=== PATIENT | female | born 1985 | race Caucasian/White ===

== ENCOUNTER → 2023-10-07 | Outpatient (CLI) | payer OTHER, SELFPAY ==
[2023-10-07 11:08] LABS: EXAGEN MAILED SPECIMEN
[2023-10-07 12:26] LABS: Color, Urine Yellow (Yellow); Glucose, Dipstick Normal (Normal); Ketone-Dipstick Negative (Negative); Leukocyte Esterase-Dipstick Negative /ul (Negative); Nitrite-Dipstick Negative (Negative); Occult Blood-Urine 10 /ul (Negative); Protein-Dipstick Negative (Negative); Urine Bilirubin Dipstick Negative (Negative); Urine Clarity Sl. Cloudy (Clear); Urine Urobilinogen Normal (Normal)
[2023-10-07 12:32] LABS: Erythrocyte Sedimentation Rate 7 mm/hr (0-30)
[2023-10-07 12:33] LABS: Protein, Urine (Random) 11.5 mg/dL (<11.9); Protein:Creat Ratio 85 mg/g CRE (0-200)
[2023-10-07 12:35] LABS: Absolute Lymphocyte Count 1.87 X10^3/uL (0.83-4.51); Absolute Neutrophil Count 6.5 X10^3/uL (2.0-7.7); Basophil# 0.06 X10^3/uL; Basophil% 0.7 % (0-1); Eosinophil# 0.11 X10^3/uL; Eosinophils% 1.2 % (0-5); Hematocrit 41.3 % (37-47); Hemoglobin 13.7 g/dL (12.0-15.0); Lymphocyte # 1.87 X10^3/ul (0.83-4.51); Lymphocyte % 20.8 % (19-41); Mean Corp Hgb Conc 33.2 g/dL (32-36); Mean Corpuscular Hgb 31.6 pg (27.0-32.0); Mean Corpuscular Volume 95.4 fL (81-99); Mean Platelet Vol. 11.8 fl (6.2-12.0); Monocyte# 0.41 X10^3/uL; Monocyte% 4.6 % (0-10); NRBC Flagged by Analyzer 0 % (0-5); Neutrophil # 6.49 X10^3/uL (2.7-7.7); Neutrophil % 72.4 % (47-70); Platelet Count 243 K/mm3 (150-450); RBC Distribution Width CV 11.9 % (11.6-14.6); RBC Distribution Width SD 41.3 fl (35.1-43.9); Red Blood Count 4.33 M/mm3 (4.2-5.4)
[2023-10-07 13:01] LABS: ALB/GLOB Ratio 0.9 RATIO (0.9-2.4); AST(SGOT) 20 U/L (15-37); Alanine Aminotransfer ALT/SGPT 30 U/L (13-56); Albumin, Serum 3.6 g/dL (3.2-5.0); Alkaline Phosphatase 88 U/L (45-117); Anion Gap 8 (5-15); BUN 10 mg/dL (7-18); BUN/Creat Ratio 11.6 RATIO (10-20); Chloride 107 mmol/L (98-107); Creatinine, Serum 0.86 mg/dL (0.55-1.02); EST Glomerular Filtration Rate 79 mL/min (>60); Est Glom Filt Rate - Afr Amer 95 mL/min (>60); Globulin 3.8 g/dL (2.2-4.2); Glucose 102 mg/dL (74-106); Potassium 3.6 mmol/L (3.5-5.1); Protein, Total 7.4 g/dL (6.4-8.2); Sodium Level 140 mmol/L (136-145)
[2023-10-07 13:49] LABS: Hepatitis B Surface Antibody Non-Reactive; Hepatitis B Surface Antigen Non-Reactive (Nonreactive); Hepatitis C Antibody Non-Reactive (Nonreactive)
[2023-10-08 21:07] LABS: Dilute Prothrombin Time (dPT) 33.7 sec (0.0-47.6); Dilute Russell Viper Venom 38.2 sec (0.0-47.0); Interpretation Comment: (.); PTT-LA 36.2 sec (0.0-43.5); Thrombin Time 17.7 sec (0.0-23.0)
== END | disposition home or self-care (01) ==
LOC: MTLAB 10:06
PROVIDERS: Referring Provider Internal Medicine Rheumatology; Visit Provider Internal Medicine Rheumatology
DX: R76.8 Other specified abnormal immunological findings in serum (principal); M06.4 Inflammatory polyarthropathy
CPT/HCPCS: 36415; 80053; 81002; 82570; 84156; 85025; 85652; 86140; 86706; 86803; 87340

== ENCOUNTER → 2023-11-27 | Outpatient (CLI) | payer OTHER, SELFPAY ==
[2023-11-27 12:23] LABS: Absolute Lymphocyte Count 1.89 X10^3/uL (0.83-4.51); Absolute Neutrophil Count 7.6 X10^3/uL (2.0-7.7); Basophil# 0.09 X10^3/uL; Basophil% 0.9 % (0-1); Eosinophil# 0.09 X10^3/uL; Eosinophils% 0.9 % (0-5); Hematocrit 43.1 % (37-47); Hemoglobin 13.9 g/dL (12.0-15.0); Lymphocyte # 1.89 X10^3/ul (0.83-4.51); Lymphocyte % 18.5 % (19-41); Mean Corp Hgb Conc 32.3 g/dL (32-36); Mean Corpuscular Hgb 30.7 pg (27.0-32.0); Mean Corpuscular Volume 95.1 fL (81-99); Mean Platelet Vol. 11.4 fl (6.2-12.0); Monocyte# 0.55 X10^3/uL; Monocyte% 5.4 % (0-10); NRBC Flagged by Analyzer 0 % (0-5); Neutrophil # 7.57 X10^3/uL (2.7-7.7); Platelet Count 242 K/mm3 (150-450); RBC Distribution Width CV 12.2 % (11.6-14.6); RBC Distribution Width SD 42.5 fl (35.1-43.9); Red Blood Count 4.53 M/mm3 (4.2-5.4); White Blood Count 10.2 K/mm3 (4.4-11.0)
[2023-11-27 13:00] LABS: AST(SGOT) 17 U/L (15-37); Alanine Aminotransfer ALT/SGPT 27 U/L (13-56); Albumin, Serum 3.8 g/dL (3.2-5.0); Alkaline Phosphatase 93 U/L (45-117); Anion Gap 4 (5-15); BUN 12 mg/dL (7-18); BUN/Creat Ratio 12.9 RATIO (10-20); Calcium,Total 9.7 mg/dL (8.5-10.1); Chloride 104 mmol/L (98-107); Creatinine, Serum 0.93 mg/dL (0.55-1.02); EST Glomerular Filtration Rate 72 mL/min (>60); Est Glom Filt Rate - Afr Amer 87 mL/min (>60); Globulin 3.7 g/dL (2.2-4.2); Glucose 90 mg/dL (74-106); Protein, Total 7.5 g/dL (6.4-8.2); Sodium Level 136 mmol/L (136-145)
== END | disposition home or self-care (01) ==
LOC: MTLAB 10:38
PROVIDERS: Referring Provider Internal Medicine Rheumatology; Visit Provider Internal Medicine Rheumatology
DX: M06.4 Inflammatory polyarthropathy (principal); Z79.899 Other long term (current) drug therapy; R76.8 Other specified abnormal immunological findings in serum; G56.01 Carpal tunnel syndrome, right upper limb
CPT/HCPCS: 36415; 80053; 85025

== ENCOUNTER → 2024-01-15 | Outpatient (CLI) | payer OTHER, SELFPAY ==
[2024-01-15 17:42] LABS: Absolute Lymphocyte Count 2.07 X10^3/uL (0.83-4.51); Absolute Neutrophil Count 6.5 X10^3/uL (2.0-7.7); Basophil# 0.07 X10^3/uL; Basophil% 0.7 % (0-1); Eosinophil# 0.11 X10^3/uL; Eosinophils% 1.2 % (0-5); Hematocrit 42.2 % (37-47); Hemoglobin 13.9 g/dL (12.0-15.0); Lymphocyte # 2.07 X10^3/ul (0.83-4.51); Lymphocyte % 21.8 % (19-41); Mean Corp Hgb Conc 32.9 g/dL (32-36); Mean Corpuscular Hgb 31.4 pg (27.0-32.0); Mean Corpuscular Volume 95.3 fL (81-99); Mean Platelet Vol. 11.5 fl (6.2-12.0); Monocyte# 0.69 X10^3/uL; Monocyte% 7.3 % (0-10); NRBC Flagged by Analyzer 0 % (0-5); Neutrophil # 6.54 X10^3/uL (2.7-7.7); Neutrophil % 68.7 % (47-70); Platelet Count 244 K/mm3 (150-450); RBC Distribution Width CV 12.4 % (11.6-14.6); RBC Distribution Width SD 42.7 fl (35.1-43.9); Red Blood Count 4.43 M/mm3 (4.2-5.4); White Blood Count 9.5 K/mm3 (4.4-11.0)
[2024-01-15 18:28] LABS: ALB/GLOB Ratio 1.1 RATIO (0.9-2.4); AST(SGOT) 17 U/L (15-37); Alanine Aminotransfer ALT/SGPT 29 U/L (13-56); Albumin, Serum 3.9 g/dL (3.2-5.0); Alkaline Phosphatase 84 U/L (45-117); Anion Gap 6 (5-15); BUN 14 mg/dL (7-18); BUN/Creat Ratio 14.6 RATIO (10-20); Calcium,Total 9.3 mg/dL (8.5-10.1); Chloride 106 mmol/L (98-107); Creatinine, Serum 0.96 mg/dL (0.55-1.02); EST Glomerular Filtration Rate 70 mL/min (>60); Est Glom Filt Rate - Afr Amer 84 mL/min (>60); Globulin 3.6 g/dL (2.2-4.2); Glucose 102 mg/dL (74-106); Potassium 3.5 mmol/L (3.5-5.1); Protein, Total 7.5 g/dL (6.4-8.2); Sodium Level 139 mmol/L (136-145)
== END | disposition home or self-care (01) ==
LOC: MTLAB 15:49
PROVIDERS: Referring Provider Internal Medicine Rheumatology; Visit Provider Internal Medicine Rheumatology
DX: M06.4 Inflammatory polyarthropathy (principal); Z79.899 Other long term (current) drug therapy; R76.8 Other specified abnormal immunological findings in serum; G56.01 Carpal tunnel syndrome, right upper limb
CPT/HCPCS: 36415; 80053; 85025

== ENCOUNTER → 2024-03-14 | Outpatient (CLI) | payer OTHER, SELFPAY ==
[2024-03-14 17:28] LABS: Absolute Lymphocyte Count 2.45 X10^3/uL (0.83-4.51); Absolute Neutrophil Count 8.3 X10^3/uL (2.0-7.7); Basophil# 0.09 X10^3/uL; Basophil% 0.8 % (0-1); Eosinophil# 0.11 X10^3/uL; Eosinophils% 0.9 % (0-5); Hematocrit 40.3 % (37-47); Hemoglobin 13.5 g/dL (12.0-15.0); Lymphocyte # 2.45 X10^3/ul (0.83-4.51); Mean Corp Hgb Conc 33.5 g/dL (32-36); Mean Corpuscular Hgb 31.8 pg (27.0-32.0); Mean Platelet Vol. 10.9 fl (6.2-12.0); Monocyte# 0.73 X10^3/uL; Monocyte% 6.2 % (0-10); NRBC Flagged by Analyzer 0 % (0-5); Neutrophil # 8.26 X10^3/uL (2.7-7.7); Neutrophil % 70.7 % (47-70); Platelet Count 248 K/mm3 (150-450); RBC Distribution Width CV 12.6 % (11.6-14.6); RBC Distribution Width SD 43.2 fl (35.1-43.9); Red Blood Count 4.24 M/mm3 (4.2-5.4); White Blood Count 11.7 K/mm3 (4.4-11.0)
[2024-03-14 18:33] LABS: ALB/GLOB Ratio 1.1 RATIO (0.9-2.4); AST(SGOT) 18 U/L (15-37); Alanine Aminotransfer ALT/SGPT 58 U/L (13-56); Albumin, Serum 3.8 g/dL (3.2-5.0); Alkaline Phosphatase 80 U/L (45-117); Anion Gap 6 (5-15); BUN 11 mg/dL (7-18); BUN/Creat Ratio 13.1 RATIO (10-20); Chloride 105 mmol/L (98-107); Creatinine, Serum 0.84 mg/dL (0.55-1.02); EST Glomerular Filtration Rate 81 mL/min (>60); Est Glom Filt Rate - Afr Amer 98 mL/min (>60); Globulin 3.5 g/dL (2.2-4.2); Glucose 97 mg/dL (74-106); Potassium 3.6 mmol/L (3.5-5.1); Protein, Total 7.3 g/dL (6.4-8.2); Sodium Level 137 mmol/L (136-145)
== END | disposition home or self-care (01) ==
LOC: MTLAB 16:05
PROVIDERS: Referring Provider Internal Medicine Rheumatology; Visit Provider Internal Medicine Rheumatology
DX: M06.4 Inflammatory polyarthropathy (principal); G56.01 Carpal tunnel syndrome, right upper limb; R76.8 Other specified abnormal immunological findings in serum; Z79.899 Other long term (current) drug therapy
CPT/HCPCS: 36415; 80053; 85025

== ENCOUNTER → 2024-05-16 | Outpatient (CLI) | payer OTHER, SELFPAY ==
[2024-05-16 10:36] LABS: Absolute Lymphocyte Count 1.59 X10^3/uL (0.83-4.51); Absolute Neutrophil Count 5.7 X10^3/uL (2.0-7.7); Basophil# 0.07 X10^3/uL; Basophil% 0.9 % (0-1); Eosinophil# 0.08 X10^3/uL; Hematocrit 41.2 % (37-47); Hemoglobin 13.8 g/dL (12.0-15.0); Lymphocyte # 1.59 X10^3/ul (0.83-4.51); Lymphocyte % 19.8 % (19-41); Mean Corp Hgb Conc 33.5 g/dL (32-36); Mean Corpuscular Hgb 32.2 pg (27.0-32.0); Mean Platelet Vol. 11.2 fl (6.2-12.0); Monocyte# 0.57 X10^3/uL; Monocyte% 7.1 % (0-10); NRBC Flagged by Analyzer 0 % (0-5); Neutrophil % 70.8 % (47-70); Platelet Count 257 K/mm3 (150-450); RBC Distribution Width CV 12.8 % (11.6-14.6); RBC Distribution Width SD 45.1 fl (35.1-43.9); Red Blood Count 4.29 M/mm3 (4.2-5.4)
[2024-05-16 10:59] LABS: ALB/GLOB Ratio 1.1 RATIO (0.9-2.4); AST(SGOT) 17 U/L (15-37); Alanine Aminotransfer ALT/SGPT 30 U/L (13-56); Albumin, Serum 3.8 g/dL (3.2-5.0); Alkaline Phosphatase 83 U/L (45-117); Anion Gap 7 (5-15); BUN 14 mg/dL (7-18); BUN/Creat Ratio 13.2 RATIO (10-20); Calcium,Total 9.4 mg/dL (8.5-10.1); Chloride 105 mmol/L (98-107); Creatinine, Serum 1.06 mg/dL (0.55-1.02); EST Glomerular Filtration Rate 62 mL/min (>60); Est Glom Filt Rate - Afr Amer 75 mL/min (>60); Globulin 3.6 g/dL (2.2-4.2); Glucose 99 mg/dL (74-106); Potassium 3.8 mmol/L (3.5-5.1); Protein, Total 7.4 g/dL (6.4-8.2); Sodium Level 137 mmol/L (136-145)
== END | disposition home or self-care (01) ==
LOC: MTLAB 07:56
PROVIDERS: Referring Provider Internal Medicine Rheumatology; Visit Provider Internal Medicine Rheumatology
DX: M06.4 Inflammatory polyarthropathy (principal); R76.8 Other specified abnormal immunological findings in serum; Z79.899 Other long term (current) drug therapy
CPT/HCPCS: 36415; 80053; 85025

== ENCOUNTER → 2024-07-05 | Outpatient (CLI) | payer OTHER, SELFPAY ==
[2024-07-05 10:38] LABS: Absolute Lymphocyte Count 1.56 X10^3/uL (0.83-4.51); Absolute Neutrophil Count 5.9 X10^3/uL (2.0-7.7); Basophil# 0.07 X10^3/uL; Basophil% 0.9 % (0-1); Eosinophil# 0.08 X10^3/uL; Hematocrit 42.8 % (37-47); Hemoglobin 14.1 g/dL (12.0-15.0); Lymphocyte # 1.56 X10^3/ul (0.83-4.51); Mean Corp Hgb Conc 32.9 g/dL (32-36); Mean Corpuscular Hgb 32.2 pg (27.0-32.0); Mean Corpuscular Volume 97.7 fL (81-99); Mean Platelet Vol. 11.7 fl (6.2-12.0); Monocyte# 0.54 X10^3/uL; Monocyte% 6.6 % (0-10); NRBC Flagged by Analyzer 0 % (0-5); Neutrophil # 5.93 X10^3/uL (2.7-7.7); Neutrophil % 72.3 % (47-70); Platelet Count 216 K/mm3 (150-450); RBC Distribution Width CV 12.5 % (11.6-14.6); RBC Distribution Width SD 44.9 fl (35.1-43.9); Red Blood Count 4.38 M/mm3 (4.2-5.4); White Blood Count 8.2 K/mm3 (4.4-11.0)
[2024-07-05 10:43] LABS: ALB/GLOB Ratio 1.5 RATIO (0.9-2.4); AST(SGOT) 20 U/L (<=31); Alanine Aminotransfer ALT/SGPT 22 U/L (<=34); Albumin, Serum 4.4 g/dL (3.5-5.0); Alkaline Phosphatase 70 U/L (35-104); Anion Gap 9 (5-15); BUN 13 mg/dL (4-19); BUN/Creat Ratio 14.4 RATIO (10-20); Calcium,Total 9.8 mg/dL (7.6-11.0); Carbon Dioxide 23.7 mmol/L (21.0-32.0); Chloride 105 mmol/L (98-108); Creatinine, Serum 0.93 mg/dL (0.70-1.20); EST Glomerular Filtration Rate 82 (>60); Globulin 2.9 g/dL (2.2-4.2); Glucose 104 mg/dL (70-99); Potassium 4.1 mmol/L (3.3-5.1); Protein, Total 7.2 g/dL (5.9-8.4); Sodium Level 137 mmol/L (133-145)
== END | disposition home or self-care (01) ==
LOC: MTLAB 08:01
PROVIDERS: Referring Provider Internal Medicine Rheumatology; Visit Provider Internal Medicine Rheumatology
DX: M06.4 Inflammatory polyarthropathy (principal); Z79.899 Other long term (current) drug therapy; R76.8 Other specified abnormal immunological findings in serum
CPT/HCPCS: 36415; 80053; 85025

== ENCOUNTER → 2024-10-01 | Outpatient (CLI) | payer OTHER, SELFPAY ==
--- OUTSIDE RECORDS SUMMARY | 2024-10-01 10:44 | XMS RPT_ITS | CCD ---
Author Organization [facility] Team Providers Care Bridge Teacher Name Role Phone MARGARETTE OLIVO Unavailable Unavailable GISELA RUIZ Unavailable Unavailable BHAVYA CARMEN Unavailable Unavailable ALF KING Unavailable Unavailable BHAVYA CARMEN Unavailable Unavailable BHAVYA CARMEN Unavailable Unavailable Deejay DIRECT SUPPORT STAFF.Thom SERRANO Primary Care Provider Deejay DIRECT SUPPORT STAFF.Thom SERRANO Primary Care Provider MOHSEN ALMAZAN Attending Unavailable Jadiel DIRECT SUPPORT STAFF.Nicole SERRANO Primary Care Formerly [facility] er DAYNA DESHPANDE Attending Unavailable DAYNA DESHPANDE Attending Unavailable Jadiel DIRECT SUPPORT STAFF.Nicole SERRANO Primary Care Formerly [facility] er EMEKA RODRIGUEZ Referring Unavailable NICOLE DUVALL Primary Care Unavailable MOHSEN ALMAZAN Attending Unavailable THOM VILLALBA Primary Care Unavailable Lesterki, Nilam Attending Unavailable FARRELL, ANABELL Primary Care Unavailable Vellanki, Nilam Referring Unavailable Vellanki, Nilam Attending Unavailable FARRELL, ANABELL Primary Care Unavailable Vellanki, Nilam Referring Unavailable FARRELL, ANABELL Primary Care Unavailable Vellanki, Nilam Referring Unavailable Vellanki, Nilam Attending Unavailable FARRELL, ANABELL Primary Care Unavailable Vellanki, Nilam Referring Unavailable Vellanki, Nilam Attending Unavailable FARRELL, ANABELL Primary Care Unavailable Vellanki, Nilam Attending Unavailable Vellanki, Nilam Referring Unavailable Vellanki, Nilam Attending Unavailable FARRELL, ANABELL Primary Care Unavailable Vellanki, Nilam Referring Unavailable NICOLE DUVALL Primary Care Provider [phone] Cori URIOSTEGUI, Dr. Demarco Attending Provider Dr. Nilam Persaud MD Referring Provider DUVALL, NICOLE TREASURE Referring Unavailable DUVALL, NICOLE TREASURE Primary Care Unavailable FERNANDO ROBERT Attending UnavailALEXIS Costa Referring Unavailable DUVALL, NICOLE TREASURE Primary Care Unavailable FERNANDO ROBERT Attending UnavailALEXIS Costa Referring Unavailable DUVALL, NICOLE TREASURE Primary Care Unavailable FERNANDO ROBERT Attending UnavailALEXIS Costa Referring Unavailable DUVALL, NICOLE TREASURE Primary Care Unavailable FERNANDO ROBERT Attending UnavailALEXIS Costa Referring Unavailable DUVALL, NICOLE TREASURE Primary Care Unavailable FERNANDO ROBERT Attending UnavailALEXIS Costa Referring Unavailable DUVALL, NICOLE TREASURE Primary Care Unavailable FERNANDO ROBERT Attending UnavailALEXIS Costa Referring Unavailable DUVALL, NICOLE TREASURE Primary Care Unavailable FERNANDO ROBERT Attending UnavailALEXIS Costa Referring Unavailable DUVALL, NICOLE TREASURE Primary Care Unavailable FERNANDO ROBERT Attending UnavailALEXIS Costa Referring Unavailable DUVALL, NICOLE TREASURE Primary Care Unavailable DUVALL, NICOLE TREASURE Referring Unavailable DUVALL, NICOLE TREASURE Primary Care Unavailable DUVALL, NICOLE TREASURE Primary Care Unavailable DESTINY MANN Attending Unavailable DUVALL, NICOLE TREASURE Referring Unavailable DUVALL, NICOLE TREASURE Primary Care Unavailable Nirmal URIOSTEGUI, PhD, Riya Unavailable Swapna Butler DO Unavailable [phone] ALEXIS JONES Referring Unavailable DUVALL, NICOLE TREASURE Primary Care Unavailable CLARISSE WATT Attending Unavailable SWAPNA BUTLER Referring Unavailable DUVALL, NICOLE TREASURE Primary Care Unavailable SWAPNA BUTLER Attending Unavailable DUVALL, NICOLE TREASURE Primary Care Unavailable DUVALL, NICOLE TREASURE Referring Unavailable DUVALL, NICOLE TREASURE Primary Care Unavailable ALEXIS JONES Referring Unavailable DUVALL, NICOLE TREASURE Primary Care Unavailable ALEXIS JONES Referring Unavailable DUVALL, NICOLE TREASURE Primary Care Unavailable ALEXIS JONES Referring Unavailable DUVALL, NICOLE TREASURE Primary Care Unavailable DUVALL, NICOLE TREASURE Attending Unavailable DUVALL, NICOLE TREASURE Primary Care Unavailable DUVALL, NICOLE TREASURE Attending Unavailable DUVALL, NICOLE TREASURE Primary Care Unavailable DUVALL, NICOLE TREASURE Attending Unavailable DUVALL, NICOLE TREASURE Primary Care Unavailable SWAPNA BUTLER Attending Unavailable DUVALL, NICOLE TREASURE Referring Unavailable DUVALL, NICOLE TREASURE Primary Care Unavailable DUVALL, NICOLE TREASURE Referring Unavailable DUVALL, NICOLE TREASURE Primary Care Unavailable ALEXIS JONES Attending Unavailable DUVALL, NICOLE TREASURE Primary Care Unavailable MADHU, RAGINI Attending Unavailable ALEXIS JONES Referring Unavailable DUVALL, NICOLE TREASURE Primary Care Unavailable RIYA IKNNEY Attending Unavailable PREBISH, RAGINI Referring Unavailable DUVALL, NICOLE TREASURE Primary Care Unavailable WARD HERRERA Attending Unavailable DUVALL, NICOLE TREASURE Primary Care Unavailable Medications Current Medications Medication Drug Class(es) Dates Sig (Normalized) Sig (Original) amoxicillin 875 mg / clavulanate 125 mg oral tablet (2 sources) Penicillin-class Antibacterial Start: 03-10-2024 End: 03-17-2024 take 1 tablet by mouth twice daily amoxicillin-clavula lidya potassium (AUGMENTIN) 875-125 mg per tablet Indications: Acute otitis media, left Take 1 tablet by mouth two times a day for 7 days. 14 tablet 03/10/2024 03/17/2024 Active cholecalciferol 0.05 mg oral capsule (20 sources) Vitamin D take 1 capsule by mouth once daily Cholecalciferol, Vitamin D3, 50 mcg (2,000 unit) cap Take 2,000 Units by mouth once daily. Active Comment on above: Take 2,000 Units by mouth once daily. clobetasol propionate 0.5 mg/ml topical solution (8 sources) Corticosteroid Start: 11-23-2023 End: 08-05-2024 Clobetasol Propionate (TEMOVATE) 0.05 % external solution APPLY TO THE SCALP AT NIGHT AND MASSAGE IN, ALLOWING TO STAY IN OVERNIGHT FOR TWO WEEKS, STOPPING FOR ONE WEEK AND THEN RESUMING THE REGIMEN NEEDED FOR FLARING. 11/23/2023 08/05/2024 Discontinued folic acid 1 mg oral tablet (16 sources) Start: 02-17-2024 take 1 tablet by mouth twice daily folic acid 1 mg tablet Take 1 mg by mouth two times a day. 02/17/2024 Active iv contrast (will be provided with radiology test) (1 source) Start: 09-29-2023 End: 09-30-2023 iv contrast (will be provided with radiology test) MRI CSP Inject, intravenously, once for 1 dose. No IV access, insert saline lock prior to the beginning of sedation, infusion, injection of imaging exam. Discontinue saline lock post exam. If Pt. has a central line or IVAD, may access for administration according to line specific nursing protocol. Once exam is complete flush line and de-access according to line specific nursing protocol in the MR contrast administration guidelines link. 1 Each 0 09/29/2023 09/30/2023 Active ketoconazole 20 mg/ml medicated shampoo (8 sources) Azole Antifungal Start: 11-23-2023 End: 08-05-2024 ketoconazole (NIZORAL) 2 % shampoo USE FOR EVERY OTHER WASH ON THE SCALP LETTING IT LATHER 3 TO 5 MINUTES BEFORE RINSING DIRECTED. 11/23/2023 08/05/2024 Discontinued magnesium sulfate 0.0277 meq/ml / potassium sulfate 0.0374 meq/ml / sodium sulfate 0.257 meq/ml oral solution (1 source) Start: 08-17-2023 End: 08-19-2023 sodium sulfate-potassium sulfate-magnesium sulfate (SUPREP BOWEL PREP KIT) 17.5-3.13-1.6 gram oral liquid Indications: Family history of colon cancer in father Take 1 Bottle by mouth as directed for 2 days. Refer to instructions given by your provider. 1 Kit 0 08/17/2023 08/19/2023 Active methotrexate 2.5 mg oral tablet (16 sources) Folate Analog Metabolic Inhibitor Start: 02-17-2024 take 1 tablet by mouth every week methotrexate 2.5 mg tablet Take 2.5 mg by mouth. Take 6 tabs Q week. 02/17/2024 Active predniSONE 10 mg oral tablet (19 sources) Start: 02-22-2024 take 1 tablet by mouth once daily as needed predniSONE (DELTASONE) 10 mg tablet Take 1 tablet by mouth once daily as needed. Rx by rheumatology for days of increased activity 02/22/2024 Active Start: 11-21-2021 End: 10-13-2022 predniSONE (DELTASONE) 10 mg tablet Indications: Dermatitis Take 5 tabs every morning x 3 days, take 4 tabs every morning x 3 days, take 3 tabs every morning x 3 days, take 2 tabs every morning x 3 days, take 1 tab every morning x 3 days. 45 tablet 0 11/21/2021 10/13/2022 Discontinued (Course of therapy completed) Comment on above: Take 5 tabs every mo rning x 3 days, take 4 tabs every morning x 3 days, take 3 tabs every morning x 3 days, take 2 tabs every morning x 3 days, take 1 tab every morning x 3 days. rosuvastatin calcium 10 mg oral tablet (20 sources) HMG-CoA Reductase Inhibitor Start: End: take 1 tablet by mouth once daily at bedtime rosuvastatin (CRESTOR) 10 mg tablet Take 1 tablet by mouth daily at bedtime. 90 tablet 3 08/05/2024 07/31/2025 Active Start: 11-05-2023 End: 03-09-2024 take 1 tablet by mouth once daily at bedtime rosuvastatin (CRESTOR) 10 mg tablet Take 1 tablet by mouth daily at bedtime. 30 tablet 02/08/2024 Active SEMAGLUTIDE SUBCUTANEOUS (7 sources) Start: 07-15-2024 inject 0.2 mg by subcutaneous injection every week SEMAGLUTIDE SUBCUTANEOUS Inject 0.2 mg subcutaneously one time a week. Receives through [facility] 07/15/2024 Active terbinafine 250 mg oral tablet (4 sources) Allylamine Antifungal Start: 10-17-2021 End: 11-28-2021 take 1 tablet by mouth once daily terbinafine HCl (LAMISIL) 250 mg tablet Indications: Tinea corporis Take 1 tablet by mouth once daily. 30 tablet 1 10/17/2021 11/28/2021 Active Comment on above: Take 1 tablet by sarah th once daily. Completed/Discontinued Medications Medication Drug Class(es) Dates Sig (Normalized) Sig (Original) 0.9% NaCl 10 mL flush (2 sources) Start: 08-16-2024 End: 08-16-2024 0.9% NaCl 10 mL flush Start: 08-16-2024 End: 08-16-2024 10 mL, OTHER, ONCE, 1 dose, On Thu08/16/24 at 1030 24 hr buPROPion hydrochloride 150 mg extended release oral tablet (2 sources) Aminoketone Start: 09-07-2020 End: 10-17-2021 take 2 tablets by mouth once daily buPROPion XL (WELLBUTRIN XL) 150 mg 24 hr tablet Indications: Depression, unspecified depression type Take 2 tablets by mouth once daily. 60 tablet 2 09/07/2020 10/17/2021 Discontinued Comment on above: Take 2 tablets by [facility] once daily. 1 ml dexamethasone phosphate 10 mg/ml injection (1 source) Corticosteroid Start: 08-16-2024 End: 08-16-2024 dexAMETHasone sodium phosphate 10 mg injection (DECADRON) iohexol 300 mg injection (OMNIPAQUE 300) (2 sources) Start: 08-16-2024 End: 08-16-2024 iohexol 300 mg injection (OMNIPAQUE 300) Start: 08-16-2024 End: 08-16-2024 300 mg, OTHER, ONCE, 1 dose, On Thu08/16/24 at 1030 10 ml lidocaine hydrochloride 10 mg/ml injection (2 sources) Antiarrhythmic, Amide Local Anesthetic Start: 08-16-2024 End: 08-16-2024 lidocaine (PF) 10 mg/mL (1 %) 100 mg injection (XYLOCAINE) Start: 08-16-2024 End: 08-16-2024 100 mg, OTHER, ONCE, 1 dose, On Thu08/16/24 at 1030 1 ml methylPREDNISolone acetate 40 mg/ml injection (2 sources) Corticosteroid Start: 08-16-2024 End: 08-16-2024 methylPREDNISolone acetate 40 mg injection (DEPO-Medrol) Start: 08-16-2024 End: 08-16-2024 40 mg, OTHER, ONCE, 1 dose, On Thu08/16/24 at 1030 Progesterone (20 sources) Progesterone Start: 04-20-2022 End: 02-22-2024 Progesterone 200 mg supp 04/202202/22/2024 Discontinued Start: 04-20-2022 Progesterone 2 00 mg supp 04/20/2022 Active Start: 04-20-2022 Progesterone 2 00 mg supp 1000 ml sodium chloride 9 mg/ml injection (1 source) Start: 10-01-2023 End: 10-01-2023 NaCl 0.9% iv infusion triamcinolone acetonide 0.001 mg/mg topical ointment (20 sources) Corticosteroid Start: 06-24-2022 End: 02-22-2024 triamcinolone acetonide (KENALOG) 0.1 % ointment APPLY TWICE A DAY TO DERMATITIS- 2 WEEKS ON - 1 WEEK OFF 06/24/2022 02/22/2024 Discontinued Comment on above: APPLY TWICE A DAY TO DERMATITIS- 2 WEEKS ON - 1 WEEK OFF Problems Active Problems Problem Classification Problem Date Documented Date Episodic/Chronic Allergic reactions (1 source) Inflammatory dermatosis; Translations: [Dermatitis, unspecified] Episodic Anxiety disorders (8 sources) Generalized anxiety disorder; Translations: [Generalized anxiety disorder] Onset: 11-05-2023 07-13-2023 Chronic Disorders of lipid metabolism (12 sources) Mixed hyperlipidemia; Translations: [Mixed hyperlipidemia] Onset: 10-28-2023 07-13-2023 Chronic Diverticulosis and diverticulitis (1 source) Diverticular disease; Translations: [Diverticulosis of intestine, part unspecified, without perforation or abscess without bleeding] 10-27-2023 Chronic Mycoses (1 source) Tinea corporis; Translations: [Tinea corporis] Episodic Nutritional deficiencies (20 sources) Vitamin D deficiency; Translations: [Vitamin D deficiency, unspecified] Onset: 07-28-2018 10-17-2021 Chronic Other and unspecified benign neoplasm (1 source) Adenomatous polyp of colon ; Translations: [Benign neoplasm of sigmoid colon] 10-27-2023 Episodic Other injuries and conditions due to external causes (1 source) Allergic condition; Translations: [Allergy, unspecified, sequela] Episodic Other nervous system disorders (7 sources) Idiopathic peripheral neuropathy; Translations: [Hereditary and idiopathic neuropathy, unspecified] 07-13-2023 Chronic Other nervous system disorders (2 sources) Hereditary and idiopathic neuropathy, unspecified; Translations: [Idiopathic peripheral neuropathy] Onset: 08-20-2023 Chronic Other nervous system disorders (1 source) Carpal tunnel syndrome of right wrist; Translations: [Carpal tunnel syndrome, right upper limb] 11-05-2023 Chronic Other nervous system disorders (10 sources) Chronic low back pain; Translations: [Other chronic pain] Onset: 12-09-2023 Resolved: 03-09-2024 4 Chronic Other nervous system disorders (3 sources) Other chronic pain; Translations: [Chronic bilateral low back pain with left-sided sciatica] Onset: 11-05-2023 Chronic Other nervous system disorders (1 source) Carpal tunnel syndrome, right upper limb; Translations: [Carpal tunnel syndrome of right wrist] Onset: 11-05-2023 Chronic Other nervous system disorders (1 source) Skin sensation disturbance; Translations: [Other disturbances of skin sensation] 08-20-2023 Episodic Other nervous system disorders (1 source) Paresthesia; Translations: [Paresthesia of skin] 11-05-2023 Episodic Other nutritional; endocrine; and metabolic disorders (20 sources) Obese class I; Translations: [Obesity, unspecified] Onset: 10-13-2022 Chronic Other nutritional; endocrine; and metabolic disorders (1 source) Weight gain; Translations: [Abnormal weight gain] Episodic Other skin disorders (6 sources) Eruption; Translations: [Rash and other nonspecific skin eruption] 07-13-2023 Episodic Residual codes; unclassified (4 sources) Family history of cancer of colon; Translations: [Family history of malignant neoplasm of digestive organs] 07-30-2023 Episodic Rheumatoid arthritis and related disease (1 source) Inflammatory polyarthropathy; Translations: [Inflammatory polyarthropathy] Onset: 07-14-2024 Chronic Screening and history of mental health and substance abuse codes (2 sources) Encounter for screening examination for other mental health and behavioral disorders; Translations: [Encounter for screening for depression] Onset: 08-05-2024 Episodic Spondylosis; intervertebral disc disorders; other back problems (1 source) Degeneration of lumbar intervertebral disc; Translations: [Degeneration of intervertebral disc of lumbar region with discogenic back pain and lower extremity pain] 07-07-2024 Chronic Spondylosis; intervertebral disc disorders; other back problems (20 sources) Neck pain; Translations: [Cervicalgia] Onset: 09-25-2023 Resolved: 03-09-2024 09-25-2023 Episodic Unclassified (1 source) Unknown / UNK(Unknown) Onset: 10-22-2016 Unclassified (1 source) Established Patient Onset: 10-26-2023 Unclassified (1 source) Degeneration of intervertebral disc of lumbar region with discogenic back pain and lower extremity pain; Translations: [Degeneration of intervertebral disc of lumbar region with discogenic back pain and lower extremity pain] Onset: 07-07-2024 Past or Other Problems Problem Classification Problem Date Documented Date Episodic/Chronic Diabetes or abnormal glucose tolerance complicating ; childbirth; or the puerperium (20 sources) Gestational diabetes mellitus; Translations: [Gestational diabetes mellitus in , unspecified control] Onset: 10-17-2021 10-17-2021 Episodic Immunizations and screening for infectious disease (8 sources) Anti-nuclear factor positive; Translations: [Other specified abnormal immunological findings in serum] Onset: 10-29-2023 07-30-2023 Episodic Malaise and fatigue (8 sources) Fatigue; Translations: [Other fatigue] Onset: 11-05-2023 Episodic Other nervous system disorders (1 source) Paresthesia of skin; Translations: [Paresthesia of skin] Onset: 11-05-2023 Episodic Other screening for suspected conditions (not mental disorders or infectious disease) (20 sources) Patient encounter status; Translations: [Encounter for screening for cardiovascular disorders] Onset: 09-23-2023 Resolved: 10-01-2023 Episodic Other skin disorders (1 source) Rash and other nonspecific skin eruption; Translations: [Rash] Onset: 11-05-2023 Episodic Otitis media and related conditions (2 sources) Acute left otitis media; Translations: [Otitis media, unspecified, left ear] Onset: 03-10-2024 03-10-2024 Episodic Residual codes; unclassified (2 sources) Family history of cardiac disorder; Translations: [Family history of ischemic heart disease and other diseases of the circulatory system] 11-05-2023 Episodic Residual codes; unclassified (1 source) Family history of ischemic heart disease and other diseases of the circulatory system; Translations: [Family history of heart disease] Onset: 11-30-2023 Episodic Residual codes; unclassified (1 source) Family history of malignant neoplasm of digestive organs; Translations: [Family history of colon cancer in father] Onset: 10-01-2023 Episodic Unclassified (1 source) FOB W/ HX HEART SURGERY Onset: 10-22-2016 Unclassified (1 source) R53.83 R63.5 R53.83 R63.5 Z13.6 E55.9 Onset: 10-17-2022 Results Test Name Value Interpretation Reference Range Facility [facility] 09-28-2024 CNCO Letter Text Normal [facility] CNPNon 09-28-2024 CNPN Telephone (AGSPINE2) ---- ELMERANABELL ([id number]) 1985 F Date Time Provider Department 09/28/24 WARD HERRERA AGSPINE2 During your visit today, we recorded the following information about you: Pattie Friedman 09/28/2024 8:48 AM Signed Procedure(s) being scheduled: Bilateral S1 TESI 1.Are you diabetic No 2. Are you on any blood thinners? No If yes, does it require a hold? No If yes, was approval letter sent? No 3. Are you taking any aspirin? No 4. Are you currently taking any antibiotics? No If yes, is it prophylactic or for treatment of an infection? no 5. Do you have any allergies to latex? No 6. Do you have any allergies to seafood or shellfish? No 7. Do you have any allergies to x-ray dye? No 8. Does this procedure require a lyft driver? Yes If yes, has patient been notified that a lyft driver is needed and must be present at check in? Yes 9. Were the pre-procedure instructions explained and provided to the patient? Yes 10. Do you have a pacemaker? No 11. Do you have an internal stimulator of any kind? No If yes, please bring the remote with you to your procedure visit. Pattie Friedman Allergies As of Date: 09/28/2024 (No Known Allergies) Date Reviewed: 09/27/2024 Reviewed by: Ward Herrera APRN.HOME THEATER EXPERIENCE EXPERT - Fully Assessed Reason for Visit: Injections [199] Cmt: Questions Prescriptions as of 09/28/2024 - SEMAGLUTIDE SUBCUTANEOUS Inject 0.2 mg subcutaneously one time a week. Receives through [facility] - rosuvastatin (CRESTOR) 10 mg tablet Take 1 tablet by mouth daily at bedtime. - methotrexate 2.5 mg tablet Take 2.5 mg by mouth. Take 6 tabs Q week. - folic acid 1 mg tablet Take 1 mg by mouth two times a day. - predniSONE (DELTASONE) 10 mg tablet Take 1 tablet by mouth once daily as needed. Rx by rheumatology for days of increased activity - Cholecalciferol, Vitamin D3, 50 mcg (2,000 unit) cap Take 2,000 Units by mouth once daily. Meds Comments as of 08/09/2020: Problem List As Of Date 09/28/2024 Noted Resolved Gestational diabetes [O24.419] 10/17/2021 Vitamin D deficiency [E55.9] 07/28/2018 Obesity, Class I, BMI 30-34.9 [E66.811] 10/13/2022 Encounter for screening for malignant neoplasm *09/24/2023 10/01/2023 Chronic bilateral low back pain with left-sided*12/09/19 24 03/09/2024 Encounter Status:Closed by PATTIE FRIEDMAN on 09/28/24 [facility] Telephone (AGSPINE3) ---- ANABELL PAYNE ([id number]) 1985 F Date Time Provider Department 08/18/24 RIYA KINNEY AGSPINE3 During your visit today, we recorded the following information about you: Nandini Gonzales MA 08/18/2024 12:46 PM Signed Spoke to patient following procedure. Patient states they have no questions or concerns at this time. Nandini Gonzales MA Allergies As of Date: 08/18/2024 (No Known Allergies) Date Reviewed: 08/16/2024 Reviewed by: Nadiya Arcos LPN - Fully Assessed Reason for Visit: Procedure Follow Up [1139] Cmt: ILESI Prescriptions as of 08/18/2024 - SEMAGLUTIDE SUBCUTANEOUS Inject 0.2 mg subcutaneously one time a week. Receives through [facility] - rosuvastatin (CRESTOR) 10 mg tablet Take 1 tablet by mouth daily at bedtime. - methotrexate 2.5 mg tablet Take 2.5 mg by mouth. Take 6 tabs Q week. - folic acid 1 mg tablet Take 1 mg by mouth two times a day. - predniSONE (DELTASONE) 10 mg tablet Take 1 tablet by mouth once daily as needed. Rx by rheumatology for days of increased activity - Cholecalciferol, Vitamin D3, 50 mcg (2,000 unit) cap Take 2,000 Units by mouth once daily. Meds Comments as of 08/09/2020: Problem List As Of Date 08/18/2024 Noted Resolved Gestational diabetes [O24.419] 10/17/2021 Vitamin D deficiency [E55.9] 07/28/2018 Obesity, Class I, BMI 30-34.9 [E66.811] 10/13/2022 Encounter for screening for malignant neoplasm *09/24/2023 10/01/2023 Chronic bilateral low back pain with left-sided*12/09/19 24 03/09/2024 Encounter Status:Closed by NANDINI GONZALES on 08/18/24 [facility] CNPN Telephone (AGSPINE3) ---- ANABELL PAYNE ([id number]) 1985 F Date Time Provider Department 08/18/24 RIYA KINNEY AGSPINE3 During your visit today, we recorded the following information about you: Allergies As of Date: 08/18/2024 (No Known Allergies) Date Reviewed: 08/16/2024 Reviewed by: Nadiya Arcos LPN - Fully Assessed Prescriptions as of 09/13/2024 - SEMAGLUTIDE SUBCUTANEOUS Inject 0.2 mg subcutaneously one time a week. Receives through [facility] - rosuvastatin (CRESTOR) 10 mg tablet Take 1 tablet by mouth daily at bedtime. - methotrexate 2.5 mg tablet Take 2.5 mg by mouth. Take 6 tabs Q week. - folic acid 1 mg tablet Take 1 mg by mouth two times a day. - predniSONE (DELTASONE) 10 mg tablet Take 1 tablet by mouth once daily as needed. Rx by rheumatology for days of increased activity - Cholecalciferol, Vitamin D3, 50 mcg (2,000 unit) cap Take 2,000 Units by mouth once daily. Meds Comments as of 08/09/2020: Problem List As Of Date 08/18/2024 Noted Resolved Gestational diabetes [O24.419] 10/17/2021 Vitamin D deficiency [E55.9] 07/28/2018 Obesity, Class I, BMI 30-34.9 [E66.811] 10/13/2022 Encounter for screening for malignant neoplasm *09/24/2023 10/01/2023 Chronic bilateral low back pain with left-sided*12/09/19 24 03/09/2024 Encounter Status:Closed by NANDINI GONZALES on 09/13/24 [facility] CNOVon 08-05-2024 [facility] Office Visit (INTMUD) ---- ANABELL PAYNE ([id number]) 1985 F Date Time Provider Department 08/05/24 8:40 AM NICOLE DUVALL INTMUD During your visit today, we recorded the following information about you: Pulse Respiration Blood pressure Weight 80/minute 15/minute 115/75 89.3 kg Height 1.651 m Nicole Duvall, DIRECT SUPPORT STAFF.HOME THEATER EXPERIENCE EXPERT 08/05/2024 9:11 AM Signed VISIT TYPE: ANNUAL WELL VISIT There are no exam notes on file for this visit. CHIEF COMPLAINT: Patient presents with: Physical: PATIENT HERE FOR YEARLY PHYSICAL NO NEW ISSUES OR CONCERNS NEW TO TAKING GLP 1 THROUGH HERS Results: WOULD LIKE TO GO OVER LABS HPI: Anabell Payne is a 39 year old female here for an Annual Well Visit. Hyperlipidemia- Was started on statin. Total chol 175, Trig 149, HDL 43, LDL 102. Has been trying to watch diet. Does have significant family hx of high chol and heart disease. Fatigue- Cont to have fatigue but is felt to be r/t pos MICHELE. States she developed rashes and fatigue a couple yrs ago. Was seeing [facility] and started on progesterone which did help with the rash. Rash- Improved and only has a spot on her elbow. Has appt with derm tomorrow. Does have rashes on her arms, ankles, and along her neck. Does notice itching when it occurs. Has seen dermatology and was given steroid cream. Had MICHELE done which was pos and was referred to rheumatology. Anxiety- Following with therapist. States she had been on wellbutrin in the past but it hasn't helped. Does feel better since going to counseling. Does feel anxious normally. Prefers to not take meds. Denies any feelings of helplessness/hopele ssness, thoughts of hurting self. Vit D deficiency- Taking vit D daily. Pos MICHELE- Referred to rheumatology. Was dx with inflammatory polyarthritis and being eval for RA or psoriatic arthritis. Was started on methotrexate in Nov but hasn't noticed much improvement yet. Neuropathy- Had EMG which showed evidence of mild intracanal spinal lesion and was referred to neurosurgery. 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 Was set up for mri with contrast d/t the right hand neuropathy which was done on Thursday. Was referred to hand surgeon to eval for carpal tunnel. Chronic back pain- Following with neurosurgery and was ordered MRI. Had flareup and was referred to pain clinic and is being set up for epidural at the end of the month. Was candidate for surgery but d/t age he preferred to wait. Was set up for PT which she finished. REVIEW OF SYSTEMS: Review of Systems Constitutional: Negative for appetite change, chills and fever. HENT: Negative for congestion, ear pain and sore throat. Eyes: Negative for redness and visual disturbance. Respiratory: Negative for cough, chest tightness, shortness of breath and wheezing. Cardiovascular: Negative for chest pain, palpitations and leg swelling. Gastrointestinal: Negative for abdominal pain, constipation, diarrhea, nausea and vomiting. Genitourinary: Negative for dysuria, frequency, hematuria and menstrual problem. Musculoskeletal: Positive for back pain. Negative for arthralgias and gait problem. Skin: Negative for color change, pallor and rash. Neurological: Positive for numbness. Negative for dizziness, syncope and headaches. Psychiatric/Behavio ral: Negative for suicidal ideas. The patient is nervous/anxious. Current Outpatient Medications Medication Sig Dispense Refill rosuvastatin (CRESTOR) 10 mg tablet Take 1 tablet by mouth daily at bedtime. 30 tablet 3 methotrexate 2.5 mg tablet Take 2.5 mg by mouth. Take 6 tabs Q week. folic acid 1 mg tablet Take 1 mg by mouth two times a day. predniSONE (DELTASONE) 10 mg tablet Take 1 tablet by mouth once daily as needed. Rx by rheumatology for days of increased activity Cholecalciferol, Vitamin D3, 50 mcg (2,000 unit) cap Take 2,000 Units by mouth once daily. SEMAGLUTIDE SUBCUTANEOUS Inject 0.2 mg subcutaneously one time a week. ketoconazole (NIZORAL) 2 % shampoo USE FOR EVERY OTHER WASH ON THE SCALP LETTING IT LATHER 3 TO 5 MINUTES BEFORE RINSING DIRECTED. Clobetasol Propionate (TEMOVATE) 0.05 % external solution APPLY TO THE SCALP AT NIGHT AND MASSAGE IN, ALLOWING TO STAY IN OVERNIGHT FOR TWO WEEKS, STOPPING FOR ONE WEEK AND THEN RESUMING THE REGIMEN NEEDED FOR FLARING. No current facility-administer ed medications for this visit. ALLERGIES No Known Allergies PAST MEDICAL HISTORY Diagnosis Date Gestational diabetes (HCC) Kidney stones During Sciatica Vitamin D deficiency 07/28/2018 PAST SURGICAL HISTORY Procedure Laterality Date COLONOSCOPY SCREENING 10/01/2023 Dr. Butler PAST SURGICAL HISTORY OF [place] teeth extraction FAMILY HISTORY Problem Relation Age of Onset Diabetes Mother Hypertension Mother Hypertension Father Stroke Father Prostate Cancer Father Colon (more content not included)... Normal [facility] CBC panel Auto (Bld)on 08-02 Erythrocyte distribution width (RBC) [Ratio] 12.3 % Normal 11.5-15.0 [facility] Comment on above: Order Comment: Speci men Type: BLOOD SPECIMENOrdering Facility: [facility] Address: [address] [place] [address] Performed By: #### 5 8410-2 ####[facility]ORYCLIA [id number] [address] [place] Hematocrit (Bld) [Volume fraction] 42.3 % Normal 36.0-46.0 [facility] Comment on above: Order Comment: Speci men Type: BLOOD SPECIMENOrdering Facility: [facility] Address: [address] [place] [address] Performed By: #### 5 8410-2 ####[facility]ORYCLIA [id number] [place] [address] [place] Hemoglobin (Bld) [Mass/Vol] 14.1 g/dL Normal 11.5-15.5 [facility] Comment on above: Order Comment: Speci men Type: BLOOD SPECIMENOrdering Facility: [facility] Address: [address] [place] [address] Performed By: #### 5 8410-2 ####[facility]ORYCLIA [id number] [place] [address] [place] MCH (RBC) [Entitic mass] 31.7 pg Normal 26.0-34.0 [facility] Comment on above: Order Comment: Speci men Type: BLOOD SPECIMENOrdering Facility: [facility] Address: [address] [place] [address] Performed By: #### 5 8410-2 ####[facility]ORYCLIA [id number] [place] [address] [place] MCHC (RBC) [Mass/Vol] 33.3 g/dL Normal 30.5-36.0 [facility] Comment on above: Order Comment: Speci men Type: BLOOD SPECIMENOrdering Facility: [facility] Address: [address] [place] [address] Performed By: #### 5 8410-2 ####[facility]ORYCLIA [id number] [address] [place] MCV (RBC) [Entitic vol] 95.1 fL Normal 80.0-100.0 [facility] Comment on above: Order Comment: Speci men Type: BLOOD SPECIMENOrdering Facility: [facility] Address: [address] [place], [place] [address] Performed By: #### 5 8410-2 ####[facility]ATORYCLIA [id number] [place] [id number] [place] Nucleated RBC (Bld) [#/Vol] 10*3/uL Normal <0.01 [facility] Comment on above: Order Comment: Speci men Type: BLOOD SPECIMENOrdering Facility: [facility] Address: [address] [place] [address] Performed By: #### 5 8410-2 ####[facility]ORYCLIA [id number] [place] [address] [place] Platelet mean volume (Bld) [Entitic vol] 10.9 fL Normal 9.0-12.7 [facility] Comment on above: Order Comment: Speci men Type: BLOOD SPECIMENOrdering Facility: [facility] Address: [address] [place] [address] Performed By: #### 5 8410-2 ####[facility]ORYCLIA [id number] [place] [address] [place] Platelets (Bld) [#/Vol] 219 10*3/uL Normal 150-400 [facility] Comment on above: Order Comment: Speci men Type: BLOOD SPECIMENOrdering Facility: [facility] Address: [address] [place] [address] Performed By: #### 5 8410-2 ####[facility]ORYCLIA [id number] [place] [address] [place] RBC (Bld) [#/Vol] 4.45 10*6/uL Normal 3.90-5.20 [facility] Comment on above: Order Comment: Speci men Type: BLOOD SPECIMENOrdering Facility: [facility] Address: [address] [place] [address] Performed By: #### 5 8410-2 ####[facility]ORYCLIA [id number] [place] [id number] [place] WBC (Bld) [#/Vol] 8.36 10*3/uL Normal 3.70-11.00 [facility] Comment on above: Order Comment: Speci men Type: BLOOD SPECIMENOrdering Facility: [facility] Address: [address] [place] [address] Performed By: #### 5 8410-2 ####[facility]ORYCLIA [id number] [place] [id number] [facility] Comprehensive metabolic 2000 panelon 08-02-2024 Albumin [Mass/Vol] 4.1 g/dL Normal 3.2-5.0 [facility] Comment on above: Order Comment: Speci men Type: BLOOD SPECIMENOrdering Facility: [facility] Address: [address] [place] [address] Performed By: #### 2 4323-8, 90894-9, 6-3 ####[facility]ORYCLIA [id number] [place] [id number] [place] ALP [Catalytic activity/Vol] 76 U/L Normal 45-117 [facility] Comment on above: Order Comment: Speci men Type: BLOOD SPECIMENOrdering Facility: [facility] Address: [address] [place] [address] Performed By: #### 2 4323-8, 44109-1, 3015-3 ####[facility]ORYCLIA [id number] [place] [id number] [facility] ALT [Catalytic activity/Vol] 22 U/L Normal 13-61 [facility] Comment on above: Order Comment: Speci men Type: BLOOD SPECIMENOrdering Facility: [facility] Address: [address] [place] [address] Result Comment: Resu lts may be falsely depressed after the administration of Sulfasalazine and/or Sulfapyridine. Performed By: #### 2 4323-8, 66494-1, 6-3 ####[facility]ORYCLIA [id number] [place] [id number] [place] Anion gap [Moles/Vol] 7 mmol/L Normal 5-16 [facility] Comment on above: Order Comment: Speci men Type: BLOOD SPECIMENOrdering Facility: [facility] Address: [address] [place] [address] Performed By: #### 2 4323-8, 13099-9, 3 ####[facility]ORYCLIA [id number] [place] [id number] [place] AST [Catalytic activity/Vol] 17 U/L Normal 8-34 [facility] Comment on above: Order Comment: Speci men Type: BLOOD SPECIMENOrdering Facility: [facility] Address: [address] [place] [address] Result Comment: Resu lts may be falsely depressed after the administration of Sulfasalazine and/or Sulfapyridine. Performed By: #### 2 4323-8, 31294-6, 3015-06 ####[facility]ORYCLIA [id number] [place] [address] [place] Bilirubin [Mass/Vol] 0.6 mg/dL Normal 0.2-1.0 [facility] Comment on above: Order Comment: Speci men Type: BLOOD SPECIMENOrdering Facility: [facility] Address: [address] [place] [address] Performed By: #### 2 4323-8, 31791-4, 3015-06 ####[facility]ORYCLIA [id number] [place] [id number] [place] Calcium [Mass/Vol] 9.7 mg/dL Normal 8.5-10.5 [facility] Comment on above: Order Comment: Speci men Type: BLOOD SPECIMENOrdering Facility: [facility] Address: [address] [place], [place] [address] Performed By: #### 2 4323-8, 05058-2, 3 ####[facility]ATORYCLIA [id number] [place] [id number] [place] Chloride [Moles/Vol] 107 mmol/L Normal 98-107 [facility] Comment on above: Order Comment: Speci men Type: BLOOD SPECIMENOrdering Facility: [facility] Address: [address] [place] [id number] Performed By: #### 2 4323-8, 60226-9, 3015-3 ####[facility]ORYCLIA [id number] [place] [id number] [place] CO2 [Moles/Vol] 24 mmol/L Normal 21-32 [facility] Comment on above: Order Comment: Speci men Type: BLOOD SPECIMENOrdering Facility: [facility] Address: [address] [place] [address] Performed By: #### 2 4323-8, 61971-0, 3 ####[facility]ORYCLIA [id number] [place] [address] [place] Creatinine [Mass/Vol] 0.86 mg/dL Normal 0.51-0.95 [facility] Comment on above: Order Comment: Speci men Type: BLOOD SPECIMENOrdering Facility: [facility] Address: [address] [place] [address] Result Comment: Courtney ents receiving either N-Acetylcysteine (NAC) or Metamizole prior to venipuncture, may have falsely depressed results. Performed By: #### 2 4323-8, 55368-9, 3 ####[facility]ORYCLIA [id number] [address] Creatinine and Glomerular filtration rate.predicted panel (S/P/Bld) 89 mL/min/1.73m??? Normal >=60 [facility] Comment on above: Order Comment: Speci men Type: BLOOD SPECIMENOrdering Facility: [facility] Address: [address] [place] [address] Result Comment: Sydnie mated Glomerular Filtration Rate (eGFR) is calculated using the 2020 CKD-EPI creatinine equation. This equation utilizes serum creatinine, sex, and age as parameters. The creatinine assay has traceable calibration to isotope dilution-mass spectrometry. Refer to KDIGO guidelines for clinical interpretation. In patients with unstable renal function, e.g. those with acute kidney injury, the eGFR may not accurately reflect actual GFR. Performed By: #### 2 4323-8, 74992-6, 3 ####[facility]ORYCLIA [id number] [place] [id number] [place] Glucose [Mass/Vol] 94 mg/dL Normal 70-100 [facility] Comment on above: Order Comment: Joel douglas Type: BLOOD SPECIMENOrdering Facility: [facility] Address: [address] [place] [address] Result Comment: The [place] Diabetes Association (ADA) provides guidance for cutoff values for fasting glucose and random glucose. The ADA defines fasting as no caloric intake for at least 8 hours. Fasting plasma glucose results between 100 to 125 mg/dL indicate increased risk for diabetes (prediabetes). Fasting plasma glucose results greater than or equal to 126 mg/dL meet the criteria for diagnosis of diabetes. In the absence of unequivocal hyperglycemia, results should be confirmed by repeat testing. In a patient with classic symptoms of hyperglycemia or hyperglycemic crisis, random plasma glucose results greater than or equal to 200 mg/dL meet the criteria for diagnosis of diabetes. Reference: Standards of Medical Care in Diabetes 2016, [place] [employer]. Diabetes Care. 2016.39(Suppl 1). Results may be falsely elevated after the administration of Sulfapyridine. Results may be falsely depressed after the administration of Sulfasalazine. Performed By: #### 2 4323-8, 47378-8, 3 ####[facility]ATORYCLIA [id number] [place] [id number] [place] Potassium [Moles/Vol] 4.0 mmol/L Normal 3.5-5.1 [facility] Comment on above: Order Comment: Marcellajames douglas Type: BLOOD SPECIMENOrdering Facility: [facility] Address: [address] [place] [address] Performed By: #### 2 4323-8, 91128-9, 3 ####[facility]ORYCLIA [id number] [place] [id number] [place] Protein [Mass/Vol] 7.2 g/dL Normal 6.0-8.5 [facility] Comment on above: Order Comment: Marcellajames douglas Type: BLOOD SPECIMENOrdering Facility: [facility] Address: [address] [place] [address] Performed By: #### 2 4323-8, 89611-9, 3016-3 ####[facility]ATORYCLIA [id number] [place] [address] [place] Sodium [Moles/Vol] 138 mmol/L Normal 136-145 [facility] Comment on above: Order Comment: Speci men Type: BLOOD SPECIMENOrdering Facility: [facility] Address: [address] [place] [address] Performed By: #### 2 4323-8, 51079-5, 6-3 ####[facility]ORYCLIA [id number] [place] [id number] [place] Urea nitrogen [Mass/Vol] 13 mg/dL Normal 7-26 [facility] Comment on above: Order Comment: Speci men Type: BLOOD SPECIMENOrdering Facility: [facility] Address: [address] [place] [address] Performed By: #### 2 4323-8, 47417-2, 3015-3 ####[facility]ORYCLIA [id number] [place] [id number] [place] Lipid 1996 panelon 5 Cholesterol [Mass/Vol] 150 mg/dL Normal 0-199 [facility] Comment on above: Order Comment: Speci men Type: BLOOD SPECIMENOrdering Facility: [facility] Address: [address] [place] [address] Result Comment: <200 mg/dL, Desirable 200-239 mg/dL, Borderline high >239 mg/dL, High Performed By: #### 2 4323-8, 19093-9, 3016-3 ####[facility]ORYCLIA [id number] [place] [id number] [place] Cholesterol in HDL [Mass/Vol] 39 mg/dL Low >40 [facility] Comment on above: Order Comment: Speci men Type: BLOOD SPECIMENOrdering Facility: [facility] Address: [address] [place] [address] Result Comment: 40-5 9 mg/dL, Acceptable >59 mg/dL, High: Negative risk factor for coronary heart disease <40 mg/dL, Low: Positive risk factor for coronary heart disease Performed By: #### 2 4323-8, 76280-6, 3015-3 ####[facility]ORYCLIA [id number] [place] [id number] [place] Cholesterol in LDL [Mass/Vol] 93 mg/dL Normal 0-129 [facility] Comment on above: Order Comment: Speci men Type: BLOOD SPECIMENOrdering Facility: [facility] Address: [address] [place] [address] Result Comment: <100 mg/dL, Optimal 100-129 mg/dL, Near optimal/above optimal 130-159 mg/dL, Borderline high 160-189 mg/dL, High >189 mg/dL, Very high Secondary prevention optimal LDL Cholesterol levels are recommended to be < 70 mg/dL Performed By: #### 2 4323-8, 36397-3, 3015-06 ####[facility]ORYCLIA [id number] [place] [id number] [place] Cholesterol in LDL/Cholesterol in HDL [Mass ratio] 2.38 {ratio} Normal <2.54 [facility] Comment on above: Order Comment: Speci men Type: BLOOD SPECIMENOrdering Facility: [facility] Address: [address] [place] [address] Result Comment: Refe rence: 1. National Cholesterol Education Program ATP III Guideline At-A-Glance Quick Desk Reference: National Heart, Lung, and Blood [place]. National Institutes of Health. 2001: NIH Publication No. 01-3305. 2. An International Atherosclerosis Society position paper: global recommendations for the management of dyslipidemia: executive summary, Atherosclerosis. 2014: 232(2):410-413. Performed By: #### 2 4323-8, 76192-7, 3015-3 ####[facility]ORYCLIA [id number] [place] [id number] [place] Cholesterol in VLDL [Mass/Vol] 18 mg/dL Normal <30 [facility] Comment on above: Order Comment: Speci men Type: BLOOD SPECIMENOrdering Facility: [facility] Address: [address] [place] [address] Performed By: #### 2 4323-8, 46615-0, 3015-06 ####[facility]ATORYCLIA [id number] [place] [id number] [facility] [place] Cholesterol non HDL [Mass/Vol] 111 mg/dL Normal <130 [facility] Comment on above: Order Comment: Speci men Type: BLOOD SPECIMENOrdering Facility: [facility] Address: [address] [place] [id number] Result Comment: <130 mg/dL, Optimal 130-159 mg/dL, Near optimal/above optimal 160-189 mg/dL, Borderline high 190-219 mg/dL, High >219 mg/dL, Very high Secondary prevention optimal non HDL Cholesterol levels are recommended to be <100 mg/dL Performed By: #### 2 4323-8, 46789-8, 3015-06 ####[facility]ORYCLIA [id number] [address] [facility] Cholesterol.total/Heather sterol in HDL [Mass ratio] 3.85 {ratio} Normal <5.10 [facility] Comment on above: Order Comment: Speci men Type: BLOOD SPECIMENOrdering Facility: [facility] Address: [address] [place] [address] Performed By: #### 2 4323-8, 41415-0, 3015-06 ####[facility]ORYCLIA [id number] [place] [id number] [place] FASTING TIME 15 hrs Normal [facility] Comment on above: Order Comment: Speci men Type: BLOOD SPECIMENOrdering Facility: [facility] Address: [address] [place] [address] Performed By: #### 2 4323-8, 39565-2, 3015-06 ####[facility]ATORYCLIA [id number] [place] [id number] [place] Triglyceride [Mass/Vol] 89 mg/dL Normal 30-149 [facility] Comment on above: Order Comment: Speci men Type: BLOOD SPECIMENOrdering Facility: [facility] Address: [address] [place] [address] Result Comment: <150 mg/dL, Normal 150-199 mg/dL, Borderline high 200-499 mg/dL, High >499 mg/dL, Very high Patients receiving either N-Acetylcysteine (NAC) or Metamizole prior to venipuncture, may have falsely depressed results. Performed By: #### 2 4323-8, 19914-5, 3016-3 ####[facility]ORYCLIA [id number] [address] [place] TSH SerPl-aCncon 08-02-2024 TSH Qn 0.754 m[IU]/L Normal 0.358-3.740 [facility] Comment on above: Order Comment: Joel douglas Type: BLOOD SPECIMENOrdering Facility: [facility] Address: [address] [place] [address] Result Comment: 3rd generation ultra sensitive TSH. Performed By: #### 2 4323-8, 75923-0, 30163 ####[facility]ORYCLIA [id number] [address] [place] CNPNon 08-01-2024 CNPN Telephone (INTMUD) ---- ANABELL PAYNE ([id number]) 1985 F Date Time Provider Department 08/01/24 NICOLE UDVALL During your visit today, we recorded the following information about you: Stephanie Guevara 08/01/2024 9:56 AM Signed Pt needs lab orders. Pt will get labs @ [facility]. Pt has upcoming appt on 07/19/24 with Lea Chopra MA 08/01/2024 9:59 AM Signed ORDERS NOT SHOWING IN ACTIVE TAB FOR PATIENT, AND EXPECTED BY DATE IS AFTER APPT PLEASE SIGN? Allergies As of Date: 08/01/2024 (No Known Allergies) Date Reviewed: 07/07/2024 Reviewed by: Ragini Leung APRN.HOME THEATER EXPERIENCE EXPERT - Fully Assessed Reason for Visit: Orders [681] Cmt: Lab orders. Pt will have done at [facility]. Primary Visit Diagnosis:Mixed hyperlipidemia [E78.2] Other Visit Diagnoses:Positive MICHELE (antinuclear antibody) [R76.8] Generalized anxiety disorder [F41.1] Order(s):THYROID STIMULATING HORMONE [SQTSH] Order #: [id number] FUTURE LIPID PANEL, FASTING [SQLIPB] Order #: [id number] FUTURE COMPLETE BLOOD COUNT [SQCBC] Order #: [id number] FUTURE COMPREHENSIVE METABOLIC PANEL [SQCMP] Order #: [id number] FUTURE Prescriptions as of 08/01/2024 - rosuvastatin (CRESTOR) 10 mg tablet Take 1 tablet by mouth daily at bedtime. - ketoconazole (NIZORAL) 2 % shampoo USE FOR EVERY OTHER WASH ON THE SCALP LETTING IT LATHER 3 TO 5 MINUTES BEFORE RINSING DIRECTED. - Clobetasol Propionate (TEMOVATE) 0.05 % external solution APPLY TO THE SCALP AT NIGHT AND MASSAGE IN, ALLOWING TO STAY IN OVERNIGHT FOR TWO WEEKS, STOPPING FOR ONE WEEK AND THEN RESUMING THE REGIMEN NEEDED FOR FLARING. - methotrexate 2.5 mg tablet Take 2.5 mg by mouth. Take 6 tabs Q week. - folic acid 1 mg tablet Take 1 mg by mouth two times a day. - predniSONE (DELTASONE) 10 mg tablet Take 1 tablet by mouth once daily as needed. Rx by rheumatology for days of increased activity - Cholecalciferol, Vitamin D3, 50 mcg (2,000 unit) cap Take 2,000 Units by mouth once daily. Meds Comments as of 08/09/2020: Problem List As Of Date 08/01/2024 Noted Resolved Gestational diabetes [O24.419] 10/17/2021 Vitamin D deficiency [E55.9] 07/28/2018 Obesity, Class I, BMI 30-34.9 [E66.811] 10/13/2022 Encounter for screening for malignant neoplasm *09/24/2023 10/01/2023 Chronic bilateral low back pain with left-sided*12/09/19 24 03/09/2024 Encounter Status:Closed by NICOLE DUVALL on 08/01/24 [facility] CNCOon 07-07-2024 CNCO Letter Text Normal [facility] CNOVon 07-07-2024 CNOV Office Visit (SPAGWO) ---- ANABELL PAYNE ([id number]) 1985 F Date Time Provider Department 07/07/24 10:00 AM PRERAGINI MCWILLIAMS During your visit today, we recorded the following information about you: Pulse Respiration Normal [facility] CNPNon 07-07-2024 CNPN Telephone (SPAGWO) ---- ANABELL PAYNE ([id number]) 1985 F Date Time Provider Department 07/07/24 CARLOSRAGINI SAAVEDRA During your visit today, we recorded the following information about you: Kaushal Browne 07/07/2024 10:24 AM Signed Procedure(s) being scheduled: ILESI 1.Are you diabetic No 2. Are you on any blood thinners? No 3. Are you taking any aspirin? No 4. Are you currently taking any antibiotics? No 5. Do you have any allergies to latex? No 6. Do you have any allergies to seafood or shellfish? No 7. Do you have any allergies to x-ray dye? No 8. Does this procedure require a lyft driver? Yes If yes, has patient been notified that a lyft driver is needed and must be present at check in? yes 9. Were the pre-procedure instructions explained and provided to the patient? Yes 10. Do you have a pacemaker? No 11. Do you have an internal stimulator of any kind? No Kaushal Browne Allergies As of Date: 07/07/2024 (No Known Allergies) Date Reviewed: 07/07/2024 Reviewed by: Ragini eLung APRN.HOME THEATER EXPERIENCE EXPERT - Fully Assessed Reason for Visit: Injections [199] Prescriptions as of 07/07/2024 - rosuvastatin (CRESTOR) 10 mg tablet Take 1 tablet by mouth daily at bedtime. - ketoconazole (NIZORAL) 2 % shampoo USE FOR EVERY OTHER WASH ON THE SCALP LETTING IT LATHER 3 TO 5 MINUTES BEFORE RINSING DIRECTED. - Clobetasol Propionate (TEMOVATE) 0.05 % external solution APPLY TO THE SCALP AT NIGHT AND MASSAGE IN, ALLOWING TO STAY IN OVERNIGHT FOR TWO WEEKS, STOPPING FOR ONE WEEK AND THEN RESUMING THE REGIMEN NEEDED FOR FLARING. - methotrexate 2.5 mg tablet Take 2.5 mg by mouth. Take 6 tabs Q week. - folic acid 1 mg tablet Take 1 mg by mouth two times a day. - predniSONE (DELTASONE) 10 mg tablet Take 1 tablet by mouth once daily as needed. Rx by rheumatology for days of increased activity - Cholecalciferol, Vitamin D3, 50 mcg (2,000 unit) cap Take 2,000 Units by mouth once daily. Meds Comments as of 08/09/2020: Problem List As Of Date 07/07/2024 Noted Resolved Gestational diabetes [O24.419] 10/17/2021 Vitamin D deficiency [E55.9] 07/28/2018 Obesity, Class I, BMI 30-34.9 [E66.811] 10/13/2022 Encounter for screening for malignant neoplasm *09/24/2023 10/01/2023 Chronic bilateral low back pain with left-sided*12/09/19 24 03/09/2024 Encounter Status:Closed by KAUSHAL BROWNE on 07/07/24 [facility] Absolute neutrophil countOrd ered By: Nilam Persaud on 07-05-2024 Neutrophils (Bld) [#/Vol] 5.9 10*/uL 2.0-7.7 [facility] Anion gap in Serum or Plasma Ordered By: Nilam Persaud on 07-05-2024 Anion gap [Moles/Vol] 9 mmol/L 5-15 [facility] BUN/creatinine ratioOrdered By: Nilam Persaud on 07-05-2024 Urea nitrogen/Creatinine [Mass ratio] 14.4 mg/mg 10-20 [facility] Basophil percentageOrdered B y: Nilam Persaud on 07-05-2024 Basophils/100 WBC (Bld) 0.9 % 0-1 [facility] Bilirubin, totalOrdered By: Nilammaria fernanda Persaud on 07-05-2024 Bilirubin [Mass/Vol] 0.30 mg/dL 0.00-1.30 [facility] CBC W/Diff, Automatedon 06-18 Absolute Lymph 1.56 X10 3/uL Normal 0.83-4.51 [facility] Comment on above: Performed By: #### L 100.0100, L500.4050 #### [facility] [address] [place], [address] Absolute Neut 5.9 X10 3/uL Normal 2.0-7.7 [facility] Comment on above: Performed By: #### L 100.0100, L500.4050 #### [facility] [address] [place], [address] Basophils/100 WBC (Bld) 0.9 % Normal 0-1 [facility] Comment on above: Performed By: #### L 100.0100, L500.4050 #### [facility] [address] [place], [address] Eosinophils/100 WBC (Bld) 1.0 % Normal 0-5 [facility] Comment on above: Performed By: #### L 100.0100, L500.4050 #### [facility] [address] [place], [address] Erythrocyte distribution width (RBC) [Ratio] 12.5 % Normal 11.6-14.6 [facility] Comment on above: Performed By: #### L 100.0100, L500.4050 #### [facility] [address] [place], [address] Hematocrit (Bld) [Volume fraction] 42.8 % Normal 37-47 [facility] Comment on above: Performed By: #### L 100.0100, L500.4050 #### [facility] [address] [place], [address] Hemoglobin (Bld) [Mass/Vol] 14.1 g/dL Normal 12.0-15.0 [facility] Comment on above: Performed By: #### L 100.0100, L500.4050 #### [facility] [address] [place], [address] IG% 0.200 Normal 0.0-0.9 [facility] Comment on above: Result Comment: IG% - Immature Granulocytes (promyelocytes, myelocytes and metamyelocytes) > 1% indicates that a LEFT SHIFT is Present. Performed By: #### L 100.0100, L500.4050 #### [facility] [address] [place], [address] Lymphocytes/100 WBC (Bld) 19.0 % Normal 19-41 [facility] Comment on above: Performed By: #### L 100.0100, L500.4050 #### [facility] [address] [place], [address] MCH (RBC) [Entitic mass] 32.2 pg High 27.0-32.0 [facility] Comment on above: Performed By: #### L 100.0100, L500.4050 #### [facility] [address] [place], [address] MCHC (RBC) [Mass/Vol] 32.9 g/dL Normal 32-36 [facility] Comment on above: Performed By: #### L 100.0100, L500.4050 #### [facility] [address] [place], [address] MCV (RBC) [Entitic vol] 97.7 fL Normal 81-99 [facility] Comment on above: Performed By: #### L 100.0100, L500.4050 #### [facility] [address] [place], [address] Monocytes/100 WBC (Bld) 6.6 % Normal 0-10 [facility] Comment on above: Performed By: #### L 100.0100, L500.4050 #### [facility] [address] [place], [address] Neutrophils/100 WBC (Bld) 72.3 % High 47-70 [facility] Comment on above: Performed By: #### L 100.0100, L500.4050 #### [facility] [address] [place], [address] Nucleated RBC (Bld) [#/Vol] 0 10*3/uL Normal 0-5 [facility] Comment on above: Performed By: #### L 100.0100, L500.4050 #### [facility] [address] [place], [address] Platelet mean volume (Bld) [Entitic vol] 11.7 fL Normal 6.2-12.0 [facility] Comment on above: Performed By: #### L 100.0100, L500.4050 #### [facility] [address] [place], [address] Platelets (Bld) [#/Vol] 216 10*3/uL Normal 150-450 [facility] Comment on above: Performed By: #### L 100.0100, L500.4050 #### [facility] [address] [place], [address] RBC (Bld) [#/Vol] 4.38 10*6/uL Normal 4.2-5.[address] [facility] Comment on above: Performed By: #### L 100.0100, L500.4050 #### [facility] [address] [place], [address] RDW SD 44.9 fl High 35.1-43.9 [facility] Comment on above: Performed By: #### L 100.0100, L500.4050 #### [facility] [address] [place], [address] WBC (Bld) [#/Vol] 8.2 10*3/uL Normal 4.4-11.0 [facility] Comment on above: Performed By: #### L 100.0100, L500.4050 #### [facility] [address] [place], [address] Carbon dioxide, total [Moles /volume] in Central venous bloodOrdered By: Nilam Persaud on 07-05-2024 CO2 [Moles/Vol] 23.7 mmol/L 21.0-32.0 [facility] Chloride assayOrdered By: Juan Diego Persaud on 07-05-2024 Chloride [Moles/Vol] 105 mmol/L 98-108 [facility] Comprehensive Metabolic Prof ilon 07-05-2024 Albumin [Mass/Vol] 4.4 g/dL Normal 3.5-5.0 [facility] Comment on above: Performed By: #### L 100.0100, L500.4050 #### [facility] [address] [place], [address] Albumin/Globulin [Mass ratio] 1.5 {ratio} Normal 0.9-2.4 [facility] Comment on above: Performed By: #### L 100.0100, L500.4050 #### [facility] [address] [place], [address] ALK PHOS 70 U/L Normal 35-104 [facility] Comment on above: Performed By: #### L 100.0100, L500.4050 #### [facility] [address] [place], [address] ALT [Catalytic activity/Vol] 22 U/L Normal <=34 [facility] Comment on above: Performed By: #### L 100.0100, L500.4050 #### [facility] [address] [place], [address] AST [Catalytic activity/Vol] 20 U/L Normal <=31 [facility] Comment on above: Performed By: #### L 100.0100, L500.4050 #### [facility] [address] [place], [address] Bilirubin [Mass/Vol] 0.30 mg/dL Normal 0.00-1.30 [facility] Comment on above: Performed By: #### L 100.0100, L500.4050 #### [facility] [address] [place], [address] BUN/CRE 14.4 RATIO Normal 10-20 [facility] Comment on above: Performed By: #### L 100.0100, L500.4050 #### [facility] [address] [place], [address] Calcium [Mass/Vol] 9.8 mg/dL Normal 7.6-11.0 [facility] Comment on above: Performed By: #### L 100.0100, L500.4050 #### [facility] [address] [place], [address] Chloride [Moles/Vol] 105 mmol/L Normal 98-108 [facility] Comment on above: Performed By: #### L 100.0100, L500.4050 #### [facility] [address] [place], [address] CO2 [Moles/Vol] 23.7 mmol/L Normal 21.0-32.0 [facility] Comment on above: Performed By: #### L 100.0100, L500.4050 #### [facility] [address] [place], [address] Creatinine [Mass/Vol] 0.93 mg/dL Normal 0.70-1.20 [facility] Comment on above: Performed By: #### L 100.0100, L500.4050 #### [facility] [address] [place], [address] GAP 9 Normal 5-15 [facility] Comment on above: Performed By: #### L 100.0100, L500.4050 #### [facility] [address] [place], [address] GFR/1.73 sq M.predicted among non-blacks MDRD (S/P/Bld) [Vol rate/Area] 82 mL/min/{1.73_m2} Normal >60 [facility] Comment on above: Result Comment: mL/m in/1.73m2 CKD-EPI Creatinine Equation (2020) Performed By: #### L 100.0100, L500.4050 #### [facility] [address] [place], [address] Globulin (S) [Mass/Vol] 2.9 g/dL Normal 2.2-4.2 [facility] Comment on above: Performed By: #### L 100.0100, L500.4050 #### [facility] [address] [place], [address] Glucose [Mass/Vol] 104 mg/dL High 70-99 [facility] Comment on above: Performed By: #### L 100.0100, L500.4050 #### [facility] [address] [place], [address] Potassium [Moles/Vol] 4.1 mmol/L Normal 3.3-5.1 [facility] Comment on above: Performed By: #### L 100.0100, L500.4050 #### [facility] [address] [place], [address] Sodium [Moles/Vol] 137 mmol/L Normal 133-145 [facility] Comment on above: Performed By: #### L 100.0100, L500.4050 #### [facility] [address] [place], [address] T PROT 7.2 g/dL Normal 5.9-8.4 [facility] Comment on above: Performed By: #### L 100.0100, L500.4050 #### [facility] [address] [place], [address] Urea nitrogen [Mass/Vol] 13 mg/dL Normal 4-19 [facility] Comment on above: Performed By: #### L 100.0100, L500.4050 #### [facility] [address] [place], [address] Eosinophil percentageOrdered By: Nilam Persaud on 07-05-2024 Eosinophils/100 WBC (Bld) 1.0 % 0-5 [facility] Erythrocyte distribution wid th ratioOrdered By: Nilam Persaud on 07-05-2024 Erythrocyte distribution width (RBC) [Ratio] 12.5 % 11.6-14.6 [facility] Erythrocyte distribution wid th standard deviationOrdered By: Nilam Persaud on 07-05-2024 Erythrocyte distribution width (RBC) [Entitic vol] 44.9 fL High 35.1-43.9 [facility] GFR/1.73 sq M.predicted jany g non-blacks MDRD (S/P/Bld) [Vol rate/Area]Ordered By: Nilam Persaud on 07-05-2024 Estimated GFR (MDRD) Non-Af Amer 82 >60 [facility] Comment on above: mL/min/1.73m2 CKD-EP I Creatinine Equation (2020) Hematocrit Auto (Bld) [Volum e fraction]Ordered By: Nilam Persaud on 07-05-2024 Hematocrit (Bld) [Volume fraction] 42.8 % 37-47 [facility] Hemoglobin measurementOrdere d By: Nilam Persaud on 07-05-2024 Hemoglobin (Bld) [Mass/Vol] 14.1 g/dL 12.0-15.0 [facility] Immature granulocytes/100 WB C Auto (Bld)Ordered By: Nilam Persaud on 07-05-2024 Immature granulocytes/100 WBC (Bld) 0.200 % 0.0-0.9 [facility] Comment on above: IG% - Immature Granu locytes (promyelocytes, myelocytes and metamyelocytes) > 1% indicates that a LEFT SHIFT is Present. Laboratory - Chemistry and C hemistry - challengeOrdered By: Nilam Persaud on 07-05-2024 AST [Catalytic activity/Vol] 20 U/L <32 [facility] Lymphocytes Auto (Unsp spec) [#/Vol]Ordered By: Nilam Persaud on 07-05-2024 Lymphocytes (Bld) [#/Vol] 1.56 10*3/uL 0.83-4.51 [facility] Lymphocytes/100 WBC Auto (Un sp spec)Ordered By: Nilam Persaud on 07-05-2024 Lymphocytes/100 WBC (Bld) 19.0 % 19-41 [facility] MCV (mean corpuscular volume ) determinationOrdered By: Nilam Persaud on 07-05-2024 MCV (RBC) [Entitic vol] 97.7 fL 81-99 [facility] Mean corpuscular hemoglobin (MCH) determinationOrdered By: Nilam Persaud on 07-05-2024 MCH (RBC) [Entitic mass] 32.2 pg High 27.0-32.0 [facility] Mean corpuscular hemoglobin concentration (MCHC) determinationOrdered By: Nilam Persaud on 07-05-2024 MCHC (RBC) [Mass/Vol] 32.9 g/dL 32-36 [facility] Mean platelet volume determi nationOrdered By: Nilam Persaud on 07-05-2024 Platelet mean volume (Bld) [Entitic vol] 11.7 fL 6.2-12.0 [facility] Monocyte percentageOrdered B y: Nilam Persaud on 07-05-2024 Monocytes/100 WBC (Bld) 6.6 % 0-10 [facility] Neutrophil percentageOrdered By: Nilam Persaud on 07-05-2024 Neutrophils/100 WBC (Bld) 72.3 % High 47-70 [facility] Nucleated red blood cell per centageOrdered By: Nilam Persaud on 07-05-2024 Nucleated RBC/100 WBC (Bld) [Ratio] 0 % 0-5 [facility] Platelet countOrdered By: Juan Diego Persaud on 07-05-2024 Platelets (Bld) [#/Vol] 216 10*3/uL 150-450 [facility] Potassium (Unsp spec) [Mass/ Vol]Ordered By: Nilam Persaud on 07-05-2024 Potassium [Moles/Vol] 4.1 mmol/L 3.3-5.1 [facility] RBC Auto (Bld) [#/Vol]Ordere d By: Nilam Persaud on 07-05-2024 RBC (Bld) [#/Vol] 4.38 10*6/uL 4.2-5.[address] [facility] Serum creatinine measurement (mass/volume)Ordered By: Nilam Persaud on 07-05-2024 Creatinine [Mass/Vol] 0.93 mg/dL 0.70-1.20 [facility] Serum globulin measurementOr dered By: Nilam Persaud on 07-05-2024 Globulin (S) [Mass/Vol] 2.9 g/dL 2.2-4.2 [facility] Serum glucose measurement (m ass/volume)Ordered By: Nilam Persaud on 07-05-2024 Glucose [Mass/Vol] 104 mg/dL High 70-99 [facility] Serum or plasma alanine spicer otransferase (ALT) measurementOrdered By: Nilam Persaud on 07-05-2024 ALT [Catalytic activity/Vol] 22 U/L <35 [facility] Serum or plasma albumin breezy urement (mass/volume)Ordered By: Nilam Persaud on 07-05-2024 Albumin [Mass/Vol] 4.4 g/dL 3.5-5.0 [facility] Serum or plasma albumin/glob ulin mass ratioOrdered By: Nilam Persaud on 07-05-2024 Albumin/Globulin [Mass ratio] 1.5 {ratio} 0.9-2.4 [facility] Serum or plasma alkaline catrachita sphatase measurementOrdered By: Nilam Persaud on 07-05-2024 ALP [Catalytic activity/Vol] 70 U/L 35-104 [facility] Serum or plasma calcium breezy urement (mass/volume)Ordered By: Nilam Persaud on 07-05-2024 Calcium [Mass/Vol] 9.8 mg/dL 7.6-11.0 [facility] Serum or plasma urea nitroge n measurement (mass/volume)Ordered By: Nilam Persaud on 07-05-2024 Urea nitrogen [Mass/Vol] 13 mg/dL 4-19 [facility] Sodium levelOrdered By: Brandan Persaud on 07-05-2024 Sodium [Moles/Vol] 137 mmol/L 133-145 [facility] Total proteinOrdered By: Ralf Persaud on 07-05-2024 Protein [Mass/Vol] 7.2 g/dL 5.9-8.4 [facility] White blood cell (WBC) count Ordered By: Nilam Persaud on 07-05-2024 WBC (Bld) [#/Vol] 8.2 10*3/uL 4.4-11.0 [facility] CNPNon 06-16-2024 CNPN Telephone ([id number]) ---- ANABELL PAYNE ([id number]) 1985 F Date Time Provider Department 06/16/24 [facility] During your visit today, we recorded the following information about you: Eulalia Calvert 06/16/2024 11:12 AM Signed Called and LVM to schedule new patient appointment. Eulalia Calvert Allergies As of Date: 06/16/2024 (No Known Allergies) Date Reviewed: 03/10/2024 Reviewed by: Charlette Ortega MA - Fully Assessed Reason for Visit: New Patient Evaluation [154] Prescriptions as of 06/16/2024 - rosuvastatin (CRESTOR) 10 mg tablet Take 1 tablet by mouth daily at bedtime. - ketoconazole (NIZORAL) 2 % shampoo USE FOR EVERY OTHER WASH ON THE SCALP LETTING IT LATHER 3 TO 5 MINUTES BEFORE RINSING DIRECTED. - Clobetasol Propionate (TEMOVATE) 0.05 % external solution APPLY TO THE SCALP AT NIGHT AND MASSAGE IN, ALLOWING TO STAY IN OVERNIGHT FOR TWO WEEKS, STOPPING FOR ONE WEEK AND THEN RESUMING THE REGIMEN NEEDED FOR FLARING. - methotrexate 2.5 mg tablet Take 2.5 mg by mouth. Take 6 tabs Q week. - folic acid 1 mg tablet Take 1 mg by mouth two times a day. - predniSONE (DELTASONE) 10 mg tablet Take 1 tablet by mouth once daily as needed. Rx by rheumatology for days of increased activity - Cholecalciferol, Vitamin D3, 50 mcg (2,000 unit) cap Take 2,000 Units by mouth once daily. Meds Comments as of 08/09/2020: Problem List As Of Date 06/16/2024 Noted Resolved Gestational diabetes [O24.419] 10/17/2021 Vitamin D deficiency [E55.9] 07/28/2018 Obesity, Class I, BMI 30-34.9 [E66.811] 10/13/2022 Encounter for screening for malignant neoplasm *09/24/2023 10/01/2023 Chronic bilateral low back pain with left-sided*12/09/19 24 03/09/2024 Encounter Status:Closed by EULALIA CALVERT on 06/16/24 [facility] Absolute neutrophil countOrd ered By: Nilam Persaud on 05-16-2024 Neutrophils (Bld) [#/Vol] 5.7 10*3/uL 2.0-7.7 [facility] Albumin to globulin ratioOrd ered By: Nilammaria fernanda Persaud on 05-16-2024 Albumin/Globulin [Mass ratio] 1.1 {ratio} 0.9-2.4 [facility] Basophil percentageOrdered B y: Nilam Persaud on 05-16-2024 Basophils/100 WBC (Bld) 0.9 % 0-1 [facility] Bilirubin, totalOrdered By: Nilam Persaud on 05-16-2024 Bilirubin [Mass/Vol] 0.50 mg/dL 0.20-1.00 [facility] Comment on above: For patients on eltr ombopag therapy, use of Dimension Delta TBIL is not recommended. Blood urea nitrogen (BUN)/cr eatinine ratioOrdered By: Nilam Persaud on 05-16-2024 Urea nitrogen/Creatinine [Mass ratio] 13.2 mg/mg 10-20 [facility] CBC W/Diff, Automatedon 04-21 Absolute Lymph 1.59 X10 3/uL Normal 0.83-4.51 [facility] Comment on above: Performed By: #### L 100.0100, L500.4050 #### [facility] [address] [place], [address] Absolute Neut 5.7 X10 3/uL Normal 2.0-7.7 [facility] Comment on above: Performed By: #### L 100.0100, L500.4050 #### [facility] [address] [place], [address] Basophils/100 WBC (Bld) 0.9 % Normal 0-1 [facility] Comment on above: Performed By: #### L 100.0100, L500.4050 #### [facility] [address], [address] Eosinophils/100 WBC (Bld) 1.0 % Normal 0-5 [facility] Comment on above: Performed By: #### L 100.0100, L500.4050 #### [facility] [address] [place], [address] Erythrocyte distribution width (RBC) [Ratio] 12.8 % Normal 11.6-14.6 [facility] Comment on above: Performed By: #### L 100.0100, L500.4050 #### [facility] [address] [place], [address] Hematocrit (Bld) [Volume fraction] 41.2 % Normal 37-47 [facility] Comment on above: Performed By: #### L 100.0100, L500.4050 #### [facility] [address] [place], [address] Hemoglobin (Bld) [Mass/Vol] 13.8 g/dL Normal 12.0-15.0 [facility] Comment on above: Performed By: #### L 100.0100, L500.4050 #### [facility] [address] [place], [address] IG% 0.400 Normal 0.0-0.9 [facility] Comment on above: Result Comment: IG% - Immature Granulocytes (promyelocytes, myelocytes and metamyelocytes) > 1% indicates that a LEFT SHIFT is Present. Performed By: #### L 100.0100, L500.4050 #### [facility] [address] [place], [address] Lymphocytes/100 WBC (Bld) 19.8 % Normal 19-41 [facility] Comment on above: Performed By: #### L 100.0100, L500.4050 #### [facility] [address] [place], [address] MCH (RBC) [Entitic mass] 32.2 pg High 27.0-32.0 [facility] Comment on above: Performed By: #### L 100.0100, L500.4050 #### [facility] [address] [place], [address] MCHC (RBC) [Mass/Vol] 33.5 g/dL Normal 32-36 [facility] Comment on above: Performed By: #### L 100.0100, L500.4050 #### [facility] [address] [place], [address] MCV (RBC) [Entitic vol] 96.0 fL Normal 81-99 [facility] Comment on above: Performed By: #### L 100.0100, L500.4050 #### [facility] [address] [place], [address] Monocytes/100 WBC (Bld) 7.1 % Normal 0-10 [facility] Comment on above: Performed By: #### L 100.0100, L500.4050 #### [facility] [address] [place], [address] Neutrophils/100 WBC (Bld) 70.8 % High 47-70 [facility] Comment on above: Performed By: #### L 100.0100, L500.4050 #### [facility] [address] [place], [address] Nucleated RBC (Bld) [#/Vol] 0 10*3/uL Normal 0-5 [facility] Comment on above: Performed By: #### L 100.0100, L500.4050 #### [facility] [address] [place], [address] Platelet mean volume (Bld) [Entitic vol] 11.2 fL Normal 6.2-12.0 [facility] Comment on above: Performed By: #### L 100.0100, L500.4050 #### [facility] [address] [place], [address] Platelets (Bld) [#/Vol] 257 10*3/uL Normal 150-450 [facility] Comment on above: Performed By: #### L 100.0100, L500.4050 #### [facility] [address] [place], [address] RBC (Bld) [#/Vol] 4.29 10*6/uL Normal 4.2-5.[address] [facility] Comment on above: Performed By: #### L 100.0100, L500.4050 #### [facility] [address] [place], [address] RDW SD 45.1 fl High 35.1-43.9 [facility] Comment on above: Performed By: #### L 100.0100, L500.4050 #### [facility] [address] [place], [address] WBC (Bld) [#/Vol] 8.0 10*3/uL Normal 4.4-11.0 [facility] Comment on above: Performed By: #### L 100.0100, L500.4050 #### [facility] [address] [place], [address] Carbon dioxide measurementOr dered By: Nilam Persaud on 05-16-2024 CO2 [Moles/Vol] 25.0 mmol/L 21.0-32.0 [facility] Chloride measurementOrdered By: Nilam Persaud on 05-16-2024 Chloride [Moles/Vol] 105 mmol/L 98-107 [facility] Comprehensive Metabolic Prof ilon 05-16-2024 Albumin [Mass/Vol] 3.8 g/dL Normal 3.2-5.0 [facility] Comment on above: Performed By: #### L 100.0100, L500.4050 #### [facility] [address] [place], [address] Albumin/Globulin [Mass ratio] 1.1 {ratio} Normal 0.9-2.4 [facility] Comment on above: Performed By: #### L 100.0100, L500.4050 #### [facility] [address] [place], [address] ALK P 83 U/L Normal 45-117 [facility] Comment on above: Performed By: #### L 100.0100, L500.4050 #### [facility] [address] [place], [address] ALT [Catalytic activity/Vol] 30 U/L Normal 13-56 [facility] Comment on above: Performed By: #### L 100.0100, L500.4050 #### [facility] [address] [place], [address] AST [Catalytic activity/Vol] 17 U/L Normal 15-37 [facility] Comment on above: Performed By: #### L 100.0100, L500.4050 #### [facility] [address] [place], [address] Bilirubin [Mass/Vol] 0.50 mg/dL Normal 0.20-1.00 [facility] Comment on above: Result Comment: For patients on eltrombopag therapy, use of Dimension Delta TBIL is not recommended. Performed By: #### L 100.0100, L500.4050 #### [facility] [address] [place], [address] BUN/CRE 13.2 RATIO Normal 10-20 [facility] Comment on above: Performed By: #### L 100.0100, L500.4050 #### [facility] [address] [place], [address] CA,Total 9.4 mg/dL Normal 8.5-10.1 [facility] Comment on above: Performed By: #### L 100.0100, L500.4050 #### [facility] [address] [place], [address] Chloride [Moles/Vol] 105 mmol/L Normal 98-107 [facility] Comment on above: Performed By: #### L 100.0100, L500.4050 #### [facility] [address] [place], [address] CO2 [Moles/Vol] 25.0 mmol/L Normal 21.0-32.0 [facility] Comment on above: Performed By: #### L 100.0100, L500.4050 #### [facility] [address] [place], [address] Creatinine [Mass/Vol] 1.06 mg/dL High 0.55-1.02 [facility] Comment on above: Result Comment: The validity of the calculated GFR GFRAA in patients over 70 years has not been determined. Clinical correlation is essential. Performed By: #### L 100.0100, L500.4050 #### [facility] [address] [place], [address] EST GFR - AA 75 mL/min Normal >60 [facility] Comment on above: Result Comment: Afri can Moldovan GFR Calc Performed By: #### L 100.0100, L500.4050 #### [facility] [address] [place], [address] GAP 7 Normal 5-15 [facility] Comment on above: Performed By: #### L 100.0100, L500.4050 #### [facility] [address] [place], [address] GFR/1.73 sq M.predicted among non-blacks MDRD (S/P/Bld) [Vol rate/Area] 62 mL/min/{1.73_m2} Normal >60 [facility] Comment on above: Result Comment: Non- GFR Calc Performed By: #### L 100.0100, L500.4050 #### [facility] [address] [place], [address] Globulin (S) [Mass/Vol] 3.6 g/dL Normal 2.2-4.2 [facility] Comment on above: Performed By: #### L 100.0100, L500.4050 #### [facility] [address] [place], [address] Glucose [Mass/Vol] 99 mg/dL Normal 74-106 [facility] Comment on above: Performed By: #### L 100.0100, L500.4050 #### [facility] [address] [place], [address] Potassium [Moles/Vol] 3.8 mmol/L Normal 3.5-5.1 [facility] Comment on above: Performed By: #### L 100.0100, L500.4050 #### [facility] [address] [place], [address] Sodium [Moles/Vol] 137 mmol/L Normal 136-145 [facility] Comment on above: Performed By: #### L 100.0100, L500.4050 #### [facility] [address] [place], [address] T PROT 7.4 g/dL Normal 6.4-8.2 [facility] Comment on above: Performed By: #### L 100.0100, L500.4050 #### [facility] [address] [place], [address] Urea nitrogen [Mass/Vol] 14 mg/dL Normal 7-18 [facility] Comment on above: Performed By: #### L 100.0100, L500.4050 #### [facility] [address] [place], [address] Eosinophil percentageOrdered By: Nilam Persaud on 05-16-2024 Eosinophils/100 WBC (Bld) 1.0 % 0-5 [facility] Erythrocyte distribution wid th ratioOrdered By: Nilam Persaud on 05-16-2024 Erythrocyte distribution width (RBC) [Ratio] 12.8 % 11.6-14.6 [facility] Erythrocyte distribution wid th standard deviationOrdered By: Nilam Persaud on 05-16-2024 Erythrocyte distribution width (RBC) [Entitic vol] 45.1 fL High 35.1-43.9 [facility] Estimated glomerular filtrat ion rate (GFR) AmericanOrdered By: Nilam Persaud on 05-16-2024 Estimated GFR (MDRD) Amer 75 mL/min >60 [facility] Comment on above: GFR Calc Glomerular filtration rate ( GFR) estimationOrdered By: Nilam Persaud on 05-16-2024 Estimated GFR (MDRD) Non-Af Amer 62 mL/min >60 [facility] Comment on above: Non- GFR Calc Glucose measurementOrdered B y: Nilam Persaud on 05-16-2024 Glucose [Mass/Vol] 99 mg/dL 74-106 [facility] Hematocrit Auto (Bld) [Volum e fraction]Ordered By: Nilam Persaud on 05-16-2024 Hematocrit (Bld) [Volume fraction] 41.2 % 37-47 [facility] Hemoglobin measurementOrdere d By: Nilam Persaud on 05-16-2024 Hemoglobin (Bld) [Mass/Vol] 13.8 g/dL 12.0-15.0 [facility] Immature granulocytes/100 WB C Auto (Bld)Ordered By: Nilam Persaud on 05-16-2024 Immature granulocytes/100 WBC (Bld) 0.400 % 0.0-0.9 [facility] Comment on above: IG% - Immature Granu locytes (promyelocytes, myelocytes and metamyelocytes) > 1% indicates that a LEFT SHIFT is Present. Laboratory - Chemistry and C hemistry - challengeOrdered By: Nilam Persaud on 05-16-2024 AST [Catalytic activity/Vol] 17 U/L 15-37 [facility] Lymphocytes Auto (Unsp spec) [#/Vol]Ordered By: Nilam Persaud on 05-16-2024 Lymphocytes (Bld) [#/Vol] 1.59 10*3/uL 0.83-4.51 [facility] Lymphocytes/100 WBC Auto (Un sp spec)Ordered By: Nilam Persaud on 05-16-2024 Lymphocytes/100 WBC (Bld) 19.8 % 19-41 [facility] MCV (mean corpuscular volume ) determinationOrdered By: Nilam Persaud on 05-16-2024 MCV (RBC) [Entitic vol] 96.0 fL 81-99 [facility] Mean corpuscular hemoglobin (MCH) determinationOrdered By: Nilam Persaud on 05-16-2024 MCH (RBC) [Entitic mass] 32.2 pg High 27.0-32.0 [facility] Mean corpuscular hemoglobin concentration (MCHC) determinationOrdered By: Nilam Persaud on 05-16-2024 MCHC (RBC) [Mass/Vol] 33.5 g/dL 32-36 [facility] Mean platelet volume determi nationOrdered By: Nilam Persaud on 05-16-2024 Platelet mean volume (Bld) [Entitic vol] 11.2 fL 6.2-12.0 [facility] Monocyte percentageOrdered B y: Nilam Persaud on 05-16-2024 Monocytes/100 WBC (Bld) 7.1 % 0-10 [facility] Neutrophil percentageOrdered By: Nilam Persaud on 05-16-2024 Neutrophils/100 WBC (Bld) 70.8 % High 47-70 [facility] Nucleated red blood cell per centageOrdered By: Nilam Persaud on 05-16-2024 Nucleated RBC/100 WBC (Bld) [Ratio] 0 % 0-5 [facility] Platelet countOrdered By: Juan Diego Persaud on 05-16-2024 Platelets (Bld) [#/Vol] 257 10*3/uL 150-450 [facility] Potassium measurementOrdered By: Nilam Persaud on 05-16-2024 Potassium [Moles/Vol] 3.8 mmol/L 3.5-5.1 [facility] RBC Auto (Bld) [#/Vol]Ordere d By: Nilam Persaud on 05-16-2024 RBC (Bld) [#/Vol] 4.29 10*6/uL 4.2-5.[address] [facility] Serum anion gap measurementO rdered By: Nilam Persaud on 05-16-2024 Anion gap [Moles/Vol] 7 mmol/L 5-15 [facility] Serum globulin measurementOr dered By: Nilam Persaud on 05-16-2024 Globulin (S) [Mass/Vol] 3.6 g/dL 2.2-4.2 [facility] Serum or plasma alanine spicer otransferase (ALT) measurementOrdered By: Nilam Persaud on 05-16-2024 ALT [Catalytic activity/Vol] 30 U/L 13-56 [facility] Serum or plasma albumin breezy urement (mass/volume)Ordered By: Nilam Persaud on 05-16-2024 Albumin [Mass/Vol] 3.8 g/dL 3.2-5.0 [facility] Serum or plasma alkaline catrachita sphatase measurementOrdered By: Nilam Persaud on 05-16-2024 ALP [Catalytic activity/Vol] 83 U/L 45-117 [facility] Serum or plasma calcium breezy urement (mass/volume)Ordered By: Nilam Persaud on 05-16-2024 Calcium [Mass/Vol] 9.4 mg/dL 8.5-10.1 [facility] Serum or plasma creatinine m easurement (mass/volume)Ordered By: Nilam Persaud on 05-16-2024 Creatinine [Mass/Vol] 1.06 mg/dL High 0.55-1.02 [facility] Comment on above: The validity of the calculated GFR & GFRAA in patients over 70 years has not been determined. Clinical correlation is essential. Serum or plasma urea nitroge n measurement (mass/volume)Ordered By: Nilam Persaud on 05-16-2024 Urea nitrogen [Mass/Vol] 14 mg/dL 7-18 [facility] Sodium levelOrdered By: Brandan Persaud on 05-16-2024 Sodium [Moles/Vol] 137 mmol/L 136-145 [facility] Total proteinOrdered By: Ralf Persaud on 05-16-2024 Protein [Mass/Vol] 7.4 g/dL 6.4-8.2 [facility] White blood cell (WBC) count Ordered By: Nilam Persaud on 05-16-2024 WBC (Bld) [#/Vol] 8.0 10*3/uL 4.4-11.0 [facility] CBC W/Diff, Automatedon 02-19 Absolute Lymph 2.45 X10 3/uL Normal 0.83-4.51 [facility] Comment on above: Performed By: #### L 100.0100, L500.4050 #### [facility] [address] [place], [address] Absolute Neut 8.3 X10 3/uL High 2.0-7.7 [facility] Comment on above: Performed By: #### L 100.0100, L500.4050 #### [facility] [address] [place], [address] Basophils/100 WBC (Bld) 0.8 % Normal 0-1 [facility] Comment on above: Performed By: #### L 100.0100, L500.4050 #### [facility] [address] [place], [address] Eosinophils/100 WBC (Bld) 0.9 % Normal 0-5 [facility] Comment on above: Performed By: #### L 100.0100, L500.4050 #### [facility] [address] [place], [address] Erythrocyte distribution width (RBC) [Ratio] 12.6 % Normal 11.6-14.6 [facility] Comment on above: Performed By: #### L 100.0100, L500.4050 #### [facility] [address] [place], [address] Hematocrit (Bld) [Volume fraction] 40.3 % Normal 37-47 [facility] Comment on above: Performed By: #### L 100.0100, L500.4050 #### [facility] [address] [place], [address] Hemoglobin (Bld) [Mass/Vol] 13.5 g/dL Normal 12.0-15.0 [facility] Comment on above: Performed By: #### L 100.0100, L500.4050 #### [facility] [address] [place], [address] IG% 0.400 Normal 0.0-0.9 [facility] Comment on above: Result Comment: IG% - Immature Granulocytes (promyelocytes, myelocytes and metamyelocytes) > 1% indicates that a LEFT SHIFT is Present. Performed By: #### L 100.0100, L500.4050 #### [facility] [address] [place], [address] Lymphocytes/100 WBC (Bld) 21.0 % Normal 19-41 [facility] Comment on above: Performed By: #### L 100.0100, L500.4050 #### [facility] [address] [place], [address] MCH (RBC) [Entitic mass] 31.8 pg Normal 27.0-32.0 [facility] Comment on above: Performed By: #### L 100.0100, L500.4050 #### [facility] [address] [place], [address] MCHC (RBC) [Mass/Vol] 33.5 g/dL Normal 32-36 [facility] Comment on above: Performed By: #### L 100.0100, L500.4050 #### [facility] [address] [place], [address] MCV (RBC) [Entitic vol] 95.0 fL Normal 81-99 [facility] Comment on above: Performed By: #### L 100.0100, L500.4050 #### [facility] [address] [place], [address] Monocytes/100 WBC (Bld) 6.2 % Normal 0-10 [facility] Comment on above: Performed By: #### L 100.0100, L500.4050 #### [facility] [address] [place], [address] Neutrophils/100 WBC (Bld) 70.7 % High 47-70 [facility] Comment on above: Performed By: #### L 100.0100, L500.4050 #### [facility] [address] [place], [address] Nucleated RBC (Bld) [#/Vol] 0 10*3/uL Normal 0-5 [facility] Comment on above: Performed By: #### L 100.0100, L500.4050 #### [facility] [address] [place], [address] Platelet mean volume (Bld) [Entitic vol] 10.9 fL Normal 6.2-12.0 [facility] Comment on above: Performed By: #### L 100.0100, L500.4050 #### [facility] [address] [place], [address] Platelets (Bld) [#/Vol] 248 10*3/uL Normal 150-450 [facility] Comment on above: Performed By: #### L 100.0100, L500.4050 #### [facility] [address] [place], [address] RBC (Bld) [#/Vol] 4.24 10*6/uL Normal 4.2-5.[address] [facility] Comment on above: Performed By: #### L 100.0100, L500.4050 #### [facility] [address] [place], [address] RDW SD 43.2 fl Normal 35.1-43.9 [facility] Comment on above: Performed By: #### L 100.0100, L500.4050 #### [facility] [address] [place], [address] WBC (Bld) [#/Vol] 11.7 10*3/uL High 4.4-11.[address] [facility] Comment on above: Performed By: #### L 100.0100, L500.4050 #### [facility] [address] [place], [address] Comprehensive Metabolic Prof ilon 03-14-2024 Albumin [Mass/Vol] 3.8 g/dL Normal 3.2-5.0 [facility] Comment on above: Performed By: #### L 100.0100, L500.4050 #### [facility] [address] [place], [address] Albumin/Globulin [Mass ratio] 1.1 {ratio} Normal 0.9-2.4 [facility] Comment on above: Performed By: #### L 100.0100, L500.4050 #### [facility] [address] [place], [address] ALK P 80 U/L Normal 45-117 [facility] Comment on above: Performed By: #### L 100.0100, L500.4050 #### [facility] [address] [place], [address] ALT [Catalytic activity/Vol] 58 U/L High 13-56 [facility] Comment on above: Performed By: #### L 100.0100, L500.4050 #### [facility] [address] [place], [address] AST [Catalytic activity/Vol] 18 U/L Normal 15-37 [facility] Comment on above: Performed By: #### L 100.0100, L500.4050 #### [facility] [address] [place], [address] Bilirubin [Mass/Vol] 0.40 mg/dL Normal 0.20-1.00 [facility] Comment on above: Result Comment: For patients on eltrombopag therapy, use of Dimension Delta TBIL is not recommended. Performed By: #### L 100.0100, L500.4050 #### [facility] [address] [place], [address] BUN/CRE 13.1 RATIO Normal 10-20 [facility] Comment on above: Performed By: #### L 100.0100, L500.4050 #### [facility] [address] [place], [address] CA,Total 9.0 mg/dL Normal 8.5-10.1 [facility] Comment on above: Performed By: #### L 100.0100, L500.4050 #### [facility] [address] [place], [address] Chloride [Moles/Vol] 105 mmol/L Normal 98-107 [facility] Comment on above: Performed By: #### L 100.0100, L500.4050 #### [facility] [address] [place], [address] CO2 [Moles/Vol] 27.0 mmol/L Normal 21.0-32.0 [facility] Comment on above: Performed By: #### L 100.0100, L500.4050 #### [facility] [address] [place], [address] Creatinine [Mass/Vol] 0.84 mg/dL Normal 0.55-1.02 [facility] Comment on above: Result Comment: The validity of the calculated GFR GFRAA in patients over 70 years has not been determined. Clinical correlation is essential. Performed By: #### L 100.0100, L500.4050 #### [facility] [address] [place], [address] EST GFR - AA 98 mL/min Normal >60 [facility] Comment on above: Result Comment: Afri can Moldovan GFR Calc Performed By: #### L 100.0100, L500.4050 #### [facility] [address] [place], [address] GAP 6 Normal 5-15 [facility] Comment on above: Performed By: #### L 100.0100, L500.4050 #### [facility] [address] [place], [address] GFR/1.73 sq M.predicted among non-blacks MDRD (S/P/Bld) [Vol rate/Area] 81 mL/min/{1.73_m2} Normal >60 [facility] Comment on above: Result Comment: Non- GFR Calc Performed By: #### L 100.0100, L500.4050 #### [facility] [address] [place], [address] Globulin (S) [Mass/Vol] 3.5 g/dL Normal 2.2-4.2 [facility] Comment on above: Performed By: #### L 100.0100, L500.4050 #### [facility] [address] [place], [address] Glucose [Mass/Vol] 97 mg/dL Normal 74-106 [facility] Comment on above: Performed By: #### L 100.0100, L500.4050 #### [facility] [address] [place], [address] Potassium [Moles/Vol] 3.6 mmol/L Normal 3.5-5.1 [facility] Comment on above: Performed By: #### L 100.0100, L500.4050 #### [facility] [address] [place], [address] Sodium [Moles/Vol] 137 mmol/L Normal 136-145 [facility] Comment on above: Performed By: #### L 100.0100, L500.4050 #### [facility] [address] [place], [address] T PROT 7.3 g/dL Normal 6.4-8.2 [facility] Comment on above: Performed By: #### L 100.0100, L500.4050 #### [facility] [address] [place], [address] Urea nitrogen [Mass/Vol] 11 mg/dL Normal 7-18 [facility] Comment on above: Performed By: #### L 100.0100, L500.4050 #### [facility] [address] [place], [address] CNOVon 03-10-2024 CNOV Office Visit ([place]) ---- GISELLEANABELL NAVARRETE ([id number]) 1985 F Date Time Provider Department 03/10/24 12:00 PM DESTINY MANN [facility] During your visit today, we recorded the following information about you: Temperature Pulse Respiration Blood pressure 98.3 degrees 71/minute 20/minute 94/60 Weight Last Period 93.4 kg 02/29/24 Destiny Mann MD 03/10/2024 12:18 PM Signed Anabell Elmer is a 38 year old female who presents with Cough, congestion (X4days all/ symptoms.Patient states her daughter has strep/), and Sore Throat Patient presents for cough congestion and a sore throat. This has been going on for 4 days. States daughter is sick and has strep throat. Has a cough that is productive of sputum. Also states bilateral ear pain. No fevers or chills no nausea vomiting no diarrhea no shortness of breath or chest pain. PAST MEDICAL HISTORY Diagnosis Date Gestational diabetes Kidney stones During Sciatica Vitamin D deficiency 07/28/2018 ACTIVE PROBLEM LIST Gestational Diabetes Vitamin D Deficiency Obesity, Class I, Bmi 30-34.9 Current Outpatient Medications Medication Sig Dispense Refill ketoconazole (NIZORAL) 2 % shampoo USE FOR EVERY OTHER WASH ON THE SCALP LETTING IT LATHER 3 TO 5 MINUTES BEFORE RINSING DIRECTED. Clobetasol Propionate (TEMOVATE) 0.05 % external solution APPLY TO THE SCALP AT NIGHT AND MASSAGE IN, ALLOWING TO STAY IN OVERNIGHT FOR TWO WEEKS, STOPPING FOR ONE WEEK AND THEN RESUMING THE REGIMEN NEEDED FOR FLARING. methotrexate 2.5 mg tablet Take 2.5 mg by mouth. Take 6 tabs Q week. folic acid 1 mg tablet Take 1 mg by mouth two times a day. predniSONE (DELTASONE) 10 mg tablet Take 1 tablet by mouth once daily as needed. Rx by rheumatology for days of increased activity Cholecalciferol, Vitamin D3, 50 mcg (2,000 unit) cap Take 2,000 Units by mouth once daily. rosuvastatin (CRESTOR) 10 mg tablet Take 1 tablet by mouth daily at bedtime. 30 tablet 0 No current facility-administer ed medications for this visit. Social History Tobacco Use Smoking status: Never Smokeless tobacco: Never Vaping Use Vaping status: Never Used Substance Use Topics Alcohol use: Not Currently Comment: Couple times monthly beer/wine Drug use: Not Currently Alcohol Use: Not Currently (Couple times monthly beer/wine) Tobacco Use: Never FAMILY HISTORY Problem Relation Age of Onset Diabetes Mother Hypertension Mother Hypertension Father Stroke Father Prostate Cancer Father Colon Cancer Father Hypertension Sister Hypertension Brother Review of Systems Constitutional: Negative for chills and fever. HENT: Positive for congestion, ear pain and sore throat. Negative for ear discharge, hearing loss and tinnitus. Respiratory: Positive for cough and shortness of breath. Neurological: Negative for dizziness. BP 94/60 Pulse 71 Temp 98.3 Resp 20 Wt 205 lb 12.8 oz (93.4kg) SpO2 97% LMP 02/29/2024 Physical Exam Vitals and nursing note reviewed. Constitutional: Appearance: Normal appearance. HENT: Right Ear: Tympanic membrane normal. Left Ear: Tympanic membrane is erythematous. Nose: Congestion present. Mouth/Throat: Mouth: Mucous membranes are moist. Pharynx: Oropharynx is clear. No oropharyngeal exudate or posterior oropharyngeal erythema. Cardiovascular: Rate and Rhythm: Normal rate and regular rhythm. Pulmonary: Effort: Pulmonary effort is normal. Breath sounds: Normal breath sounds. Lymphadenopathy: Cervical: No cervical adenopathy. Skin: General: Skin is warm and dry. Neurological: Mental Status: She is alert. ASSESSMENT/PLAN: 1. Acute otitis media, left - ICD9: 382.9, ICD10: H66.92 - Will begin treatment with as per antibiotic as written, see orders - The patient should also be given OTC decongestants prn for the first 5-7 days of treatment. - Supportive care with plenty of fluids, rest, and analgesia prn. - Follow up in one week w/PCP if symptoms persist or worsen. - AMOXICILLIN 875 MG-POTASSIUM CLAVULANATE 125 MG TABLET Destiny Mann MD Allergies As of Date: 03/10/2024 (No Known Allergies) Date Reviewed: 03/10/2024 Reviewed by: Charlette Ortega MA - Fully Assessed Reason for Visit: Cough [28] congestion [Other] Cmt: X4days all symptoms.Patient states her daughter has strep Sore Throat [200] Primary Visit Diagnosis:Acute otitis media, left [H66.92] Order(s):amoxicilli n-clavulanate potassium (AUGMENTIN) 875-125 mg per tabletTake 1 tablet by mouth two times a day for 7 days.Disp: 14 tabletRfl: 0 Prescriptions as of 03/10/2024 - ketoconazole (NIZORAL) 2 % shampoo USE FOR EVERY OTHER WASH ON THE SCALP LETTING IT LATHER 3 TO 5 MINUTES BEFORE RINSING DIRECTED. - Clobetasol Propionate (TEMOVATE) 0.05 % external solution APPLY TO THE SCALP AT NIGHT AND MASSAGE IN, ALLOWING TO STAY (more content not included)... Normal [facility] CNOVon 02-22-2024 CNOV Office Visit ([place]) ---- ANABELL [id number]) 1985 F Date Time Provider Department 02/22/24 3:00 PM NICOLE DUVALL [facility] During your visit today, we recorded the following information about you: Pulse Respiration Blood pressure Weight 64/minute 14/minute 111/74 91.6 kg Height 1.651 m Nicole Duvall, ESTEF[employer] 02/22/2024 3:35 PM Signed VISIT TYPE: ROUTINE FOLLOW UP There are no exam notes on file for this visit. CHIEF COMPLAINT: Patient presents with: Hyperlipidemia: 3 month follow up. Wants to discuss recent appts with Rheumatology. HPI: Anabell Payne is a 38 year old female here for ROUTINE FOLLOW UP Hyperlipidemia- Was started on statin. Total chol 175, Trig 149, HDL 43, LDL 102. Has been trying to watch diet. Does have significant family hx of high chol and heart disease. Fatigue- Cont to have fatigue but is felt to be r/t pos MICHELE. States she developed rashes and fatigue a couple yrs ago. Was seeing [facility] and started on progesterone which did help with the rash. Rash- Has appt with derm tomorrow. Does have rashes on her arms, ankles, and along her neck. Does notice itching when it occurs. Has seen dermatology and was given steroid cream. Had MICHELE done which was pos and was referred to rheumatology. Anxiety- Following with therapist. States she had been on wellbutrin in the past but it hasn't helped. Does feel better since going to counseling. Does feel anxious normally. Prefers to not take meds. Denies any feelings of helplessness/hopele ssness, thoughts of hurting self. Vit D deficiency- Taking vit D daily. Pos MICHELE- Referred to rheumatology. Was dx with inflammatory polyarthritis and being eval for RA or psoriatic arthritis. Was started on methotrexate in Nov but hasn't noticed much improvement yet. Neuropathy- Had EMG which showed evidence of mild intracanal spinal lesion and was referred to neurosurgery. 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 Was set up for mri with contrast d/t the right hand neuropathy which was done on Thursday. Was referred to hand surgeon to eval for carpal tunnel. Chronic back pain- Following with neurosurgery and was ordered MRI. Was candidate for surgery but d/t age he preferred to wait. Was set up for PT which she finished. If that doesn't help she would be referred to pain clinic. REVIEW OF SYSTEMS: Review of Systems Constitutional: Positive for fatigue. Negative for appetite change, chills and fever. HENT: Negative for congestion, ear pain and sore throat. Eyes: Negative for redness and visual disturbance. Respiratory: Negative for cough, chest tightness, shortness of breath and wheezing. Cardiovascular: Negative for chest pain, palpitations and leg swelling. Gastrointestinal: Negative for abdominal pain, constipation, diarrhea, nausea and vomiting. Genitourinary: Negative for dysuria, frequency and hematuria. Musculoskeletal: Positive for arthralgias and back pain. Negative for gait problem. Skin: Negative for color change, pallor and rash. Neurological: Positive for numbness. Negative for dizziness, syncope and headaches. Psychiatric/Behavio ral: The patient is nervous/anxious. Current Outpatient Medications Medication Sig Dispense Refill methotrexate 2.5 mg tablet Take 2.5 mg by mouth. Take 6 tabs Q week. folic acid 1 mg tablet Take 1 mg by mouth two times a day. rosuvastatin (CRESTOR) 10 mg tablet Take 1 tablet by mouth daily at bedtime. 30 tablet 0 Cholecalciferol, Vitamin D3, 50 mcg (2,000 unit) cap Take 2,000 Units by mouth once daily. Progesterone 200 mg supp triamcinolone acetonide (KENALOG) 0.1 % ointment APPLY TWICE A DAY TO DERMATITIS- 2 WEEKS ON - 1 WEEK OFF No current facility-administer ed medications for this visit. ALLERGIES No Known Allergies PAST MEDICAL HISTORY Diagnosis Date Gestational diabetes Kidney stones During Sciatica Vitamin D deficiency 07/28/2018 PAST SURGICAL HISTORY Procedure Laterality Date COLONOSCOPY SCREENING 10/01/2023 Dr. Butler PAST SURGICAL HISTORY OF [place] teeth extraction FAMILY HISTORY Problem Relation Age of Onset Diabetes Mother Hypertension Mother Hypertension Father Stroke Father Prostate Cancer Father Colon Cancer Father Hypertension Sister Hypertension Brother Social History Tobacco Use Smoking status: Never Smokeless tobacco: Never Vaping Use Vaping status: Never Used Substance Use Topics Alcohol use: Yes Comment: Couple times monthly beer/wine Drug use: Not Currently Employer And Job Title: None on file Years Of Education Completed: Not specified Marital Status: Social History Social History Narrative Not on file PHYSICAL EXAM BP 111/74 (BP Site: Left Arm, BP Position: Sitting, BP Cuff Size: Large Adult) Pulse 64 Resp 14 Ht 165.1 cm (5' 5) Wt 91.6 kg ( (more content not included)... Normal [facility] Bilirubin.conjugated [Mass/Vol] 0.2 mg/dL Normal 0.0-0.4 [facility] Comment on above: Order Comment: Speci men Type: BLOOD SPECIMENOrdering Facility: [facility] Address: [address] [place] [address] Performed By: #### 1 5152-2, 88888-2, 63558-0, 3016-3 ####[facility]ORYCLIA [id number] [place] [address] [place] CBC panel Auto (Bld)on 02-18 Erythrocyte distribution width (RBC) [Ratio] 12.9 % Normal 11.5-15.0 [facility] Comment on above: Order Comment: Speci men Type: BLOOD SPECIMENOrdering Facility: [facility] Address: [address] [place] [address] Performed By: #### 5 8410-2 ####[facility]ATORYCLIA [id number] [place] [address] [place] Hematocrit (Bld) [Volume fraction] 42.2 % Normal 36.0-46.0 [facility] Comment on above: Order Comment: Speci men Type: BLOOD SPECIMENOrdering Facility: [facility] Address: [address] [place] [address] Performed By: #### 5 8410-2 ####[facility]ORYCLIA [id number] [place] [address] [place] Hemoglobin (Bld) [Mass/Vol] 14.3 g/dL Normal 11.5-15.5 [facility] Comment on above: Order Comment: Speci men Type: BLOOD SPECIMENOrdering Facility: [facility] Address: [address] [place] [address] Performed By: #### 5 8410-2 ####[facility]ORYCLIA [id number] [address] [place] MCH (RBC) [Entitic mass] 31.8 pg Normal 26.0-34.0 [facility] Comment on above: Order Comment: Speci men Type: BLOOD SPECIMENOrdering Facility: [facility] Address: [address] [place] [address] Performed By: #### 5 8410-2 ####[facility]ATORYCLIA [id number] [place] [address] [place] MCHC (RBC) [Mass/Vol] 33.9 g/dL Normal 30.5-36.0 [facility] Comment on above: Order Comment: Speci men Type: BLOOD SPECIMENOrdering Facility: [facility] Address: [address] [place] [address] Performed By: #### 5 8410-2 ####[facility]ORYCLIA [id number] [address] [place] MCV (RBC) [Entitic vol] 94.0 fL Normal 80.0-100.0 [facility] Comment on above: Order Comment: Speci men Type: BLOOD SPECIMENOrdering Facility: [facility] Address: [address] [place] [address] Performed By: #### 5 8410-2 ####[facility]ORYCLIA [id number] [address] [place] Nucleated RBC (Bld) [#/Vol] 10*3/uL Normal <0.01 [facility] Comment on above: Order Comment: Speci men Type: BLOOD SPECIMENOrdering Facility: [facility] Address: [address] [place], [place] [address] Performed By: #### 5 8410-2 ####[facility]ORYCLIA [id number] [address] [place] Platelet mean volume (Bld) [Entitic vol] 10.7 fL Normal 9.0-12.7 [facility] Comment on above: Order Comment: Speci men Type: BLOOD SPECIMENOrdering Facility: [facility] Address: [address] [place] [address] Performed By: #### 5 8410-2 ####[facility]ATORYCLIA [id number] [place] [address] [facility] Platelets (Bld) [#/Vol] 245 10*3/uL Normal 150-400 [facility] Comment on above: Order Comment: Speci men Type: BLOOD SPECIMENOrdering Facility: [facility] Address: [address] [place], [place] [address] Performed By: #### 5 8410-2 ####[facility]ATORYCLIA [id number] [place] [address] [facility] OF [place] RBC (Bld) [#/Vol] 4.49 10*6/uL Normal 3.90-5.20 [facility] Comment on above: Order Comment: Speci men Type: BLOOD SPECIMENOrdering Facility: [facility] Address: [address] [place], [place] [address] Performed By: #### 5 8410-2 ####[facility]ORYCLIA [id number] [place] [address] [place] WBC (Bld) [#/Vol] 8.17 10*3/uL Normal 3.70-11.00 [facility] Comment on above: Order Comment: Speci men Type: BLOOD SPECIMENOrdering Facility: [facility] Address: [address] [place] [address] Performed By: #### 5 8410-2 ####[facility]ATORYCLIA [id number] [place] [address] [facility] Comprehensive metabolic 2000 panelon 02-19-2024 Albumin [Mass/Vol] 3.9 g/dL Normal 3.2-5.0 [facility] Comment on above: Order Comment: Speci men Type: BLOOD SPECIMENOrdering Facility: [facility] Address: [address] [place] [address] Performed By: #### 1 5152-2, 66950-9, 30165-9, 3016-3 ####[facility]ORYCLIA [id number] [place] [address] [place] ALP [Catalytic activity/Vol] 83 U/L Normal 45-117 [facility] Comment on above: Order Comment: Speci stella Type: BLOOD SPECIMENOrdering Facility: [facility] Address: [address] [place] [address] Performed By: #### 1 5152-2, 19026-0, 10597-1, 3016-3 ####[facility]ORYCLIA [id number] [address] OF [facility] ALT [Catalytic activity/Vol] 24 U/L Normal 13-61 [facility] Comment on above: Order Comment: Speci setlla Type: BLOOD SPECIMENOrdering Facility: [facility] Address: [address] [place] [address] Result Comment: Resu lts may be falsely depressed after the administration of Sulfasalazine and/or Sulfapyridine. Performed By: #### 1 5152-2, 24671-1, 50825-0, 6-3 ####[facility]ORYCLIA [id number] [address] STATES OF [facility] Anion gap [Moles/Vol] 8 mmol/L Normal 5-16 [facility] Comment on above: Order Comment: Joel douglas Type: BLOOD SPECIMENOrdering Facility: [facility] Address: [address] [place] [address] Performed By: #### 1 5152-2, 74669-6, 65890-4, 6-3 ####[facility]ORYCLIA [id number] [place] [address] [place] AST [Catalytic activity/Vol] 18 U/L Normal 8-34 [facility] Comment on above: Order Comment: Marcellai stella Type: BLOOD SPECIMENOrdering Facility: [facility] Address: [address] [place] [address] Result Comment: Resu lts may be falsely depressed after the administration of Sulfasalazine and/or Sulfapyridine. Performed By: #### 1 5152-2, 10202-6, 16562-3, 6-3 ####[facility]ATORYCLIA [id number] [place] [address] [place] Bilirubin [Mass/Vol] 0.6 mg/dL Normal 0.2-1.0 [facility] Comment on above: Order Comment: Speci men Type: BLOOD SPECIMENOrdering Facility: [facility] Address: [address] [place] [address] Performed By: #### 1 5152-2, 40286-2, 73860-7, 3015-3 ####[facility]ORYCLIA [id number] [place] [address] [place] Calcium [Mass/Vol] 9.9 mg/dL Normal 8.5-10.5 [facility] Comment on above: Order Comment: Speci men Type: BLOOD SPECIMENOrdering Facility: [facility] Address: [address] [place] [address] Performed By: #### 1 5152-2, 55715-9, 23750-1, 3015-3 ####[facility]ATORYCLIA [id number] [place] [address] [place] Chloride [Moles/Vol] 106 mmol/L Normal 98-107 [facility] Comment on above: Order Comment: Speci men Type: BLOOD SPECIMENOrdering Facility: [facility] Address: [address] [place] [address] Performed By: #### 1 5152-2, 77919-0, 81342-1, 3015-3 ####[facility]ATORYCLIA [id number] [place] [address] [place] CO2 [Moles/Vol] 26 mmol/L Normal 21-32 [facility] Comment on above: Order Comment: Speci men Type: BLOOD SPECIMENOrdering Facility: [facility] Address: [address] [place] [address] Performed By: #### 1 5152-2, 48200-0, 87016-7, 6-3 ####[facility]ATORYCLIA [id number] [place] [address] [place] Creatinine [Mass/Vol] 0.84 mg/dL Normal 0.51-0.95 [facility] Comment on above: Order Comment: Joel douglas Type: BLOOD SPECIMENOrdering Facility: [facility] Address: [address] [place] [address] Result Comment: Courtney ents receiving either N-Acetylcysteine (NAC) or Metamizole prior to venipuncture, may have falsely depressed results. Performed By: #### 1 5152-2, 77757-9, 44027-9, 3016-3 ####[facility]ATORYCLIA [id number] [address] Creatinine and Glomerular filtration rate.predicted panel (S/P/Bld) 92 mL/min/1.73m??? Normal >=60 [facility] Comment on above: Order Comment: Joel douglas Type: BLOOD SPECIMENOrdering Facility: [facility] Address: [address] [place] [address] Result Comment: Sydnie mated Glomerular Filtration Rate (eGFR) is calculated using the 2020 CKD-EPI creatinine equation. This equation utilizes serum creatinine, sex, and age as parameters. The creatinine assay has traceable calibration to isotope dilution-mass spectrometry. Refer to KDIGO guidelines for clinical interpretation. In patients with unstable renal function, e.g. those with acute kidney injury, the eGFR may not accurately reflect actual GFR. Performed By: #### 1 5152-2, 56271-9, 36342-1, 3016-3 ####[facility]ATORYCLIA [id number] [place] [id number] [place] Glucose [Mass/Vol] 106 mg/dL High 70-100 [facility] Comment on above: Order Comment: Joel douglas Type: BLOOD SPECIMENOrdering Facility: [facility] Address: [address] [place] [address] Result Comment: The [place] Diabetes Association (ADA) provides guidance for cutoff values for fasting glucose and random glucose. The ADA defines fasting as no caloric intake for at least 8 hours. Fasting plasma glucose results between 100 to 125 mg/dL indicate increased risk for diabetes (prediabetes). Fasting plasma glucose results greater than or equal to 126 mg/dL meet the criteria for diagnosis of diabetes. In the absence of unequivocal hyperglycemia, results should be confirmed by repeat testing. In a patient with classic symptoms of hyperglycemia or hyperglycemic crisis, random plasma glucose results greater than or equal to 200 mg/dL meet the criteria for diagnosis of diabetes. Reference: Standards of Medical Care in Diabetes 2016, [place] [employer]. Diabetes Care. 2016.39(Suppl 1). Results may be falsely elevated after the administration of Sulfapyridine. Results may be falsely depressed after the administration of Sulfasalazine. Performed By: #### 1 5152-2, 05567-8, 54635-6, 3016-3 ####[facility]ATORYCLIA [id number] [place] [address] [place] Potassium [Moles/Vol] 3.9 mmol/L Normal 3.5-5.1 [facility] Comment on above: Order Comment: Joel men Type: BLOOD SPECIMENOrdering Facility: [facility] Address: [address] [place] [address] Performed By: #### 1 5152-2, 08740-8, 81484-2, 3016-3 ####[facility]ATORYCLIA [id number] [place] [address] [place] Protein [Mass/Vol] 7.2 g/dL Normal 6.0-8.5 [facility] Comment on above: Order Comment: Joel douglas Type: BLOOD SPECIMENOrdering Facility: [facility] Address: [address] [place] [address] Performed By: #### 1 5152-2, 09749-3, 60639-4, 3016-3 ####[facility]ORYCLIA [id number] [place] [address] [place] Sodium [Moles/Vol] 140 mmol/L Normal 136-145 [facility] Comment on above: Order Comment: Marcellai men Type: BLOOD SPECIMENOrdering Facility: [facility] Address: [address] [place] [address] Performed By: #### 1 5152-2, 84975-8, 46678-2, 6-3 ####[facility]ORYCLIA [id number] [place] [address] [place] Urea nitrogen [Mass/Vol] 12 mg/dL Normal 7-26 [facility] Comment on above: Order Comment: Speci men Type: BLOOD SPECIMENOrdering Facility: [facility] Address: [address] [place] [address] Performed By: #### 1 5152-2, 08044-3, 57135-5, 6-3 ####[facility]ATORYCLIA [id number] [place] [address] [facility] OF [place] Lipid 1996 panelon 4 Cholesterol [Mass/Vol] 175 mg/dL Normal 0-199 [facility] Comment on above: Order Comment: Speci men Type: BLOOD SPECIMENOrdering Facility: [facility] Address: [address] [place] [address] Result Comment: <200 mg/dL, Desirable 200-239 mg/dL, Borderline high >239 mg/dL, High Performed By: #### 1 5152-2, 49250-7, 93824-0, 6-3 ####[facility]ORYCLIA [id number] [address] STATES OF [facility] Cholesterol in HDL [Mass/Vol] 43 mg/dL Normal >40 [facility] Comment on above: Order Comment: Speci men Type: BLOOD SPECIMENOrdering Facility: [facility] Address: [address] [place] [address] Result Comment: 40-5 9 mg/dL, Acceptable >59 mg/dL, High: Negative risk factor for coronary heart disease <40 mg/dL, Low: Positive risk factor for coronary heart disease Performed By: #### 1 5152-2, 90176-7, 03079-0, 6-3 ####[facility]ORYCLIA [id number] [place] [address] [facility] Cholesterol in LDL [Mass/Vol] 102 mg/dL Normal 0-129 [facility] Comment on above: Order Comment: Speci men Type: BLOOD SPECIMENOrdering Facility: [facility] Address: [address] [place] [address] Result Comment: <100 mg/dL, Optimal 100-129 mg/dL, Near optimal/above optimal 130-159 mg/dL, Borderline high 160-189 mg/dL, High >189 mg/dL, Very high Secondary prevention optimal LDL Cholesterol levels are recommended to be < 70 mg/dL Performed By: #### 1 5152-2, 35321-9, 13871-5, 3016-3 ####[facility]ORYCLIA [id number] [place] [id number] [place] Cholesterol in LDL/Cholesterol in HDL [Mass ratio] 2.37 {ratio} Normal <2.54 [facility] Comment on above: Order Comment: Joel douglas Type: BLOOD SPECIMENOrdering Facility: [facility] Address: [address] [place] [address] Result Comment: Refe rence: 1. National Cholesterol Education Program ATP III Guideline At-A-Glance Quick Desk Reference: National Heart, Lung, and Blood [place]. National Institutes of Health. 2001: NIH Publication No. 01-3305. 2. An International Atherosclerosis Society position paper: global recommendations for the management of dyslipidemia: executive summary, Atherosclerosis. 2014: 232(2):410-413. Performed By: #### 1 5152-2, 59849-1, 65828-5, 3016-3 ####[facility]ATORYCLIA [id number] [place] [address] [place] Cholesterol in VLDL [Mass/Vol] 30 mg/dL High <30 [facility] Comment on above: Order Comment: Joel douglas Type: BLOOD SPECIMENOrdering Facility: [facility] Address: [address] [place] [id number] Performed By: #### 1 5152-2, 44258-1, 71643-2, 3016-3 ####[facility]ATORYCLIA [id number] [place] [address] [place] Cholesterol non HDL [Mass/Vol] 132 mg/dL High <130 [facility] Comment on above: Order Comment: Marcellai men Type: BLOOD SPECIMENOrdering Facility: [facility] Address: [address] [place] [address] Result Comment: <130 mg/dL, Optimal 130-159 mg/dL, Near optimal/above optimal 160-189 mg/dL, Borderline high 190-219 mg/dL, High >219 mg/dL, Very high Secondary prevention optimal non HDL Cholesterol levels are recommended to be <100 mg/dL Performed By: #### 1 5152-2, 21673-4, 92608-2, 3016-3 ####[facility]ATORYCLIA [id number] [address] [place] Cholesterol.total/Heather sterol in HDL [Mass ratio] 4.07 {ratio} Normal <5.10 [facility] Comment on above: Order Comment: Joel douglas Type: BLOOD SPECIMENOrdering Facility: [facility] Address: [address] [place] [address] Performed By: #### 1 5152-2, 29747-3, 96512-1, 3016-3 ####[facility]ATORYCLIA [id number] [place] [address] [place] FASTING TIME 9 hrs Normal [facility] Comment on above: Order Comment: Joel douglas Type: BLOOD SPECIMENOrdering Facility: [facility] Address: [address] [place] [address] Performed By: #### 1 5152-2, 36847-9, 40488-8, 3016-3 ####[facility]ORYCLIA [id number] [place] [id number] [place] Triglyceride [Mass/Vol] 149 mg/dL Normal 30-149 [facility] Comment on above: Order Comment: Marcellai men Type: BLOOD SPECIMENOrdering Facility: [facility] Address: [address] [place] [address] Result Comment: <150 mg/dL, Normal 150-199 mg/dL, Borderline high 200-499 mg/dL, High >499 mg/dL, Very high Patients receiving either N-Acetylcysteine (NAC) or Metamizole prior to venipuncture, may have falsely depressed results. Performed By: #### 1 5152-2, 57172-6, 51549-3, 3016-3 ####[facility]ORYCLIA [id number] [address] STATES OF [facility] TSH SerPl-aCncon 02-19-2024 TSH Qn 1.302 m[IU]/L Normal 0.358-3.740 [facility] Comment on above: Order Comment: Speci men Type: BLOOD SPECIMENOrdering Facility: [facility] Address: [address] [place] [address] Result Comment: 3rd generation ultra sensitive TSH. Performed By: #### 1 5152-2, 17520-2, 39740-8, 3016-3 ####[facility]ATORYCLIA [id number] [address] [place] 02-18-2024 CNPN Telephone (INTMUD) ---- ANABELL PAYNE ([id number]) 1985 F Date Time Provider Department 02/18/24 NICOLE DUVALL INTMUD During your visit today, we recorded the following information about you: Allergies As of Date: 02/18/2024 (No Known Allergies) Date Reviewed: 11/05/2023 Reviewed by: Nicol Mccormick MA - Fully Assessed Prescriptions as of 02/18/2024 - rosuvastatin (CRESTOR) 10 mg tablet Take 1 tablet by mouth daily at bedtime. - Cholecalciferol, Vitamin D3, 50 mcg (2,000 unit) cap Take 2,000 Units by mouth once daily. - Progesterone 200 mg supp - triamcinolone acetonide (KENALOG) 0.1 % ointment APPLY TWICE A DAY TO DERMATITIS- 2 WEEKS ON - 1 WEEK OFF Meds Comments as of 08/09/2020: Problem List As Of Date 02/18/2024 Noted Resolved Gestational diabetes [O24.419] 10/17/2021 Vitamin D deficiency [E55.9] 07/28/2018 Obesity, Class I, BMI 30-34.9 [E66.811] 10/13/2022 Encounter for screening for malignant neoplasm *09/24/2023 10/01/2023 Chronic bilateral low back pain with left-sided*12/09/19 Encounter Status:Closed by ANABELL FRANKS on 02/18/24 [facility] 02-08-2024 CNPN Telephone (INTMUD) ---- ANABELL PAYNE ([id number]) 1985 F Date Time Provider Department 02/08/24 NICOLE DUVALL INTMUD During your visit today, we recorded the following information about you: Anthony Pagan 02/08/2024 1:44 PM Signed Patient calls today. Reason for Call: Patient wanted to reschedule her 3 month FU appointment from 02/01 and wanted to do blood work prior. She said she ran out of her cholesterol medication last Friday 02/02 so she wasn't sure if she did blood work this week it would reflect her true numbers. She wanted to know if another script should be sent in and she schedule out or does she need to go ahead and schedule this week. Please advise. Thanks! [phone] (home) [phone] (cell) Patient last appointment: 02/01/2024 Nicole Soto, DIRECT SUPPORT STAFF.HOME THEATER EXPERIENCE EXPERT 02/08/2024 3:56 PM Signed Will refill meds for a month. Yi Hill OCCA 02/08/2024 4:14 PM Signed Called patient and informed of message, patient voiced understanding and is agreeable. YiOSITO Valerio Josie L, MA 02/08/2024 4:16 PM Signed PATIENT SCHEDULED FOR 02/22/2024 WITH NICOLE DUVALL NP Allergies As of Date: 02/08/2024 (No Known Allergies) Date Reviewed: 11/05/2023 Reviewed by: Nicol Mccormick MA - Fully Assessed Reason for Visit: Patient Question [1477] Primary Visit Diagnosis:Mixed hyperlipidemia [E78.2] Other Visit Diagnosis:Encounter for annual general medical examination with abnormal findings in adult [Z00.01] Order(s):COMPREHENS ELVA METABOLIC PANEL [SQCMP] Order #: [id number] FUTURE COMPLETE BLOOD COUNT [SQCBC] Order #: [id number] FUTURE LIPID PANEL BASIC [SQLIPB] Order #: [id number] FUTURE THYROID STIMULATING HORMONE [SQTSH] Order #: [id number] FUTURE rosuvastatin (CRESTOR) 10 mg tabletTake 1 tablet by mouth daily at bedtime.Disp: 30 tabletRfl: 0 Prescriptions as of 02/08/2024 - rosuvastatin (CRESTOR) 10 mg tablet Take 1 tablet by mouth daily at bedtime. - Cholecalciferol, Vitamin D3, 50 mcg (2,000 unit) cap Take 2,000 Units by mouth once daily. - Progesterone 200 mg supp - triamcinolone acetonide (KENALOG) 0.1 % ointment APPLY TWICE A DAY TO DERMATITIS- 2 WEEKS ON - 1 WEEK OFF Meds Comments as of 08/09/2020: Problem List As Of Date 02/08/2024 Noted Resolved Gestational diabetes [O24.419] 10/17/2021 Vitamin D deficiency [E55.9] 07/28/2018 Obesity, Class I, BMI 30-34.9 [E66.811] 10/13/2022 Encounter for screening for malignant neoplasm *09/24/2023 10/01/2023 Chronic bilateral low back pain with left-sided*12/09/19 24 Prescriptions ordered this encounter Disp Refills Start End ROSUVASTATIN 10 MG TABLET 30 t* 0 02/08/2024 03/09/2024 Route: ORAL Sig: Take 1 tablet by mouth daily at bedtime. Medications Discontinued During This Encounter Prescriptions - rosuvastatin (CRESTOR) 10 mg tablet (Discontinued) Take 1 tablet by mouth daily at bedtime. Encounter Status:Closed by YI HILL on 02/08/24 [facility] CBC W/Diff, Automatedon 09-2 Absolute Lymph 2.07 X10 3/uL Normal 0.83-4.51 [facility] Comment on above: Performed By: #### L 100.0100, L500.4050 #### [facility] [address] [place], [address] Absolute Neut 6.5 X10 3/uL Normal 2.0-7.7 [facility] Comment on above: Performed By: #### L 100.0100, L500.4050 #### [facility] [address] [place], [address] Basophils/100 WBC (Bld) 0.7 % Normal 0-1 [facility] Comment on above: Performed By: #### L 100.0100, L500.4050 #### [facility] [address] [place], [address] Eosinophils/100 WBC (Bld) 1.2 % Normal 0-5 [facility] Comment on above: Performed By: #### L 100.0100, L500.4050 #### [facility] [address] [place], [address] Erythrocyte distribution width (RBC) [Ratio] 12.4 % Normal 11.6-14.6 [facility] Comment on above: Performed By: #### L 100.0100, L500.4050 #### [facility] [address] [place], [address] Hematocrit (Bld) [Volume fraction] 42.2 % Normal 37-47 [facility] Comment on above: Performed By: #### L 100.0100, L500.4050 #### [facility] [address] [place], [address] Hemoglobin (Bld) [Mass/Vol] 13.9 g/dL Normal 12.0-15.0 [facility] Comment on above: Performed By: #### L 100.0100, L500.4050 #### [facility] [address] [place], [address] IG% 0.300 Normal 0.0-0.9 [facility] Comment on above: Result Comment: IG% - Immature Granulocytes (promyelocytes, myelocytes and metamyelocytes) > 1% indicates that a LEFT SHIFT is Present. Performed By: #### L 100.0100, L500.4050 #### [facility] [address] [place], [address] Lymphocytes/100 WBC (Bld) 21.8 % Normal 19-41 [facility] Comment on above: Performed By: #### L 100.0100, L500.4050 #### [facility] [address] [place], [address] MCH (RBC) [Entitic mass] 31.4 pg Normal 27.0-32.0 [facility] Comment on above: Performed By: #### L 100.0100, L500.4050 #### [facility] [address] [place], [address] MCHC (RBC) [Mass/Vol] 32.9 g/dL Normal 32-36 [facility] Comment on above: Performed By: #### L 100.0100, L500.4050 #### [facility] [address] [place], [address] MCV (RBC) [Entitic vol] 95.3 fL Normal 81-99 [facility] Comment on above: Performed By: #### L 100.0100, L500.4050 #### [facility] [address] [place], [address] Monocytes/100 WBC (Bld) 7.3 % Normal 0-10 [facility] Comment on above: Performed By: #### L 100.0100, L500.4050 #### [facility] [address] [place], [address] Neutrophils/100 WBC (Bld) 68.7 % Normal 47-70 [facility] Comment on above: Performed By: #### L 100.0100, L500.4050 #### [facility] [address] [place], [address] Nucleated RBC (Bld) [#/Vol] 0 10*3/uL Normal 0-5 [facility] Comment on above: Performed By: #### L 100.0100, L500.4050 #### [facility] [address] [place], [address] Platelet mean volume (Bld) [Entitic vol] 11.5 fL Normal 6.2-12.0 [facility] Comment on above: Performed By: #### L 100.0100, L500.4050 #### [facility] [address] [place], [address] Platelets (Bld) [#/Vol] 244 10*3/uL Normal 150-450 [facility] Comment on above: Performed By: #### L 100.0100, L500.4050 #### [facility] [address] [place], [address] RBC (Bld) [#/Vol] 4.43 10*6/uL Normal 4.2-5.[address] [facility] Comment on above: Performed By: #### L 100.0100, L500.4050 #### [facility] [address] [place], [address] RDW SD 42.7 fl Normal 35.1-43.9 [facility] Comment on above: Performed By: #### L 100.0100, L500.4050 #### [facility] [address] [place], [address] WBC (Bld) [#/Vol] 9.5 10*3/uL Normal 4.4-11.0 [facility] Comment on above: Performed By: #### L 100.0100, L500.4050 #### [facility] [address] [place], [address] Comprehensive Metabolic Prof ilon 01-15-2024 Albumin [Mass/Vol] 3.9 g/dL Normal 3.2-5.0 [facility] Comment on above: Performed By: #### L 3890.6100, L4500.0100, L3890.6300, L500.4050, L3890.6200, L100.0100, L501.6710, L101.9900, L501.0900, L400.2010 #### [facility] [address] [place], [address] Albumin/Globulin [Mass ratio] 1.1 {ratio} Normal 0.9-2.4 [facility] Comment on above: Performed By: #### L 3890.6100, L4500.0100, L3890.6300, L500.4050, L3890.6200, L100.0100, L501.6710, L101.9900, L501.0900, L400.2010 #### [facility] [address] [place], [address] ALK P 84 U/L Normal 45-117 [facility] Comment on above: Performed By: #### L 3890.6100, L4500.0100, L3890.6300, L500.4050, L3890.6200, L100.0100, L501.6710, L101.9900, L501.0900, L400.2010 #### [facility] [address] [place], [address] ALT [Catalytic activity/Vol] 29 U/L Normal 13-56 [facility] Comment on above: Performed By: #### L 3890.6100, L4500.0100, L3890.6300, L500.4050, L3890.6200, L100.0100, L501.6710, L101.9900, L501.0900, L400.2010 #### [facility] [address] [place], [address] AST [Catalytic activity/Vol] 17 U/L Normal 15-37 [facility] Comment on above: Performed By: #### L 3890.6100, L4500.0100, L3890.6300, L500.4050, L3890.6200, L100.0100, L501.6710, L101.9900, L501.0900, L400.2010 #### [facility] [address] [place], [address] Bilirubin [Mass/Vol] 0.70 mg/dL Normal 0.20-1.00 [facility] Comment on above: Result Comment: For patients on eltrombopag therapy, use of Dimension Delta TBIL is not recommended. Performed By: #### L 3890.6100, L4500.0100, L3890.6300, L500.4050, L3890.6200, L100.0100, L501.6710, L101.9900, L501.0900, L400.2010 #### [facility] [address] [place], [place], [id number] BUN/CRE 14.6 RATIO Normal 10-20 [facility] Comment on above: Performed By: #### L 3890.6100, L4500.0100, L3890.6300, L500.4050, L3890.6200, L100.0100, L501.6710, L101.9900, L501.0900, L400.2010 #### [facility] [address] [place], [address] CA,Total 9.3 mg/dL Normal 8.5-10.1 [facility] Comment on above: Performed By: #### L 3890.6100, L4500.0100, L3890.6300, L500.4050, L3890.6200, L100.0100, L501.6710, L101.9900, L501.0900, L400.2010 #### [facility] [address] [place], [address] Chloride [Moles/Vol] 106 mmol/L Normal 98-107 [facility] Comment on above: Performed By: #### L 3890.6100, L4500.0100, L3890.6300, L500.4050, L3890.6200, L100.0100, L501.6710, L101.9900, L501.0900, L400.2010 #### [facility] [address] [place], [address] CO2 [Moles/Vol] 27.0 mmol/L Normal 21.0-32.0 [facility] Comment on above: Performed By: #### L 3890.6100, L4500.0100, L3890.6300, L500.4050, L3890.6200, L100.0100, L501.6710, L101.9900, L501.0900, L400.2010 #### [facility] [address] [place], [address] Creatinine [Mass/Vol] 0.96 mg/dL Normal 0.55-1.02 [facility] Comment on above: Result Comment: The validity of the calculated GFR GFRAA in patients over 70 years has not been determined. Clinical correlation is essential. Performed By: #### L 3890.6100, L4500.0100, L3890.6300, L500.4050, L3890.6200, L100.0100, L501.6710, L101.9900, L501.0900, L400.2010 #### [facility] [address] [place], [address] EST GFR - AA 84 mL/min Normal >60 [facility] Comment on above: Result Comment: Afri can Moldovan GFR Calc Performed By: #### L 3890.6100, L4500.0100, L3890.6300, L500.4050, L3890.6200, L100.0100, L501.6710, L101.9900, L501.0900, L400.2010 #### [facility] [address] [place], [address] GAP 6 Normal 5-15 [facility] Comment on above: Performed By: #### L 3890.6100, L4500.0100, L3890.6300, L500.4050, L3890.6200, L100.0100, L501.6710, L101.9900, L501.0900, L400.2010 #### [facility] [address] [place], [place], [address] GFR/1.73 sq M.predicted among non-blacks MDRD (S/P/Bld) [Vol rate/Area] 70 mL/min/{1.73_m2} Normal >60 [facility] Comment on above: Result Comment: Non- GFR Calc Performed By: #### L 3890.6100, L4500.0100, L3890.6300, L500.4050, L3890.6200, L100.0100, L501.6710, L101.9900, L501.0900, L400.2010 #### [facility] [address] [place], [address] Globulin (S) [Mass/Vol] 3.6 g/dL Normal 2.2-4.2 [facility] Comment on above: Performed By: #### L 3890.6100, L4500.0100, L3890.6300, L500.4050, L3890.6200, L100.0100, L501.6710, L101.9900, L501.0900, L400.2010 #### [facility] [address] [place], [address] Glucose [Mass/Vol] 102 mg/dL Normal 74-106 [facility] Comment on above: Result Comment: Fast ing Glucose result from 100 to 125 mg/dL suggests IMPAIRED HOMEOSTASIS per A.D.A. criteria. Performed By: #### L 3890.6100, L4500.0100, L3890.6300, L500.4050, L3890.6200, L100.0100, L501.6710, L101.9900, L501.0900, L400.2010 #### [facility] [address] [place], [address] Potassium [Moles/Vol] 3.5 mmol/L Normal 3.5-5.1 [facility] Comment on above: Performed By: #### L 3890.6100, L4500.0100, L3890.6300, L500.4050, L3890.6200, L100.0100, L501.6710, L101.9900, L501.0900, L400.2010 #### [facility] [address] [place], [address] Sodium [Moles/Vol] 139 mmol/L Normal 136-145 [facility] Comment on above: Performed By: #### L 3890.6100, L4500.0100, L3890.6300, L500.4050, L3890.6200, L100.0100, L501.6710, L101.9900, L501.0900, L400.2010 #### [facility] [address] [place], [address] T PROT 7.5 g/dL Normal 6.4-8.2 [facility] Comment on above: Performed By: #### L 3890.6100, L4500.0100, L3890.6300, L500.4050, L3890.6200, L100.0100, L501.6710, L101.9900, L501.0900, L400.2010 #### [facility] [address] [place], [address] Urea nitrogen [Mass/Vol] 14 mg/dL Normal 7-18 [facility] Comment on above: Performed By: #### L 3890.6100, L4500.0100, L3890.6300, L500.4050, L3890.6200, L100.0100, L501.6710, L101.9900, L501.0900, L400.2010 #### [facility] [address] [place], [place], [address] CNTHERAPYon 01-07-2024 CNTHERAPY OT/PT/Speech Visit (PTMERC) ---- ANABELL PAYNE ([id number]) 1985 F Date Time Provider Department 01/07/24 3:15 PM FERNANDO ROBERT PTMERC Date Time Provider Department Center 01/07/2024 3:15 PM [id number], BRITTA*PTMERC [facility] Reason for Visit: Physical Therapy [503] PT Discharge [752] Primary Visit Diagnosis:Chronic bilateral low back pain with left-sided sciatica [M54.42, G89.29] Allergies As of Date: 01/07/2024 (No Known Allergies) Date Reviewed: 11/05/2023 Reviewed by: Nicol Mccormick MA - Fully Assessed Prescriptions as of 03/09/2024 - methotrexate 2.5 mg tablet Take 2.5 mg by mouth. Take 6 tabs Q week. - folic acid 1 mg tablet Take 1 mg by mouth two times a day. - predniSONE (DELTASONE) 10 mg tablet Take 1 tablet by mouth once daily as needed. Rx by rheumatology for days of increased activity - rosuvastatin (CRESTOR) 10 mg tablet Take 1 tablet by mouth daily at bedtime. - Cholecalciferol, Vitamin D3, 50 mcg (2,000 unit) cap Take 2,000 Units by mouth once daily. Meds Comments as of 08/09/2020: Core Carrier: Addendum Therapy (PT/OT/Speech/Resp) ID: [id number] 01/07/2024 4:18 PM Author: FERNANDO ROBERT Signed by FERNANDO ROBERT PT, DPT on 01/07/2024 at 4:18 PM * * * This document replaces document [id number] * * * Document text: Program_ID:[id number] Access Code: [email or web address] URL: [email or web address] Date: 01-07-2024 Prepared By: FERNANDO ROBERT Program Notes Precaution: No hip extension in combination with external rotation of the surgical leg. You do not have other precautions. Traditional total hip precautions do not apply to you. While in bed, please make sure you flatten the bed to stretch your hip out. Please do this 2x/day for about 30-40 minutes for each session. Exercises - Supine Posterior Pelvic Tilt - 2 x daily - 7 x weekly - 3 sets - 10 reps - Supine March with Posterior Pelvic Tilt - 2 x daily - 7 x weekly - 3 sets - 10 reps - Bug - 2 x daily - 7 x weekly - 3 sets - 10 reps - Seated Flexion Stretch with [place] Ball - 2 x daily - 7 x weekly - 5 sets - reps - Seated Thoracic Flexion and Rotation with [place] Ball - 2 x daily - 7 x weekly - 5 sets - reps - Prone Press Up - 2 x daily - 7 x weekly - 1 sets - 10 reps - Sit Up with Arm Reach - 1 x daily - 7 x weekly - 3 sets - 10 reps - Supine Bridge - 1 x daily - 7 x weekly - 3 sets - 10 reps - Sidelying Hip Abduction - 1 x daily - 7 x weekly - 3 sets - 10 reps - Bridge with Heels on [place] Ball - 1 x daily - 7 x weekly - 3 sets - 10 reps - Plank on Knees - 1 x daily - 7 x weekly - 3 sets - reps - Side Plank on Knees - 1 x daily - 7 x weekly - 3 sets - reps - Side Stepping with Resistance at Ankles - 1 x daily - 7 x weekly - 3 sets - 10 reps - Standing Anti-Rotation Press with Anchored Resistance - 1 x daily - 7 x weekly - 3 sets - 10 reps - Bridge with Hip Abduction and Resistance - 1 x daily - 7 x weekly - 3 sets - 10 reps - Bird Dog - 1 x daily - 7 x weekly - 3 sets - 10 reps - Beginner Front Arm Support - 1 x daily - 7 x weekly - 3 sets - 10 reps - Supine Bug with Leg Extension - 1 x daily - 7 x weekly - 3 sets - 10 reps - Wall Squat with [place] Ball - 1 x daily - 7 x weekly - 3 sets - 10 reps - Forward Monster Walks - 1 x daily - 7 x weekly - 3 sets - 10 reps - Backward Monster Walks - 1 x daily - 7 x weekly - 3 sets - 10 reps - [place] Twists Feet off Ground Fast Tempo - 1 x daily - 7 x weekly - 3 sets - 10 reps - Reverse Crunch - 1 x daily - 7 x weekly - 3 sets - 10 reps - Full Superman on Table - 1 x daily - 7 x weekly - 3 sets - 10 reps - Single Leg Bridge - 1 x daily - 7 x weekly - 3 sets - 10 reps - Mini [place] on [place] Ball - 1 x daily - 7 x weekly - 3 sets - 10 reps - Supine Hamstring Curl on [place] Ball - 1 x daily - 7 x weekly - 3 sets - 10 reps - Standing Repeated Hip Abduction with Resistance - 1 x daily - 7 x weekly - 3 sets - 10 reps - Standing Repeated Hip Extension with Resistance - 1 x daily - 7 x weekly - 3 sets - 10 reps - Standing Repeated Hip Extension with Resistance - 1 x daily - 7 x weekly - 3 sets - 10 reps - Single Leg Bridge - 1 x daily - 7 x weekly - 3 sets - 10 reps - Wall Squat with [place] Ball - 1 x daily - 7 x weekly - 3 sets - [address] [facility] THERAPY NTon 01-07-2024 THERAPY NT HNO ID: [id number] Author: FERNANDO ROBERT, PT, DPT Service: ? Author Type: Physical Therapist Type: Therapy (PT/OT/Speech/Resp) Filed: 01/07/2024 16:18 Note Text: Program_ID:[id number] Access Code: [email or web address] URL: [email or web address] Date: 01-07-2024 Prepared By: FERNANDO ROBERT Program Notes Precaution: No hip extension in combination with external rotation of the surgical leg. You do not have other precautions. Traditional total hip precautions do not apply to you. While in bed, please make sure you flatten the bed to stretch your hip out. Please do this 2x/day for about 30-40 minutes for each session. Exercises - Supine Posterior Pelvic Tilt - 2 x daily - 7 x weekly - 3 sets - 10 reps - Supine March with Posterior Pelvic Tilt - 2 x daily - 7 x weekly - 3 sets - 10 reps - Bug - 2 x daily - 7 x weekly - 3 sets - 10 reps - Seated Flexion Stretch with [place] Ball - 2 x daily - 7 x weekly - 5 sets - reps - Seated Thoracic Flexion and Rotation with [place] Ball - 2 x daily - 7 x weekly - 5 sets - reps - Prone Press Up - 2 x daily - 7 x weekly - 1 sets - 10 reps - Sit Up with Arm Reach - 1 x daily - 7 x weekly - 3 sets - 10 reps - Supine Bridge - 1 x daily - 7 x weekly - 3 sets - 10 reps - Sidelying Hip Abduction - 1 x daily - 7 x weekly - 3 sets - 10 reps - Bridge with Heels on [place] Ball - 1 x daily - 7 x weekly - 3 sets - 10 reps - Plank on Knees - 1 x daily - 7 x weekly - 3 sets - reps - Side Plank on Knees - 1 x daily - 7 x weekly - 3 sets - reps - Side Stepping with Resistance at Ankles - 1 x daily - 7 x weekly - 3 sets - 10 reps - Standing Anti-Rotation Press with Anchored Resistance - 1 x daily - 7 x weekly - 3 sets - 10 reps - Bridge with Hip Abduction and Resistance - 1 x daily - 7 x weekly - 3 sets - 10 reps - Bird Dog - 1 x daily - 7 x weekly - 3 sets - 10 reps - Beginner Front Arm Support - 1 x daily - 7 x weekly - 3 sets - 10 reps - Supine Bug with Leg Extension - 1 x daily - 7 x weekly - 3 sets - 10 reps - Wall Squat with [place] Ball - 1 x daily - 7 x weekly - 3 sets - 10 reps - Forward Monster Walks - 1 x daily - 7 x weekly - 3 sets - 10 reps - Backward Monster Walks - 1 x daily - 7 x weekly - 3 sets - 10 reps - [place] Twists Feet off Ground Fast Tempo - 1 x daily - 7 x weekly - 3 sets - 10 reps - Reverse Crunch - 1 x daily - 7 x weekly - 3 sets - 10 reps - Full Superman on Table - 1 x daily - 7 x weekly - 3 sets - 10 reps - Single Leg Bridge - 1 x daily - 7 x weekly - 3 sets - 10 reps - Mini [place] on [place] Ball - 1 x daily - 7 x weekly - 3 sets - 10 reps - Supine Hamstring Curl on [place] Ball - 1 x daily - 7 x weekly - 3 sets - 10 reps - Standing Repeated Hip Abduction with Resistance - 1 x daily - 7 x weekly - 3 sets - 10 reps - Standing Repeated Hip Extension with Resistance - 1 x daily - 7 x weekly - 3 sets - 10 reps - Standing Repeated Hip Extension with Resistance - 1 x daily - 7 x weekly - 3 sets - 10 reps - Single Leg Bridge - 1 x daily - 7 x weekly - 3 sets - 10 reps - Wall Squat with [place] Ball - 1 x daily - 7 x weekly - 3 sets - 10 reps Normal [facility] CNTHERAPYon 01-05-2024 CNTHERAPY OT/PT/Speech Visit (PTMERC) ---- GISELLEANABELL NAVARRETE ([id number]) 1985 F Date Time Provider Department 01/05/24 8:15 AM FERNANDO ROBERT PTMERC Date Time Provider Department Center 01/05/2024 8:15 AM [id number], BRITTA*PTMERC [facility] Reason for Visit: Physical Therapy [503] Primary Visit Diagnosis:Chronic bilateral low back pain with left-sided sciatica [M54.42, G89.29] Allergies As of Date: 01/05/2024 (No Known Allergies) Date Reviewed: 11/05/2023 Reviewed by: Nicol Mccormick MA - Fully Assessed Prescriptions as of 01/05/2024 - rosuvastatin (CRESTOR) 10 mg tablet Take 1 tablet by mouth daily at bedtime. - Cholecalciferol, Vitamin D3, 50 mcg (2,000 unit) cap Take 2,000 Units by mouth once daily. - Progesterone 200 mg supp - triamcinolone acetonide (KENALOG) 0.1 % ointment APPLY TWICE A DAY TO DERMATITIS- 2 WEEKS ON - 1 WEEK OFF Meds Comments as of 08/09/2020: Core Carrier: Addendum Therapy (PT/OT/Speech/Resp) ID: [id number] 01/05/2024 9:06 AM Author: FERNANDO ROBERT Signed by FERNANDO ROBERT PT, DPT on 01/05/2024 at 9:07 AM * * * This document replaces document [id number] * * * Document text: Program_ID:[id number] Access Code: [email or web address] URL: [email or web address] Date: 01-05-2024 Prepared By: FERNANDO REBELLINO Program Notes Precaution: No hip extension in combination with external rotation of the surgical leg. You do not have other precautions. Traditional total hip precautions do not apply to you. While in bed, please make sure you flatten the bed to stretch your hip out. Please do this 2x/day for about 30-40 minutes for each session. Exercises - Supine Posterior Pelvic Tilt - 2 x daily - 7 x weekly - 3 sets - 10 reps - Supine March with Posterior Pelvic Tilt - 2 x daily - 7 x weekly - 3 sets - 10 reps - Bug - 2 x daily - 7 x weekly - 3 sets - 10 reps - Seated Flexion Stretch with [place] Ball - 2 x daily - 7 x weekly - 5 sets - reps - Seated Thoracic Flexion and Rotation with [place] Ball - 2 x daily - 7 x weekly - 5 sets - reps - Prone Press Up - 2 x daily - 7 x weekly - 1 sets - 10 reps - Sit Up with Arm Reach - 1 x daily - 7 x weekly - 3 sets - 10 reps - Supine Bridge - 1 x daily - 7 x weekly - 3 sets - 10 reps - Sidelying Hip Abduction - 1 x daily - 7 x weekly - 3 sets - 10 reps - Bridge with Heels on [place] Ball - 1 x daily - 7 x weekly - 3 sets - 10 reps - Plank on Knees - 1 x daily - 7 x weekly - 3 sets - reps - Side Plank on Knees - 1 x daily - 7 x weekly - 3 sets - reps - Side Stepping with Resistance at Ankles - 1 x daily - 7 x weekly - 3 sets - 10 reps - Standing Anti-Rotation Press with Anchored Resistance - 1 x daily - 7 x weekly - 3 sets - 10 reps - Bridge with Hip Abduction and Resistance - 1 x daily - 7 x weekly - 3 sets - 10 reps - Bird Dog - 1 x daily - 7 x weekly - 3 sets - 10 reps - Beginner Front Arm Support - 1 x daily - 7 x weekly - 3 sets - 10 reps - Supine Bug with Leg Extension - 1 x daily - 7 x weekly - 3 sets - 10 reps - Wall Squat with [place] Ball - 1 x daily - 7 x weekly - 3 sets - 10 reps - Forward Monster Walks - 1 x daily - 7 x weekly - 3 sets - 10 reps - Backward Monster Walks - 1 x daily - 7 x weekly - 3 sets - 10 reps - [place] Twists Feet off Ground Fast Tempo - 1 x daily - 7 x weekly - 3 sets - 10 reps - Reverse Crunch - 1 x daily - 7 x weekly - 3 sets - 10 reps - Full Superman on Table - 1 x daily - 7 x weekly - 3 sets - 10 reps - Single Leg Bridge - 1 x daily - 7 x weekly - 3 sets - 10 reps - Mini [place] on [place] Ball - 1 x daily - 7 x weekly - 3 sets - 10 reps - Supine Hamstring Curl on [place] Ball - 1 x daily - 7 x weekly - 3 sets - 10 reps Normal [facility] THERAPY NTon 01-05-2024 THERAPY NT HNO ID: [id number] Author: FERNANDO ROBERT, PT, DPT Service: ? Author Type: Physical Therapist Type: Therapy (PT/OT/Speech/Resp) Filed: 01/05/2024 09:07 Note Text: Program_ID:[id number] Access Code: [email or web address] URL: [email or web address] Date: 01-05-2024 Prepared By: FERNANDO ROBERT Program Notes Precaution: No hip extension in combination with external rotation of the surgical leg. You do not have other precautions. Traditional total hip precautions do not apply to you. While in bed, please make sure you flatten the bed to stretch your hip out. Please do this 2x/day for about 30-40 minutes for each session. Exercises - Supine Posterior Pelvic Tilt - 2 x daily - 7 x weekly - 3 sets - 10 reps - Supine March with Posterior Pelvic Tilt - 2 x daily - 7 x weekly - 3 sets - 10 reps - Bug - 2 x daily - 7 x weekly - 3 sets - 10 reps - Seated Flexion Stretch with [place] Ball - 2 x daily - 7 x weekly - 5 sets - reps - Seated Thoracic Flexion and Rotation with [place] Ball - 2 x daily - 7 x weekly - 5 sets - reps - Prone Press Up - 2 x daily - 7 x weekly - 1 sets - 10 reps - Sit Up with Arm Reach - 1 x daily - 7 x weekly - 3 sets - 10 reps - Supine Bridge - 1 x daily - 7 x weekly - 3 sets - 10 reps - Sidelying Hip Abduction - 1 x daily - 7 x weekly - 3 sets - 10 reps - Bridge with Heels on [place] Ball - 1 x daily - 7 x weekly - 3 sets - 10 reps - Plank on Knees - 1 x daily - 7 x weekly - 3 sets - reps - Side Plank on Knees - 1 x daily - 7 x weekly - 3 sets - reps - Side Stepping with Resistance at Ankles - 1 x daily - 7 x weekly - 3 sets - 10 reps - Standing Anti-Rotation Press with Anchored Resistance - 1 x daily - 7 x weekly - 3 sets - 10 reps - Bridge with Hip Abduction and Resistance - 1 x daily - 7 x weekly - 3 sets - 10 reps - Bird Dog - 1 x daily - 7 x weekly - 3 sets - 10 reps - Beginner Front Arm Support - 1 x daily - 7 x weekly - 3 sets - 10 reps - Supine Bug with Leg Extension - 1 x daily - 7 x weekly - 3 sets - 10 reps - Wall Squat with [place] Ball - 1 x daily - 7 x weekly - 3 sets - 10 reps - Forward Monster Walks - 1 x daily - 7 x weekly - 3 sets - 10 reps - Backward Monster Walks - 1 x daily - 7 x weekly - 3 sets - 10 reps - [place] Twists Feet off Ground Fast Tempo - 1 x daily - 7 x weekly - 3 sets - 10 reps - Reverse Crunch - 1 x daily - 7 x weekly - 3 sets - 10 reps - Full Superman on Table - 1 x daily - 7 x weekly - 3 sets - 10 reps - Single Leg Bridge - 1 x daily - 7 x weekly - 3 sets - 10 reps - Mini [place] on [place] Ball - 1 x daily - 7 x weekly - 3 sets - 10 reps - Supine Hamstring Curl on [place] Ball - 1 x daily - 7 x weekly - 3 sets - 10 reps Normal [facility] CNTHERAPYon 12-31-2023 CNTHERAPY OT/PT/Speech Visit (PTMERC) ---- ANABELL PAYNE ([id number]) 1985 F Date Time Provider Department 12/31/23 3:15 PM FERNANDO ROBERT PTMERC Date Time Provider Department Center 12/31/2023 3:15 PM [id number], BRITTA*PTMERC [facility] Reason for Visit: Physical Therapy [503] Primary Visit Diagnosis:Chronic bilateral low back pain with left-sided sciatica [M54.42, G89.29] Allergies As of Date: 12/31/2023 (No Known Allergies) Date Reviewed: 11/05/2023 Reviewed by: Nicol Mccormick MA - Fully Assessed Prescriptions as of 12/31/2023 - rosuvastatin (CRESTOR) 10 mg tablet Take 1 tablet by mouth daily at bedtime. - Cholecalciferol, Vitamin D3, 50 mcg (2,000 unit) cap Take 2,000 Units by mouth once daily. - Progesterone 200 mg supp - triamcinolone acetonide (KENALOG) 0.1 % ointment APPLY TWICE A DAY TO DERMATITIS- 2 WEEKS ON - 1 WEEK OFF Meds Comments as of 08/09/2020: Core Carrier: Therapy (PT/OT/Speech/Resp) ID: [id number] 12/31/2023 3:35 PM Author: FERNANDO ROBERT Signed by FERNANDO ROBERT PT, DPT on 12/31/2023 at 3:36 PM Document text: Program_ID:[id number] Access Code: [email or web address] URL: [email or web address] Date: 12-31-2023 Prepared By: FERNANDO ROBERT Program Notes Precaution: No hip extension in combination with external rotation of the surgical leg. You do not have other precautions. Traditional total hip precautions do not apply to you. While in bed, please make sure you flatten the bed to stretch your hip out. Please do this 2x/day for about 30-40 minutes for each session. Exercises - Supine Posterior Pelvic Tilt - 2 x daily - 7 x weekly - 3 sets - 10 reps - Supine March with Posterior Pelvic Tilt - 2 x daily - 7 x weekly - 3 sets - 10 reps - Bug - 2 x daily - 7 x weekly - 3 sets - 10 reps - Seated Flexion Stretch with [place] Ball - 2 x daily - 7 x weekly - 5 sets - reps - Seated Thoracic Flexion and Rotation with [place] Ball - 2 x daily - 7 x weekly - 5 sets - reps - Prone Press Up - 2 x daily - 7 x weekly - 1 sets - 10 reps - Sit Up with Arm Reach - 1 x daily - 7 x weekly - 3 sets - 10 reps - Supine Bridge - 1 x daily - 7 x weekly - 3 sets - 10 reps - Sidelying Hip Abduction - 1 x daily - 7 x weekly - 3 sets - 10 reps - Bridge with Heels on [place] Ball - 1 x daily - 7 x weekly - 3 sets - 10 reps - Plank on Knees - 1 x daily - 7 x weekly - 3 sets - reps - Side Plank on Knees - 1 x daily - 7 x weekly - 3 sets - reps - Side Stepping with Resistance at Ankles - 1 x daily - 7 x weekly - 3 sets - 10 reps - Standing Anti-Rotation Press with Anchored Resistance - 1 x daily - 7 x weekly - 3 sets - 10 reps - Bridge with Hip Abduction and Resistance - 1 x daily - 7 x weekly - 3 sets - 10 reps - Bird Dog - 1 x daily - 7 x weekly - 3 sets - 10 reps - Beginner Front Arm Support - 1 x daily - 7 x weekly - 3 sets - 10 reps - Supine Bug with Leg Extension - 1 x daily - 7 x weekly - 3 sets - 10 reps - Wall Squat with [place] Ball - 1 x daily - 7 x weekly - 3 sets - 10 reps - Forward Monster Walks - 1 x daily - 7 x weekly - 3 sets - 10 reps - Backward Monster Walks - 1 x daily - 7 x weekly - 3 sets - 10 reps - [place] Twists Feet off Ground Fast Tempo - 1 x daily - 7 x weekly - 3 sets - 10 reps - Reverse Crunch - 1 x daily - 7 x weekly - 3 sets - 10 reps - Full Superman on Table - 1 x daily - 7 x weekly - 3 sets - 10 reps - Single Leg Bridge - 1 x daily - 7 x weekly - 3 sets - 10 reps - Mini [place] on [place] Ball - 1 x daily - 7 x weekly - 3 sets - 10 reps [facility] THERAPY NTon 12-31-2023 THERAPY NT HNO ID: [id number] Author: FERNANDO ROBERT, PT, DPT Service: ? Author Type: Physical Therapist Type: Therapy (PT/OT/Speech/Resp) Filed: 12/31/2023 15:36 Note Text: Program_ID:[id number] Access Code: [email or web address] URL: [email or web address] Date: 12-31-2023 Prepared By: FERNANDO ROBERT Program Notes Precaution: No hip extension in combination with external rotation of the surgical leg. You do not have other precautions. Traditional total hip precautions do not apply to you. While in bed, please make sure you flatten the bed to stretch your hip out. Please do this 2x/day for about 30-40 minutes for each session. Exercises - Supine Posterior Pelvic Tilt - 2 x daily - 7 x weekly - 3 sets - 10 reps - Supine March with Posterior Pelvic Tilt - 2 x daily - 7 x weekly - 3 sets - 10 reps - Bug - 2 x daily - 7 x weekly - 3 sets - 10 reps - Seated Flexion Stretch with [place] Ball - 2 x daily - 7 x weekly - 5 sets - reps - Seated Thoracic Flexion and Rotation with [place] Ball - 2 x daily - 7 x weekly - 5 sets - reps - Prone Press Up - 2 x daily - 7 x weekly - 1 sets - 10 reps - Sit Up with Arm Reach - 1 x daily - 7 x weekly - 3 sets - 10 reps - Supine Bridge - 1 x daily - 7 x weekly - 3 sets - 10 reps - Sidelying Hip Abduction - 1 x daily - 7 x weekly - 3 sets - 10 reps - Bridge with Heels on [place] Ball - 1 x daily - 7 x weekly - 3 sets - 10 reps - Plank on Knees - 1 x daily - 7 x weekly - 3 sets - reps - Side Plank on Knees - 1 x daily - 7 x weekly - 3 sets - reps - Side Stepping with Resistance at Ankles - 1 x daily - 7 x weekly - 3 sets - 10 reps - Standing Anti-Rotation Press with Anchored Resistance - 1 x daily - 7 x weekly - 3 sets - 10 reps - Bridge with Hip Abduction and Resistance - 1 x daily - 7 x weekly - 3 sets - 10 reps - Bird Dog - 1 x daily - 7 x weekly - 3 sets - 10 reps - Beginner Front Arm Support - 1 x daily - 7 x weekly - 3 sets - 10 reps - Supine Bug with Leg Extension - 1 x daily - 7 x weekly - 3 sets - 10 reps - Wall Squat with [place] Ball - 1 x daily - 7 x weekly - 3 sets - 10 reps - Forward Monster Walks - 1 x daily - 7 x weekly - 3 sets - 10 reps - Backward Monster Walks - 1 x daily - 7 x weekly - 3 sets - 10 reps - [place]amb[place] Twists Feet off Ground Fast Tempo - 1 x daily - 7 x weekly - 3 sets - 10 reps - Reverse Crunch - 1 x daily - 7 x weekly - 3 sets - 10 reps - Full Superman on Table - 1 x daily - 7 x weekly - 3 sets - 10 reps - Single Leg Bridge - 1 x daily - 7 x weekly - 3 sets - 10 reps - Mini [place] on [place] Ball - 1 x daily - 7 x weekly - 3 sets - 10 reps [facility] CNTHERAPYon 12-25-2023 CNTHERAPY OT/PT/Speech Visit (PTMERC) ---- ANABELL PAYNE ([id number]) 1985 F Date Time Provider Department 12/25/23 10:15 AM FERNANDO ROBERT PTMERC Date Time Provider Department [place] 12/25/2023 10:15 AM [id number], BRITTA*PTMERC [facility] Reason for Visit: Physical Therapy [503] Primary Visit Diagnosis:Chronic bilateral low back pain with left-sided sciatica [M54.42, G89.29] Allergies As of Date: 12/25/2023 (No Known Allergies) Date Reviewed: 11/05/2023 Reviewed by: Nicol Mccormick MA - Fully Assessed Prescriptions as of 12/25/2023 - rosuvastatin (CRESTOR) 10 mg tablet Take 1 tablet by mouth daily at bedtime. - Cholecalciferol, Vitamin D3, 50 mcg (2,000 unit) cap Take 2,000 Units by mouth once daily. - Progesterone 200 mg supp - triamcinolone acetonide (KENALOG) 0.1 % ointment APPLY TWICE A DAY TO DERMATITIS- 2 WEEKS ON - 1 WEEK OFF Meds Comments as of 08/09/2020: Core Carrier: Addendum Therapy (PT/OT/Speech/Resp) ID: [id number] 12/25/2023 11:00 AM Author: FERNANDO ROBERT Signed by FERNANDO ROBERT PT, DPT on 12/25/2023 at 11:00 AM * * * This document replaces document [id number] * * * Document text: Program_ID:[id number] Access Code: [email or web address] URL: [email or web address] [email or web address] Date: 12-25-2023 Prepared By: FERNANDO ROBERT Program Notes Precaution: No hip extension in combination with external rotation of the surgical leg. You do not have other precautions. Traditional total hip precautions do not apply to you. While in bed, please make sure you flatten the bed to stretch your hip out. Please do this 2x/day for about 30-40 minutes for each session. Exercises - Supine Posterior Pelvic Tilt - 2 x daily - 7 x weekly - 3 sets - 10 reps - Supine March with Posterior Pelvic Tilt - 2 x daily - 7 x weekly - 3 sets - 10 reps - Bug - 2 x daily - 7 x weekly - 3 sets - 10 reps - Seated Flexion Stretch with [place] Ball - 2 x daily - 7 x weekly - 5 sets - reps - Seated Thoracic Flexion and Rotation with [place] Ball - 2 x daily - 7 x weekly - 5 sets - reps - Prone Press Up - 2 x daily - 7 x weekly - 1 sets - 10 reps - Sit Up with Arm Reach - 1 x daily - 7 x weekly - 3 sets - 10 reps - Supine Bridge - 1 x daily - 7 x weekly - 3 sets - 10 reps - Sidelying Hip Abduction - 1 x daily - 7 x weekly - 3 sets - 10 reps - Bridge with Heels on [place] Ball - 1 x daily - 7 x weekly - 3 sets - 10 reps - Plank on Knees - 1 x daily - 7 x weekly - 3 sets - reps - Side Plank on Knees - 1 x daily - 7 x weekly - 3 sets - reps - Side Stepping with Resistance at Ankles - 1 x daily - 7 x weekly - 3 sets - 10 reps - Standing Anti-Rotation Press with Anchored Resistance - 1 x daily - 7 x weekly - 3 sets - 10 reps - Bridge with Hip Abduction and Resistance - 1 x daily - 7 x weekly - 3 sets - 10 reps - Bird Dog - 1 x daily - 7 x weekly - 3 sets - 10 reps - Beginner Front Arm Support - 1 x daily - 7 x weekly - 3 sets - 10 reps - Supine Bug with Leg Extension - 1 x daily - 7 x weekly - 3 sets - 10 reps - Wall Squat with [place] Ball - 1 x daily - 7 x weekly - 3 sets - 10 reps - Forward Monster Walks - 1 x daily - 7 x weekly - 3 sets - 10 reps - Backward Monster Walks - 1 x daily - 7 x weekly - 3 sets - 10 reps - [place]amb[place] Twists Feet off Ground Fast Tempo - 1 x daily - 7 x weekly - 3 sets - 10 reps - Reverse Crunch - 1 x daily - 7 x weekly - 3 sets - 10 reps - Full Superman on Table - 1 x daily - 7 x weekly - 3 sets - 10 reps - Single Leg Bridge - 1 x daily - 7 x weekly - 3 sets - [address] [facility] THERAPY NTon 12-25-2023 THERAPY NT HNO ID: [id number] Author: FERNANDO ROBERT, PT, DPT Service: ? Author Type: Physical Therapist Type: Therapy (PT/OT/Speech/Resp) Filed: 12/25/2023 11:00 Note Text: Program_ID:[id number] Access Code: [email or web address] URL: [email or web address] Date: 12-25-2023 Prepared By: FERNANDO ROBERT Program Notes Precaution: No hip extension in combination with external rotation of the surgical leg. You do not have other precautions. Traditional total hip precautions do not apply to you. While in bed, please make sure you flatten the bed to stretch your hip out. Please do this 2x/day for about 30-40 minutes for each session. Exercises - Supine Posterior Pelvic Tilt - 2 x daily - 7 x weekly - 3 sets - 10 reps - Supine March with Posterior Pelvic Tilt - 2 x daily - 7 x weekly - 3 sets - 10 reps - Bug - 2 x daily - 7 x weekly - 3 sets - 10 reps - Seated Flexion Stretch with [place] Ball - 2 x daily - 7 x weekly - 5 sets - reps - Seated Thoracic Flexion and Rotation with [place] Ball - 2 x daily - 7 x weekly - 5 sets - reps - Prone Press Up - 2 x daily - 7 x weekly - 1 sets - 10 reps - Sit Up with Arm Reach - 1 x daily - 7 x weekly - 3 sets - 10 reps - Supine Bridge - 1 x daily - 7 x weekly - 3 sets - 10 reps - Sidelying Hip Abduction - 1 x daily - 7 x weekly - 3 sets - 10 reps - Bridge with Heels on [place] Ball - 1 x daily - 7 x weekly - 3 sets - 10 reps - Plank on Knees - 1 x daily - 7 x weekly - 3 sets - reps - Side Plank on Knees - 1 x daily - 7 x weekly - 3 sets - reps - Side Stepping with Resistance at Ankles - 1 x daily - 7 x weekly - 3 sets - 10 reps - Standing Anti-Rotation Press with Anchored Resistance - 1 x daily - 7 x weekly - 3 sets - 10 reps - Bridge with Hip Abduction and Resistance - 1 x daily - 7 x weekly - 3 sets - 10 reps - Bird Dog - 1 x daily - 7 x weekly - 3 sets - 10 reps - Beginner Front Arm Support - 1 x daily - 7 x weekly - 3 sets - 10 reps - Supine Bug with Leg Extension - 1 x daily - 7 x weekly - 3 sets - 10 reps - Wall Squat with [place] Ball - 1 x daily - 7 x weekly - 3 sets - 10 reps - Forward Monster Walks - 1 x daily - 7 x weekly - 3 sets - 10 reps - Backward Monster Walks - 1 x daily - 7 x weekly - 3 sets - 10 reps - [place] Twists Feet off Ground Fast Tempo - 1 x daily - 7 x weekly - 3 sets - 10 reps - Reverse Crunch - 1 x daily - 7 x weekly - 3 sets - 10 reps - Full Superman on Table - 1 x daily - 7 x weekly - 3 sets - 10 reps - Single Leg Bridge - 1 x daily - 7 x weekly - 3 sets - [address] [facility] CNTHERAPYon 12-23-2023 CNTHERAPY OT/PT/Speech Visit (PTMERC) ---- ANABELL PAYNE ([id number]) 1985 F Date Time Provider Department 12/23/23 8:15 AM FERNANDO ROBERT PTMERC Date Time Provider Department Center 12/23/2023 8:15 AM [id number], BRITTA*[facility] Reason for Visit: Physical Therapy [503] Primary Visit Diagnosis:Chronic bilateral low back pain with left-sided sciatica [M54.42, G89.29] Allergies As of Date: 12/23/2023 (No Known Allergies) Date Reviewed: 11/05/2023 Reviewed by: Nicol Mccormick MA - Fully Assessed Prescriptions as of 12/23/2023 - rosuvastatin (CRESTOR) 10 mg tablet Take 1 tablet by mouth daily at bedtime. - Cholecalciferol, Vitamin D3, 50 mcg (2,000 unit) cap Take 2,000 Units by mouth once daily. - Progesterone 200 mg supp - triamcinolone acetonide (KENALOG) 0.1 % ointment APPLY TWICE A DAY TO DERMATITIS- 2 WEEKS ON - 1 WEEK OFF Meds Comments as of 08/09/2020: Core Carrier: Addendum Therapy (PT/OT/Speech/Resp) ID: [id number] 12/23/2023 9:07 AM Author: FERNANDO ROBERT Signed by FERNANDO ROBERT PT, DPT on 12/23/2023 at 9:08 AM * * * This document replaces document [id number] * * * Document text: Program_ID:[id number] Access Code: [email or web address] URL: [email or web address] [email or web address] Date: 12-23-2023 Prepared By: FERNANDO ROBERT Program Notes Precaution: No hip extension in combination with external rotation of the surgical leg. You do not have other precautions. Traditional total hip precautions do not apply to you. While in bed, please make sure you flatten the bed to stretch your hip out. Please do this 2x/day for about 30-40 minutes for each session. Exercises - Supine Posterior Pelvic Tilt - 2 x daily - 7 x weekly - 3 sets - 10 reps - Supine March with Posterior Pelvic Tilt - 2 x daily - 7 x weekly - 3 sets - 10 reps - Bug - 2 x daily - 7 x weekly - 3 sets - 10 reps - Seated Flexion Stretch with [place] Ball - 2 x daily - 7 x weekly - 5 sets - reps - Seated Thoracic Flexion and Rotation with [place] Ball - 2 x daily - 7 x weekly - 5 sets - reps - Prone Press Up - 2 x daily - 7 x weekly - 1 sets - 10 reps - Sit Up with Arm Reach - 1 x daily - 7 x weekly - 3 sets - 10 reps - Supine Bridge - 1 x daily - 7 x weekly - 3 sets - 10 reps - Sidelying Hip Abduction - 1 x daily - 7 x weekly - 3 sets - 10 reps - Bridge with Heels on [place] Ball - 1 x daily - 7 x weekly - 3 sets - 10 reps - Plank on Knees - 1 x daily - 7 x weekly - 3 sets - reps - Side Plank on Knees - 1 x daily - 7 x weekly - 3 sets - reps - Side Stepping with Resistance at Ankles - 1 x daily - 7 x weekly - 3 sets - 10 reps - Standing Anti-Rotation Press with Anchored Resistance - 1 x daily - 7 x weekly - 3 sets - 10 reps - Bridge with Hip Abduction and Resistance - 1 x daily - 7 x weekly - 3 sets - 10 reps - Bird Dog - 1 x daily - 7 x weekly - 3 sets - 10 reps - Beginner Front Arm Support - 1 x daily - 7 x weekly - 3 sets - 10 reps - Supine Bug with Leg Extension - 1 x daily - 7 x weekly - 3 sets - 10 reps - Wall Squat with [place] Ball - 1 x daily - 7 x weekly - 3 sets - 10 reps - Forward Monster Walks - 1 x daily - 7 x weekly - 3 sets - 10 reps - Backward Monster Walks - 1 x daily - 7 x weekly - 3 sets - [address] [facility] THERAPY NTon 12-23-2023 THERAPY NT HNO ID: [id number] Author: FERNANDO ROBERT, PT, DPT Service: ? Author Type: Physical Therapist Type: Therapy (PT/OT/Speech/Resp) Filed: 12/23/2023 09:08 Note Text: Program_ID:[id number] Access Code: [email or web address] URL: [email or web address] [email or web address] Date: 12-23-2023 Prepared By: FERNANDO ROBERT Program Notes Precaution: No hip extension in combination with external rotation of the surgical leg. You do not have other precautions. Traditional total hip precautions do not apply to you. While in bed, please make sure you flatten the bed to stretch your hip out. Please do this 2x/day for about 30-40 minutes for each session. Exercises - Supine Posterior Pelvic Tilt - 2 x daily - 7 x weekly - 3 sets - 10 reps - Supine March with Posterior Pelvic Tilt - 2 x daily - 7 x weekly - 3 sets - 10 reps - Bug - 2 x daily - 7 x weekly - 3 sets - 10 reps - Seated Flexion Stretch with [place] Ball - 2 x daily - 7 x weekly - 5 sets - reps - Seated Thoracic Flexion and Rotation with [place] Ball - 2 x daily - 7 x weekly - 5 sets - reps - Prone Press Up - 2 x daily - 7 x weekly - 1 sets - 10 reps - Sit Up with Arm Reach - 1 x daily - 7 x weekly - 3 sets - 10 reps - Supine Bridge - 1 x daily - 7 x weekly - 3 sets - 10 reps - Sidelying Hip Abduction - 1 x daily - 7 x weekly - 3 sets - 10 reps - Bridge with Heels on [place] Ball - 1 x daily - 7 x weekly - 3 sets - 10 reps - Plank on Knees - 1 x daily - 7 x weekly - 3 sets - reps - Side Plank on Knees - 1 x daily - 7 x weekly - 3 sets - reps - Side Stepping with Resistance at Ankles - 1 x daily - 7 x weekly - 3 sets - 10 reps - Standing Anti-Rotation Press with Anchored Resistance - 1 x daily - 7 x weekly - 3 sets - 10 reps - Bridge with Hip Abduction and Resistance - 1 x daily - 7 x weekly - 3 sets - 10 reps - Bird Dog - 1 x daily - 7 x weekly - 3 sets - 10 reps - Beginner Front Arm Support - 1 x daily - 7 x weekly - 3 sets - 10 reps - Supine Bug with Leg Extension - 1 x daily - 7 x weekly - 3 sets - 10 reps - Wall Squat with [place] Ball - 1 x daily - 7 x weekly - 3 sets - 10 reps - Forward Monster Walks - 1 x daily - 7 x weekly - 3 sets - 10 reps - Backward Monster Walks - 1 x daily - 7 x weekly - 3 sets - 10 reps [facility] CNTHERAPYon 12-16-2023 CNTHERAPY OT/PT/Speech Visit (PTMERC) ---- ANABELL PAYNE ([id number]) 1985 F Date Time Provider Department 12/16/23 2:30 PM FERNANDO ROBERT PTMERC Date Time Provider Department Center 12/16/2023 2:30 PM [id number], BRITTA*PTMERC [facility] Reason for Visit: Physical Therapy [503] Primary Visit Diagnosis:Chronic bilateral low back pain with left-sided sciatica [M54.42, G89.29] Allergies As of Date: 12/16/2023 (No Known Allergies) Date Reviewed: 11/05/2023 Reviewed by: Nicol Mccormick MA - Fully Assessed Prescriptions as of 12/16/2023 - rosuvastatin (CRESTOR) 10 mg tablet Take 1 tablet by mouth daily at bedtime. - Cholecalciferol, Vitamin D3, 50 mcg (2,000 unit) cap Take 2,000 Units by mouth once daily. - Progesterone 200 mg supp - triamcinolone acetonide (KENALOG) 0.1 % ointment APPLY TWICE A DAY TO DERMATITIS- 2 WEEKS ON - 1 WEEK OFF Meds Comments as of 08/09/2020: Core Carrier: Addendum Therapy (PT/OT/Speech/Resp) ID: [id number] 12/16/2023 3:14 PM Author: FERNANDO ROBERT Signed by FERNANDO ROBERT PT, DPT on 12/16/2023 at 3:14 PM * * * This document replaces document [id number] * * * Document text: Program_ID:[id number] Access Code: [email or web address] URL: [email or web address] Date: 12-16-2023 Prepared By: FERNANDO ROBERT Program Notes Precaution: No hip extension in combination with external rotation of the surgical leg. You do not have other precautions. Traditional total hip precautions do not apply to you. While in bed, please make sure you flatten the bed to stretch your hip out. Please do this 2x/day for about 30-40 minutes for each session. Exercises - Supine Posterior Pelvic Tilt - 2 x daily - 7 x weekly - 3 sets - 10 reps - Supine March with Posterior Pelvic Tilt - 2 x daily - 7 x weekly - 3 sets - 10 reps - Bug - 2 x daily - 7 x weekly - 3 sets - 10 reps - Seated Flexion Stretch with [place] Ball - 2 x daily - 7 x weekly - 5 sets - reps - Seated Thoracic Flexion and Rotation with [place] Ball - 2 x daily - 7 x weekly - 5 sets - reps - Prone Press Up - 2 x daily - 7 x weekly - 1 sets - 10 reps - Sit Up with Arm Reach - 1 x daily - 7 x weekly - 3 sets - 10 reps - Supine Bridge - 1 x daily - 7 x weekly - 3 sets - 10 reps - Sidelying Hip Abduction - 1 x daily - 7 x weekly - 3 sets - 10 reps - Bridge with Heels on [place] Ball - 1 x daily - 7 x weekly - 3 sets - 10 reps - Plank on Knees - 1 x daily - 7 x weekly - 3 sets - reps - Side Plank on Knees - 1 x daily - 7 x weekly - 3 sets - reps - Side Stepping with Resistance at Ankles - 1 x daily - 7 x weekly - 3 sets - 10 reps - Standing Anti-Rotation Press with Anchored Resistance - 1 x daily - 7 x weekly - 3 sets - [address] [facility] THERAPY NTon 12-16-2023 THERAPY NT HNO ID: [id number] Author: FERNANDO ROBERT, PT, DPT Service: ? Author Type: Physical Therapist Type: Therapy (PT/OT/Speech/Resp) Filed: 12/16/2023 15:14 Note Text: Program_ID:[id number] Access Code: [email or web address] URL: [email or web address] m/ Date: 12-16-2023 Prepared By: FERNANDO ROBERT Program Notes Precaution: No hip extension in combination with external rotation of the surgical leg. You do not have other precautions. Traditional total hip precautions do not apply to you. While in bed, please make sure you flatten the bed to stretch your hip out. Please do this 2x/day for about 30-40 minutes for each session. Exercises - Supine Posterior Pelvic Tilt - 2 x daily - 7 x weekly - 3 sets - 10 reps - Supine March with Posterior Pelvic Tilt - 2 x daily - 7 x weekly - 3 sets - 10 reps - Bug - 2 x daily - 7 x weekly - 3 sets - 10 reps - Seated Flexion Stretch with [place] Ball - 2 x daily - 7 x weekly - 5 sets - reps - Seated Thoracic Flexion and Rotation with [place] Ball - 2 x daily - 7 x weekly - 5 sets - reps - Prone Press Up - 2 x daily - 7 x weekly - 1 sets - 10 reps - Sit Up with Arm Reach - 1 x daily - 7 x weekly - 3 sets - 10 reps - Supine Bridge - 1 x daily - 7 x weekly - 3 sets - 10 reps - Sidelying Hip Abduction - 1 x daily - 7 x weekly - 3 sets - 10 reps - Bridge with Heels on [place] Ball - 1 x daily - 7 x weekly - 3 sets - 10 reps - Plank on Knees - 1 x daily - 7 x weekly - 3 sets - reps - Side Plank on Knees - 1 x daily - 7 x weekly - 3 sets - reps - Side Stepping with Resistance at Ankles - 1 x daily - 7 x weekly - 3 sets - 10 reps - Standing Anti-Rotation Press with Anchored Resistance - 1 x daily - 7 x weekly - 3 sets - [address] [facility] CNTHERAPYon 12-14-2023 CNTHERAPY OT/PT/Speech Visit (PTMERC) ---- ANABELL PAYNE ([id number]) 1985 F Date Time Provider Department 12/14/23 9:30 AM FERNANDO ROBERT PTMERC Date Time Provider Department Center 12/14/2023 9:30 AM [id number], BRITTA*PTMERC [facility] Reason for Visit: Physical Therapy [503] Primary Visit Diagnosis:Chronic bilateral low back pain with left-sided sciatica [M54.42, G89.29] Allergies As of Date: 12/14/2023 (No Known Allergies) Date Reviewed: 11/05/2023 Reviewed by: Nicol Mccormick MA - Fully Assessed Prescriptions as of 12/14/2023 - rosuvastatin (CRESTOR) 10 mg tablet Take 1 tablet by mouth daily at bedtime. - Cholecalciferol, Vitamin D3, 50 mcg (2,000 unit) cap Take 2,000 Units by mouth once daily. - Progesterone 200 mg supp - triamcinolone acetonide (KENALOG) 0.1 % ointment APPLY TWICE A DAY TO DERMATITIS- 2 WEEKS ON - 1 WEEK OFF Meds Comments as of 08/09/2020: Core Carrier: Addendum Therapy (PT/OT/Speech/Resp) ID: [id number] 12/14/2023 10:16 AM Author: FERNANDO ROBERT Signed by FERNANDO ROBERT PT, DPT on 12/14/2023 at 10:16 AM * * * This document replaces document [id number] * * * Document text: Program_ID:[id number] Access Code: [email or web address] URL: [email or web address] m/ Date: 12-14-2023 Prepared By: FERNANDO ROBERT Program Notes Precaution: No hip extension in combination with external rotation of the surgical leg. You do not have other precautions. Traditional total hip precautions do not apply to you. While in bed, please make sure you flatten the bed to stretch your hip out. Please do this 2x/day for about 30-40 minutes for each session. Exercises - Supine Posterior Pelvic Tilt - 2 x daily - 7 x weekly - 3 sets - 10 reps - Supine March with Posterior Pelvic Tilt - 2 x daily - 7 x weekly - 3 sets - 10 reps - Bug - 2 x daily - 7 x weekly - 3 sets - 10 reps - Seated Flexion Stretch with [place] Ball - 2 x daily - 7 x weekly - 5 sets - reps - Seated Thoracic Flexion and Rotation with [place] Ball - 2 x daily - 7 x weekly - 5 sets - reps - Prone Press Up - 2 x daily - 7 x weekly - 1 sets - 10 reps - Sit Up with Arm Reach - 1 x daily - 7 x weekly - 3 sets - 10 reps - Supine Bridge - 1 x daily - 7 x weekly - 3 sets - 10 reps - Sidelying Hip Abduction - 1 x daily - 7 x weekly - 3 sets - [address] [facility] THERAPY NTon 12-14-2023 THERAPY NT HNO ID: [id number] Author: FERNANDO ROBERT, PT, DPT Service: ? Author Type: Physical Therapist Type: Therapy (PT/OT/Speech/Resp) Filed: 12/14/2023 10:16 Note Text: Program_ID:[id number] Access Code: [email or web address] URL: [email or web address] Date: 12-14-2023 Prepared By: FERNANDO ROBERT Program Notes Precaution: No hip extension in combination with external rotation of the surgical leg. You do not have other precautions. Traditional total hip precautions do not apply to you. While in bed, please make sure you flatten the bed to stretch your hip out. Please do this 2x/day for about 30-40 minutes for each session. Exercises - Supine Posterior Pelvic Tilt - 2 x daily - 7 x weekly - 3 sets - 10 reps - Supine March with Posterior Pelvic Tilt - 2 x daily - 7 x weekly - 3 sets - 10 reps - Bug - 2 x daily - 7 x weekly - 3 sets - 10 reps - Seated Flexion Stretch with [place] Ball - 2 x daily - 7 x weekly - 5 sets - reps - Seated Thoracic Flexion and Rotation with [place] Ball - 2 x daily - 7 x weekly - 5 sets - reps - Prone Press Up - 2 x daily - 7 x weekly - 1 sets - 10 reps - Sit Up with Arm Reach - 1 x daily - 7 x weekly - 3 sets - 10 reps - Supine Bridge - 1 x daily - 7 x weekly - 3 sets - 10 reps - Sidelying Hip Abduction - 1 x daily - 7 x weekly - 3 sets - 10 reps Normal [facility] CNTHERAPYon 12-09-2023 CNTHERAPY OT/PT/Speech Visit (PTMERC) ---- ANABELL PAYNE ([id number]) 1985 F Date Time Provider Department 12/09/23 7:30 AM FERNANDO ROBERT PTMERC Date Time Provider Department Center 12/09/2023 7:30 AM [id number]-WJERFXOIE, BRITTA*PTMERC [facility] Reason for Visit: PT Eval [747] Primary Visit Diagnosis:Chronic bilateral low back pain with left-sided sciatica [M54.42, G89.29] Allergies As of Date: 12/09/2023 (No Known Allergies) Date Reviewed: 11/05/2023 Reviewed by: Nicol Mccormick MA - Fully Assessed Prescriptions as of 12/09/2023 - rosuvastatin (CRESTOR) 10 mg tablet Take 1 tablet by mouth daily at bedtime. - Cholecalciferol, Vitamin D3, 50 mcg (2,000 unit) cap Take 2,000 Units by mouth once daily. - Progesterone 200 mg supp - triamcinolone acetonide (KENALOG) 0.1 % ointment APPLY TWICE A DAY TO DERMATITIS- 2 WEEKS ON - 1 WEEK OFF Meds Comments as of 08/09/2020: Core Carrier: Therapy (PT/OT/Speech/Resp) ID: [id number] 12/09/2023 8:10 AM Author: FERNANDO ROBERT Signed by FERNANDO ROBERT PT, DPT on 12/09/2023 at 8:10 AM Document text: Program_ID:[id number] Access Code: [email or web address] URL: [email or web address] Date: 12-09-2023 Prepared By: FERNANDO ROBERT Program Notes Exercises - Supine Posterior Pelvic Tilt - 2 x daily - 7 x weekly - 3 sets - 10 reps - Supine March with Posterior Pelvic Tilt - 2 x daily - 7 x weekly - 3 sets - 10 reps - Bug - 2 x daily - 7 x weekly - 3 sets - 10 reps - Seated Flexion Stretch with [place] Ball - 2 x daily - 7 x weekly - 5 sets - reps - Seated Thoracic Flexion and Rotation with [place] Ball - 2 x daily - 7 x weekly - 5 sets - reps - Prone Press Up - 2 x daily - 7 x weekly - 1 sets - 10 reps Letter Text Normal [facility] THERAPY NTon 12-09-2023 THERAPY NT HNO ID: [id number] Author: FERNANDO ROBERT PT, DPT Service: ? Author Type: Physical Therapist Type: Therapy (PT/OT/Speech/Resp) Filed: 12/09/2023 08:10 Note Text: Program_ID:[id number] Access Code: [email or web address] URL: [email or web address] Date: 12-09-2023 Prepared By: FERNADNO ROBERT Program Notes Exercises - Supine Posterior Pelvic Tilt - 2 x daily - 7 x weekly - 3 sets - 10 reps - Supine March with Posterior Pelvic Tilt - 2 x daily - 7 x weekly - 3 sets - 10 reps - Bug - 2 x daily - 7 x weekly - 3 sets - 10 reps - Seated Flexion Stretch with [place] Ball - 2 x daily - 7 x weekly - 5 sets - reps - Seated Thoracic Flexion and Rotation with [place] Ball - 2 x daily - 7 x weekly - 5 sets - reps - Prone Press Up - 2 x daily - 7 x weekly - 1 sets - 10 reps Normal [facility] CT CA SCORE (CARDIAC) WO IVC ONon 11-30-2023 CT CA SCORE (CARDIAC) WO IVCON * * *Final Report* * * DATE OF EXAM: Nov 30 2023 12:22PM [facility] 2050 - CT CA SCORE (CARDIAC) WO IVCON / PROCEDURE REASON: multiple diagnoses * * * * Physician Interpretation * * * * Examination: CT Coronary Calcium Score Direct Image Comparison: None HISTORY: 38 years old Female with concern for coronary artery disease. There is request to assess and quantify coronary calcification TECHNIQUE: SCANNER: Multi-detector scanner PROTOCOL: Sequential imaging with prospective triggering and 3-mm slice reconstruction was performed without contrast administration. Scan Range: karyn to the base of the heart Tube Voltage: [address] Dose-Length Product (DLP): 53.[address] Dose Reduction Employed: Automated exposure control(AEC) and iterative recon CONTRAST: None Scan acquisition was uncomplicated Macro Version: [id number] For optimization of anatomic evaluation, off-line postprocessing was performed on a dedicated workstation by the interpreting physician. STUDY LIMITATIONS: None. RESULT: LINES, TUBES and DEVICES: None visualized CHEST: Chest wall anatomy: unremarkable. visualized LUNGS: unremarkable. visualized MEDIASTINUM: unremarkable. PERICARDIUM: unremarkable CENTRAL PULMONARY ARTERY: normal dimensions. Assessment is limited due to lack of contrast enhancement. CARDIAC CHAMBERS: assessment is limited in the non-contrast study. -overall normal dimensions AORTIC VALVE: assessment is limited in the current study. No leaflet calcification. visualized AORTA: Aortic Size: Normal size visualized thoracic aorta. Wall Changes: no wall calcification. AORTIC DIMENSIONS: Normal CORONARY ANATOMY: likely normal origin of the coronary arteries. However assessment is limited by motion artifact. Calcium Score (Agatston Units): LM: 0 AU LAD: 0 AU LCx: 0 AU RCA: 0 AU Other: 0 AU --- Total: 0 AU Percentile Rank (age and gender matched relative to reference population): percentile* [* https://www.garcia-nh lbi.org/calcium/inp ut.aspx] limited upper ABDOMEN: unremarkable BONES and SOFT TISSUES: unremarkable, within limitations of the current study Aluminum Shingle Roofer (topogram) images: No additional findings. IMPRESSION: NO CORONARY CALCIFICATION - Total Coronary Calcium Score (CAC) = 0 AU Business Technology Architect: LOUANN Transcribe Date/Time: Nov 30 2023 12:26P Dictated by : GÓMEZ BLOUNT MD This examination was interpreted and the report reviewed and electronically signed by: GÓMEZ BLOUNT MD on Nov 30 2023 12:29PM [facility] [id number] Normal [facility] CT Heart and Coronary arteri es for calcium scoring WO contraston 11-30-2023 IMPRESSION: NO CORONARY CALCIFICATION - Total Coronary Calcium Score (CAC) = 0 AU Business Technology Architect: LOUANN Transcribe Date/Time: Nov 30 2023 12:26P Dictated by : GÓMEZ BLOUNT MD This examination was interpreted and the report reviewed and electronically signed by: GÓMEZ BLOUNT MD on Nov 30 2023 12:29PM [facility] * * *Final Report* * * DATE OF EXAM: Nov 30 2023 12:22PM [facility] 2050 - CT CA SCORE (CARDIAC) WO IVCON / PROCEDURE REASON: multiple diagnoses * * * * Physician Interpretation * * * * Examination: CT Coronary Calcium Score Direct Image Comparison: None HISTORY: 38 years old Female with concern for coronary artery disease. There is request to assess and quantify coronary calcification TECHNIQUE: SCANNER: Multi-detector scanner PROTOCOL: Sequential imaging with prospective triggering and 3-mm slice reconstruction was performed without contrast administration. Scan Range: karyn to the base of the heart Tube Voltage: [address] Dose-Length Product (DLP): 53.[address] Dose Reduction Employed: Automated exposure control(AEC) and iterative recon CONTRAST: None Scan acquisition was uncomplicated Macro Version: [id number] For optimization of anatomic evaluation, off-line postprocessing was performed on a dedicated workstation by the interpreting physician. STUDY LIMITATIONS: None. RESULT: LINES, TUBES and DEVICES: None visualized CHEST: Chest wall anatomy: unremarkable. visualized LUNGS: unremarkable. visualized MEDIASTINUM: unremarkable. PERICARDIUM: unremarkable CENTRAL PULMONARY ARTERY: normal dimensions. Assessment is limited due to lack of contrast enhancement. CARDIAC CHAMBERS: assessment is limited in the non-contrast study. -overall normal dimensions AORTIC VALVE: assessment is limited in the current study. No leaflet calcification. visualized AORTA: Aortic Size: Normal size visualized thoracic aorta. Wall Changes: no wall calcification. AORTIC DIMENSIONS: Normal CORONARY ANATOMY: likely normal origin of the coronary arteries. However assessment is limited by motion artifact. Calcium Score (Agatston Units): LM: 0 AU LAD: 0 AU LCx: 0 AU RCA: 0 AU Other: 0 AU --- Total: 0 AU Percentile Rank (age and gender matched relative to reference population): percentile* [* https://www.garcia-nh lbi.org/calcium/inp ut.aspx] limited upper ABDOMEN: unremarkable BONES and SOFT TISSUES: unremarkable, within limitations of the current study Aluminum Shingle Roofer (topogram) images: No additional findings. [facility] Provider, [facility] [place] - 11/30/2023 * * *Final Report* * * DATE OF EXAM: Nov 30 2023 12:22PM [facility] 2050 - CT CA SCORE (CARDIAC) WO IVCON / PROCEDURE REASON: multiple diagnoses * * * * Physician Interpretation * * * * Examination: CT Coronary Calcium Score Direct Image Comparison: None HISTORY: 38 years old Female with concern for coronary artery disease. There is request to assess and quantify coronary calcification TECHNIQUE: SCANNER: Multi-detector scanner PROTOCOL: Sequential imaging with prospective triggering and 3-mm slice reconstruction was performed without contrast administration. Scan Range: karyn to the base of the heart Tube Voltage: [address] Dose-Length Product (DLP): 53.[address] Dose Reduction Employed: Automated exposure control(AEC) and iterative recon CONTRAST: None Scan acquisition was uncomplicated Macro Version: [id number] For optimization of anatomic evaluation, off-line postprocessing was performed on a dedicated workstation by the interpreting physician. STUDY LIMITATIONS: None. RESULT: LINES, TUBES and DEVICES: None visualized CHEST: Chest wall anatomy: unremarkable. visualized LUNGS: unremarkable. visualized MEDIASTINUM: unremarkable. PERICARDIUM: unremarkable CENTRAL PULMONARY ARTERY: normal dimensions. Assessment is limited due to lack of contrast enhancement. CARDIAC CHAMBERS: assessment is limited in the non-contrast study. -overall normal dimensions AORTIC VALVE: assessment is limited in the current study. No leaflet calcification. visualized AORTA: Aortic Size: Normal size visualized thoracic aorta. Wall Changes: no wall calcification. AORTIC DIMENSIONS: Normal CORONARY ANATOMY: likely normal origin of the coronary arteries. However assessment is limited by motion artifact. Calcium Score (Agatston Units): LM: 0 AU LAD: 0 AU LCx: 0 AU RCA: 0 AU Other: 0 AU --- Total: 0 AU Percentile Rank (age and gender matched relative to reference population): percentile* [* https://www.garcia-me lbi.org/calcium/inp ut.aspx] limited upper ABDOMEN: unremarkable BONES and SOFT TISSUES: unremarkable, within limitations of the current study Aluminum Shingle Roofer (topogram) images: No additional findings. IMPRESSION IMPRESSION: NO CORONARY CALCIFICATION - Total Coronary Calcium Score (CAC) = 0 AU Business Technology Architect: LOUANN Transcribe Date/Time: Nov 30 2023 12:26P Dictated by : GÓMEZ BLOUNT MD This examination was interpreted and the report reviewed and electronically signed by: GÓMEZ BLOUNT MD on Nov 30 2023 12:29PM EST [facility] Rad[facility]narrative[facility] Heart and Coronary arteri es for calcium scoring WO contrastOrdered By: Ccf Provider on 11-30-2023 [facility] CBC W/Diff, Automatedon Absolute Lymph 1.89 X10 3/uL Normal 0.83-4.51 [facility] Comment on above: Performed By: #### L 100.0100, L500.4050 #### [facility] [address] [place], [address] Absolute Neut 7.6 X10 3/uL Normal 2.0-7.7 [facility] Comment on above: Performed By: #### L 100.0100, L500.4050 #### [facility] [address] [place], [address] Basophils/100 WBC (Bld) 0.9 % Normal 0-1 [facility] Comment on above: Performed By: #### L 100.0100, L500.4050 #### [facility] [address] [place], [address] Eosinophils/100 WBC (Bld) 0.9 % Normal 0-5 [facility] Comment on above: Performed By: #### L 100.0100, L500.4050 #### [facility] [address] [place], [address] Erythrocyte distribution width (RBC) [Ratio] 12.2 % Normal 11.6-14.6 [facility] Comment on above: Performed By: #### L 100.0100, L500.4050 #### [facility] [address] [place], [address] Hematocrit (Bld) [Volume fraction] 43.1 % Normal 37-47 [facility] Comment on above: Performed By: #### L 100.0100, L500.4050 #### [facility] [address] [place], [address] Hemoglobin (Bld) [Mass/Vol] 13.9 g/dL Normal 12.0-15.0 [facility] Comment on above: Performed By: #### L 100.0100, L500.4050 #### [facility] [address] [place], [address] IG% 0.300 Normal 0.0-0.9 [facility] Comment on above: Result Comment: IG% - Immature Granulocytes (promyelocytes, myelocytes and metamyelocytes) > 1% indicates that a LEFT SHIFT is Present. Performed By: #### L 100.0100, L500.4050 #### [facility] [address] [place], [address] Lymphocytes/100 WBC (Bld) 18.5 % Low 19-41 [facility] Comment on above: Performed By: #### L 100.0100, L500.4050 #### [facility] [address] [place], [address] MCH (RBC) [Entitic mass] 30.7 pg Normal 27.0-32.0 [facility] Comment on above: Performed By: #### L 100.0100, L500.4050 #### [facility] [address] [place], [address] MCHC (RBC) [Mass/Vol] 32.3 g/dL Normal 32-36 [facility] Comment on above: Performed By: #### L 100.0100, L500.4050 #### [facility] [address] [place], [address] MCV (RBC) [Entitic vol] 95.1 fL Normal 81-99 [facility] Comment on above: Performed By: #### L 100.0100, L500.4050 #### [facility] [address] [place], [address] Monocytes/100 WBC (Bld) 5.4 % Normal 0-10 [facility] Comment on above: Performed By: #### L 100.0100, L500.4050 #### [facility] [address] [place], [address] Neutrophils/100 WBC (Bld) 74.0 % High 47-70 [facility] Comment on above: Performed By: #### L 100.0100, L500.4050 #### [facility] [address] [place], [address] Nucleated RBC (Bld) [#/Vol] 0 10*3/uL Normal 0-5 [facility] Comment on above: Performed By: #### L 100.0100, L500.4050 #### [facility] [address] [place], [address] Platelet mean volume (Bld) [Entitic vol] 11.4 fL Normal 6.2-12.0 [facility] Comment on above: Performed By: #### L 100.0100, L500.4050 #### [facility] [address] [place], [address] Platelets (Bld) [#/Vol] 242 10*3/uL Normal 150-450 [facility] Comment on above: Performed By: #### L 100.0100, L500.4050 #### [facility] [address] [place], [address] RBC (Bld) [#/Vol] 4.53 10*6/uL Normal 4.2-5.[address] [facility] Comment on above: Performed By: #### L 100.0100, L500.4050 #### [facility] [address] [place], [address] RDW SD 42.5 fl Normal 35.1-43.9 [facility] Comment on above: Performed By: #### L 100.0100, L500.4050 #### [facility] [address] [place], [address] WBC (Bld) [#/Vol] 10.2 10*3/uL Normal 4.4-11.[address] [facility] Comment on above: Performed By: #### L 100.0100, L500.4050 #### [facility] [address] [place], [address] Comprehensive Metabolic Prof ilon 11-27-2023 Albumin [Mass/Vol] 3.8 g/dL Normal 3.2-5.0 [facility] Comment on above: Performed By: #### L 100.0100, L500.4050 #### [facility] [address] [place], [address] Albumin/Globulin [Mass ratio] 1.0 {ratio} Normal 0.9-2.4 [facility] Comment on above: Performed By: #### L 100.0100, L500.4050 #### [facility] [address] [place], [address] ALK P 93 U/L Normal 45-117 [facility] Comment on above: Performed By: #### L 100.0100, L500.4050 #### [facility] [address] [place], [address] ALT [Catalytic activity/Vol] 27 U/L Normal 13-56 [facility] Comment on above: Performed By: #### L 100.0100, L500.4050 #### [facility] [address] [place], [address] AST [Catalytic activity/Vol] 17 U/L Normal 15-37 [facility] Comment on above: Performed By: #### L 100.0100, L500.4050 #### [facility] [address] [place], [address] Bilirubin [Mass/Vol] 0.50 mg/dL Normal 0.20-1.00 [facility] Comment on above: Result Comment: For patients on eltrombopag therapy, use of Dimension Delta TBIL is not recommended. Performed By: #### L 100.0100, L500.4050 #### [facility] [address] [place], [address] BUN/CRE 12.9 RATIO Normal 10-20 [facility] Comment on above: Performed By: #### L 100.0100, L500.4050 #### [facility] [address] [place], [address] CA,Total 9.7 mg/dL Normal 8.5-10.1 [facility] Comment on above: Performed By: #### L 100.0100, L500.4050 #### [facility] [address] [place], [address] Chloride [Moles/Vol] 104 mmol/L Normal 98-107 [facility] Comment on above: Performed By: #### L 100.0100, L500.4050 #### [facility] [address] [place], [address] CO2 [Moles/Vol] 28.0 mmol/L Normal 21.0-32.0 [facility] Comment on above: Performed By: #### L 100.0100, L500.4050 #### [facility] [address] [place], [address] Creatinine [Mass/Vol] 0.93 mg/dL Normal 0.55-1.02 [facility] Comment on above: Result Comment: The validity of the calculated GFR GFRAA in patients over 70 years has not been determined. Clinical correlation is essential. Performed By: #### L 100.0100, L500.4050 #### [facility] [address] [place], [address] EST GFR - AA 87 mL/min Normal >60 [facility] Comment on above: Result Comment: Afri can Moldovan GFR Calc Performed By: #### L 100.0100, L500.4050 #### [facility] [address] [place], [address] GAP 4 Low 5-15 [facility] Comment on above: Performed By: #### L 100.0100, L500.4050 #### [facility] [address] [place], [address] GFR/1.73 sq M.predicted among non-blacks MDRD (S/P/Bld) [Vol rate/Area] 72 mL/min/{1.73_m2} Normal >60 [facility] Comment on above: Result Comment: Non- GFR Calc Performed By: #### L 100.0100, L500.4050 #### [facility] [address] [place], [address] Globulin (S) [Mass/Vol] 3.7 g/dL Normal 2.2-4.2 [facility] Comment on above: Performed By: #### L 100.0100, L500.4050 #### [facility] [address] [place], [address] Glucose [Mass/Vol] 90 mg/dL Normal 74-106 [facility] Comment on above: Performed By: #### L 100.0100, L500.4050 #### [facility] [address] [place], [address] Potassium [Moles/Vol] 4.0 mmol/L Normal 3.5-5.1 [facility] Comment on above: Performed By: #### L 100.0100, L500.4050 #### [facility] [address] [place], [address] Sodium [Moles/Vol] 136 mmol/L Normal 136-145 [facility] Comment on above: Performed By: #### L 100.0100, L500.4050 #### [facility] [address] [place], [address] T PROT 7.5 g/dL Normal 6.4-8.2 [facility] Comment on above: Performed By: #### L 100.0100, L500.4050 #### [facility] [address] [place], [place], [address] Urea nitrogen [Mass/Vol] 12 mg/dL Normal - [facility] Comment on above: Performed By: #### L 100.0100, L500.4050 #### [facility] [address] [place], [address] CNPNon 11-06-2023 CNPN Telephone (NEAGCLM) ---- ANABELL PAYNE ([id number]) 1985 F Date Time Provider Department 11/06/23 ALEXIS JONES NEAGCLM During your visit today, we recorded the following information about you: Sofi Medley MA 11/06/2023 3:10 PM Signed Referral placed for Orthopaedics ( Dr. David Perales) in the [facility] Internal Referral Portal. Confirmation # [id number] Sofi Medley Ma Allergies As of Date: 11/06/2023 (No Known Allergies) Date Reviewed: 11/05/2023 Reviewed by: Nicol Mccormick MA - Fully Assessed Reason for Visit: Internal Referrals/resources [908] Prescriptions as of 11/06/2023 - rosuvastatin (CRESTOR) 10 mg tablet Take 1 tablet by mouth daily at bedtime. - Cholecalciferol, Vitamin D3, 50 mcg (2,000 unit) cap Take 2,000 Units by mouth once daily. - Progesterone 200 mg supp - triamcinolone acetonide (KENALOG) 0.1 % ointment APPLY TWICE A DAY TO DERMATITIS- 2 WEEKS ON - 1 WEEK OFF Meds Comments as of 08/09/2020: Problem List As Of Date 11/06/2023 Noted Resolved Gestational diabetes [O24.419] 10/17/2021 Vitamin D deficiency [E55.9] 07/28/2018 Obesity, Class I, BMI 30-34.9 [E66.9] 10/13/2022 Encounter for screening for malignant neoplasm *09/24/2023 10/01/2023 Encounter Status:Closed by SOFI MEDLEY MA on 11/06/23 [facility] CNOVon 11-05-2023 CNOV Office Visit (INTMUD) ---- ANABELL PAYNE ([id number]) 1985 F Date Time Provider Department 11/05/23 3:15 PM NICOLE DUVALL INTMUD During your visit today, we recorded the following information about you: Pulse Blood pressure Weight Height 77/minute 108/69 89.4 kg 1.651 m Nicole Duvall, ESTEFANY.HOME THEATER EXPERIENCE EXPERT 11/05/2023 9:05 PM Signed VISIT TYPE: ROUTINE FOLLOW UP There are no exam notes on file for this visit. CHIEF COMPLAINT: Patient presents with: F/U 3 Month HPI: Anabell Payne is a 38 year old female here for ROUTINE FOLLOW UP Hyperlipidemia- Total chol 242, Trig 99, HDL 45, LDL 177. Has been trying to watch diet. Does have significant family hx of high chol and heart disease. Fatigue- States she developed rashes and fatigue a couple yrs ago. Was seeing [facility] and started on progesterone which did help with the rash. Rash- Has appt with derm tomorrow. Does have rashes on her arms, ankles, and along her neck. Does notice itching when it occurs. Has seen dermatology and was given steroid cream. Had MICHELE done which was pos and was referred to rheumatology. Anxiety- Following with therapist. States she had been on wellbutrin in the past but it hasn't helped. Does feel better since going to counseling. Does feel anxious normally. Prefers to not take meds. Denies any feelings of helplessness/hopele ssness, thoughts of hurting self. Vit D deficiency- Taking vit D daily. Pos MICHELE- Referred to rheumatology. Was dx with inflammatory polyarthritis and being eval for RA or psoriatic arthritis. Neuropathy- Had EMG which showed evidence of mild intracanal spinal lesion and was referred to neurosurgery. 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 Was set up for mri with contrast d/t the right hand neuropathy which was done on Thursday. Was referred to hand surgeon to eval for carpal tunnel. Chronic back pain- Following with neurosurgery and was ordered MRI. REVIEW OF SYSTEMS: Review of Systems Constitutional: Positive for fatigue. Negative for appetite change, chills and fever. Respiratory: Negative for cough, chest tightness, shortness of breath and wheezing. Cardiovascular: Negative for chest pain, palpitations and leg swelling. Gastrointestinal: Negative for abdominal pain, constipation, diarrhea, nausea and vomiting. Musculoskeletal: Positive for arthralgias and back pain. Negative for gait problem. Skin: Negative for color change and pallor. Neurological: Negative for dizziness, syncope, numbness and headaches. Psychiatric/Behavio ral: Negative for suicidal ideas. The patient is nervous/anxious. Current Outpatient Medications Medication Sig Dispense Refill Cholecalciferol, Vitamin D3, 50 mcg (2,000 unit) cap Take 2,000 Units by mouth once daily. Progesterone 200 mg supp triamcinolone acetonide (KENALOG) 0.1 % ointment APPLY TWICE A DAY TO DERMATITIS- 2 WEEKS ON - 1 WEEK OFF No current facility-administer ed medications for this visit. ALLERGIES No Known Allergies PAST MEDICAL HISTORY Diagnosis Date Gestational diabetes Kidney stones During Sciatica Vitamin D deficiency 07/28/2018 PAST SURGICAL HISTORY Procedure Laterality Date COLONOSCOPY SCREENING 10/01/2023 Dr. Butler PAST SURGICAL HISTORY OF [place] teeth extraction FAMILY HISTORY Problem Relation Age of Onset Diabetes Mother Hypertension Mother Hypertension Father Stroke Father Prostate Cancer Father Colon Cancer Father Hypertension Sister Hypertension Brother Social History Tobacco Use Smoking status: Never Smokeless tobacco: Never Vaping Use Vaping Use: Never used Substance Use Topics Alcohol use: Yes Comment: Couple times monthly beer/wine Drug use: Not Currently Employer And Job Title: None on file Years Of Education Completed: Not specified Marital Status: Social History Social History Narrative Not on file PHYSICAL EXAM BP 108/69 (BP Site: Right Arm, BP Position: Sitting, BP Cuff Size: Regular Adult) Pulse 77 Ht 165.1 cm (5' 5) Wt 89.4 kg (197 lb) LMP 09/30/2023 (Exact Date) SpO2 95% BMI 32.78 kg/m? Physical Exam Vitals reviewed. Constitutional: General: She is not in acute distress. Appearance: Normal appearance. She is normal weight. HENT: Head: Normocephalic and atraumatic. Mouth/Throat: Mouth: Mucous membranes are moist. Pharynx: Oropharynx is clear. No oropharyngeal exudate or posterior oropharyngeal erythema. Neck: Vascular: No carotid bruit. Cardiovascular: Rate and Rhythm: Normal rate and regular rhythm. Pulses: Normal pulses. Heart sounds: Normal heart sounds. No murmur heard. Pulmonary: Effort: Pulmonary effort is normal. Breath sounds: Normal breath sounds. No rhonchi or rales. Abdominal: General: Bowel sounds are normal. There is no distension. Palpations: Abdomen is soft. Tend (more content not included)... Normal [facility] Office Visit (NEAGCLM) ---- ANABELL PAYNE ([id number]) 1985 F Date Time Provider Department 11/05/23 8:15 AM ALEXIS JONES NEAGCLM During your visit today, we recorded the following information about you: Pulse Respiration Blood pressure Weight 62/minute 16/minute 116/77 89.9 kg Alexis Jones MD 11/05/2023 8:39 AM Signed NEUROSURGERY FOLLOW UP OFFICE NOTE Alexis Jones MD [facility] Date of visit: November 05, 2023 Patient Name: Ms.Jennifer Payne Date of : 1985 Current Age: [age] year old Sex: female MRN/E# [id number] Last Office Visit: 09/29/2023 Chief Complaint: Patient presents with: Established Patient Past Medical/Surgical History: Anabell Payne is a 38 year old female who is referred by Nicole Duvall APRN, CNP for neurosurgical evaluation. The patient has a history of gestational diabetes, kidney stones and sciatica. She has no significant surgical history. HPI: Ms. Payne was seen in the officed on 09/29/2023 with reports of 4-6 months right wrist and hand weakness, pain, and paresthesia. 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 Her MRI of her cervical spine showed left paracentral disc herniation at C5-C6. It was believed that it could have been carpel tunnel, but a new MRI of her cervical spine with contrast to better evaluate the hypointensity within C8-T1 neural foramen. She was to follow up once completed for review, prompting her visit today. The patient presents to the office today with continued symptoms in the right arm, as well as bilateral sciatica. She denies any new weakness, paresthesia, bowel/bladder dysfunction this visit. She is here for evaluation and plan of care. Symptoms: right hand and wrist weakness, numbness/tingling, dexterity issue. PREVIOUS CONSERVATIVE TREATMENTS: none PREVIOUS SURGERY: None Surgical Risk Factors: Smoking status: denies Anticoagulants/anti platelets: denies Diabetic: denies BMI: 31.95 PAIN EVALUATION 11/04/2023 1223 Pain Level: 4 Pain Location: Back-Lower PAST MEDICAL HISTORY Diagnosis Date Gestational diabetes Kidney stones During Sciatica Vitamin D deficiency 07/28/2018 PAST SURGICAL HISTORY Procedure Laterality Date COLONOSCOPY SCREENING 10/01/2023 Dr. Butler PAST SURGICAL HISTORY OF [place] teeth extraction FAMILY HISTORY Problem Relation Age of Onset Diabetes Mother Hypertension Mother Hypertension Father Stroke Father Prostate Cancer Father Colon Cancer Father Hypertension Sister Hypertension Brother ALLERGIES No Known Allergies Current Outpatient Medications Medication Sig Dispense Refill Cholecalciferol, Vitamin D3, 50 mcg (2,000 unit) cap Take 2,000 Units by mouth once daily. Progesterone 200 mg supp triamcinolone acetonide (KENALOG) 0.1 % ointment APPLY TWICE A DAY TO DERMATITIS- 2 WEEKS ON - 1 WEEK OFF No current facility-administer ed medications for this visit. REVIEW OF SYSTEMS Review of Systems Constitutional: Negative for diaphoresis, fatigue and fever. HENT: Negative for ear pain, hearing loss and tinnitus. Eyes: Negative for photophobia, pain and visual disturbance. Respiratory: Negative for cough, chest tightness and shortness of breath. Cardiovascular: Negative for chest pain. Gastrointestinal: Negative for constipation, diarrhea, nausea and vomiting. Endocrine: Negative for polydipsia, polyphagia and polyuria. Genitourinary: Negative for difficulty urinating, frequency and urgency. Musculoskeletal: Positive for back pain. Negative for gait problem, neck pain and neck stiffness. Skin: Negative for color change and rash. Neurological: Positive for numbness. Negative for dizziness and weakness. Psychiatric/Behavio ral: Negative for agitation and confusion. The patient is not nervous/anxious. OBJECTIVE: BP 116/77 Pulse 62 Resp 16 Wt 198 lb 3.1 oz (89.9kg) SpO2 98% LMP 09/30/2023 PHYSICAL EXAM: Mental State : Alert, memory function unremarkable. Attention span and concentration normal for patient's age. Speech normal, no receptive or expressive speech deficit. Recent and remote memory normal. Orientation : Oriented to person, place and time. Cranial Nerves : Grossly intact. Sensory: Normal Sensation in upper and lower extremities and trunk to touch and noxious stimuli. Motor: Normal muscle tone and bulk. No tremor or uncontrollable movements. No spasticity or tremor. Gait and Station: Casual gait is normal including stance, stride, and arm swing. STRENGTH: Upper Extremity Strength Exam Right Left Elbow Flexion 5/5 5/5 Elbow Extension 5/5 5/5 Finger Fl (more content not included)... Normal [facility] MR Cervical spine WO and W c wallace Roselyn 11-03-2023 * * *Final Report* * * DATE OF EXAM: Nov 03 2023 10:19AM [facility] 0298 - MRI CERVICAL SPINE WO/W IVCON / PROCEDURE REASON: Cervical disc disorder with radiculopathy of mid-cervical region * * * * Physician Interpretation * * * * EXAMINATION: MRI CERVICAL SPINE WO/W IVCON, MRI LUMBAR SPINE WO IVCON CLINICAL HISTORY: Cervical disc disorder with radiculopathy of mid-cervical region TECHNIQUE: Routine cervical spine MR protocol without and with intravenous gadolinium. Routine lumbar spine MR protocol without IV gadolinium. MQ: [id number] Contrast: IV administration of 18 ml of Dotarem COMPARISON: MRI cervical spine 09/23/2023 RESULT: CERVICAL: Counting reference: Craniocervical junction. Anatomic Variants: None. Localizer images: No additional findings. Alignment: Alignment is anatomic. Craniocervical junction: Craniocervical junction is normal. Cord: The cervical spinal cord is within normal limits of signal intensity and morphology. Bone marrow signal/fracture: No evidence of pathologic marrow infiltration. No evidence of prior fracture. Degenerative disc disease with disc desiccation and mild height loss most prominently on C5-C6 with minimal endplate remodeling. Cervical soft tissues: The paraspinal soft tissues are within normal limits. C2-C3: Canal and foramina are patent. C3-C4: Canal and foramina are patent. C4-C5: Canal and foramina are patent. C5-C6: LEFT subarticular posterior disc osteophyte complex with LEFT greater than RIGHT uncovertebral hypertrophy contributing to mild spinal canal narrowing and moderate LEFT neural foraminal narrowing. RIGHT neural foramen remains patent. Findings appear unchanged C6-C7: Canal and foramina are patent. Mild bilateral uncovertebral hypertrophy and shallow annular disc bulge. Unchanged. C7-T1: Canal and foramina are patent. LUMBAR: Counting reference: Craniocervical and lumbosacral junctions For the purposes of this report, L4-5 is considered the level of the iliac crest and there are 5 lumbar-type vertebrae. Anatomic variant: Transitional L5 vertebral body. Localizer images: No additional findings. Alignment: Mild straightening of the normal lumbar lordosis. Minimal retrolisthesis of L2 on L3 and L3 on L4. Low-grade retrolisthesis of L4 on L5 and L5 on S1. Developmental spinal canal narrowing secondary to congenitally short pedicles. Bone marrow signal/fracture: Diffuse T1 hypointense marrow signal throughout the lumbosacral spine likely within normal limits and secondary to age-appropriate prominent red marrow. No evidence of pathologic marrow infiltration. No evidence of prior fracture. Conus: The conus terminates at L1 and is within normal limits of morphology and signal. Normal course and caliber of the descending cauda equina nerve roots. Paraspinal soft tissues: Paraspinal soft tissues are within normal limits. Lower thoracic spine: Visualized lower thoracic canal and foramina are patent. L1-L2: Canal and foramina are patent. L2-L3: Canal and foramina are patent. Shallow annular bulge. L3-L4: Canal and foramina are patent. Shallow disc bulge minimally flattens the ventral thecal sac without significant spinal canal compromise. L4-L5: Mild spinal canal and mild RIGHT neural foraminal narrowing secondary to retrolisthesis, diffuse disc bulge, bilateral ligamentum flavum infolding, and bilateral facet arthropathy. Effacement of the RIGHT worse than LEFT subarticular zones with broad abutment and minimal displacement of the RIGHT worse than LEFT traversing L5 nerve roots. L5-S1: Mild spinal canal, moderate LEFT and mild RIGHT neural foraminal narrowing secondary to retrolisthesis, diffuse disc bulge with annular fissure, and bilateral facet arthropathy. Disc bulge broadly contacts and at least partially impinges the bilateral traversing S1 nerve roots in the subarticular zones. Sacrum and iliac wings: The visualized sacrum and iliac wings are within normal limits. The presacral soft tissues are normal in appearance. [facility] [place] - 11/03/2023 * * *Final Report* * * DATE OF EXAM: Nov 03 2023 10:19AM [facility] 0298 - MRI CERVICAL SPINE WO/W IVCON / PROCEDURE REASON: Cervical disc disorder with radiculopathy of mid-cervical region * * * * Physician Interpretation * * * * EXAMINATION: MRI CERVICAL SPINE WO/W IVCON, MRI LUMBAR SPINE WO IVCON CLINICAL HISTORY: Cervical disc disorder with radiculopathy of mid-cervical region TECHNIQUE: Routine cervical spine MR protocol without and with intravenous gadolinium. Routine lumbar spine MR protocol without IV gadolinium. MQ: [id number]_[id number] Contrast: IV administration of 18 ml of Dotarem COMPARISON: MRI cervical spine 09/23/2023 RESULT: CERVICAL: Counting reference: Craniocervical junction. Anatomic Variants: None. Localizer images: No additional findings. Alignment: Alignment is anatomic. Craniocervical junction: Craniocervical junction is normal. Cord: The cervical spinal cord is within normal limits of signal intensity and morphology. Bone marrow signal/fracture: No evidence of pathologic marrow infiltration. No evidence of prior fracture. Degenerative disc disease with disc desiccation and mild height loss most prominently on C5-C6 with minimal endplate remodeling. Cervical soft tissues: The paraspinal soft tissues are within normal limits. C2-C3: Canal and foramina are patent. C3-C4: Canal and foramina are patent. C4-C5: Canal and foramina are patent. C5-C6: LEFT subarticular posterior disc osteophyte complex with LEFT greater than RIGHT uncovertebral hypertrophy contributing to mild spinal canal narrowing and moderate LEFT neural foraminal narrowing. RIGHT neural foramen remains patent. Findings appear unchanged C6-C7: Canal and foramina are patent. Mild bilateral uncovertebral hypertrophy and shallow annular disc bulge. Unchanged. C7-T1: Canal and foramina are patent. LUMBAR: Counting reference: Craniocervical and lumbosacral junctions For the purposes of this report, L4-5 is considered the level of the iliac crest and there are 5 lumbar-type vertebrae. Anatomic variant: Transitional L5 vertebral body. Localizer images: No additional findings. Alignment: Mild straightening of the normal lumbar lordosis. Minimal retrolisthesis of L2 on L3 and L3 on L4. Low-grade retrolisthesis of L4 on L5 and L5 on S1. Developmental spinal canal narrowing secondary to congenitally short pedicles. Bone marrow signal/fracture: Diffuse T1 hypointense marrow signal throughout the lumbosacral spine likely within normal limits and secondary to age-appropriate prominent red marrow. No evidence of pathologic marrow infiltration. No evidence of prior fracture. Conus: The conus terminates at L1 and is within normal limits of morphology and signal. Normal course and caliber of the descending cauda equina nerve roots. Paraspinal soft tissues: Paraspinal soft tissues are within normal limits. Lower thoracic spine: Visualized lower thoracic canal and foramina are patent. L1-L2: Canal and foramina are patent. L2-L3: Canal and foramina are patent. Shallow annular bulge. L3-L4: Canal and foramina are patent. Shallow disc bulge minimally flattens the ventral thecal sac without significant spinal canal compromise. L4-L5: Mild spinal canal and mild RIGHT neural foraminal narrowing secondary to retrolisthesis, diffuse disc bulge, bilateral ligamentum flavum infolding, and bilateral facet arthropathy. Effacement of the RIGHT worse than LEFT subarticular zones with broad abutment and minimal displacement of the RIGHT worse than LEFT traversing L5 nerve roots. L5-S1: Mild spinal canal, moderate LEFT and mild RIGHT neural foraminal narrowing secondary to retrolisthesis, diffuse disc bulge with annular fissure, and bilateral facet arthropathy. Disc bulge broadly contacts and at least partially impinges the bilateral traversing S1 nerve roots in the subarticular zones. Sacrum and iliac wings: The visualized sacrum and iliac wings are within normal limits. The presacral soft tissues are normal in appearance. IMPRESSION IMPRESSION: Cervical spine: Multilevel degenerative spondylosis most pronounced at C5-C6 on the LEFT. No high-grade spinal canal or neuroforaminal stenosis. No abnormal cord signal abnormality or enhancement. Lumbar spine: Multilevel degenerative spondylosis superimposed on developmental canal narrowing most prominent at L4-S1. No high-grade spinal canal or neuroforaminal stenosis. Multilevel at least partial nerve root impingement, as detailed. Cervical Anatomic Variant: None. Assume 7 cervical vertebrae with counting from the craniocervical junction. Anatomic Thoracic/Lumbar Variant: None. L4-5 is considered the level of the iliac crest and assume there are 5 lumbar-type vertebrae. T (more content not included)... [facility] MR Lumbar spine WO contrasto n 11-03-2023 * * *Final Report* * * DATE OF EXAM: Nov 03 2023 10:19AM [facility] 0303 - MRI LUMBAR SPINE WO IVCON / PROCEDURE REASON: Spinal stenosis of lumbar region, unspecified whether neurogenic claudication pr * * * * Physician Interpretation * * * * EXAMINATION: MRI CERVICAL SPINE WO/W IVCON, MRI LUMBAR SPINE WO IVCON CLINICAL HISTORY: Cervical disc disorder with radiculopathy of mid-cervical region TECHNIQUE: Routine cervical spine MR protocol without and with intravenous gadolinium. Routine lumbar spine MR protocol without IV gadolinium. MQ: [id number]_[id number] Contrast: IV administration of 18 ml of Dotarem COMPARISON: MRI cervical spine 09/23/2023 RESULT: CERVICAL: Counting reference: Craniocervical junction. Anatomic Variants: None. Localizer images: No additional findings. Alignment: Alignment is anatomic. Craniocervical junction: Craniocervical junction is normal. Cord: The cervical spinal cord is within normal limits of signal intensity and morphology. Bone marrow signal/fracture: No evidence of pathologic marrow infiltration. No evidence of prior fracture. Degenerative disc disease with disc desiccation and mild height loss most prominently on C5-C6 with minimal endplate remodeling. Cervical soft tissues: The paraspinal soft tissues are within normal limits. C2-C3: Canal and foramina are patent. C3-C4: Canal and foramina are patent. C4-C5: Canal and foramina are patent. C5-C6: LEFT subarticular posterior disc osteophyte complex with LEFT greater than RIGHT uncovertebral hypertrophy contributing to mild spinal canal narrowing and moderate LEFT neural foraminal narrowing. RIGHT neural foramen remains patent. Findings appear unchanged C6-C7: Canal and foramina are patent. Mild bilateral uncovertebral hypertrophy and shallow annular disc bulge. Unchanged. C7-T1: Canal and foramina are patent. LUMBAR: Counting reference: Craniocervical and lumbosacral junctions For the purposes of this report, L4-5 is considered the level of the iliac crest and there are 5 lumbar-type vertebrae. Anatomic variant: Transitional L5 vertebral body. Localizer images: No additional findings. Alignment: Mild straightening of the normal lumbar lordosis. Minimal retrolisthesis of L2 on L3 and L3 on L4. Low-grade retrolisthesis of L4 on L5 and L5 on S1. Developmental spinal canal narrowing secondary to congenitally short pedicles. Bone marrow signal/fracture: Diffuse T1 hypointense marrow signal throughout the lumbosacral spine likely within normal limits and secondary to age-appropriate prominent red marrow. No evidence of pathologic marrow infiltration. No evidence of prior fracture. Conus: The conus terminates at L1 and is within normal limits of morphology and signal. Normal course and caliber of the descending cauda equina nerve roots. Paraspinal soft tissues: Paraspinal soft tissues are within normal limits. Lower thoracic spine: Visualized lower thoracic canal and foramina are patent. L1-L2: Canal and foramina are patent. L2-L3: Canal and foramina are patent. Shallow annular bulge. L3-L4: Canal and foramina are patent. Shallow disc bulge minimally flattens the ventral thecal sac without significant spinal canal compromise. L4-L5: Mild spinal canal and mild RIGHT neural foraminal narrowing secondary to retrolisthesis, diffuse disc bulge, bilateral ligamentum flavum infolding, and bilateral facet arthropathy. Effacement of the RIGHT worse than LEFT subarticular zones with broad abutment and minimal displacement of the RIGHT worse than LEFT traversing L5 nerve roots. L5-S1: Mild spinal canal, moderate LEFT and mild RIGHT neural foraminal narrowing secondary to retrolisthesis, diffuse disc bulge with annular fissure, and bilateral facet arthropathy. Disc bulge broadly contacts and at least partially impinges the bilateral traversing S1 nerve roots in the subarticular zones. Sacrum and iliac wings: The visualized sacrum and iliac wings are within normal limits. The presacral soft tissues are normal in appearance. [facility], [facility] [place] - 11/03/2023 * * *Final Report* * * DATE OF EXAM: Nov 03 2023 10:19AM [facility] 0303 - MRI LUMBAR SPINE WO IVCON / PROCEDURE REASON: Spinal stenosis of lumbar region, unspecified whether neurogenic claudication pr * * * * Physician Interpretation * * * * EXAMINATION: MRI CERVICAL SPINE WO/W IVCON, MRI LUMBAR SPINE WO IVCON CLINICAL HISTORY: Cervical disc disorder with radiculopathy of mid-cervical region TECHNIQUE: Routine cervical spine MR protocol without and with intravenous gadolinium. Routine lumbar spine MR protocol without IV gadolinium. MQ: [id number]_[id number] Contrast: IV administration of 18 ml of Dotarem COMPARISON: MRI cervical spine 09/23/2023 RESULT: CERVICAL: Counting reference: Craniocervical junction. Anatomic Variants: None. Localizer images: No additional findings. Alignment: Alignment is anatomic. Craniocervical junction: Craniocervical junction is normal. Cord: The cervical spinal cord is within normal limits of signal intensity and morphology. Bone marrow signal/fracture: No evidence of pathologic marrow infiltration. No evidence of prior fracture. Degenerative disc disease with disc desiccation and mild height loss most prominently on C5-C6 with minimal endplate remodeling. Cervical soft tissues: The paraspinal soft tissues are within normal limits. C2-C3: Canal and foramina are patent. C3-C4: Canal and foramina are patent. C4-C5: Canal and foramina are patent. C5-C6: LEFT subarticular posterior disc osteophyte complex with LEFT greater than RIGHT uncovertebral hypertrophy contributing to mild spinal canal narrowing and moderate LEFT neural foraminal narrowing. RIGHT neural foramen remains patent. Findings appear unchanged C6-C7: Canal and foramina are patent. Mild bilateral uncovertebral hypertrophy and shallow annular disc bulge. Unchanged. C7-T1: Canal and foramina are patent. LUMBAR: Counting reference: Craniocervical and lumbosacral junctions For the purposes of this report, L4-5 is considered the level of the iliac crest and there are 5 lumbar-type vertebrae. Anatomic variant: Transitional L5 vertebral body. Localizer images: No additional findings. Alignment: Mild straightening of the normal lumbar lordosis. Minimal retrolisthesis of L2 on L3 and L3 on L4. Low-grade retrolisthesis of L4 on L5 and L5 on S1. Developmental spinal canal narrowing secondary to congenitally short pedicles. Bone marrow signal/fracture: Diffuse T1 hypointense marrow signal throughout the lumbosacral spine likely within normal limits and secondary to age-appropriate prominent red marrow. No evidence of pathologic marrow infiltration. No evidence of prior fracture. Conus: The conus terminates at L1 and is within normal limits of morphology and signal. Normal course and caliber of the descending cauda equina nerve roots. Paraspinal soft tissues: Paraspinal soft tissues are within normal limits. Lower thoracic spine: Visualized lower thoracic canal and foramina are patent. L1-L2: Canal and foramina are patent. L2-L3: Canal and foramina are patent. Shallow annular bulge. L3-L4: Canal and foramina are patent. Shallow disc bulge minimally flattens the ventral thecal sac without significant spinal canal compromise. L4-L5: Mild spinal canal and mild RIGHT neural foraminal narrowing secondary to retrolisthesis, diffuse disc bulge, bilateral ligamentum flavum infolding, and bilateral facet arthropathy. Effacement of the RIGHT worse than LEFT subarticular zones with broad abutment and minimal displacement of the RIGHT worse than LEFT traversing L5 nerve roots. L5-S1: Mild spinal canal, moderate LEFT and mild RIGHT neural foraminal narrowing secondary to retrolisthesis, diffuse disc bulge with annular fissure, and bilateral facet arthropathy. Disc bulge broadly contacts and at least partially impinges the bilateral traversing S1 nerve roots in the subarticular zones. Sacrum and iliac wings: The visualized sacrum and iliac wings are within normal limits. The presacral soft tissues are normal in appearance. IMPRESSION IMPRESSION: Cervical spine: Multilevel degenerative spondylosis most pronounced at C5-C6 on the LEFT. No high-grade spinal canal or neuroforaminal stenosis. No abnormal cord signal abnormality or enhancement. Lumbar spine: Multilevel degenerative spondylosis superimposed on developmental canal narrowing most prominent at L4-S1. No high-grade spinal canal or neuroforaminal stenosis. Multilevel at least partial nerve root impingement, as detailed. Cervical Anatomic Variant: None. Assume 7 cervical vertebrae with counting from the craniocervical junction. Anatomic Thoracic/Lumbar Variant: None. L4-5 is considered the level of the iliac crest and assume there are 5 lumbar-type vertebrae. (more content not included)... [facility] MRI CERVICAL SPINE WO/W IVCO Non 11-03-2023 MRI CERVICAL SPINE WO/W IVCON * * *Final Report* * * DATE OF EXAM: Nov 03 2023 10:19AM [facility] 0298 - MRI CERVICAL SPINE WO/W IVCON / PROCEDURE REASON: Cervical disc disorder with radiculopathy of mid-cervical region * * * * Physician Interpretation * * * * EXAMINATION: MRI CERVICAL SPINE WO/W IVCON, MRI LUMBAR SPINE WO IVCON CLINICAL HISTORY: Cervical disc disorder with radiculopathy of mid-cervical region TECHNIQUE: Routine cervical spine MR protocol without and with intravenous gadolinium. Routine lumbar spine MR protocol without IV gadolinium. MQ: [id number]_[id number] Contrast: IV administration of 18 ml of Dotarem COMPARISON: MRI cervical spine 09/23/2023 RESULT: CERVICAL: Counting reference: Craniocervical junction. Anatomic Variants: None. Localizer images: No additional findings. Alignment: Alignment is anatomic. Craniocervical junction: Craniocervical junction is normal. Cord: The cervical spinal cord is within normal limits of signal intensity and morphology. Bone marrow signal/fracture: No evidence of pathologic marrow infiltration. No evidence of prior fracture. Degenerative disc disease with disc desiccation and mild height loss most prominently on C5-C6 with minimal endplate remodeling. Cervical soft tissues: The paraspinal soft tissues are within normal limits. C2-C3: Canal and foramina are patent. C3-C4: Canal and foramina are patent. C4-C5: Canal and foramina are patent. C5-C6: LEFT subarticular posterior disc osteophyte complex with LEFT greater than RIGHT uncovertebral hypertrophy contributing to mild spinal canal narrowing and moderate LEFT neural foraminal narrowing. RIGHT neural foramen remains patent. Findings appear unchanged C6-C7: Canal and foramina are patent. Mild bilateral uncovertebral hypertrophy and shallow annular disc bulge. Unchanged. C7-T1: Canal and foramina are patent. LUMBAR: Counting reference: Craniocervical and lumbosacral junctions For the purposes of this report, L4-5 is considered the level of the iliac crest and there are 5 lumbar-type vertebrae. Anatomic variant: Transitional L5 vertebral body. Localizer images: No additional findings. Alignment: Mild straightening of the normal lumbar lordosis. Minimal retrolisthesis of L2 on L3 and L3 on L4. Low-grade retrolisthesis of L4 on L5 and L5 on S1. Developmental spinal canal narrowing secondary to congenitally short pedicles. Bone marrow signal/fracture: Diffuse T1 hypointense marrow signal throughout the lumbosacral spine likely within normal limits and secondary to age-appropriate prominent red marrow. No evidence of pathologic marrow infiltration. No evidence of prior fracture. Conus: The conus terminates at L1 and is within normal limits of morphology and signal. Normal course and caliber of the descending cauda equina nerve roots. Paraspinal soft tissues: Paraspinal soft tissues are within normal limits. Lower thoracic spine: Visualized lower thoracic canal and foramina are patent. L1-L2: Canal and foramina are patent. L2-L3: Canal and foramina are patent. Shallow annular bulge. L3-L4: Canal and foramina are patent. Shallow disc bulge minimally flattens the ventral thecal sac without significant spinal canal compromise. L4-L5: Mild spinal canal and mild RIGHT neural foraminal narrowing secondary to retrolisthesis, diffuse disc bulge, bilateral ligamentum flavum infolding, and bilateral facet arthropathy. Effacement of the RIGHT worse than LEFT subarticular zones with broad abutment and minimal displacement of the RIGHT worse than LEFT traversing L5 nerve roots. L5-S1: Mild spinal canal, moderate LEFT and mild RIGHT neural foraminal narrowing secondary to retrolisthesis, diffuse disc bulge with annular fissure, and bilateral facet arthropathy. Disc bulge broadly contacts and at least partially impinges the bilateral traversing S1 nerve roots in the subarticular zones. Sacrum and iliac wings: The visualized sacrum and iliac wings are within normal limits. The presacral soft tissues are normal in appearance. IMPRESSION: Cervical spine: Multilevel degenerative spondylosis most pronounced at C5-C6 on the LEFT. No high-grade spinal canal or neuroforaminal stenosis. No abnormal cord signal abnormality or enhancement. Lumbar spine: Multilevel degenerative spondylosis superimposed on developmental canal narrowing most prominent at L4-S1. No high-grade spinal canal or neuroforaminal stenosis. Multilevel at least partial nerve root impingement, as detailed. Cervical Anatomic Variant: None. Assume 7 cervical vertebrae with counting from the craniocervical junction. Anatomic Thoracic/Lumbar Variant: None. L4-5 is considered the level of the iliac crest and assume there are 5 lumbar-type vertebrae. Business Technology Architect: [employer] Transcribe Date/Time: Nov 03 2023 11:21A Dictated by : EARL JONES MD This examination was interpreted and the report reviewed and electronicall (more content not included)... Normal [facility] MRI LUMBAR SPINE WO IVCONon 11-03-2023 MRI LUMBAR SPINE WO IVCON * * *Final Report* * * DATE OF EXAM: Nov 03 2023 10:19AM M 0303 - MRI LUMBAR SPINE WO IVCON / PROCEDURE REASON: Spinal stenosis of lumbar region, unspecified whether neurogenic claudication pr * * * * Physician Interpretation * * * * EXAMINATION: MRI CERVICAL SPINE WO/W IVCON, MRI LUMBAR SPINE WO IVCON CLINICAL HISTORY: Cervical disc disorder with radiculopathy of mid-cervical region TECHNIQUE: Routine cervical spine MR protocol without and with intravenous gadolinium. Routine lumbar spine MR protocol without IV gadolinium. MQ: [id number] Contrast: IV administration of 18 ml of Dotarem COMPARISON: MRI cervical spine 09/23/2023 RESULT: CERVICAL: Counting reference: Craniocervical junction. Anatomic Variants: None. Localizer images: No additional findings. Alignment: Alignment is anatomic. Craniocervical junction: Craniocervical junction is normal. Cord: The cervical spinal cord is within normal limits of signal intensity and morphology. Bone marrow signal/fracture: No evidence of pathologic marrow infiltration. No evidence of prior fracture. Degenerative disc disease with disc desiccation and mild height loss most prominently on C5-C6 with minimal endplate remodeling. Cervical soft tissues: The paraspinal soft tissues are within normal limits. C2-C3: Canal and foramina are patent. C3-C4: Canal and foramina are patent. C4-C5: Canal and foramina are patent. C5-C6: LEFT subarticular posterior disc osteophyte complex with LEFT greater than RIGHT uncovertebral hypertrophy contributing to mild spinal canal narrowing and moderate LEFT neural foraminal narrowing. RIGHT neural foramen remains patent. Findings appear unchanged C6-C7: Canal and foramina are patent. Mild bilateral uncovertebral hypertrophy and shallow annular disc bulge. Unchanged. C7-T1: Canal and foramina are patent. LUMBAR: Counting reference: Craniocervical and lumbosacral junctions For the purposes of this report, L4-5 is considered the level of the iliac crest and there are 5 lumbar-type vertebrae. Anatomic variant: Transitional L5 vertebral body. Localizer images: No additional findings. Alignment: Mild straightening of the normal lumbar lordosis. Minimal retrolisthesis of L2 on L3 and L3 on L4. Low-grade retrolisthesis of L4 on L5 and L5 on S1. Developmental spinal canal narrowing secondary to congenitally short pedicles. Bone marrow signal/fracture: Diffuse T1 hypointense marrow signal throughout the lumbosacral spine likely within normal limits and secondary to age-appropriate prominent red marrow. No evidence of pathologic marrow infiltration. No evidence of prior fracture. Conus: The conus terminates at L1 and is within normal limits of morphology and signal. Normal course and caliber of the descending cauda equina nerve roots. Paraspinal soft tissues: Paraspinal soft tissues are within normal limits. Lower thoracic spine: Visualized lower thoracic canal and foramina are patent. L1-L2: Canal and foramina are patent. L2-L3: Canal and foramina are patent. Shallow annular bulge. L3-L4: Canal and foramina are patent. Shallow disc bulge minimally flattens the ventral thecal sac without significant spinal canal compromise. L4-L5: Mild spinal canal and mild RIGHT neural foraminal narrowing secondary to retrolisthesis, diffuse disc bulge, bilateral ligamentum flavum infolding, and bilateral facet arthropathy. Effacement of the RIGHT worse than LEFT subarticular zones with broad abutment and minimal displacement of the RIGHT worse than LEFT traversing L5 nerve roots. L5-S1: Mild spinal canal, moderate LEFT and mild RIGHT neural foraminal narrowing secondary to retrolisthesis, diffuse disc bulge with annular fissure, and bilateral facet arthropathy. Disc bulge broadly contacts and at least partially impinges the bilateral traversing S1 nerve roots in the subarticular zones. Sacrum and iliac wings: The visualized sacrum and iliac wings are within normal limits. The presacral soft tissues are normal in appearance. IMPRESSION: Cervical spine: Multilevel degenerative spondylosis most pronounced at C5-C6 on the LEFT. No high-grade spinal canal or neuroforaminal stenosis. No abnormal cord signal abnormality or enhancement. Lumbar spine: Multilevel degenerative spondylosis superimposed on developmental canal narrowing most prominent at L4-S1. No high-grade spinal canal or neuroforaminal stenosis. Multilevel at least partial nerve root impingement, as detailed. Cervical Anatomic Variant: None. Assume 7 cervical vertebrae with counting from the craniocervical junction. Anatomic Thoracic/Lumbar Variant: None. L4-5 is considered the level of the iliac crest and assume there are 5 lumbar-type vertebrae. Business Technology Architect: [facility] Transcribe Date/Time: Nov 03 2023 11:21A Dictated by : EARL JONES MD This examination was interpreted and the report reviewed and e (more content not included)... [facility] No Panel Informationon 11-02 IMPRESSION: Cervical spine: Multilevel degenerative spondylosis most pronounced at C5-C6 on the LEFT. No high-grade spinal canal or neuroforaminal stenosis. No abnormal cord signal abnormality or enhancement. Lumbar spine: Multilevel degenerative spondylosis superimposed on developmental canal narrowing most prominent at L4-S1. No high-grade spinal canal or neuroforaminal stenosis. Multilevel at least partial nerve root impingement, as detailed. Cervical Anatomic Variant: None. Assume 7 cervical vertebrae with counting from the craniocervical junction. Anatomic Thoracic/Lumbar Variant: None. L4-5 is considered the level of the iliac crest and assume there are 5 lumbar-type vertebrae. Business Technology Architect: [facility] Transcribe Date/Time: Nov 03 2023 11:21A Dictated by : EARL JONES MD This examination was interpreted and the report reviewed and electronically signed by: EARL JONES MD on Nov 03 2023 11:31AM [facility] RAD Radiology Study observation (narrative) [facility] No Panel InformationOrdered By: Ccf Provider on 11-03-2023 [facility] XR LUMBAR 4V AP/LAT/ FLEX/EX Ton 11-03-2023 XR LUMBAR 4V AP/LAT/ FLEX/EXT * * *Final Report* * * DATE OF EXAM: Nov 03 2023 10:35AM UDX [id number] - XR LUMBAR 4V AP/LAT/ FLEX/EXT / PROCEDURE REASON: Spinal stenosis of lumbar region, unspecified whether neurogenic claudication pr * * * * Physician Interpretation * * * * XR LUMBAR 4V AP/LAT/ FLEX/EXT Ordering Physician: ALEXIS JONES Clinical Statement: Spinal stenosis lumbar region. FINDINGS: Counting reference: Lumbosacral junction. For the purposes of this report, L4-5 is considered the level of the iliac crest and assumed there are 5 lumbar-type vertebra. Anatomic variant: None. No acute fractures. Limbus vertebra at L5. Degenerative disc disease with disc space narrowing at the L4-5 and L5-S1 levels. No spondylolisthesis. Flexion and extension views show no instability. The sacroiliac joints are normal in appearance. 4 mm opacity overlying the left kidney, probable renal calculus. IMPRESSION: No acute osseous abnormality. Otxc-yd-ceyohivu degenerative disc disease in the lower lumbar spine. Probable left nephrolithiasis Business Technology Architect: [employer] Transcribe Date/Time: Nov 05 2023 4:19A Dictated by : ALKA SLOAN MD This examination was interpreted and the report reviewed and electronically signed by: ALKA SLOAN MD on Nov 05 2023 4:22AM EST [id number] Normal [facility] 25(OH)D3 SerPl-mCncon 2023 25-hydroxyvitamin D3 [Mass/Vol] 60.3 ng/mL Normal 31.0-80.0 [facility] Comment on above: Order Comment: Speci men Type: BLOOD SPECIMENOrdering Facility: [facility] Address: [address] [place] [address] Performed By: #### 2 4331-1, 1988-06 ####[facility] LABCLIA [id number] [place] [id number] [place] 25-hydroxyvitamin D3 [Mass/V ol]on 10-28-2023 Interpretation and review of laboratory results Normal [facility] CNOVon 10-28-2023 CNOV Office Visit (INTMUD) ---- ANABELL PAYNE ([id number]) 1985 F Date Time Provider Department 10/28/23 8:15 AM NURSE DEYSI UDNBAR INTMUD During your visit today, we recorded the following information about you: Cher Augsute LPN 10/28/2023 8:15 AM Signed PATIENT HERE FOR LAB DRAW. LEFT AC PATIENT TOLERATED WELL. Cher Auguste LPN Referring Provider: NICOLE DUVALL [[id number]] Allergies As of Date: 10/28/2023 (No Known Allergies) Date Reviewed: 10/26/2023 Reviewed by: Juju Dorsey MA - Fully Assessed Reason for Visit: Nurse Visit-Blood Draw/Flush Mediport [845] Visit Diagnoses:Vitamin D deficiency [E55.9] Mixed hyperlipidemia [E78.2] Order(s):VITAMIN D 25 HYDROXY [SQVITD] Order #: [id number]. #:[id number] LIPID PANEL BASIC [SQLIPB] Order #: [id number]. #:[id number] Prescriptions as of 10/28/2023 - Cholecalciferol, Vitamin D3, 50 mcg (2,000 unit) cap Take 2,000 Units by mouth once daily. - Progesterone 200 mg supp - triamcinolone acetonide (KENALOG) 0.1 % ointment APPLY TWICE A DAY TO DERMATITIS- 2 WEEKS ON - 1 WEEK OFF Meds Comments as of 08/09/2020: Problem List As Of Date 10/28/2023 Noted Resolved Gestational diabetes [O24.419] 10/17/2021 Vitamin D deficiency [E55.9] 07/28/2018 Obesity, Class I, BMI 30-34.9 [E66.9] 10/13/2022 Encounter for screening for malignant neoplasm *09/24/2023 10/01/2023 Encounter Status:Closed by CHER AUGUSTE on 10/28/23 [facility] Lipid 1996 panelon 4 Cholesterol [Mass/Vol] 290 mg/dL High NINF - 200 mg/dL [facility] Comment on above: <200 mg/dL, Desirabl e 200-239 mg/dL, Borderline high >239 mg/dL, High Cholesterol in HDL [Mass/Vol] 51 mg/dL 39 - PINF mg/dL [facility] Comment on above: 40-59 mg/dL, Accepta ble >59 mg/dL, High: Negative risk factor for coronary heart disease <40 mg/dL, Low: Positive risk factor for coronary heart disease Cholesterol in LDL [Mass/Vol] 213 mg/dL High NINF - 100 mg/dL [facility] Comment on above: <100 mg/dL, Optimal 100-129 mg/dL, Near optimal/above optimal 130-159 mg/dL, Borderline high 160-189 mg/dL, High >189 mg/dL, Very high Secondary prevention optimal LDL Cholesterol levels are recommended to be < 70 mg/dL Cholesterol in LDL/Cholesterol in HDL [Mass ratio] 4.18 {ratio} High NINF - 2.54 [facility] Comment on above: Reference: 1. National Cholesterol Education Program ATP III Guideline At-A-Glance Quick Desk Reference: National Heart, Lung, and Blood Box [place]. National Institutes of Health. 2001: NIH Publication No. 01-3305. 2. An International Atherosclerosis Society position paper: global recommendations for the management of dyslipidemia: executive summary, Atherosclerosis. 2014: 232(2):410-413. Cholesterol in VLDL [Mass/Vol] 26 mg/dL NINF - 30 mg/dL [facility] Cholesterol non HDL [Mass/Vol] 239 mg/dL High NINF - 130 mg/dL [facility] Comment on above: <130 mg/dL, Optimal 130-159 mg/dL, Near optimal/above optimal 160-189 mg/dL, Borderline high 190-219 mg/dL, High >219 mg/dL, Very high Secondary prevention optimal non HDL Cholesterol levels are recommended to be <100 mg/dL Cholesterol.total/Heather sterol in HDL [Mass ratio] 5.69 {ratio} High NINF - 5.10 [facility] Fasting Time [address] [facility] Interpretation and review of laboratory results Abnormal [facility] Triglyceride [Mass/Vol] 131 mg/dL NINF - 150 mg/dL [facility] Comment on above: <150 mg/dL, Normal 150-199 mg/dL, Borderline high 200-499 mg/dL, High >499 mg/dL, Very high [facility] Cholesterol [Mass/Vol] 290 mg/dL High <200 [facility] Comment on above: Order Comment: Speci men Type: BLOOD SPECIMENOrdering Facility: [facility] Address: [address] [place] [address] Result Comment: <200 mg/dL, Desirable 200-239 mg/dL, Borderline high >239 mg/dL, High Performed By: #### 2 4331-1, 1988-06 ####[facility] LABCLIA [id number] [place] [address] [facility] Cholesterol in HDL [Mass/Vol] 51 mg/dL Normal >39 [facility] Comment on above: Order Comment: Joel douglas Type: BLOOD SPECIMENOrdering Facility: [facility] Address: [address] [place] [address] Result Comment: 40-5 9 mg/dL, Acceptable >59 mg/dL, High: Negative risk factor for coronary heart disease <40 mg/dL, Low: Positive risk factor for coronary heart disease Performed By: #### 2 433-, 1988-06 ####[facility] LABIA [id number] [place] [address] [place] [facility] Cholesterol in LDL [Mass/Vol] 213 mg/dL High <100 [facility] Comment on above: Order Comment: Marcellai [facility] Type: BLOOD SPECIMENOrdering Facility: [facility] Address: [address] [place] [address] Result Comment: <100 mg/dL, Optimal 100-129 mg/dL, Near optimal/above optimal 130-159 mg/dL, Borderline high 160-189 mg/dL, High >189 mg/dL, Very high Secondary prevention optimal LDL Cholesterol levels are recommended to be < 70 mg/dL Performed By: #### 2 43304-20, 1988-06 ####[facility] LABCLIA [id number] [place] [address] [facility] Cholesterol in LDL/Cholesterol in HDL [Mass ratio] 4.18 {ratio} High <2.54 [facility] Comment on above: Order Comment: Marcellajames douglas Type: BLOOD SPECIMENOrdering Facility: [facility] Address: [address] [place] [address] Result Comment: Refe rence: 1. National Cholesterol Education Program ATP III Guideline At-A-Glance Quick Desk Reference: National Heart, Lung, and Blood Box Elder. National Institutes of Health. 2001: NIH Publication No. 01-3305. 2. An International Atherosclerosis Society position paper: global recommendations for the management of dyslipidemia: executive summary, Atherosclerosis. 2014: 232(2):410-413. Performed By: #### 2 4330-, 1988-06 ####[facility] LABCLIA [id number] [address] [place] [facility] Cholesterol in VLDL [Mass/Vol] 26 mg/dL Normal <30 [facility] Comment on above: Order Comment: Speci men Type: BLOOD SPECIMENOrdering Facility: [facility] Address: [address] [place], [place] [id number] Performed By: #### 2 4330-, 1988-06 ####[facility] LABIA [id number] [place] [address] [place] Cholesterol non HDL [Mass/Vol] 239 mg/dL High <130 [facility] Comment on above: Order Comment: Speci men Type: BLOOD SPECIMENOrdering Facility: [facility] Address: [address] [place], [place] [id number] Result Comment: <130 mg/dL, Optimal 130-159 mg/dL, Near optimal/above optimal 160-189 mg/dL, Borderline high 190-219 mg/dL, High >219 mg/dL, Very high Secondary prevention optimal non HDL Cholesterol levels are recommended to be <100 mg/dL Performed By: #### 2 4330-04, 1988-06 ####[facility] LABIA [id number] [address] Cholesterol.total/Heather sterol in HDL [Mass ratio] 5.69 {ratio} High <5.10 [facility] Comment on above: Order Comment: Speci men Type: BLOOD SPECIMENOrdering Facility: [facility] Address: [address] [place] [address] Performed By: #### 2 4330-04, 1988-06 ####[facility] LABCLIA [id number] [address] FASTING TIME 12 hrs Normal [facility] Comment on above: Order Comment: Speci men Type: BLOOD SPECIMENOrdering Facility: [facility] Address: [address] [place], [place] [address] Performed By: #### 2 4330-04, 1988-06 ####[facility] LABCLIA [id number] [place] [address] [place] Triglyceride [Mass/Vol] 131 mg/dL Normal <150 [facility] Comment on above: Order Comment: Speci men Type: BLOOD SPECIMENOrdering Facility: [facility] Address: [address] [place] [address] Result Comment: <150 mg/dL, Normal 150-199 mg/dL, Borderline high 200-499 mg/dL, High >499 mg/dL, Very high Performed By: #### 2 433-1, 1988-06 ####[facility] LABCLIA [id number] [place] [address] [place] VITAMIN D 25 HYDROXYon 10-27 25-hydroxyvitamin D3 [Mass/Vol] 60.3 ng/mL 31.0 - 80.0 ng/mL [facility] CNOVon 10-26-2023 CNOV Office Visit (GENUPD) ---- KALANIHUSSEINANABELL NAVARRETE ([id number]) 1985 F Date Time Provider Department 10/26/23 3:15 PM SWAPNA BUTLER During your visit today, we recorded the following information about you: Weight Height 87.1 kg 1.651 m Swapna Butler DO 10/27/2023 6:43 PM Signed HPI Anabell Payne is a 38 year old female here today for colonoscopy f/u. She had diverticulosis, 2 colon polyps which were tubular adenomas. . Current Outpatient Medications Medication Sig Cholecalciferol, Vitamin D3, 50 mcg (2,000 unit) cap Take 2,000 Units by mouth once daily. Progesterone 200 mg supp triamcinolone acetonide (KENALOG) 0.1 % ointment APPLY TWICE A DAY TO DERMATITIS- 2 WEEKS ON - 1 WEEK OFF No current facility-administer ed medications for this visit. ALLERGIES No Known Allergies Social History Tobacco Use Smoking status: Never Smokeless tobacco: Never Vaping Use Vaping Use: Never used Substance Use Topics Alcohol use: Yes Comment: Couple times monthly beer/wine Drug use: Not Currently PAST MEDICAL HISTORY Diagnosis Date Gestational diabetes Kidney stones During Sciatica Vitamin D deficiency 07/28/2018 PAST SURGICAL HISTORY Procedure Laterality Date COLONOSCOPY SCREENING 10/01/2023 Dr. Butler PAST SURGICAL HISTORY OF [place] teeth extraction FAMILY HISTORY Problem Relation Age of Onset Diabetes Mother Hypertension Mother Hypertension Father Stroke Father Prostate Cancer Father Colon Cancer Father Hypertension Sister Hypertension Brother REVIEW OF SYSTEMS General: No weight loss, malaise or fevers HEENT: Negative for frequent or significant headaches Neck: Negative for lumps, goiter, pain and significant neck swelling Respiratory: Negative for cough, hemoptysis, wheezing, COPD, dyspnea or shortness of breath Cardiovascular: Negative for chest pain, leg swelling, hypertension, CHF or palpitations GI: No nausea, vomiting, or diarrhea : No history of dysuria, frequency or incontinence Musculoskeletal: Negative for joint pain or swelling, back pain or muscle pain Skin: Negative for lesions, rash, and itching Psych: Negative for sleep disturbance, mood disorder and recent psychosocial stressors Hematology/Lympholo gy: Negative for prolonged bleeding, bruising easily or swollen nodes Endocrine: Negative for cold or heat intolerance, polyuria, polydipsia and goiter Neuro: No history of headaches, syncope, paralysis, seizures or tremors PHYSICAL EXAM Ht 5' 5 (1.65m) Wt 192 lb (87.1kg) LMP 09/30/2023 BMI 31.95 kg/(m2). General Appearance: Well appearing, alert, in no acute distress, well-hydrated, well nourished. Skin: Skin color, texture, turgor normal, Head: Normocephalic, Neck: Supple, Lungs: Unlabored on room air Heart: RR Extremities: No deformities, edema, Neuro: Gait normal. Abdomen: Abdomen soft, non-tender. No masses, organomegaly Assessment ASSESSMENT/PLAN: 1. Adenomatous polyp of sigmoid colon - ICD9: 211.3, ICD10: D12.5 (primary diagnosis) - pathology was reviewed. Plan on recall in 3 years with her fmaily history of colon cancer 2. Diverticulosis - ICD9: 562.10, ICD10: K57.90 Swapna Butler, DO DATE: 10/26/23 TIME: 3:44 PM Referring Provider: SELF [200] Allergies As of Date: 10/26/2023 (No Known Allergies) Date Reviewed: 10/26/2023 Reviewed by: Juju Dorsey MA - Fully Assessed Reason for Visit: Established Patient [175] Cmt: Colonoscopy done 09/30 Primary Visit Diagnosis:Adenomato us polyp of sigmoid colon [D12.5] Other Visit Diagnosis:Diverticu losis [K57.90] Prescriptions as of 10/27/2023 - Cholecalciferol, Vitamin D3, 50 mcg (2,000 unit) cap Take 2,000 Units by mouth once daily. - Progesterone 200 mg supp - triamcinolone acetonide (KENALOG) 0.1 % ointment APPLY TWICE A DAY TO DERMATITIS- 2 WEEKS ON - 1 WEEK OFF Meds Comments as of 08/09/2020: Problem List As Of Date 10/26/2023 Noted Resolved Gestational diabetes [O24.419] 10/17/2021 Vitamin D deficiency [E55.9] 07/28/2018 Obesity, Class I, BMI 30-34.9 [E66.9] 10/13/2022 Encounter for screening for malignant neoplasm *09/24/2023 10/01/2023 Encounter Status:Closed by SWAPNA BUTLER on 10/27/23 [facility] Lupus Anticoagulant Compon 0 - aPTT Coag (Bld) [Time] 36.2 s Normal 0.0-43.5 [facility] Comment on above: Performed By: #### L 100.0100, L500.4050 #### [facility] [address] [place], [address] DILUTE PT (dPT) 33.7 sec Normal 0.0-47.6 [facility] Comment on above: Performed By: #### L 100.0100, L500.4050 #### [facility] [address] [place], [address] dPT Conf. Ratio 1.10 Ratio Normal 0.00-1.34 [facility] Comment on above: Performed By: #### L 100.0100, L500.4050 #### [facility] [address] [place], [address] DRVVT 38.2 sec Normal 0.0-47.0 [facility] Comment on above: Performed By: #### L 100.0100, L500.4050 #### [facility] [address] [place], [address] Interpretation Comment: Normal . [facility] Comment on above: Result Comment: No l upus anticoagulant was detected. Performed at: - [address] [id number] Marketing Sales Supervisor: Cathy Jennings MD, Phone: [phone] Performed By: #### L 100.0100, L500.4050 #### [facility] [address] [place], [address] THROMBIN TIME 17.7 sec Normal 0.0-23.0 [facility] Comment on above: Performed By: #### L 100.0100, L500.4050 #### [facility] [address] [place], [place], [address] CBC W/Diff, Automatedon 09-18 Absolute Lymph 1.87 X10 3/uL Normal 0.83-4.51 [facility] Comment on above: Performed By: #### L 3890.6100, L4500.0100, L3890.6300, L500.4050, L3890.6200, L100.0100, L501.6710, L101.9900, L501.0900, L400.2010 #### [facility] [address] [place], [address] Absolute Neut 6.5 X10 3/uL Normal 2.0-7.7 [facility] Comment on above: Performed By: #### L 3890.6100, L4500.0100, L3890.6300, L500.4050, L3890.6200, L100.0100, L501.6710, L101.9900, L501.0900, L400.2010 #### [facility] [address] [place], [place], [phone] (533) Basophils/100 WBC (Bld) 0.7 % Normal 0-1 [facility] Comment on above: Performed By: #### L 3890.6100, L4500.0100, L3890.6300, L500.4050, L3890.6200, L100.0100, L501.6710, L101.9900, L501.0900, L400.2010 #### [facility] [address] [place], [place], [phone] (177) Eosinophils/100 WBC (Bld) 1.2 % Normal 0-5 [facility] Comment on above: Performed By: #### L 3890.6100, L4500.0100, L3890.6300, L500.4050, L3890.6200, L100.0100, L501.6710, L101.9900, L501.0900, L400.2010 #### [facility] [address] [facility] [place], [place], [id number] Erythrocyte distribution width (RBC) [Ratio] 11.9 % Normal 11.6-14.6 [facility] Comment on above: Performed By: #### L 3890.6100, L4500.0100, L3890.6300, L500.4050, L3890.6200, L100.0100, L501.6710, L101.9900, L501.0900, L400.2010 #### [facility] [address] [facility] [place], [place], [phone] (102) Hematocrit (Bld) [Volume fraction] 41.3 % Normal 37-47 [facility] Comment on above: Performed By: #### L 3890.6100, L4500.0100, L3890.6300, L500.4050, L3890.6200, L100.0100, L501.6710, L101.9900, L501.0900, L400.2010 #### [facility] [address] [place], [address] Hemoglobin (Bld) [Mass/Vol] 13.7 g/dL Normal 12.0-15.0 [facility] Comment on above: Performed By: #### L 3890.6100, L4500.0100, L3890.6300, L500.4050, L3890.6200, L100.0100, L501.6710, L101.9900, L501.0900, L400.2010 #### [facility] [address] [place], [address] IG% 0.300 Normal 0.0-0.9 [facility] Comment on above: Result Comment: IG% - Immature Granulocytes (promyelocytes, myelocytes and metamyelocytes) > 1% indicates that a LEFT SHIFT is Present. Performed By: #### L 3890.6100, L4500.0100, L3890.6300, L500.4050, L3890.6200, L100.0100, L501.6710, L101.9900, L501.0900, L400.2010 #### [facility] [address] [place], [address] Lymphocytes/100 WBC (Bld) 20.8 % Normal 19-41 [facility] Comment on above: Performed By: #### L 3890.6100, L4500.0100, L3890.6300, L500.4050, L3890.6200, L100.0100, L501.6710, L101.9900, L501.0900, L400.2010 #### [facility] [address] [place], [address] MCH (RBC) [Entitic mass] 31.6 pg Normal 27.0-32.0 [facility] Comment on above: Performed By: #### L 3890.6100, L4500.0100, L3890.6300, L500.4050, L3890.6200, L100.0100, L501.6710, L101.9900, L501.0900, L400.2010 #### [facility] [address] [place], [address] MCHC (RBC) [Mass/Vol] 33.2 g/dL Normal 32-36 [facility] Comment on above: Performed By: #### L 3890.6100, L4500.0100, L3890.6300, L500.4050, L3890.6200, L100.0100, L501.6710, L101.9900, L501.0900, L400.2010 #### [facility] [address] [place], [address] MCV (RBC) [Entitic vol] 95.4 fL Normal 81-99 [facility] Comment on above: Performed By: #### L 3890.6100, L4500.0100, L3890.6300, L500.4050, L3890.6200, L100.0100, L501.6710, L101.9900, L501.0900, L400.2010 #### [facility] [address] [place], [address] Monocytes/100 WBC (Bld) 4.6 % Normal 0-10 [facility] Comment on above: Performed By: #### L 3890.6100, L4500.0100, L3890.6300, L500.4050, L3890.6200, L100.0100, L501.6710, L101.9900, L501.0900, L400.2010 #### [facility] [address] [place], [address] Neutrophils/100 WBC (Bld) 72.4 % High 47-70 [facility] Comment on above: Performed By: #### L 3890.6100, L4500.0100, L3890.6300, L500.4050, L3890.6200, L100.0100, L501.6710, L101.9900, L501.0900, L400.2010 #### [facility] [address] [place], [address] Nucleated RBC (Bld) [#/Vol] 0 10*3/uL Normal 0-5 [facility] Comment on above: Performed By: #### L 3890.6100, L4500.0100, L3890.6300, L500.4050, L3890.6200, L100.0100, L501.6710, L101.9900, L501.0900, L400.2010 #### [facility] [address] [place], [address] (070) Platelet mean volume (Bld) [Entitic vol] 11.8 fL Normal 6.2-12.0 [facility] Comment on above: Performed By: #### L 3890.6100, L4500.0100, L3890.6300, L500.4050, L3890.6200, L100.0100, L501.6710, L101.9900, L501.0900, L400.2010 #### [facility] [address] [place], [address] (108) Platelets (Bld) [#/Vol] 243 10*3/uL Normal 150-450 [facility] Comment on above: Performed By: #### L 3890.6100, L4500.0100, L3890.6300, L500.4050, L3890.6200, L100.0100, L501.6710, L101.9900, L501.0900, L400.2010 #### [facility] [address] [place], [address] RBC (Bld) [#/Vol] 4.33 10*6/uL Normal 4.2-5.[address] [facility] Comment on above: Performed By: #### L 3890.6100, L4500.0100, L3890.6300, L500.4050, L3890.6200, L100.0100, L501.6710, L101.9900, L501.0900, L400.2010 #### [facility] [address] [place], [place], [id number] RDW SD 41.3 fl Normal 35.1-43.9 [facility] Comment on above: Performed By: #### L 3890.6100, L4500.0100, L3890.6300, L500.4050, L3890.6200, L100.0100, L501.6710, L101.9900, L501.0900, L400.2010 #### [facility] [address] [place], [address] WBC (Bld) [#/Vol] 9.0 10*3/uL Normal 4.4-11.0 [facility] Comment on above: Performed By: #### L 3890.6100, L4500.0100, L3890.6300, L500.4050, L3890.6200, L100.0100, L501.6710, L101.9900, L501.0900, L400.2010 #### [facility] [address] [place], [address] CRPon 10-07-2023 C-REACTIVE PROT 5.40 mg/L High 0.0-3.0 [facility] Comment on above: Result Comment: C-Re active Protein (CRP) provides useful information for the diagnosis, therapy and monitoring of inflammatory processes and associated diseases. For the evaluation of Relative Risk for Cardiovascular Disease, a High Sensitivity CRP (HSCRP) should be ordered. Performed By: #### L 3890.6100, L4500.0100, L3890.6300, L500.4050, L3890.6200, L100.0100, L501.6710, L101.9900, L501.0900, L400.2010 #### [facility] [address] [place], [address] Comprehensive Metabolic Prof dcon 10-07-2023 Albumin [Mass/Vol] 3.6 g/dL Normal 3.2-5.0 [facility] Comment on above: Performed By: #### L 3890.6100, L4500.0100, L3890.6300, L500.4050, L3890.6200, L100.0100, L501.6710, L101.9900, L501.0900, L400.2010 #### [facility] [address] [place], [place], [id number] Albumin/Globulin [Mass ratio] 0.9 {ratio} Normal 0.9-2.4 [facility] Comment on above: Performed By: #### L 3890.6100, L4500.0100, L3890.6300, L500.4050, L3890.6200, L100.0100, L501.6710, L101.9900, L501.0900, L400.2010 #### [facility] [address] [place], [place], [id number] ALK P 88 U/L Normal 45-117 [facility] Comment on above: Performed By: #### L 3890.6100, L4500.0100, L3890.6300, L500.4050, L3890.6200, L100.0100, L501.6710, L101.9900, L501.0900, L400.2010 #### [facility] [address] [place], [address] ALT [Catalytic activity/Vol] 30 U/L Normal 13-56 [facility] Comment on above: Performed By: #### L 3890.6100, L4500.0100, L3890.6300, L500.4050, L3890.6200, L100.0100, L501.6710, L101.9900, L501.0900, L400.2010 #### [facility] [address] [place], [address] AST [Catalytic activity/Vol] 20 U/L Normal 15-37 [facility] Comment on above: Performed By: #### L 3890.6100, L4500.0100, L3890.6300, L500.4050, L3890.6200, L100.0100, L501.6710, L101.9900, L501.0900, L400.2010 #### [facility] [address] [place], [address] Bilirubin [Mass/Vol] 0.40 mg/dL Normal 0.20-1.00 [facility] Comment on above: Result Comment: For patients on eltrombopag therapy, use of Dimension Delta TBIL is not recommended. Performed By: #### L 3890.6100, L4500.0100, L3890.6300, L500.4050, L3890.6200, L100.0100, L501.6710, L101.9900, L501.0900, L400.2010 #### [facility] [address] [place], [address] BUN/CRE 11.6 RATIO Normal 10-20 [facility] Comment on above: Performed By: #### L 3890.6100, L4500.0100, L3890.6300, L500.4050, L3890.6200, L100.0100, L501.6710, L101.9900, L501.0900, L400.2010 #### [facility] [address] [place], [address] CA,Total 9.0 mg/dL Normal 8.5-10.1 [facility] Comment on above: Performed By: #### L 3890.6100, L4500.0100, L3890.6300, L500.4050, L3890.6200, L100.0100, L501.6710, L101.9900, L501.0900, L400.2010 #### [facility] [address] [place], [address] Chloride [Moles/Vol] 107 mmol/L Normal 98-107 [facility] Comment on above: Performed By: #### L 3890.6100, L4500.0100, L3890.6300, L500.4050, L3890.6200, L100.0100, L501.6710, L101.9900, L501.0900, L400.2010 #### [facility] [address] [place], [address] CO2 [Moles/Vol] 25.0 mmol/L Normal 21.0-32.0 [facility] Comment on above: Performed By: #### L 3890.6100, L4500.0100, L3890.6300, L500.4050, L3890.6200, L100.0100, L501.6710, L101.9900, L501.0900, L400.2010 #### [facility] [address] [place], [address] (994) Creatinine [Mass/Vol] 0.86 mg/dL Normal 0.55-1.02 [facility] Comment on above: Result Comment: The validity of the calculated GFR GFRAA in patients over 70 years has not been determined. Clinical correlation is essential. Performed By: #### L 3890.6100, L4500.0100, L3890.6300, L500.4050, L3890.6200, L100.0100, L501.6710, L101.9900, L501.0900, L400.2010 #### [facility] [address] [place], [address] EST GFR - AA 95 mL/min Normal >60 [facility] Comment on above: Result Comment: Afri can Moldovan GFR Calc Performed By: #### L 3890.6100, L4500.0100, L3890.6300, L500.4050, L3890.6200, L100.0100, L501.6710, L101.9900, L501.0900, L400.2010 #### [facility] [address] [place], [place], [phone] (124) GAP 8 Normal 5-15 [facility] Comment on above: Performed By: #### L 3890.6100, L4500.0100, L3890.6300, L500.4050, L3890.6200, L100.0100, L501.6710, L101.9900, L501.0900, L400.2010 #### [facility] [address] [place], [place], [phone] (342) GFR/1.73 sq M.predicted among non-blacks MDRD (S/P/Bld) [Vol rate/Area] 79 mL/min/{1.73_m2} Normal >60 [facility] Comment on above: Result Comment: Non- GFR Calc Performed By: #### L 3890.6100, L4500.0100, L3890.6300, L500.4050, L3890.6200, L100.0100, L501.6710, L101.9900, L501.0900, L400.2010 #### [facility] [address] [place], [place], [phone] (368) Globulin (S) [Mass/Vol] 3.8 g/dL Normal 2.2-4.2 [facility] Comment on above: Performed By: #### L 3890.6100, L4500.0100, L3890.6300, L500.4050, L3890.6200, L100.0100, L501.6710, L101.9900, L501.0900, L400.2010 #### [facility] [address] [place], [address] Glucose [Mass/Vol] 102 mg/dL Normal 74-106 [facility] Comment on above: Result Comment: Fast ing Glucose result from 100 to 125 mg/dL suggests IMPAIRED HOMEOSTASIS per A.D.A. criteria. Performed By: #### L 3890.6100, L4500.0100, L3890.6300, L500.4050, L3890.6200, L100.0100, L501.6710, L101.9900, L501.0900, L400.2010 #### [facility] [address] [place], [address] Potassium [Moles/Vol] 3.6 mmol/L Normal 3.5-5.1 [facility] Comment on above: Performed By: #### L 3890.6100, L4500.0100, L3890.6300, L500.4050, L3890.6200, L100.0100, L501.6710, L101.9900, L501.0900, L400.2010 #### [facility] [address] [place], [address] Sodium [Moles/Vol] 140 mmol/L Normal 136-145 [facility] Comment on above: Performed By: #### L 3890.6100, L4500.0100, L3890.6300, L500.4050, L3890.6200, L100.0100, L501.6710, L101.9900, L501.0900, L400.2010 #### [facility] [address] [place], [address] T PROT 7.4 g/dL Normal 6.4-8.2 [facility] Comment on above: Performed By: #### L 3890.6100, L4500.0100, L3890.6300, L500.4050, L3890.6200, L100.0100, L501.6710, L101.9900, L501.0900, L400.2010 #### [facility] [address] [place], [place], [address] Urea nitrogen [Mass/Vol] 10 mg/dL Normal 7-18 [facility] Comment on above: Performed By: #### L 3890.6100, L4500.0100, L3890.6300, L500.4050, L3890.6200, L100.0100, L501.6710, L101.9900, L501.0900, L400.2010 #### [facility] [address] [place], [address] EXAGENon 10-07-2023 EXAGEN MAILED SPECIMEN Normal [facility] Comment on above: Performed By: #### L 100.0100, L500.4050 #### [facility] [address] [place], [place], [id number] Erythrocyte Sed Rateon 10-06 SED RATE 7 mm/hr Normal 0-30 [facility] Comment on above: Performed By: #### L 3890.6100, L4500.0100, L3890.6300, L500.4050, L3890.6200, L100.0100, L501.6710, L101.9900, L501.0900, L400.2010 #### [facility] [address] [place], [place], [address] Hepatitis B Surface Antibody on 10-07-2023 HEP B Surf Ab Non-Reactive Normal [facility] Comment on above: Result Comment: Non Reactive: Inconsistent with immunity less than <10 mIU/mL Reactive: Consistent with immunity greater than or equal to 10 mIU/mL Performed By: #### L 3890.6100, L4500.0100, L3890.6300, L500.4050, L3890.6200, L100.0100, L501.6710, L101.9900, L501.0900, L400.2010 #### [facility] [address] [place], [place], [address] Hepatitis B Surface Antigeno n 10-07-2023 HEP B Surf Ag Non-Reactive Normal Nonreactive [facility] Comment on above: Performed By: #### L 3890.6100, L4500.0100, L3890.6300, L500.4050, L3890.6200, L100.0100, L501.6710, L101.9900, L501.0900, L400.2010 #### [facility] [address] [facility] [place], [address] Hepatitis C Antibodyon 10-06 Hepatitis C AB Non-Reactive Normal Nonreactive [facility] Comment on above: Result Comment: Non Reactive: < 0.8 Equivocal: >/= 0.8 to < 1.0 Reactive: >/= 1.0 The [facility] requires that a reactive/equivocal HCV antibody result be sent out for confirmation. HCV Quant by PCR testing. Performed By: #### L 100.0100, L500.4050 #### [facility] [address] [facility], [address] Protein+Creatinine Ratio,Uri neon 10-07-2023 PROT:CRE RATIO 85 mg/g CRE Normal 0-200 [facility] Comment on above: Performed By: #### L 3890.6100, L4500.0100, L3890.6300, L500.4050, L3890.6200, L100.0100, L501.6710, L101.9900, L501.0900, L400.2010 #### [facility] [address] [facility], [address] Protein (U) [Mass/Vol] 11.5 mg/dL Normal <11.9 [facility] Comment on above: Performed By: #### L 3890.6100, L4500.0100, L3890.6300, L500.4050, L3890.6200, L100.0100, L501.6710, L101.9900, L501.0900, L400.2010 #### [facility] [address] [place], [place], [id number] UR CREAT 135.00 mg/dL Normal NO RANGE EST. [facility] Comment on above: Performed By: #### L 3890.6100, L4500.0100, L3890.6300, L500.4050, L3890.6200, L100.0100, L501.6710, L101.9900, L501.0900, L400.2010 #### [facility] [address] [place], [address] Urinalysis, Routine (Dipstic k)on 10-07-2023 BILIRUBIN URINE Negative Normal Negative [facility] Comment on above: Order Comment: CLEAN CATCH Performed By: #### L 3890.6100, L4500.0100, L3890.6300, L500.4050, L3890.6200, L100.0100, L501.6710, L101.9900, L501.0900, L400.2010 #### [facility] [address] [place], [place], [phone] Clarity (U) Sl. Cloudy Normal Clear [facility] Comment on above: Order Comment: CLEAN CATCH Performed By: #### L 3890.6100, L4500.0100, L3890.6300, L500.4050, L3890.6200, L100.0100, L501.6710, L101.9900, L501.0900, L400.2010 #### [facility] [address] [place], [place], [id number] Color (U) Yellow Normal Yellow [facility] Comment on above: Order Comment: CLEAN CATCH Performed By: #### L 3890.6100, L4500.0100, L3890.6300, L500.4050, L3890.6200, L100.0100, L501.6710, L101.9900, L501.0900, L400.2010 #### [facility] [address] [place], [address] GLUCOSE, UR Normal Normal Normal [facility] Comment on above: Order Comment: CLEAN CATCH Performed By: #### L 3890.6100, L4500.0100, L3890.6300, L500.4050, L3890.6200, L100.0100, L501.6710, L101.9900, L501.0900, L400.2010 #### [facility] [address] [place], [address] KETONE UR Negative Normal Negative [facility] Comment on above: Order Comment: CLEAN CATCH Performed By: #### L 3890.6100, L4500.0100, L3890.6300, L500.4050, L3890.6200, L100.0100, L501.6710, L101.9900, L501.0900, L400.2010 #### [facility] [address] [place], [place], [id number] LEUK ESTERASE Negative Normal Negative [facility] Comment on above: Order Comment: CLEAN CATCH Performed By: #### L 3890.6100, L4500.0100, L3890.6300, L500.4050, L3890.6200, L100.0100, L501.6710, L101.9900, L501.0900, L400.2010 #### [facility] [address] [place], [place], [id number] Nitrite Ql (U) Negative Normal Negative [facility] Comment on above: Order Comment: CLEAN CATCH Performed By: #### L 3890.6100, L4500.0100, L3890.6300, L500.4050, L3890.6200, L100.0100, L501.6710, L101.9900, L501.0900, L400.2010 #### [facility] [address] [place], [place], [id number] OCCULT BLOOD-UR 10 /ul Abnormal Negative [facility] Comment on above: Order Comment: CLEAN CATCH Performed By: #### L 3890.6100, L4500.0100, L3890.6300, L500.4050, L3890.6200, L100.0100, L501.6710, L101.9900, L501.0900, L400.2010 #### [facility] [address] [place], [address] pH UR 6.0 Normal 5.0 - 8.0 [facility] Comment on above: Order Comment: CLEAN CATCH Performed By: #### L 3890.6100, L4500.0100, L3890.6300, L500.4050, L3890.6200, L100.0100, L501.6710, L101.9900, L501.0900, L400.2010 #### [facility] [address] [place], [address] PROT DIPSTX Negative Normal Negative [facility] Comment on above: Order Comment: CLEAN CATCH Performed By: #### L 3890.6100, L4500.0100, L3890.6300, L500.4050, L3890.6200, L100.0100, L501.6710, L101.9900, L501.0900, L400.2010 #### [facility] [address] [place], [address] SP.GR. DIPSTX 1.020 Normal 1.002-1.030 [facility] Comment on above: Order Comment: CLEAN CATCH Performed By: #### L 3890.6100, L4500.0100, L3890.6300, L500.4050, L3890.6200, L100.0100, L501.6710, L101.9900, L501.0900, L400.2010 #### [facility] [address] [place], [address] UROBILI Normal Normal Normal [facility] Comment on above: Order Comment: CLEAN CATCH Performed By: #### L 3890.6100, L4500.0100, L3890.6300, L500.4050, L3890.6200, L100.0100, L501.6710, L101.9900, L501.0900, L400.2010 #### [facility] [address] [place], [address] ANES POSTPROC EVALon 024 ANES POSTPROC EVAL HNO ID: [id number] Author: EARL GREENWOOD DO Service: ? Author Type: Anesthesiologist Type: Anesthesia Postprocedure Evaluation Filed: 10/01/2023 13:16 Note Text: POST ANESTHESIA EVALUATION NOTE : 1985 Procedure Summary Date: 10/01/23 Room / Location: [facility] Anesthesia Start: 1201 Anesthesia Stop: 1228 Procedure: COLONOSCOPY SCREENING Diagnosis: Family history of colon cancer in father (Screening in patient at increased risk/FH 1st-deg rel with colon cancer < 60 yo) Scheduled Providers: Swapna Butler DO; Earl Greenwood DO; Clarisse Watt CRNA Responsible Provider: Earl Greenwood DO Anesthesia Type: MAC ASA Status: 2 Anesthesia Type: MAC Last Vitals Vitals Value Taken Time BP 109/75 10/01/23 1300 Temp 36.9 ?C (98.4 ?F) 10/01/23 1231 HR SpO2 58 10/01/23 1300 Resp 20 10/01/23 1315 SpO2 98 % 10/01/23 1300 Post Anesthesia Patient Status Patient Evaluation: PACU. PACU/ICU Patient Condition: stable. Anticipated Disposition: phase 2 then home. Neurological Status: aware and responsive. Pulmonary Status: breathing comfortably on room air Airway Control: returned to baseline unsupported. Cardiovascular Status: stable. Pain Management: clinically adequate Postoperative Hydration: acceptable. Intraoperative Events: no significant anesthesia events Post Operative Nausea/Vomiting Status: no significant post operative nausea or vomiting Recommendation: continue current plan of care. Anesthesia Observations No notable events were associated with this procedure. Documented by Clarisse Watt CRNA 10/01/2023 12:28 PM EDT SIGNATURE: Earl Greenwood DO PATIENT NAME: Anabell Payne DATE: October 01, 2023 TIME: 1:15 PM CSN: [id number] [facility] ANES PRE-OPon 10-01-2023 ANES PRE-OP HNO ID: [id number] Author: EARL GREENWOOD DO Service: ? Author Type: Anesthesiologist Type: Anesthesia Preprocedure Evaluation Filed: 10/01/2023 10:41 Note Text: ANESTHESIOLOGY DAY OF SURGERY NOTE : 1985 Procedure Information Date/Time: 10/01/23 1130 Scheduled providers: Swapna Butler DO; Earl Greenwood DO; Clarisse Watt CRNA Procedure: COLONOSCOPY SCREENING Location: [facility] Estimated body mass index is 32.61 kg/m? as calculated from the following: Height as of 09/29/23: 165.1 cm (5' 5). Weight as of 09/29/23: 88.9 kg (195 lb 15.8 oz). Most recent hematocrit and potassium results: Hematocrit 42.1 07/15/2023 Potassium 4.4 07/15/2023 Relevant Problems No relevant active problems I - PHYSICAL EVALUATION AIRWAY Patient intubated: No. Tracheostomy tube not present Mallampati: III. TM distance: >3 FB. Neck ROM: full ROM without neurological symptoms. Mouth opening: adequate. Short neck: no. Thick neck: no Paredes present: no II - ANESTHESIA PLAN ASA Score: 2 Anesthetic Plan: MAC The patient is not a current smoker. NPO Status: adequate Beta Tyesha Monitoring Plan Monitoring plan: standard ASA. Post Procedure Analgesic Plan Informed Consent Anesthetic risks, benefits, alternatives, personnel and consent discussed: yes. Patient / Responsible [employer] Party agrees to proceed: yes Patient / Surrogate agrees to blood products: blood products not planned Significant changes in the patient condition since the History and Physical, not otherwise documented in primary service progress note: no. Potential Anesthesia issues that may suggest increased risk of complications or contraindication to planned procedure: none. No vitals data found for the desired time range. Outpatient Medications as of 10/01/2023 Medication Sig Cholecalciferol, Vitamin D3, 50 mcg (2,000 unit) cap Take 2,000 Units by mouth once daily. Progesterone 200 mg supp triamcinolone acetonide (KENALOG) 0.1 % ointment APPLY TWICE A DAY TO DERMATITIS- 2 WEEKS ON - 1 WEEK OFF No current facility-administer ed medications on file as of 10/01/2023. I have interviewed and examined the patient. I have reviewed the medical record and/or the pre-anesthesia evaluation, pertinent labs, and test results. This contains updated information obtained within 48 hours of Surgery/Procedure. SIGNATURE: Earl Greenwood DO PATIENT NAME: Anabell Payne DATE: October 01, 2023 TIME: 10:41 AM CSN: [id number] Normal [facility] Colonoscopyon 10-01-2023 Colonoscopy [facility] Gastrointestinal Endoscopy Patient Name: Anabell Payne Procedure Date: 10/01/2023 11:58 AM Date of : 1985 Admit Type: Outpatient Age: 38 Room: [place] [address] Gender: Female Note Status: Finalized Attending MD: Swapna Butler MD, [id number] Procedure: Colonoscopy Indications: Screening in patient at increased risk: Family history of 1st-degree relative with colorectal cancer before age 60 years Providers: Swapna Butler MD Patient Profile: This is a 38 year old female. Refer to note in patient chart for documentation of history and physical. Last Colonoscopy: none. The patient's first colonoscopy is today. Referring Physician: Swapna Butler MD (Referring MD) Medicines: See the Anesthesia note for documentation of the administered medications Complications: No immediate complications. Requesting Provider: Procedure: Pre-Anesthesia Assessment: - Prior to the procedure, a History and Physical was performed, and patient medications and allergies were reviewed. The patient's tolerance of previous anesthesia was also reviewed. The risks and benefits of the procedure and the sedation options and risks were discussed with the patient. All questions were answered, and informed consent was obtained. Prior Anticoagulants: The patient has taken no anticoagulant or antiplatelet agents. ASA Grade Assessment: I - A normal, healthy patient. After reviewing the risks and benefits, the patient was deemed in satisfactory condition to undergo the procedure. After I obtained informed consent, the scope was passed under direct vision. Throughout the procedure, the patient's blood pressure, pulse, and oxygen saturations were monitored continuously. The Colonoscope was introduced through the anus and advanced to the cecum, identified by appendiceal orifice and ileocecal valve. I was present and participated during the entire procedure, including non-beaver portions, and during the administration and monitoring of Moderate Sedation. The colonoscopy was performed without difficulty. The patient tolerated the procedure well. The quality of the bowel preparation was good. The ileocecal valve, appendiceal orifice, and rectum were photographed. Scope Withdrawal Time: 0 hours 16 minutes 30 seconds Moderate Sedation: Exam was performed under monitored anesthesia care (MAC) Total Procedure Duration: 0 hours 19 minutes 59 seconds Findings: An 8 mm polyp was found in the sigmoid colon. The polyp was pedunculated. The polyp was removed with a hot snare. Resection and retrieval were complete. A 6 mm polyp was found in the sigmoid colon. The polyp was pedunculated. The polyp was removed with a hot snare. Resection and retrieval were complete. A few small-mouthed diverticula were found in the sigmoid colon. Impression: - One 8 mm polyp in the sigmoid colon, removed with a hot snare. Resected and retrieved. - One 6 mm polyp in the sigmoid colon, removed with a hot snare. Resected and retrieved. - Diverticulosis in the sigmoid colon. Recommendation: - Patient has a contact number available for emergencies. The signs and symptoms of potential delayed complications were discussed with the patient. Return to normal activities tomorrow. Written discharge instructions were provided to the patient. - Resume previous diet. - Continue present medications. - Await pathology results. - Repeat colonoscopy is recommended. The colonoscopy date will be determined after pathology results from today's exam become available for review. - Return to my office in 1 week. Procedure Code(s): --- Professional --- 81040, Colonoscopy, flexible; with removal of tumor(s), polyp(s), or other lesion(s) by snare technique --- Technical --- 06179, Colonoscopy, flexible; with removal of tumor(s), polyp(s), or other lesion(s) by snare technique Diagnosis Code(s): --- Professional --- Z12.11, Encounter for screening for malignant neoplasm of colon Z80.0, Family history of malignant neoplasm of digestive organs D12.5, Benign neoplasm of sigmoid colon K57.30, Diverticulosis of large intestine without perforation or abscess without bleeding --- Technical --- Z12.11, Encounter for screening for malignant neoplasm of colon Z80.0, Family history of malignant neoplasm of digestive organs D12.5, Benign neoplasm of sigmoid colon K57.30, Diverticulosis of large intestine without perforation or abscess without bleeding CPT copyright 2020 [employer]. All rights reserved. The codes documented in this report are preliminary and upon mowing machine operator review may be revised to meet current compliance requirements. Attending Participation: I personally performed the entire procedure. Scope In: 12:06:54 PM Scope Out: 12:26:53 PM MD Swapna Dowling MD 10/01/2023 12:30:41 PM Thi (more content not included)... Normal [facility] Colonoscopy Study observatio non 10-01-2023 [facility] Gastrointestinal Endoscopy Patient Name: Anabell Payne Procedure Date: 10/01/2023 11:58 AM Date of : 1985 Admit Type: Outpatient Age: 38 Room: [place] [address] Gender: Female Note Status: Finalized Attending MD: Swapna Butler MD, [id number] Procedure: Colonoscopy Indications: Screening in patient at increased risk: Family history of 1st-degree relative with colorectal cancer before age 60 years Providers: Swapna Butler MD Patient Profile: This is a 38 year old female. Refer to note in patient chart for documentation of history and physical. Last Colonoscopy: none. The patient's first colonoscopy is today. Referring Physician: Swapna Butler MD (Referring MD) Medicines: See the Anesthesia note for documentation of the administered medications Complications: No immediate complications. Requesting Provider: Procedure: Pre-Anesthesia Assessment: - Prior to the procedure, a History and Physical was performed, and patient medications and allergies were reviewed. The patient's tolerance of previous anesthesia was also reviewed. The risks and benefits of the procedure and the sedation options and risks were discussed with the patient. All questions were answered, and informed consent was obtained. Prior Anticoagulants: The patient has taken no anticoagulant or antiplatelet agents. ASA Grade Assessment: I - A normal, healthy patient. After reviewing the risks and benefits, the patient was deemed in satisfactory condition to undergo the procedure. After I obtained informed consent, the scope was passed under direct vision. Throughout the procedure, the patient's blood pressure, pulse, and oxygen saturations were monitored continuously. The Colonoscope was introduced through the anus and advanced to the cecum, identified by appendiceal orifice and ileocecal valve. I was present and participated during the entire procedure, including non-beaver portions, and during the administration and monitoring of Moderate Sedation. The colonoscopy was performed without difficulty. The patient tolerated the procedure well. The quality of the bowel preparation was good. The ileocecal valve, appendiceal orifice, and rectum were photographed. Scope Withdrawal Time: 0 hours 16 minutes 30 seconds Moderate Sedation: Exam was performed under monitored anesthesia care (MAC) Total Procedure Duration: 0 hours 19 minutes 59 seconds Findings: An 8 mm polyp was found in the sigmoid colon. The polyp was pedunculated. The polyp was removed with a hot snare. Resection and retrieval were complete. A 6 mm polyp was found in the sigmoid colon. The polyp was pedunculated. The polyp was removed with a hot snare. Resection and retrieval were complete. A few small-mouthed diverticula were found in the sigmoid colon. Impression: - One 8 mm polyp in the sigmoid colon, removed with a hot snare. Resected and retrieved. - One 6 mm polyp in the sigmoid colon, removed with a hot snare. Resected and retrieved. - Diverticulosis in the sigmoid colon. Recommendation: - Patient has a contact number available for emergencies. The signs and symptoms of potential delayed complications were discussed with the patient. Return to normal activities tomorrow. Written discharge instructions were provided to the patient. - Resume previous diet. - Continue present medications. - Await pathology results. - Repeat colonoscopy is recommended. The colonoscopy date will be determined after pathology results from today's exam (more content not included)... [facility] Radiology Study observation (narrative) [facility] HCG ( test) Ql (U)O rdered By: Marli Barrera on 10-01-2023 Interpretation and review of laboratory results Normal [facility] HCG Preg Ur Qlon 10-01-2023 HCG ( test) Ql (U) Negative Normal Negative [facility] Comment on above: Order Comment: Speci men Type: URINE SPECIMEN [facility] Address: [address] [place] [address] Result Comment: This test is intended to aid in the early detection of . Very dilute urine samples, as indicated by a low specific gravity, may not contain footwear sales representative levels of hCG. This test detects intact hCG only. This test does not reliably detect hCG degradation products, including free-beta subunit and beta-core fragment. Therefore, this test may show reduced reactivity in urine after 8 weeks gestation. A number of conditions other than , including trophoblastic disease and certain non-trophoblastic neoplasms cause elevated levels of hCG. As with any assay employing mouse antibodies, the possibility exists for interference by human anti-mouse antibodies (HAMA) in the specimen. The test provides a presumptive diagnosis for . Performed By: #### 2 106-3 #### [facility] CLIA [id number] [address] [place] [address] [place] HCG, QUALITATIVE, URINE PREG NANCYOrdered By: Marli Barrera on 10-01-2023 HCG ( test) Ql (U) Negative Negative [facility] Comment on above: This test is intende d to aid in the early detection of . Very dilute urine samples, as indicated by a low specific gravity, may not contain footwear sales representative levels of hCG. This test detects intact hCG only. This test does not reliably detect hCG degradation products, including free-beta subunit and beta-core fragment. Therefore, this test may show reduced reactivity in urine after 8 weeks gestation. A number of conditions other than , including trophoblastic disease and certain non-trophoblastic neoplasms cause elevated levels of hCG. As with any assay employing mouse antibodies, the possibility exists for interference by human anti-mouse antibodies (HAMA) in the specimen. The test provides a presumptive diagnosis for . HISTORY PHYSICALon HISTORY PHYSICAL HNO ID: [id number] Author: SWAPNA BUTLER DO Service: General Surgery Author Type: Physician Type: H&P Filed: 10/01/2023 11:54 Note Text: GENERAL SURGERY HISTORY AND PHYSICAL Subjective HPI: This is a 38-year-old female that presents for screening colonoscopy. Father with colon cancer in 50's Intermittently has issues with urgency for her bowel movements. She has no issues with constipation or diarrhea. REVIEW OF SYSTEMS: GENERAL: No weight loss, malaise or fevers. RESPIRATORY: Negative for cough, wheezing or shortness of breath. CARDIOVASCULAR: Negative for chest pain, leg swelling. GI: Negative for abdominal discomfort, change in bowel habits, bloody bowel movements, nausea, vomiting. MUSCULOSKELETAL: Negative for new joint pain. SKIN: Negative for new lesions. HEMATOLOGY/LYMPHOLO GY: Negative for prolonged bleeding. NEURO: No new headaches. PAST MEDICAL HISTORY Diagnosis Date Gestational diabetes Kidney stones During Sciatica Vitamin D deficiency 07/28/2018 PAST SURGICAL HISTORY Procedure Laterality Date PAST SURGICAL HISTORY OF [place] teeth extraction FAMILY HISTORY Problem Relation Age of Onset Diabetes Mother Hypertension Mother Hypertension Father Stroke Father Prostate Cancer Father Colon Cancer Father Hypertension Sister Hypertension Brother Social History Tobacco Use Smoking status: Never Smokeless tobacco: Never Vaping Use Vaping Use: Never used Substance Use Topics Alcohol use: Yes Comment: Couple times monthly beer/wine Drug use: Not Currently MEDICATIONS: (Not in a hospital admission) ALLERGIES No Known Allergies Objective PHYSICAL EXAM: BP 117/63 Pulse 80 Temp 97.2 Resp 12 Ht 5' 5 (1.65m) Wt 192 lb 0.3 oz (87.1kg) SpO2 98% LMP 09/30/2023 BMI 31.95 kg/(m2). O2 Therapy: Room Air GENERAL: Alert and oriented times to person, place and time, in no acute distress. LUNGS: Non- Labored breathing on room air. CARDIAC: Regular rate. ABDOMEN: Abdomen soft, non-tender non-distended. EXTREMITIES: Warm, no lower extremity edema Lines, Drains, and Airways Line Duration Peripheral 10/01/23 1111 Right Antecubital 22 Gauge <1 day DATA: Diagnostic tests reviewed for today's visit: Most recent labs and imaging results. ASSESSMENT/PLAN: 1. Encounter for screening for malignant neoplasm of colon - ICD9: V76.51, ICD10: Z12.11 (primary diagnosis) - INSERT IV (VT,ND) - BLOOD GLUCOSE MONITOR (SPECIFY) (VT,[place]) - HCG, QUALITATIVE, URINE - HCG QUANTITATIVE - SODIUM CHLORIDE 0.9 % INTRAVENOUS SOLUTION 2. Family history of colon cancer in father - ICD9: V16.0, ICD10: Z80.0 - COLONOSCOPY SCREENING Swapna Butler DO [facility] SURGICAL PATHOLOGYon 024 CASE REPORT [facility] Comment on above: Order Comment: Speci men Type: TISSUE SPECIMENOrdering Facility: [facility] Address: [address] [place] [address] Result Comment: Surg ical Pathology Report Case: [id number] Authorizing Provider: Swapna Butler DO Collected: 10/01/2023 12:15 PM Ordering Location: [facility] Received: 10/02/2023 07:38 [facility] Pathologist: Laura Solis MD Specimen: Colon, Sigmoid, Polyp, x2 Performed By: #### S ####[facility] [id number] [address] [place] CLINICAL HISTORY Normal [facility] Comment on above: Order Comment: Speci men Type: TISSUE SPECIMENOrdering Facility: [facility] Address: [address] [place] [address] Result Comment: PROC EDURE: Sigmoid colon polyp PRE-OP: Encounter for screening for malignant neoplasm of colon [Z12.11], family history of colon cancer in father [Z80.0] POST-OP: Not given HISTORY: N/A Performed By: #### S ####[facility] [id number] [address] [place] FINAL DIAGNOSIS Normal [facility] Comment on above: Order Comment: Speci men Type: TISSUE SPECIMENOrdering Facility: [facility] Address: [address] [place] [address] Result Comment: Hamlet n, sigmoid polyp x 2, biopsy: -Two tubular adenomas Performed By: #### S ####[facility] [id number] [address] [place] FINAL PERFORMING LAB Normal [facility] Comment on above: Order Comment: Speci men Type: TISSUE SPECIMENOrdering Facility: [facility] Address: [address] [place] [address] Result Comment: Diag nostic interpretation performed at [facility], [address] [place] [address] CLIA #[id number] Middleware Systems Architect: Kurtis Grissom D.O. Performed By: #### S ####[facility] [id number] [address] [place] GROSS DESCRIPTION Normal [facility] Comment on above: Order Comment: Speci men Type: TISSUE SPECIMENOrdering Facility: [facility] Address: [address] [place] [address] Result Comment: Srikanth wang, Sigmoid, Polyp Labeled colon sigmoid polyp x2. Received in formalin are two fragments of white to pink-dang soft tissue measuring 0.6 x 0.4 x 0.3 cm in aggregate. Specimen is submitted in toto in one cassette. [facility]/mm/10/02/2023 Gross examination performed at [facility], [address] [place] [address] CLIA #[id number] Performed By: #### S ####[facility] [id number] [address] MICROSCOPIC DESCRIPTION Normal [facility] Comment on above: Order Comment: Speci men Type: TISSUE SPECIMENOrdering Facility: [facility] Address: [address] [place] [address] Result Comment: Slid e(s) reviewed. Performed By: #### S ####[facility] [id number] [address] [place] XR CERVICAL 4V AP/LAT/FLX/EX Ton 09-25-2023 XR CERVICAL 4V AP/LAT/FLX/EXT * * *Final Report* * * DATE OF EXAM: Sep 25 2023 4:58PM UDX [id number] - XR CERVICAL 4V AP/LAT/FLX/EXT / PROCEDURE REASON: Neck pain * * * * Physician Interpretation * * * * XR CERVICAL 4V AP/LAT/FLX/EXT Ordering Physician: ALEXIS JONES Clinical Statement: Neck pain FINDINGS: The sagittal alignment is within normal limits. Mild disc space narrowing and early osteophyte formation at C5-6. Flexion and extension views show no instability. The atlantoaxial relationship is normal. IMPRESSION: Mild degenerative disc disease C5-6. 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 Please check to see where she would like to be referred to. May need to check with her insurance to see who is covered. Anabell Franks LPN 09/23/2023 10:16 AM Signed Pt advised. She will check around and call us back when she decides who she wants to see. Anabell Franks LPN Allergies As of Date: 09/23/2023 (No Known Allergies) Date Reviewed: 08/17/2023 Reviewed by: Cherry Granda MA - Fully Assessed Reason for Visit: Results [95] Prescriptions as of 09/23/2023 - Cholecalciferol, Vitamin D3, 50 mcg (2,000 unit) cap Take 2,000 Units by mouth once daily. - Progesterone 200 mg supp - triamcinolone acetonide (KENALOG) 0.1 % ointment APPLY TWICE A DAY TO DERMATITIS- 2 WEEKS ON - 1 WEEK OFF Meds Comments as of 08/09/2020: Problem List As Of Date 09/23/2023 Noted Resolved Gestational diabetes [O24.419] 10/17/2021 Vitamin D deficiency [E55.9] 07/28/2018 Obesity, Class I, BMI 30-34.9 [E66.9] 10/13/2022 Encounter Status:Closed by ANABELL FRANKS on 09/23/23 Normal [facility] MR Cervical spine WO contras ton 09-23-2023 IMPRESSION: Degenerative foraminal stenosis is most pronounced and moderate on the left at C5-C6. No substantial canal stenosis or cord signal abnormality. Anatomic Variant: None. Assume 7 cervical vertebrae with counting from the craniocervical junction. Business Technology Architect: LOUANN Transcribe Date/Time: Sep 23 2023 8:06A Dictated by : RODNEY DÍAZ MD This examination was interpreted and the report reviewed and electronically signed by: RODNEY DÍAZ MD on Sep 23 2023 8:11AM EST [facility] * * *Final Report* * * DATE OF EXAM: Sep 23 2023 8:03AM [facility] 0297 - MRI CERVICAL SPINE WO IVCON / PROCEDURE REASON: multiple diagnoses * * * * Physician Interpretation * * * * EXAMINATION: MRI CERVICAL SPINE WO IVCON CLINICAL HISTORY: Idiopathic peripheral neuropathy Abnormal EMG TECHNIQUE: Routine cervical spine MR protocol without gadolinium. MQ: [id number] COMPARISON: None. RESULT: Counting reference: Craniocervical junction. Anatomic Variants: None. Localizer images: No additional findings. Alignment: Alignment is anatomic. Craniocervical junction: Craniocervical junction is normal. Cord: The visualized cord is within normal limits of signal intensity and morphology. Bone marrow signal/fracture: No aggressive marrow replacing lesion. No evidence of prior fracture. Cervical soft tissues: The paraspinal soft tissues are within normal limits. C2-C3: No canal or foraminal stenosis. C3-C4: No canal or foraminal stenosis. C4-C5: Minimal degenerative disc disease with disc desiccation. No canal or foraminal stenosis. C5-C6: Mild degenerative disc disease with small posterior disc osteophyte complex eccentric to the left combined with left greater than right uncovertebral spurring resulting in mild canal stenosis as well as moderate left foraminal narrowing. C6-C7: Mild degenerative disc disease with trace posterior disc bulge and minimal uncovertebral spurring. No substantial canal or foraminal stenosis. C7-T1: No substantial canal or foraminal stenosis. [facility] Provider, [facility] [place] - 09/23/2023 * * *Final Report* * * DATE OF EXAM: Sep 23 2023 8:03AM [facility] 0297 - MRI CERVICAL SPINE WO IVCON / PROCEDURE REASON: multiple diagnoses * * * * Physician Interpretation * * * * EXAMINATION: MRI CERVICAL SPINE WO IVCON CLINICAL HISTORY: Idiopathic peripheral neuropathy Abnormal EMG TECHNIQUE: Routine cervical spine MR protocol without gadolinium. MQ: [id number] COMPARISON: None. RESULT: Counting reference: Craniocervical junction. Anatomic Variants: None. Localizer images: No additional findings. Alignment: Alignment is anatomic. Craniocervical junction: Craniocervical junction is normal. Cord: The visualized cord is within normal limits of signal intensity and morphology. Bone marrow signal/fracture: No aggressive marrow replacing lesion. No evidence of prior fracture. Cervical soft tissues: The paraspinal soft tissues are within normal limits. C2-C3: No canal or foraminal stenosis. C3-C4: No canal or foraminal stenosis. C4-C5: Minimal degenerative disc disease with disc desiccation. No canal or foraminal stenosis. C5-C6: Mild degenerative disc disease with small posterior disc osteophyte complex eccentric to the left combined with left greater than right uncovertebral spurring resulting in mild canal stenosis as well as moderate left foraminal narrowing. C6-C7: Mild degenerative disc disease with trace posterior disc bulge and minimal uncovertebral spurring. No substantial canal or foraminal stenosis. C7-T1: No substantial canal or foraminal stenosis. IMPRESSION IMPRESSION: Degenerative foraminal stenosis is most pronounced and moderate on the left at C5-C6. No substantial canal stenosis or cord signal abnormality. Anatomic Variant: None. Assume 7 cervical vertebrae with counting from the craniocervical junction. Business Technology Architect: LOUANN Transcribe Date/Time: Sep 23 2023 8:06A Dictated by : RODNEY DÍAZ MD This examination was interpreted and the report reviewed and electronically signed by: RODNEY DÍAZ MD on Sep 23 2023 8:11AM EST [facility] Radiology Study observation (narrative) Erica kilgore [facility] MR Cervical spine WO contras tOrdered By: [facility] Provider on 09-23-2023 [facility] MRI CERVICAL SPINE WO IVCONo n 09-23-2023 MRI CERVICAL SPINE WO IVCON * * *Final Report* * * DATE OF EXAM: Sep 23 2023 8:03AM [facility] 0297 - MRI CERVICAL SPINE WO IVCON / PROCEDURE REASON: multiple diagnoses * * * * Physician Interpretation * * * * EXAMINATION: MRI CERVICAL SPINE WO IVCON CLINICAL HISTORY: Idiopathic peripheral neuropathy Abnormal EMG TECHNIQUE: Routine cervical spine MR protocol without gadolinium. MQ: [id number] COMPARISON: None. RESULT: Counting reference: Craniocervical junction. Anatomic Variants: None. Localizer images: No additional findings. Alignment: Alignment is anatomic. Craniocervical junction: Craniocervical junction is normal. Cord: The visualized cord is within normal limits of signal intensity and morphology. Bone marrow signal/fracture: No aggressive marrow replacing lesion. No evidence of prior fracture. Cervical soft tissues: The paraspinal soft tissues are within normal limits. C2-C3: No canal or foraminal stenosis. C3-C4: No canal or foraminal stenosis. C4-C5: Minimal degenerative disc disease with disc desiccation. No canal or foraminal stenosis. C5-C6: Mild degenerative disc disease with small posterior disc osteophyte complex eccentric to the left combined with left greater than right uncovertebral spurring resulting in mild canal stenosis as well as moderate left foraminal narrowing. C6-C7: Mild degenerative disc disease with trace posterior disc bulge and minimal uncovertebral spurring. No substantial canal or foraminal stenosis. C7-T1: No substantial canal or foraminal stenosis. IMPRESSION: Degenerative foraminal stenosis is most pronounced and moderate on the left at C5-C6. No substantial canal stenosis or cord signal abnormality. Anatomic Variant: None. Assume 7 cervical vertebrae with counting from the craniocervical junction. Business Technology Architect: [facility] Transcribe Date/Time: Sep 23 2023 8:06A Dictated by : RODNEY DÍAZ MD This examination was interpreted and the report reviewed and electronically signed by: RODNEY DÍAZ MD on Sep 23 2023 8:11AM EST [id number] [facility] 08-21-2023 CNPN Telephone (INTMUD) ---- ANABELL PAYNE ([id number]) 1985 F Date Time Provider Department 08/21/23 NICOLE DUVALL INTMUD During your visit today, we recorded the following information about you: Nicole Duvall APRN.HOME THEATER EXPERIENCE EXPERT 08/21/2023 1:39 PM Signed Let pt know EMG is showing her neuropathy is coming from her spine. May need MRI if the insurance will approve. Anabell Franks LPN 08/21/2023 1:46 PM Signed Left message to call office. OTONIEL [place] Jennifer L, LPN 08/24/2023 8:41 AM Signed Left second message advising patient to call office. Also sent Visiogenhart message. OTONIEL [place] Jennifer L, LPN 08/24/2023 8:46 AM Signed Pt advised. Would like to pursue MRI OTONIEL [place] Stacee Faye, APRN.[facility] 08/24/2023 10:09 AM Signed Order in chart- if insurance doesn't approve will need referred to business taxes specialist Nicole Duvall APRN.HOME THEATER EXPERIENCE EXPERT 08/24/2023 10:09 AM Signed Addended by: NICOLE DUVALL on: 08/24/2023 10:09 AM Modules accepted: Orders Kamari Escoto 08/24/2023 11:01 AM Signed SCHEDULED 09-23-23 Allergies As of Date: 08/21/2023 (No Known Allergies) Date Reviewed: 08/17/2023 Reviewed by: Cherry Granda MA - Fully Assessed Reason for Visit: Results [95] Primary Visit Diagnosis:Idiopathi c peripheral neuropathy [G60.9] Other Visit Diagnosis:Abnormal EMG [R94.131] Order(s):MRI CERVICAL SPINE WO IVCON [[id number]] Order #: [id number] FUTURE Prescriptions as of 08/24/2023 - Cholecalciferol, Vitamin D3, 50 mcg (2,000 unit) cap Take 2,000 Units by mouth once daily. - Progesterone 200 mg supp - triamcinolone acetonide (KENALOG) 0.1 % ointment APPLY TWICE A DAY TO DERMATITIS- 2 WEEKS ON - 1 WEEK OFF Meds Comments as of 08/09/2020: Problem List As Of Date 08/21/2023 Noted Resolved Gestational diabetes [O24.419] 10/17/2021 Vitamin D deficiency [E55.9] 07/28/2018 Obesity, Class I, BMI 30-34.9 [E66.9] 10/13/2022 Encounter Status:Closed by ANABELL FRANKS on 08/24/23 [facility] EMG(NEURO/NI)on 08-20-2023 Results can be seen in attached scanned documents. If you are a patient reviewing this test result, call the doctor who ordered the test with any questions. [facility] CNOVon 08-17-2023 CNOV Office Visit (GENUPD) ---- ANABELL PAYNE ([id number]) 1985 F Date Time Provider Department 08/17/23 9:00 AM SWAPNA BUTLER During your visit today, we recorded the following information about you: Weight Height 87.1 kg 1.651 m Swapna Butler DO 08/18/2023 12:51 PM Signed New Patient Consult REASON FOR VISIT Anabell Elmer is a 38 year old female who is scheduled for a consult at the request of Nicole Duvall for Consult (Discuss colon, never had one). My final recommendations will be communicated back to the requesting physician by the way of the shared medical record, fax, or via US Mail History of Present Illness: This is a 38-year-old female that presents for screening colonoscopy. Father with colon cancer in 50's Intermittently has issues with urgency for her bowel movements. She has no issues with constipation or diarrhea. PAST MEDICAL HISTORY Diagnosis Date Gestational diabetes Kidney stones During Sciatica Vitamin D deficiency 07/28/2018 PAST SURGICAL HISTORY Procedure Laterality Date PAST SURGICAL HISTORY OF [place] teeth extraction FAMILY HISTORY Problem Relation Age of Onset Diabetes Mother Hypertension Mother Hypertension Father Stroke Father Prostate Cancer Father Colon Cancer Father Hypertension Sister Hypertension Brother Social History Tobacco Use Smoking status: Never Smokeless tobacco: Never Vaping Use Vaping Use: Never used Substance Use Topics Alcohol use: Yes Comment: Couple times monthly beer/wine Drug use: Not Currently MEDICATIONS Current Outpatient Medications Medication Sig Dispense Refill Cholecalciferol, Vitamin D3, 50 mcg (2,000 unit) cap Take 2,000 Units by mouth once daily. Progesterone 200 mg supp triamcinolone acetonide (KENALOG) 0.1 % ointment APPLY TWICE A DAY TO DERMATITIS- 2 WEEKS ON - 1 WEEK OFF No current facility-administer ed medications for this visit. CURRENT ALLERGIES ALLERGIES No Known Allergies REVIEW OF SYSTEMS General: No weight loss, malaise or fevers. Neuro: No Hx of stroke or seizures Respiratory: No history of current cough or dyspnea, or pneumonia in the past 6 weeks. No history of respiratory/pulmona ry symptoms or problems Cardiovascular: No history of HTN requiring medication, no history of angina, CHF, LA, cardiac surgery or stents. Denies rest pain, gangrene or revascularization/a mputation for PVD. No history of cardiovascular symptoms or problems. GI: See HPI : No history of UTI in past 6 weeks. No history of renal failure. Not currently on or requiring dialysis. No history of symptoms or problems. Endocrine: No history of diabetes. Has not taken steroids within the past 30 days. No history of endocrinological symptoms or problems. Hematology: No history of bleeding or clotting disorder. Pt is not taking anti-coagulation or platelet medications. No history of hematological symptoms or problems. Oncology: No history of CA metastasis, chemo within 30 days, or radiotherapy within 90 days. Has not lost 10% of body wt in 6 months. No history of oncological symptoms or problems. Psych: No history of psychiatric symptoms or problems. Musculoskeletal: Negative for joint pain or swelling, back pain or muscle pain. Skin: Negative for lesions, rash and itching. PHYSICAL EXAMINATION Ht 5' 5 (1.65m) Wt 192 lb (87.1kg) LMP 08/23/2020 BMI 31.95 kg/(m2). General Appearance: Well appearing, alert, in no acute distress, well-hydrated, well nourished. Skin: Skin color, texture, turgor normal, Head: Normocephalic, Oropharynx: Lips, mucosa, and tongue normal, Neck: Supple, Lungs: Unlabored on room air Heart: RR Extremities: No deformities, edema, Neuro: Gait normal. Abdomen: Abdomen soft, non-tender. Bowel sounds normal. No masses, organomegaly Diagnostic tests reviewed for today's visit: Not applicable Assessment ASSESSMENT/PLAN: 1. Family history of colon cancer in father - ICD9: V16.0, ICD10: Z80.0 -Risk benefits and alternatives were discussed included bleeding and perforation. She should have her screening colonoscopy now with her father's young age of colon cancer - SODIUM,POTASSIUM,MA G SULFATES 17.5 GRAM-3.13 GRAM-1.6 GRAM ORAL SOLN - COLONOSCOPY SCREENING Swapna Butler DO DATE: 08/17/23 TIME: 9:15 AM Swapna Butler DO 08/17/2023 9:17 AM Signed Bowel Preparation Instructions for: Suprep IF YOU DO NOT FOLLOW THESE DIRECTIONS, YOUR COLONOSCOPY WILL BE CANCELLED. [place] Instructions: Your bowel must be empty so that your doctor can clearly view your colon. Follow all of the instructions in this handout EXACTLY as they are written. Do NOT eat any solid food the ENTIRE day before your colonoscopy. DRINK ONLY CLEAR LIQUIDS Buy your bowel preparation at least 5 days before your colonoscopy. TRANSPORTATION on the Day of Yo (more content not included)... Normal [facility] HISTORY PHYSICALon 4 HISTORY PHYSICAL HNO ID: [id number] Author: SWAPNA BUTLER DO Service: ? Author Type: Physician Type: H&P Filed: 08/18/2023 12:51 Note Text: New Patient Consult REASON FOR VISIT Aanbell Payne is a 38 year old female who is scheduled for a consult at the request of Nicole Duvall for Consult (Discuss colon, never had one). My final recommendations will be communicated back to the requesting physician by the way of the shared medical record, fax, or via US Mail History of Present Illness: This is a 38-year-old female that presents for screening colonoscopy. Father with colon cancer in 50's Intermittently has issues with urgency for her bowel movements. She has no issues with constipation or diarrhea. PAST MEDICAL HISTORY Diagnosis Date Gestational diabetes Kidney stones During Sciatica Vitamin D deficiency 07/28/2018 PAST SURGICAL HISTORY Procedure Laterality Date PAST SURGICAL HISTORY OF [place] teeth extraction FAMILY HISTORY Problem Relation Age of Onset Diabetes Mother Hypertension Mother Hypertension Father Stroke Father Prostate Cancer Father Colon Cancer Father Hypertension Sister Hypertension Brother Social History Tobacco Use Smoking status: Never Smokeless tobacco: Never Vaping Use Vaping Use: Never used Substance Use Topics Alcohol use: Yes Comment: Couple times monthly beer/wine Drug use: Not Currently MEDICATIONS Current Outpatient Medications Medication Sig Dispense Refill Cholecalciferol, Vitamin D3, 50 mcg (2,000 unit) cap Take 2,000 Units by mouth once daily. Progesterone 200 mg supp triamcinolone acetonide (KENALOG) 0.1 % ointment APPLY TWICE A DAY TO DERMATITIS- 2 WEEKS ON - 1 WEEK OFF No current facility-administer ed medications for this visit. CURRENT ALLERGIES ALLERGIES No Known Allergies REVIEW OF SYSTEMS General: No weight loss, malaise or fevers. Neuro: No Hx of stroke or seizures Respiratory: No history of current cough or dyspnea, or pneumonia in the past 6 weeks. No history of respiratory/pulmona ry symptoms or problems Cardiovascular: No history of HTN requiring medication, no history of angina, CHF, LA, cardiac surgery or stents. Denies rest pain, gangrene or revascularization/a mputation for PVD. No history of cardiovascular symptoms or problems. GI: See HPI : No history of UTI in past 6 weeks. No history of renal failure. Not currently on or requiring dialysis. No history of symptoms or problems. Endocrine: No history of diabetes. Has not taken steroids within the past 30 days. No history of endocrinological symptoms or problems. Hematology: No history of bleeding or clotting disorder. Pt is not taking anti-coagulation or platelet medications. No history of hematological symptoms or problems. Oncology: No history of CA metastasis, chemo within 30 days, or radiotherapy within 90 days. Has not lost 10% of body wt in 6 months. No history of oncological symptoms or problems. Psych: No history of psychiatric symptoms or problems. Musculoskeletal: Negative for joint pain or swelling, back pain or muscle pain. Skin: Negative for lesions, rash and itching. PHYSICAL EXAMINATION Ht 5' 5 (1.65m) Wt 192 lb (87.1kg) LMP 08/23/2020 BMI 31.95 kg/(m2). General Appearance: Well appearing, alert, in no acute distress, well-hydrated, well nourished. Skin: Skin color, texture, turgor normal, Head: Normocephalic, Oropharynx: Lips, mucosa, and tongue normal, Neck: Supple, Lungs: Unlabored on room air Heart: RR Extremities: No deformities, edema, Neuro: Gait normal. Abdomen: Abdomen soft, non-tender. Bowel sounds normal. No masses, organomegaly Diagnostic tests reviewed for today's visit: Not applicable Assessment ASSESSMENT/PLAN: 1. Family history of colon cancer in father - ICD9: V16.0, ICD10: Z80.0 -Risk benefits and alternatives were discussed included bleeding and perforation. She should have her screening colonoscopy now with her father's young age of colon cancer - SODIUM,POTASSIUM,MA G SULFATES 17.5 GRAM-3.13 GRAM-1.6 GRAM ORAL SOLN - COLONOSCOPY SCREENING Swapna Butler, DO DATE: 08/17/23 TIME: 9:15 AM [facility] 36on 07-31-2023 36 Addressed in another TE. [facility] 36 Called/ spoke w/ pt; explained [place] office currently has no further openings in 2023, however we can place pt on 2024 wait list and call once that sk opens or sk in [place]. Pt politely declined, will have referral sent to another practice. Referral closed. [facility] 36 Name spelled incorrectly, corrected, marked for merge. [facility] 36on 07-29-2023 36 Name of caller: Anabell Contact phone number: [phone] Relationship to Patient: patient Provider: - Practice: Rheumatology Chief Complaint/Reason for Call: Patient called to schedule new patient appointment. Informed patient office requires records and referral. Patient pcp office is going to fax over. Patient would like call back once received to schedule. Patient is also looking to schedule at [facility]. Please contact Anabell and advise. Best time of day caller can be reached: any Patient advised that office/PCP has 24-48 business hours to return their call: Yes [facility] CNPNon 10-20-2022 [facility] Telephone (FMUPNE) ---- ELMERANABELL ([id number]) 1985 F [place] Date Time Provider Department 10/20/22 MOHSEN ALMAZAN During your visit today, we recorded the following information about you: Mohsen Almazan APRN.CNP 10/20/2022 12:42 AM Signed Update pt that recent labs were OK except cholesterol was elevated, please recommend low fat, low cholesterol diet. Mohsen Almazan APRN.ZACH Nolen MA 10/20/2022 3:27 PM Signed Patient was called and a message was left to return the call to be advised. Phone number provided. DELROY Perez 10/22/2022 9:19 AM Signed Patient informed. Allergies As of Date: 10/20/2022 (No Known Allergies) Date Reviewed: 10/13/2022 Reviewed by: Mohsen Almazan APRN.CNP - Fully Assessed Reason for Visit: Results [95] Cmt: Labs Prescriptions as of 10/22/2022 - Progesterone 200 mg supp - triamcinolone acetonide (KENALOG) 0.1 % ointment APPLY TWICE A DAY TO DERMATITIS- 2 WEEKS ON - 1 WEEK OFF Meds Comments as of 08/09/2020: Problem List As Of Date 10/20/2022 Noted Resolved Gestational diabetes [O24.419] 10/17/2021 Vitamin D deficiency [E55.9] 07/28/2018 Obesity, Class I, BMI 30-34.9 [E66.9] 10/13/2022 Encounter Status:Closed by BRENDA ARMENTA on 10/22/22 Normal [facility] 25-hydroxyvitamin D3 [Mass/V ol]on 10-17-2022 VITAMIN D 42.5 ng/mL 30 - 100 ng/mL [facility] CBCon 10-17-2022 BASO# 0.06 x10(3) Normal 0.00-0.10 [facility] Comment on above: Performed By: #### L 200.0010 #### ML - LABORATORY [address] [place] [address] 72064 Basophils/100 WBC (Bld) 0.8 % Normal 0.0-1.0 [facility] Comment on above: Performed By: #### L 200.0010 #### [facility] - LABORATORY [address] [place] [address] 79137 EOS# 0.15 x10(3) Normal 0.00-0.54 [facility] Comment on above: Performed By: #### L 200.0010 #### ML - LABORATORY [address] [place] [address] 83227 Eosinophils/100 WBC (Bld) 2.1 % Normal 0.5-4.9 [facility] Comment on above: Performed By: #### L 200.0010 #### [facility] - LABORATORY [address] [place] [address] 07754 Erythrocyte distribution width (RBC) [Ratio] 12.2 % Low 12.5-15.7 [facility] Comment on above: Performed By: #### L 200.0010 #### ML [facility] [address] [place] [address] 40889 Hematocrit (Bld) [Volume fraction] 42.8 % Normal 36.0-48.0 [facility] Comment on above: Performed By: #### L 200.0010 #### ML [facility] [address] [place] [address] 93267 Hemoglobin (Bld) [Mass/Vol] 14.2 g/dL Normal 12.0-16.0 [facility] Comment on above: Performed By: #### L 200.0010 #### ML - LABORATORY [address] [place] [address] 73833 IMM GRAN# 0.03 x10(3) High 0-0 [facility] Comment on above: Performed By: #### L 200.0010 #### ML - LABORATORY [address] [place] [address] 11911 IMM GRAN% 0.4 % Normal [facility] Comment on above: Performed By: #### L 200.0010 #### ML - LABORATORY [address] [place] [address] 29327 LYMPH# 1.44 x10(3) Normal 1.00-3.50 [facility] Comment on above: Performed By: #### L 200.0010 #### [facility] [address] [place] [address] 38463 Lymphocytes/100 WBC (Bld) 20.3 % Normal 16.0-48.0 [facility] Comment on above: Performed By: #### L 200.0010 #### ML [facility] [address] [place] [address] 12766 MCH (RBC) [Entitic mass] 31.5 pg Normal 28.5-32.9 [facility] Comment on above: Performed By: #### L 200.0010 #### ML [facility] [address] [place] [address] 94496 MCHC (RBC) [Mass/Vol] 33.2 g/dL Normal 33.0-36.0 [facility] Comment on above: Performed By: #### L 200.0010 #### ML [facility] [address] [place] [address] 70229 MCV (RBC) [Entitic vol] 94.9 fL Normal 80.0-99.0 [facility] Comment on above: Performed By: #### L 200.0010 #### [facility] [address] [place] [address] 83708 MONO# 0.44 x10(3) Normal 0.30-0.80 [facility] Comment on above: Performed By: #### L 200.0010 #### ML [facility] [address] [place] [address] 96730 Monocytes/100 WBC (Bld) 6.2 % Normal 4.3-11.2 [facility] Comment on above: Performed By: #### L 200.0010 #### ML [facility] [address] [place] [address] 85640 NEUT# 4.98 x10(3) Normal 1.40-6.50 [facility] Comment on above: Performed By: #### L 200.0010 #### [facility] [address] [place] [address] 58660 Neutrophils/100 WBC (Bld) 70.2 % Normal 45.0-73.0 [facility] Comment on above: Performed By: #### L 200.0010 #### ML - LABORATORY [address] [place] [address] 89438 Platelet mean volume (Bld) [Entitic vol] 11.3 fL High 7.5-9.5 [facility] Comment on above: Performed By: #### L 200.0010 #### ML - LABORATORY [address] [place] [address] 58395 PLT 197 X10(3) Normal 150-450 [facility] Comment on above: Performed By: #### L 200.0010 #### ML - LABORATORY [address] [place] [address] 87393 RBC 4.51 x10(6) Normal 3.30-5.00 [facility] Comment on above: Performed By: #### L 200.0010 #### ML - LABORATORY [address] [place] [address] 47262 WBC 7.1 x10(3) Normal 4.5-10.0 [facility] Comment on above: Performed By: #### L 200.0010 #### [facility] - LABORATORY [address] [place] [address] 74604 CBC W Auto Differential pane l (Bld)on 10-17-2022 BASO ABS 0.06 x10(3) 0.00 - 0.10 x10(3) [facility] Basophils/100 WBC (Bld) 0.8 % 0.0 - 1.0 % [facility] EOS ABS 0.15 x10(3) 0.00 - 0.54 x10(3) [facility] Eosinophils/100 WBC (Bld) 2.1 % 0.5 - 4.9 % [facility] Erythrocyte distribution width (RBC) [Ratio] 12.2 % Low 12.5 - 15.7 % [facility] Hematocrit (Bld) [Volume fraction] 42.8 % 36.0 - 48.0 % [facility] Hemoglobin (Bld) [Mass/Vol] 14.2 g/dL 12.0 - 16.0 g/dL [facility] Immature Gran % 0.4 % [facility] Immature Gran Abs 0.03 x10(3) High 0 - 0 x10(3) [facility] LYMPH ABS 1.44 x10(3) 1.00 - 3.50 x10(3) [facility] Lymphocytes/100 WBC (Bld) 20.3 % 16.0 - 48.0 % [facility] MCH (RBC) [Entitic mass] 31.5 pg 28.5 - 32.[address] [facility] MCHC (RBC) [Mass/Vol] 33.2 g/dL 33.0 - 36.0 g/dL [facility] MCV (RBC) [Entitic vol] 94.9 fL 80.0 - 99.[address] [facility] MONO ABS 0.44 x10(3) 0.30 - 0.80 x10(3) [facility] Monocytes/100 WBC (Bld) 6.2 % 4.3 - 11.2 % [facility] Neutrophil Ab 4.98 x10(3) 1.40 - 6.50 x10(3) [facility] Neutrophils/100 WBC (Bld) 70.2 % 45.0 - 73.0 % [facility] Platelet mean volume (Bld) [Entitic vol] 11.3 fL High 7.5 - 9.[address] [facility] Platelets (Bld) [#/Vol] 197 X10(3) 150 - 450 X10(3) [facility] RBC (Bld) [#/Vol] 4.51 x10(6) 3.30 - 5.0 0 x10(6) [facility] WBC (Bld) [#/Vol] 7.1 x10(3) 4.5 - 10.0 x10(3) [facility] CMPon 10-17-2022 A:G RATIO 1.60 Normal 1.1-2.5 [facility] Comment on above: Performed By: #### L 100.0040, L304.0162, L304.0140, L100.0005 #### [facility] - LABORATORY [address] [place] [address] Albumin [Mass/Vol] 4.5 g/dL Normal 3.5-5.2 [facility] Comment on above: Performed By: #### L 100.0040, L304.0162, L304.0140, L100.0005 #### ML [facility] [address] [place] [address] 72781 ALK. PHOS 88 U/L Normal 35-105 [facility] Comment on above: Performed By: #### L 100.0040, L304.0162, L304.0140, L100.0005 #### - LABORATORY [address] [place] [address] 37713 ALT [Catalytic activity/Vol] 30 U/L Normal 5-33 [facility] Comment on above: Performed By: #### L 100.0040, L304.0162, L304.0140, L100.0005 #### - LABORATORY [address] [place] [address] 09484 Anion gap [Moles/Vol] 13.4 mmol/L Low 15-22 [facility] Comment on above: Performed By: #### L 100.0040, L304.0162, L304.0140, L100.0005 #### - LABORATORY [address] [place] [address] 22084 AST [Catalytic activity/Vol] 20 U/L Normal 5-32 [facility] Comment on above: Performed By: #### L 100.0040, L304.0162, L304.0140, L100.0005 #### [facility] [address] [place] [address] 62299 Bilirubin [Mass/Vol] mg/dL Normal 0.2-1.2 [facility] Comment on above: Performed By: #### L 100.0040, L304.0162, L304.0140, L100.0005 #### - LABORATORY [address] [place] [address] 57027 Calcium [Mass/Vol] 9.6 mg/dL Normal 8.6-10.0 [facility] Comment on above: Performed By: #### L 100.0040, L304.0162, L304.0140, L100.0005 #### [facility] [address] [place] [address] 94217 Chloride [Moles/Vol] 105 mmol/L Normal 98-107 [facility] Comment on above: Performed By: #### L 100.0040, L304.0162, L304.0140, L100.0005 #### - LABORATORY [address] [place] [address] CO2 [Moles/Vol] 26 mmol/L Normal 22-29 [facility] Comment on above: Performed By: #### L 100.0040, L304.0162, L304.0140, L100.0005 #### [facility] [address] [place] [address] 05555 Creatinine [Mass/Vol] 0.90 mg/dL Normal 0.50-0.90 [facility] Comment on above: Performed By: #### L 100.0040, L304.0162, L304.0140, L100.0005 #### [facility] [address] [place] [address] 37622 eGFR if AFR ADELAIDA > 60 ml/min/1.73m2 Normal [facility] Comment on above: Result Comment: eGFR >= 60 Indicates normal kidney function. * eGFR IS AN ESTIMATE * (AFR ADELAIDA = ) (non-AFR AM = NON-) MDRD calculation used in the eGFR should not be used to dose medications. For further limitations of the eGFR please refer to the Physician Website or the National Kidney Disease Education Program website (www.nkdep.nih.gov). Performed By: #### L 100.0040, L304.0162, L304.0140, L100.0005 #### - LABORATORY [address] [place] [address] eGFR nonAFR Adelaida > 60 ml/Min/1.73m2 Normal [facility] Comment on above: Performed By: #### L 100.0040, L304.0162, L304.0140, L100.0005 #### [facility] [address] [place] [address] Globulin (S) [Mass/Vol] 2.8 g/dL Normal 1.5-4.5 [facility] Comment on above: Performed By: #### L 100.0040, L304.0162, L304.0140, L100.0005 #### [facility] - [facility] [address] [place] [address] 01736 Glucose [Mass/Vol] 96 mg/dL Normal 74-106 [facility] Comment on above: Performed By: #### L 100.0040, L304.0162, L304.0140, L100.0005 #### [facility] [address] [place] [address] 19995 Potassium [Moles/Vol] 4.4 mmol/L Normal 3.5-5.0 [facility] Comment on above: Performed By: #### L 100.0040, L304.0162, L304.0140, L100.0005 #### [facility] [address] [place] [address] 18802 Protein [Mass/Vol] 7.3 g/dL Normal 6.4-8.3 [facility] Comment on above: Performed By: #### L 100.0040, L304.0162, L304.0140, L100.0005 #### [facility] [address] [place] [address] 75755 Sodium [Moles/Vol] 140 mmol/L Normal 135-145 [facility] Comment on above: Performed By: #### L 100.0040, L304.0162, L304.0140, L100.0005 #### [facility] [address] [place] [address] 00686 Urea nitrogen [Mass/Vol] 13 mg/dL Normal 6-20 [facility] Comment on above: Performed By: #### L 100.0040, L304.0162, L304.0140, L100.0005 #### [facility] [address] [place] [address] 06174 Comprehensive metabolic 2000 panelon 10-17-2022 Albumin [Mass/Vol] 4.5 g/dL 3.5 - 5.2 g/dL [facility] Albumin/Globulin [Mass ratio] 1.60 {ratio} 1.1 - 2.5 [facility] ALP [Catalytic activity/Vol] 88 U/L 35 - 105 U/L [facility] ALT [Catalytic activity/Vol] 30 U/L 5 - 33 U/L [facility] Anion gap [Moles/Vol] 13.4 mmol/L Low 15 - 22 mmol/ L [facility] AST [Catalytic activity/Vol] 20 U/L 5 - 32 U/L [facility] Bilirubin [Mass/Vol] mg/dL 0.2 - 1 .2 mg/dL [facility] Calcium [Mass/Vol] 9.6 mg/dL 8.6 - 10. 0 mg/dL [facility] Chloride [Moles/Vol] 105 mmol/L 98 - 10 7 mmol/L [facility] CO2 [Moles/Vol] 26 mmol/L 22 - 29 mmol/L [facility] Creatinine [Mass/Vol] 0.90 mg/dL 0.50 - 0.90 mg/dL [facility] eGFR-All Other Races > 60 ml/Min/1.73m2 [facility] GFR/1.73 sq M.predicted among blacks MDRD (S/P/Bld) [Vol rate/Area] mL/min/{1.73_m2} [facility] Globulin (S) [Mass/Vol] 2.8 g/dL 1.5 - 4.5 g/ dL [facility] Glucose [Mass/Vol] 96 mg/dL 74 - 106 mg/dL [facility] Potassium [Moles/Vol] 4.4 mmol/L 3.5 - 5.0 mmol/L [facility] Protein [Mass/Vol] 7.3 g/dL 6.4 - 8.3 g/dL [facility] Sodium [Moles/Vol] 140 mmol/L 135 - 145 mmol/L [facility] Urea nitrogen [Mass/Vol] 13 mg/dL 6 - 20 mg/dL [facility] Free T4on 10-17-2022 Free T4 [Mass/Vol] 1.14 ng/dL Normal 0.93-1.7 [facility] Comment on above: Performed By: #### L 100.0040, L304.0162, L304.0140, L100.0005 #### [facility] [address] [place] [address] 73640 LIPID PANELon 10-17-2022 Cholesterol [Mass/Vol] 224 mg/dL High 130-200 [facility] Comment on above: Performed By: #### L 100.0040, L304.0162, L304.0140, L100.0005 #### [facility] [address] [place] [address] 77766 Cholesterol in HDL [Mass/Vol] 47 mg/dL [facility] Comment on above: Result Comment: Basliia onal Cholesterol Education Program (NCEP) guidelines: <40 mg/dL: Low HDL-Cholesterol(major risk factor for CHD) > or = 60 mg/dL: High HDL-Cholesterol(negative risk factor for CHD) HDL-cholesterol is affected by a number of factors, e.g., smoking, exercise, hormones, sex, and age. 4th Generation Test; Results may be approximately 7% lower than previous values. Performed By: #### L 100.0040, L304.0162, L304.0140, L100.0005 #### [facility] [address] [place] [address] 41016 Cholesterol in LDL [Mass/Vol] 155 mg/dL [facility] Comment on above: Result Comment: LDL: OPTIMAL FOR PEOPLE AT VERY HIGH RISK <70 OPTIMAL <100 NEAR OPTIMAL 100-129 BORDERLINE HIGH 130-159 HIGH 160-189 VERY HIGH >=190 Source: 2009 NCEP ATP III, ADA Guidelines Reviewed: July, Performed By: #### L 100.0040, L304.0162, L304.0140, L100.0005 #### [facility] [address] [place] [address] 59222 Cholesterol in VLDL [Mass/Vol] 22 mg/dL Normal 6-40 [facility] Comment on above: Performed By: #### L 100.0040, L304.0162, L304.0140, L100.0005 #### [facility] [address] [place] [address] 24986 LDL/HDL RATIO 3.3 [facility] Comment on above: Performed By: #### L 100.0040, L304.0162, L304.0140, L100.0005 #### [facility] [address] [place] [address] 05236 Triglyceride [Mass/Vol] 112 mg/dL Normal [facility] Comment on above: Result Comment: TRIG : DESIRABLE: <150 mg/dL Performed By: #### L 100.0040, L304.0162, L304.0140, L100.0005 #### [facility] [address] [place] [address] 33052 Lipid 1996 panelon 3 Cholesterol [Mass/Vol] 224 mg/dL High 130 - 200 mg/dL [facility] Cholesterol in HDL [Mass/Vol] 47 mg/dL [facility] Cholesterol in LDL [Mass/Vol] 155 mg/dL [facility] LDL:HDL Ratio 3.3 [facility] Triglyceride [Mass/Vol] 112 mg/dL [facility] VLDL Cholesterol 22 mg/dL 6 - 40 mg/dL [facility] T4 FREE/FREE THYROXon 2022 Free T4 [Mass/Vol] 1.14 ng/dL 0.93 - 1. 7 ng/dL [facility] TSHon 10-17-2022 TSH 1.40 uIU/mL Normal 0.270-4.200 [facility] Comment on above: Performed By: #### L 100.0040, L304.0162, L304.0140, L100.0005 #### [facility] [address] [place] [address] 01965 TSH BLDon 10-17-2022 TSH Qn 1.40 uIU/mL 0.270 - 4.200 uIU/mL [facility] VITAMIN Don 10-17-2022 VITAMIN D 42.5 ng/mL Normal 30-100 [facility] Comment on above: Performed By: #### L 304.0470 #### [facility] [address] [place] [address] 83427 CNOVon 10-13-2022 CNOV Office Visit (FMUPNE) ---- ANABELL PAYNE ([id number]) 1985 F [facility] Date Time Provider Department 10/13/22 10:40 AM MOHSEN ALMAZAN During your visit today, we recorded the following information about you: Temperature Pulse Blood pressure Weight 98.9 degrees 71/minute 112/72 84.8 kg Height 1.651 m Mohsen Almazan APRN.CNP 10/13/2022 12:49 PM Signed Epic was down at time of visit and visit information was entered later in the day SUBJECTIVE: Anabell Payne is a 37 year old female here today acutely because of fatigue and inability to reduce her weight. She is also reporting past issue with random rashes for which she was followed by Dermatology. She also reports hot flashes and [employer] has placed her on progesterone. She is also establishing at our office as she is a previous pt of Jose D Villalba NP PAST SURGICAL HISTORY Procedure Laterality Date PAST SURGICAL HISTORY OF [place] teeth extraction ACTIVE PROBLEM LIST Gestational Diabetes Vitamin D Deficiency Social History Tobacco Use Smoking status: Never Smokeless tobacco: Never Substance Use Topics Alcohol use: Yes Comment: Couple times monthly beer/wine Drug use: Not Currently No current outpatient medications on file. No current facility-administer ed medications for this visit. REVIEW OF SYSTEMS: Review of Systems Constitutional: Positive for fatigue and unexpected weight change (increase). Negative for activity change, chills, diaphoresis and fever. HENT: Negative for ear pain, postnasal drip, rhinorrhea, sore throat and trouble swallowing. Eyes: Negative for visual disturbance. Respiratory: Negative for cough, choking, shortness of breath, wheezing and stridor. Cardiovascular: Negative for chest pain, palpitations and leg swelling. Gastrointestinal: Negative for abdominal pain, nausea and vomiting. Endocrine: Negative for cold intolerance, polydipsia and polyuria. Musculoskeletal: Negative for arthralgias, back pain, joint swelling and myalgias. Skin: Negative for color change and rash. Neurological: Negative for dizziness, weakness, numbness and headaches. Psychiatric/Behavio ral: The patient is not nervous/anxious. PHYSICAL EXAMINATION: BP 112/72 Pulse 71 Temp 37.2 ?C (98.9 ?F) Ht 165.1 cm (5' 5) Wt 84.8 kg (187 lb) LMP 08/23/2020 (Exact Date) SpO2 95% BMI 31.12 kg/m? BMI 31.12 kg/(m2) Physical Exam Constitutional: General: She is not in acute distress. Appearance: Normal appearance. She is well-developed. She is not ill-appearing. HENT: Head: Normocephalic and atraumatic. Nose: Nose normal. Eyes: Conjunctiva/sclera: Conjunctivae normal. Cardiovascular: Rate and Rhythm: Normal rate and regular rhythm. Heart sounds: Normal heart sounds. Pulmonary: Effort: Pulmonary effort is normal. Breath sounds: Normal breath sounds. Abdominal: Palpations: Abdomen is soft. Tenderness: There is no abdominal tenderness. Skin: General: Skin is warm and dry. Findings: Rash (mild dry patch to lateral left lower leg) present. Neurological: Mental Status: She is alert and oriented to person, place, and time. Psychiatric: Mood and Affect: Mood normal. Behavior: Behavior normal. ASSESSMENT/PLAN: 1. Fatigue, unspecified type - ICD9: 780.79, ICD10: R53.83 (primary diagnosis) - will obtain baseline labs, labs have been sent via [email or web address] to [facility] - CBC - COMP METABOLIC PANEL - TSH BLD - T4 FREE/FREE THYROX - follow up in one year 2. Weight increase - ICD9: 783.1, ICD10: R63.5 - CBC - COMP METABOLIC PANEL - TSH BLD - T4 FREE/FREE THYROX 3. Vitamin D deficiency - ICD9: 268.9, ICD10: E55.9 - VITAMIN D 25 HYDROXY 4. Screening for cardiovascular condition - ICD9: V81.2, ICD10: Z13.6 - LIPID PANEL BASIC 5. Obesity, Class I, BMI 30-34.9 - ICD9: 278.00, ICD10: E66.9 - Weight loss and increased activity recommended Mohsen Almazan APRN.CNP A portion of this note was entered by ancillary personnel. The information has been reviewed and is an accurate reflection of the decisions I have made during the course of my encounter with this patient. Allergies As of Date: 10/13/2022 (No Known Allergies) Date Reviewed: 10/13/2022 Reviewed by: Mohsen Almazan APRN.CNP - Fully Assessed Reason for Visit: Fatigue [46] Weight Problem [121] Primary Visit Diagnosis:Fatigue, unspecified type [R53.83] Other Visit Diagnoses:Weight increase [R63.5] Vitamin D deficiency [E55.9] Screening for cardiovascular condition [Z13.6] Obesity, Class I, BMI 30-34.9 [E66.9] Order(s):CBC [SQCBC] Order #: [id number] FUTURE COMP METABOLIC PANEL [SQCMP] Order #: [id number] FUTURE TSH BLD [SQTSH] Order #: [id number] FUTURE LIPID PANEL BASIC [SQLIPB] Order #: [id number] FUTURE VITAMIN D 25 HYDROXY [SQVITD] Order #: [id number] FUTURE T4 FREE/FREE THYROX [SQFT4] Order #: [id number] FUTURE Pre (more content not included)... Normal [facility] CBCon 10-18-2021 BASO# 0.10 x10(3) Normal 0.00-0.10 [facility] Comment on above: Performed By: #### L 200.0010 #### [facility] [address] [place] [address] 53508 Basophils/100 WBC (Bld) 0.8 % Normal 0.0-1.0 [facility] Comment on above: Performed By: #### L 200.0010 #### ML [facility] [address] [place] [address] 35853 EOS# 0.10 x10(3) Normal 0.00-0.54 [facility] Comment on above: Performed By: #### L 200.0010 #### [facility] [address] [place] [address] 33042 Eosinophils/100 WBC (Bld) 2.3 % Normal 0.5-4.9 [facility] Comment on above: Performed By: #### L 200.0010 #### ML [facility] [address] [place] [address] 31716 Erythrocyte distribution width (RBC) [Ratio] 12.8 % Normal 12.5-15.7 [facility] Comment on above: Performed By: #### L 200.0010 #### [facility] [address] [place] [address] 37477 Hematocrit (Bld) [Volume fraction] 41.0 % Normal 36.0-48.0 [facility] Comment on above: Performed By: #### L 200.0010 #### [facility] [address] [place] [address] 67908 Hemoglobin (Bld) [Mass/Vol] 13.8 g/dL Normal 12.0-16.0 [facility] Comment on above: Performed By: #### L 200.0010 #### [facility] [address] [place] [address] 63071 LYMPH# 1.40 x10(3) Normal 1.00-3.50 [facility] Comment on above: Performed By: #### L 200.0010 #### [facility] [address] [place] [address] 67183 Lymphocytes/100 WBC (Bld) 21.9 % Normal 16.0-48.0 [facility] Comment on above: Performed By: #### L 200.0010 #### [facility] [address] [place] [address] 48361 MCH (RBC) [Entitic mass] 31.8 pg Normal 28.5-32.9 [facility] Comment on above: Performed By: #### L 200.0010 #### [facility] [address] [place] [address] 79276 MCHC (RBC) [Mass/Vol] 33.7 g/dL Normal 33.0-36.0 [facility] Comment on above: Performed By: #### L 200.0010 #### [facility] [address] [place] [address] 38998 MCV (RBC) [Entitic vol] 94.4 fL Normal 80.0-99.0 [facility] Comment on above: Performed By: #### L 200.0010 #### [facility] [address] [place] [address] 53439 MONO# 0.50 x10(3) Normal 0.30-0.80 [facility] Comment on above: Performed By: #### L 200.0010 #### [facility] [address] [place] [address] 02502 Monocytes/100 WBC (Bld) 7.7 % Normal 4.3-11.2 [facility] Comment on above: Performed By: #### L 200.0010 #### [facility] [address] [place] [address] 51823 NEUT# 4.30 x10(3) Normal 1.40-6.50 [facility] Comment on above: Performed By: #### L 200.0010 #### [facility] [address] [place] [address] 64848 Neutrophils/100 WBC (Bld) 67.3 % Normal 45.0-73.0 [facility] Comment on above: Performed By: #### L 200.0010 #### ML [facility] [address] [place] [address] 49922 Platelet mean volume (Bld) [Entitic vol] 10.1 fL High 7.5-9.5 [facility] Comment on above: Performed By: #### L 200.0010 #### [facility] [address] [place] [address] 02443 PLT 182 X10(3) Normal 150-450 [facility] Comment on above: Performed By: #### L 200.0010 #### ML [facility] [address] [place] [address] 33992 RBC 4.35 x10(6) Normal 3.30-5.00 [facility] Comment on above: Performed By: #### L 200.0010 #### [facility] [address] [place] [address] 58242 WBC 6.4 x10(3) Normal 4.5-10.0 [facility] Comment on above: Performed By: #### L 200.0010 #### ML [facility] [address] [place] [address] 37431 [facility] A:G RATIO 1.95 Normal 1.1-2.5 [facility] Comment on above: Performed By: #### L 304.0140, L100.0005 #### [facility] [address] [place] [address] 77710 Albumin [Mass/Vol] 4.7 g/dL Normal 3.5-5.2 [facility] Comment on above: Performed By: #### L 304.0140, L100.0005 #### [facility] [address] [place] [address] 12573 ALK. PHOS 69 U/L Normal 35-105 [facility] Comment on above: Performed By: #### L 304.0140, L100.0005 #### [facility] [address] [place] [address] 33765 ALT [Catalytic activity/Vol] 15 U/L Normal 5-33 [facility] Comment on above: Performed By: #### L 304.0140, L100.0005 #### [facility] [address] [place] [address] 20432 Anion gap [Moles/Vol] 16.1 mmol/L Normal 15-22 [facility] Comment on above: Performed By: #### L 304.0140, L100.0005 #### [facility] [address] [place] [address] 69537 AST [Catalytic activity/Vol] 17 U/L Normal 5-32 [facility] Comment on above: Performed By: #### L 304.0140, L100.0005 #### [facility] [address] [place] [address] 27009 Bilirubin [Mass/Vol] 0.5 mg/dL Normal 0.2-1.2 [facility] Comment on above: Performed By: #### L 304.0140, L100.0005 #### [facility] [address] [place] [address] 44552 Calcium [Mass/Vol] 9.1 mg/dL Normal 8.6-10.0 [facility] Comment on above: Performed By: #### L 304.0140, L100.0005 #### [facility] [address] [place] [address] 65048 Chloride [Moles/Vol] 104 mmol/L Normal 98-107 [facility] Comment on above: Performed By: #### L 304.0140, L100.0005 #### - LABORATORY [address] [place] [address] 98794 CO2 [Moles/Vol] 24 mmol/L Normal 22-29 [facility] Comment on above: Performed By: #### L 304.0140, L100.0005 #### [facility] [address] [place] [address] 22046 Creatinine [Mass/Vol] 0.93 mg/dL High 0.50-0.90 [facility] Comment on above: Performed By: #### L 304.0140, L100.0005 #### [facility] [address] [place] [address] 67523 eGFR if AFR ADELAIDA > 60 ml/min/1.73m2 Normal [facility] Comment on above: Result Comment: eGFR >= 60 Indicates normal kidney function. * eGFR IS AN ESTIMATE * (AFR ADELAIDA = ) (non-AFR AM = NON-) MDRD calculation used in the eGFR should not be used to dose medications. For further limitations of the eGFR please refer to the Physician Website or the National Kidney Disease Education Program website (www.nkdep.nih.gov). Performed By: #### L 304.0140, L100.0005 #### [facility] [address] [place] [address] 74950 eGFR nonAFR Adelaida > 60 ml/Min/1.73m2 Normal [facility] Comment on above: Performed By: #### L 304.0140, L100.0005 #### [facility] [address] [place] [address] 37518 Globulin (S) [Mass/Vol] 2.4 g/dL Normal 1.5-4.5 [facility] Comment on above: Performed By: #### L 304.0140, L100.0005 #### [facility] [address] [place] [address] Glucose [Mass/Vol] 92 mg/dL Normal 74-106 [facility] Comment on above: Performed By: #### L 304.0140, L100.0005 #### [facility] [address] [place] [address] 41951 Potassium [Moles/Vol] 4.1 mmol/L Normal 3.5-5.0 [facility] Comment on above: Performed By: #### L 304.0140, L100.0005 #### [facility] [address] [place] [address] 65709 Protein [Mass/Vol] 7.1 g/dL Normal 6.4-8.3 [facility] Comment on above: Performed By: #### L 304.0140, L100.0005 #### [facility] [address] [place] [address] 71835 Sodium [Moles/Vol] 140 mmol/L Normal 135-145 [facility] Comment on above: Performed By: #### L 304.0140, L100.0005 #### [facility] [address] [place] [address] 34621 Urea nitrogen [Mass/Vol] 11 mg/dL Normal 6-20 [facility] Comment on above: Performed By: #### L 304.0140, L100.0005 #### [facility] [address] [place] [address] 72006 TSHon 10-18-2021 TSH 1.76 uIU/mL Normal 0.270-4.200 [facility] Comment on above: Performed By: #### L 304.0140, L100.0005 #### [facility] [address] [place] [address] 09842 VITAMIN Don 10-18-2021 VITAMIN D 49.1 ng/mL Normal 30-100 [facility] Comment on above: Performed By: #### L 304.0470 #### [facility] [address] [place] [address] 36593 US PELVIS NON-OB W/TRANSVAGI NALon 10-05-2020 US PELVIS NON-OB W/TRANSVAGINAL ORIGINAL Transabdominal and endovaginal pelvic ultrasound Dedicated duplex Doppler ultrasound is performed, including color Doppler interrogation and spectral waveform analysis, including attempts to define arterial inflow and venous outflow. HISTORY: IUD check COMPARISON: No recent prior study available FINDINGS: Uterus measures 9.2 x 4.5 x 7.4 cm. The endometrium measures 10 mm in thickness and appears homogeneous with exception of minimal scattered microcalcifications . Shadowing echogenic focus is noted within the endometrium extending to the fundal portion of the endometrium. This is compatible with the IUD and it is in good position. No focal myometrial masses are seen. RIGHT ovary 2.4 x 2 x 2.3 cm, LEFT ovary 2.5 x 1.5 x 2.6 cm. No ovarian or adnexal masses are identified and ovarian Doppler interrogation is normal. No significant free pelvic fluid is evident. No additional contributory finding. IMPRESSION: IUD position appears appropriate. No acute finding. Interpreted By: Anthony Sebastian MD Preliminary Report By: Anthony Sebastian MD Electronically Signed By: Anthony Sebastian MD Dictated Date: 10/05/2020 3:18:42 PM Prelim Date: 10/05/2020 3:18:42 PM Sign Date: 10/05/2020 3:21:32 PM Ordering Provider:Sophia Almazan Normal [facility] ([place]) HCGQon 10-04-2020 hCG, quantitative <1.0 Normal [facility]) Comment on above: Result Comment: HCG Quantitative 3 Weeks Gestation mIU/mL 5.0 to 12.0 HCG Quantitative 4 Weeks Gestation mIU/mL 10.0 to 708.0 HCG Quantitative 5 Weeks Gestation mIU/mL 217.0 to 8245.0 HCG Quantitative 6 Weeks Gestation mIU/mL 152.0 to 32,177.0 HCG Quantitative 7 Weeks Gestation mIU/mL 4059.0 to 153,767.0 HCG Quantitative 8 Weeks Gestation mIU/mL 31,366.0 to 149,094.0 HCG Quantitative 9 Weeks Gestation mIU/mL 59,109.0 to 135,901.0 HCG Quantitative 10 Weeks Gestation mIU/mL 44,186.0 to 170,409.0 HCG Quantitative 12 Weeks Gestation mIU/mL 27,107.0 to 201,615.0 HCG Quantitative 14 Weeks Gestation mIU/mL 24,302.0 to 93,646.0 Performed By: #### H CGQ #### [facility] [address] [place], [place] [address] Depart Summaryon 11-03-2016 Depart Summary Normal [facility] Inpatient Patient S ummaryon 11-03-2016 [place] Inpatient Patient Summary Normal [facility] Progress Note-Nurseon 2016 Progress Note-Nurse Normal [facility] Emergency Room Note on 11-02-2016 [place] Emergency Room Note Normal [facility] Emergency Room Note Normal [facility] History and Physica jose 11-02-2016 [place] History and Physical Normal [facility] Progress Note-Nurseon 2016 Progress Note-Nurse Normal [facility] Emergency Room Note on 10-31-2016 [place] Emergency Room Note Normal [facility] Patient Summary Documentson 10-31-2016 Patient Summary Documents Normal [facility] US RENALon 10-31-2016 US RENAL ORIGINALUS RETROPERITONEUM: ATTENTION URINARY TRACT Clinical Statement: Pain/suspect kidney stones and/or hydronephrosis/courtney ent is 21 weeks /left flank pain Comparison: None FINDINGS: The right and left kidneys measure 9.6 x 4.9 x 4.8 cm and 12.1 x 5.6 x 5.1 cm respectively. The renal cortical echogenicity and thickness are appropriate. There is mild bilateral renal pelvocaliectasis, slightly more on the left. There was no change in post void imaging. The urinary bladder is underdistended, otherwise unremarkable. IMPRESSION: Mild bilateral pelvocaliectasis slightly more on the left. Etiology is not evident from this study. I have personally reviewed the images of this examination and agree with the resident's findings and interpretation. Interpreted By: Toño Plazareliminary Report By: Tabitha Martin MDElectronically Signed By: Toño Plaza MD Dictated Date: 10/31/2016 2:14:58 PM Prelim Date: 10/31/2016 2:18:41 PM Sign Date: 10/31/2016 2:29:03 PM Normal [facility] Urinalysis (AO)on 10-31-2016 Bilirubin (total) Negative Normal NEGATIVE [facility] Comment on above: Order Comment: CBN Performed By: #### U AO ####[address] [address] Erythrocytes (RBC) LOADED Abnormal NONE SEEN [facility] Comment on above: Order Comment: CBN Performed By: #### U AO ####Shahnaz [address] [address] Glucose mass conc Negative Normal NEGATIVE [facility] Comment on above: Order Comment: CBN Performed By: #### U AO ####Shahnaz [address] [address] Hemoglobin mass conc (Bld) LARGE Abnormal NEG - TRACE [facility] Comment on above: Order Comment: CBN Performed By: #### U AO ####[address] [address] [address] pH of blood 6.0 [pH] Normal 5.0 - 8.0 [facility] Comment on above: Order Comment: CBN Performed By: #### U AO ####[address] [address] Protein Negative Normal NEG - TRACE [facility] Comment on above: Order Comment: CBN Performed By: #### U AO ####Shahnaz [address] [address] Squamous Epi 0-5 Abnormal NONE SEEN [facility] Comment on above: Order Comment: CBN Performed By: #### U AO ####Shahnaz [address] [address] Urine, appearance SL CLOUDY Abnormal CLEAR [facility] Comment on above: Order Comment: CBN Performed By: #### U AO ####Shahnaz [address] [address] Urine, bacteria in sediment 2+ /hpf Abnormal NEGATIVE [facility] Comment on above: Order Comment: CBN Performed By: #### U AO ####Shahnaz [address] [address] Urine, color YELLOW Normal [facility] Comment on above: Order Comment: CBN Performed By: #### U AO ####Shahnaz [address] [address] Urine, ketones presence Negative Normal NEGATIVE [facility] Comment on above: Order Comment: CBN Performed By: #### U AO ####Shahnaz [place] [id number] Urine, nitrite presence Negative Normal NEGATIVE [facility] Comment on above: Order Comment: CBN Performed By: #### U AO ####[place] [address] Urine, specific gravity 1.010 Abnormal 1.015-1.025 [facility] Comment on above: Order Comment: CBN Performed By: #### U AO ####Shahnaz [place] [id number] Urine, urobilinogen 0.2 {Jonelle'U}/dL Normal NORMAL [facility] Comment on above: Order Comment: CBN Performed By: #### U AO ####Shahnaz [address] [address] WBC (Leukocytes) NONE SEEN Normal NONE SEEN [facility] Comment on above: Order Comment: CBN Performed By: #### U AO ####Shahnaz [place] [id number] WBC (Leukocytes) Negative Normal NEGATIVE [facility] Comment on above: Order Comment: CBN Performed By: #### U AO ####Shahnaz [place] [address] Specimen type (u) MID STREAM Normal [facility] Comment on above: Order Comment: CBN Performed By: #### U AO ####Shahnaz [place] [address] US DETAILED/TVon 0 10-22-2016 US DETAILED/TV ADDENDUM -- OBSTETRICS REPORT (Corrected Final 10/22/2016 03:24 pm) Krystyna rodríguez Info ID #: [id number] : 87 (31 yrs)(F) Name: ANABELL Elias Visit Date: 10/22/2016 02:38 pm TWADDLE -Performed By Performed By: Tierra Morales [facility] Referred By: Gisela Ruiz MD Location: Shahnaz [facility]g[place] Se rene(s) Provided Obstetrical Transvaginal------- ------Indications PTL SCREENING, FOP W/ CHD Fet al Evaluation Num Of Fetuses: 1 Preg. Location: Intrauterine Heart Rate: 149 bpm Presentation: Variable Placenta: Anterior, Grade 0 Amniotic Fluid RACHANA FV: Normal fluid at subjective evaluation--------- ----Biometry BPD: 44 mm G. Age: 19w 2d OFD: 63.3 mm HC: 171.4 mm G. Age: 19w 5d 36 % AC: 153.5 mm G. Age: 20w 4d 67 % FL: 31.5 mm G. Age: 19w 6d 40 % HUM: 32 mm G. Age: 20w 5d 76 % CI: 69.5 % 70 - 86 FL/HC: 18.4 % 16.8 - 19.8 HC/AC: 1.12 1.09 - 1.39 FL/BPD: 71.6 % FL/AC: 20.5 % 20 - 24 Est. FW: 333 gm 0 lb 12 oz Gest ational Age Clinical LAYO: 18w 4d LAYO: 03/21/17 U/S Today: 19w 6d LAYO: 03/12/17 Best: 19w 6d Det. By: Bren/Zackary Elias LAYO: 03/12/17 (08/26/16)--------- ----Anatomy Cranium: Normal appearance Cavum: Normal appearance Ventricles: Normal appearance Choroid Plexus: Normal appearance Cerebellum: Normal appearance Posterior Fossa: Normal appearance Face: Normal appearance Lips: Normal appearance Heart: Normal appearing 4 Chamber view RVOT: Normal appearance LVOT: Normal appearance Aortic Arch: Normal appearance Ductal Arch: Normal appearance Stomach: Normal appearance Abdomen: Normal appearance Abdominal Wall: Normal appearance Cord Vessels: Normal appearing 3 vessel Kidneys: Normal appearance Bladder: Normal appearance Spine: Normal appearance--------- ----Targeted Anatomy Central Nervous System Lat. Ventricles: 5.1 Extremities Lt Humerus: Normal appearance Rt Humerus: Normal appearance Lt Forearm: Normal appearance Rt Forearm: Normal appearance Lt Hand: Normal appearance Rt Hand: Normal appearance Lt Femur: Normal appearance Rt Femur: Normal appearance Lt Lower Leg: Normal appearance Rt Lower Leg: Normal appearance Lt Foot: Normal appearance Rt Foot: Normal appearance Other Genitalia: Male Ce rvix Uterus Adnexa Cervical Length: 4.63 cm Cervix: Measured transvaginally Left Ovary: Not visualized due to intestinal gas Right Ovary: Not visualized due to intestinal gas Adnexa: The left and right adnexae are normal. -Impression biometry is appropriate for gestational age. Detailed imaging was carried out. I personally rescanned the patient in real-time. No evidence of anomaly was seen on detailed imaging. Ultrasound is limited in its ability to detect all anomalies. TRANSVAGINAL ULTRASOUND: Transvaginal ultrasound demonstrates adequate cervical length. Color Doppler shows no evidence of vasa previa. - Thank you for sharing in the care of Ms. ANABELL Elias [place] with us. Please do not hesitate to contact us if you have any questions or concerns. Anthony Rodriguez MDElectronically Signed Corrected Final Report 10/22/2016 03:24 pm ORIGINAL -- OBSTETRICS REPORT (Signed Final 10/22/2016 03:24 pm) Krystyna rodríguez Info ID #: [id number] : [birth year] (31 yrs)(F) Name: NAABELL Elias Visit Date: 10/22/2016 02:38 pm [place] -Performed By Performed By: Tierra Morales [facility] Referred By: Gisela Ruiz MD Location: [facility] Se rvteena(s) Provided Obstetrical Transvaginal------- ------Indications PTL SCREENING, FOP W/ CHD Fet al Evaluation Num Of Fetuses: 1 Preg. Location: Intrauterine Heart Rate: 149 bpm Presentation: Variable Placenta: Anterior, Grade 0 Amniotic Fluid RACHANA FV: Normal fluid at subjective evaluation--------- ----Biometry BPD: 44 mm G. Age: 19w 2d OFD: 63.3 mm HC: 171.4 mm G. Age: 19w 5d 36 % AC: 153.5 mm G. Age: 20w 4d 67 % FL: 31.5 mm G. Age: 19w 6d 40 % HUM: 32 mm G. Age: 20w 5d 76 % CI: 69.5 % 70 - 86 FL/HC: 18.4 % 16.8 - 19.8 HC/AC: 1.12 1.09 - 1.39 FL/BPD: 71.6 % FL/AC: 20.5 % 20 - 24 Est. FW: 333 gm 0 lb 12 oz Gest ational Age Clinical LAYO: 18w 4d LAYO: 03/21/17 U/S Today: 19w 6d LAYO: 03/12/17 Best: 19w 6d Det. By: U/S Sebas Elias LAYO: 03/12/17 (08/26/16)--------- ----Anatomy Cranium: Normal appearance Cavum: Normal appearance Ventricles: Normal appearance Choroid Plexus: Normal appearance Cerebellum: Normal appearance Posterior Fossa: Normal appearance Face: Normal appearance Lips: Normal appearance Heart: Normal appearing 4 Chamber view RVOT: Normal appearance LVOT: Normal appearance Aortic Arch: Normal appearance Ductal Arch: Normal appearance Stomach: Normal appearance Abdomen: Normal appearance Abdominal Wall: Normal appearance Cord Vessels: Normal appearing 3 vessel Kidneys: Normal appearance Bladder: Normal appearance Spine: Normal appearance--------- ----Targeted Anatomy Central Nervous System Lat. Ventricles: 5.1 Extremities Lt Humerus: Normal appearance Rt Humerus: Normal appearance Lt Forearm: Normal appearance Rt Forearm: Normal appearance Lt Hand: Normal appearance Rt Hand: Normal appearance Lt Femur: Normal appearance Rt Femur: Normal appearance Lt Lower Leg: Normal appearance Rt Lower Leg: Normal appearance Lt Foot: Normal appearance Rt Foot: Normal appearance Other Genitalia: Male Ce rvix Uterus Adnexa Cervical Length: 4.63 cm Cervix: Measured transvaginally Left Ovary: Not visualized due to intestinal gas Right Ovary: Not visualized due to intestinal gas Adnexa: The left and right adnexae are normal. -Impression biometry is appropriate for gestational age. Detailed imaging was carried out. I personally rescanned the patient in real-time. No evidence of anomaly was seen on detailed imaging. Ultrasound is limited in its ability to detect all anomalies. TRANSVAGINAL ULTRASOUND: Transvaginal ultrasound demonstrates adequate cervical length. Color Doppler shows no evidence of vasa previa. - Thank you for sharing in the care of Ms. ANABELL PAYNE with us. Please do not hesitate to contact us if you have any questions or concerns. Anthony Rodriguez MDElectronically Signed Final Report 10/22/2016 03:24 pm Normal [facility] Vital Signs Date Time Vital Sign Value Performing Clinician Diego hernández 08-16-2024 10:42-0400 Diastolic blood pressure 77 mm[Hg] Riya Kinney MD, PhD Work Phone: [facility] 08-16-2024 10:42-0400 Heart rate 67 /min Riya Kinney MD, PhD Work Phone: [facility] 08-16-2024 10:42-0400 Respiratory rate 16 /min Riya Kinney MD, PhD Work Phone: [facility] 08-16-2024 10:42-0400 SaO2% (BldA) [Mass fraction] 98 % Riya Kinney MD, PhD Work Phone: [facility] 08-16-2024 10:42-0400 Systolic blood pressure 111 mm[Hg] Riya Kinney MD, PhD Work Phone: [facility] 08-05-2024 08:33-0400 Body height 165.1 cm Nicole Duvall DIRECT SUPPORT STAFF.HOME THEATER EXPERIENCE EXPERT Work Phone: [facility] 08-05-2024 08:33-0400 Body mass index (BMI) [Ratio] 32.75 kg/m2 Nicole Duvall DIRECT SUPPORT STAFF.HOME THEATER EXPERIENCE EXPERT Work Phone: [facility] 08-05-2024 08:33-0400 Body weight 89.27 kg Nicole Duvall DIRECT SUPPORT STAFF.HOME THEATER EXPERIENCE EXPERT Work Phone: [facility] 08-05-2024 08:33-0400 Diastolic blood pressure 75 mm[Hg] Nicole Duvall DIRECT SUPPORT STAFF.HOME THEATER EXPERIENCE EXPERT Work Phone: [facility] 08-05-2024 08:33-0400 Heart rate 80 /min Nicole Duvall DIRECT SUPPORT STAFF.HOME THEATER EXPERIENCE EXPERT Work Phone: [facility] 08-05-2024 08:33-0400 Respiratory rate 15 /min Nicole Duvall DIRECT SUPPORT STAFF.HOME THEATER EXPERIENCE EXPERT Work Phone: [facility] 08-05-2024 08:33-0400 SaO2% (BldA) [Mass fraction] 97 % Nicole Duvall DIRECT SUPPORT STAFF.HOME THEATER EXPERIENCE EXPERT Work Phone: [facility] 08-05-2024 08:33-0400 Systolic blood pressure 115 mm[Hg] Nicole Duvall DIRECT SUPPORT STAFF.HOME THEATER EXPERIENCE EXPERT Work Phone: [facility] 07-07-2024 09:49-0400 Heart rate 66 /min Ragini Prebish DIRECT SUPPORT STAFF.HOME THEATER EXPERIENCE EXPERT Work Phone: [facility] 07-07-2024 09:49-0400 Respiratory rate 18 /min Ragini Prebish DIRECT SUPPORT STAFF.HOME THEATER EXPERIENCE EXPERT Work Phone: [facility] 07-07-2024 09:49-0400 SaO2% (BldA) [Mass fraction] 99 % Ragini Prebish DIRECT SUPPORT STAFF.HOME THEATER EXPERIENCE EXPERT Work Phone: [facility] 03-10-2024 12:10-0500 Body mass index (BMI) [Ratio] 34.25 kg/m2 Destiny Mann MD Work Phone: [facility] 03-10-2024 12:10-0500 Body temperature 98.29 [degF] Destiny Mann MD Work Phone: [facility] 03-10-2024 12:10-0500 Body weight 93.35 kg Destiny Mann MD Work Phone: [facility] 03-10-2024 12:10-0500 Diastolic blood pressure 60 mm[Hg] Destiny Mann MD Work Phone: [facility] 03-10-2024 12:10-0500 Heart rate 71 /min Destiny Mann MD Work Phone: [facility] 03-10-2024 12:10-0500 Respiratory rate 20 /min Destiny Mann MD Work Phone: [facility] 03-10-2024 12:10-0500 SaO2% (BldA) [Mass fraction] 97 % Destiny Mann MD Work Phone: [facility] 03-10-2024 12:10-0500 Systolic blood pressure 94 mm[Hg] Destiny Mann MD Work Phone: [facility] 02-22-2024 14:48-0500 Body height 165.1 cm Nicole Duvall APRN.HOME THEATER EXPERIENCE EXPERT Work Phone: [facility] 02-22-2024 14:48-0500 Body mass index (BMI) [Ratio] 33.61 kg/m2 Nicole Duvall APRN.HOME THEATER EXPERIENCE EXPERT Work Phone: [facility] 02-22-2024 14:48-0500 Body weight 91.63 kg Nicole Duvall APRN.HOME THEATER EXPERIENCE EXPERT Work Phone: [facility] 02-22-2024 14:48-0500 Diastolic blood pressure 74 mm[Hg] Nicole Duvall DIRECT SUPPORT STAFF.HOME THEATER EXPERIENCE EXPERT Work Phone: [facility] 02-22-2024 14:48-0500 Heart rate 64 /min Nicole Duvall DIRECT SUPPORT STAFF.HOME THEATER EXPERIENCE EXPERT Work Phone: [facility] 02-22-2024 14:48-0500 Respiratory rate 14 /min Nicole Duvall DIRECT SUPPORT STAFF.HOME THEATER EXPERIENCE EXPERT Work Phone: [facility] 02-22-2024 14:48-0500 SaO2% (BldA) [Mass fraction] 98 % Nicole Duvall DIRECT SUPPORT STAFF.HOME THEATER EXPERIENCE EXPERT Work Phone: [facility] 02-22-2024 14:48-0500 Systolic blood pressure 111 mm[Hg] Nicole Duvall DIRECT SUPPORT STAFF.HOME THEATER EXPERIENCE EXPERT Work Phone: [facility] 11-05-2023 15:12-0400 Body height 165.1 cm Nicole Duvall DIRECT SUPPORT STAFF.HOME THEATER EXPERIENCE EXPERT Work Phone: [facility] 11-05-2023 15:12-0400 Body mass index (BMI) [Ratio] 32.78 kg/m2 Nicole Duvall DIRECT SUPPORT STAFF.HOME THEATER EXPERIENCE EXPERT Work Phone: [facility] 11-05-2023 15:12-0400 Body weight 89.36 kg Nicole Duvall DIRECT SUPPORT STAFF.HOME THEATER EXPERIENCE EXPERT Work Phone: [facility] 11-05-2023 15:12-0400 Diastolic blood pressure 69 mm[Hg] Nicole Duvall DIRECT SUPPORT STAFF.HOME THEATER EXPERIENCE EXPERT Work Phone: [facility] 11-05-2023 15:12-0400 Heart rate 77 /min Nicole Duvall DIRECT SUPPORT STAFF.HOME THEATER EXPERIENCE EXPERT Work Phone: [facility] 11-05-2023 15:12-0400 SaO2% (BldA) [Mass fraction] 95 % Nicole Duvall DIRECT SUPPORT STAFF.HOME THEATER EXPERIENCE EXPERT Work Phone: [facility] 11-05-2023 15:12-0400 Systolic blood pressure 108 mm[Hg] Nicole Duvall DIRECT SUPPORT STAFF.HOME THEATER EXPERIENCE EXPERT Work Phone: [facility] 11-05-2023 08:03-0400 Body mass index (BMI) [Ratio] 32.98 kg/m2 Alexis Jones MD Work Phone: [facility] 11-05-2023 08:03-0400 Body weight 89.9 kg Alexis Jones MD Work Phone: [facility] 11-05-2023 08:03-0400 Diastolic blood pressure 77 mm[Hg] Alexis Jones MD Work Phone: [facility] 11-05-2023 08:03-0400 Heart rate 62 /min Alexis Jones MD Work Phone: [facility] 11-05-2023 08:03-0400 Respiratory rate 16 /min Alexis Jones MD Work Phone: [facility] 11-05-2023 08:03-0400 SaO2% (BldA) [Mass fraction] 98 % Alexis Jones MD Work Phone: [facility] 11-05-2023 08:03-0400 Systolic blood pressure 116 mm[Hg] Alexis Jones MD Work Phone: [facility] 10-26-2023 15:18-0400 Body height 165.1 cm Swapna Meiler DO Work Phone: [facility] 10-26-2023 15:18-0400 Body mass index (BMI) [Ratio] 31.95 kg/m2 Swapna Meiler DO Work Phone: [facility] 10-26-2023 15:18-0400 Body weight 87.09 kg Swapna Meiler DO Work Phone: [facility] 10-01-2023 13:00-0400 Diastolic blood pressure 75 mm[Hg] Swpana Meiler DO Work Phone: [facility] 10-01-2023 13:00-0400 SaO2% (BldA) [Mass fraction] 98 % Swapna Meiler DO Work Phone: [facility] 10-01-2023 13:00-0400 Systolic blood pressure 109 mm[Hg] Swapna Meiler DO Work Phone: [facility] 10-01-2023 12:31-0400 Body temperature 98.4 [degF] Swapna Meiler DO Work Phone: [facility] 10-01-2023 10:56-0400 Body height 165.1 cm Swapna Meiler DO Work Phone: [facility] 10-01-2023 10:56-0400 Body mass index (BMI) [Ratio] 31.95 kg/m2 Swapna Meiler DO Work Phone: [facility] 10-01-2023 10:56-0400 Body weight 87.1 kg Swapna Meiler DO Work Phone: [facility] 10-01-2023 10:56-0400 Heart rate 80 /min Swapna Meiler DO Work Phone: [facility] 10-01-2023 10:56-0400 Respiratory rate 12 /min Swapna Meiler DO Work Phone: [facility] 09-29-2023 08:53-0400 Body height 165.1 cm Alexis Jones MD Work Phone: [facility] 09-29-2023 08:53-0400 Body mass index (BMI) [Ratio] 32.61 kg/m2 Alexis Jones MD Work Phone: [facility] 09-29-2023 08:53-0400 Body weight 88.9 kg Alexis Jones MD Work Phone: [facility] 09-29-2023 08:53-0400 Diastolic blood pressure 75 mm[Hg] Alexis Jones MD Work Phone: [facility] 09-29-2023 08:53-0400 Heart rate 58 /min Alexis Jones MD Work Phone: [facility] 09-29-2023 08:53-0400 Respiratory rate 16 /min Alexis Jones MD Work Phone: [facility] 09-29-2023 08:53-0400 SaO2% (BldA) [Mass fraction] 98 % Alexis Jones MD Work Phone: [facility] 09-29-2023 08:53-0400 Systolic blood pressure 113 mm[Hg] Alexis Jones MD Work Phone: [facility] 08-17-2023 08:38-0400 Body height 165.1 cm Swapna Butler DO Work Phone: [facility] 08-17-2023 08:38-0400 Body mass index (BMI) [Ratio] 31.95 kg/m2 Swapna Butler DO Work Phone: [facility] 08-17-2023 08:38-0400 Body weight 87.09 kg Swapna Butler DO Work Phone: [facility] 07-30-2023 15:40-0400 Body height 167.6 cm Nicole Duvall DIRECT SUPPORT STAFF.HOME THEATER EXPERIENCE EXPERT Work Phone: [facility] 07-30-2023 15:40-0400 Body weight 87.09 kg Nicole Duvall DIRECT SUPPORT STAFF.HOME THEATER EXPERIENCE EXPERT Work Phone: [facility] 07-30-2023 15:40-0400 Diastolic blood pressure 70 mm[Hg] Nicole Duvall DIRECT SUPPORT STAFF.HOME THEATER EXPERIENCE EXPERT Work Phone: [facility] 07-30-2023 15:40-0400 Heart rate 75 /min Nicole Duvall DIRECT SUPPORT STAFF.HOME THEATER EXPERIENCE EXPERT Work Phone: [facility] 07-30-2023 15:40-0400 Respiratory rate 16 /min Nicole Duvall DIRECT SUPPORT STAFF.HOME THEATER EXPERIENCE EXPERT Work Phone: [facility] 07-30-2023 15:40-0400 SaO2% (BldA) [Mass fraction] 99 % Nicole Duvall DIRECT SUPPORT STAFF.HOME THEATER EXPERIENCE EXPERT Work Phone: [facility] 07-30-2023 15:40-0400 Systolic blood pressure 101 mm[Hg] Nicole Duvall DIRECT SUPPORT STAFF.HOME THEATER EXPERIENCE EXPERT Work Phone: [facility] 07-13-2023 15:33-0400 Body height 167.6 cm Nicole Duvall DIRECT SUPPORT STAFF.HOME THEATER EXPERIENCE EXPERT Work Phone: [facility] 07-13-2023 15:33-0400 Body weight 88.54 kg Nicole Duvall DIRECT SUPPORT STAFF.HOME THEATER EXPERIENCE EXPERT Work Phone: [facility] 07-13-2023 15:33-0400 Diastolic blood pressure 54 mm[Hg] Nicole Duvall DIRECT SUPPORT STAFF.HOME THEATER EXPERIENCE EXPERT Work Phone: [facility] 07-13-2023 15:33-0400 Heart rate 78 /min Nicole Duvall DIRECT SUPPORT STAFF.HOME THEATER EXPERIENCE EXPERT Work Phone: [facility] 07-13-2023 15:33-0400 Respiratory rate 16 /min Nicole Duvall DIRECT SUPPORT STAFF.HOME THEATER EXPERIENCE EXPERT Work Phone: [facility] 07-13-2023 15:33-0400 SaO2% (BldA) [Mass fraction] 97 % Nicole Duvall DIRECT SUPPORT STAFF.HOME THEATER EXPERIENCE EXPERT Work Phone: [facility] 07-13-2023 15:33-0400 Systolic blood pressure 85 mm[Hg] Nicole Duvall DIRECT SUPPORT STAFF.HOME THEATER EXPERIENCE EXPERT Work Phone: [facility] 10-13-2022 12:38-0400 Body height 165.1 cm Mohsen Almazan APRN.HOME THEATER EXPERIENCE EXPERT Work Phone: [facility] 10-13-2022 12:38-0400 Body temperature 98.91 [degF] Mohsen Almazan APRN.HOME THEATER EXPERIENCE EXPERT Work Phone: [facility] 10-13-2022 12:38-0400 Body weight 84.82 kg Mohsen Almazan APRN.HOME THEATER EXPERIENCE EXPERT Work Phone: [facility] 10-13-2022 12:38-0400 Diastolic blood pressure 72 mm[Hg] Mohsen Almazan APRN.HOME THEATER EXPERIENCE EXPERT Work Phone: [facility] 10-13-2022 12:38-0400 Heart rate 71 /min Mohsen Almazan APRN.HOME THEATER EXPERIENCE EXPERT Work Phone: [facility] 10-13-2022 12:38-0400 SaO2% (BldA) [Mass fraction] 95 % Mohsen Almazan APRN.HOME THEATER EXPERIENCE EXPERT Work Phone: [facility] 10-13-2022 12:38-0400 Systolic blood pressure 112 mm[Hg] Mohsen Almazan APRN.HOME THEATER EXPERIENCE EXPERT Work Phone: [facility] 11-21-2021 12:17-0400 Body height 167.6 cm Thom Villalba APRN.HOME THEATER EXPERIENCE EXPERT Work Phone: [facility] 11-21-2021 12:17-0400 Body weight 78.93 kg Thom Villalba APRN.HOME THEATER EXPERIENCE EXPERT Work Phone: [facility] 11-21-2021 12:17-0400 Diastolic blood pressure 76 mm[Hg] Thom Villalba APRN.HOME THEATER EXPERIENCE EXPERT Work Phone: [facility] 11-21-2021 12:17-0400 Heart rate 62 /min Thom Villalba APRN.HOME THEATER EXPERIENCE EXPERT Work Phone: [facility] 11-21-2021 12:17-0400 SaO2% (BldA) [Mass fraction] 97 % Thom Villalba APRN.HOME THEATER EXPERIENCE EXPERT Work Phone: [facility] 11-21-2021 12:17-0400 Systolic blood pressure 108 mm[Hg] Thom Villalba APRN.HOME THEATER EXPERIENCE EXPERT Work Phone: [facility] 10-17-2021 17:00-0400 Body height 167.6 cm Thom Villalba APRN.HOME THEATER EXPERIENCE EXPERT Work Phone: [facility] 10-17-2021 17:00-0400 Body temperature 98.01 [degF] Thom Villalba APRN.HOME THEATER EXPERIENCE EXPERT Work Phone: [facility] 10-17-2021 17:00-0400 Body weight 77.11 kg Thom Villalba APRN.HOME THEATER EXPERIENCE EXPERT Work Phone: [facility] 10-17-2021 17:00-0400 Diastolic blood pressure 70 mm[Hg] Thom Villalba APRN.HOME THEATER EXPERIENCE EXPERT Work Phone: [facility] 10-17-2021 17:00-0400 Heart rate 75 /min Thom Villalba APRN.HOME THEATER EXPERIENCE EXPERT Work Phone: [facility] 10-17-2021 17:00-0400 Respiratory rate 20 /min Thom Villalba APRN.HOME THEATER EXPERIENCE EXPERT Work Phone: [facility] 10-17-2021 17:00-0400 SaO2% (BldA) [Mass fraction] 97 % Thom Villalba APRN.HOME THEATER EXPERIENCE EXPERT Work Phone: [facility] 10-17-2021 17:00-0400 Systolic blood pressure 106 mm[Hg] Thom Villalba APRN.HOME THEATER EXPERIENCE EXPERT Work Phone: [facility] Encounters Encounter Date Encounter Type Care Provider Facility Start: 09-28-2024 End: 09-28-2024 Telephone encounter Ward Herrera APRN.HOME THEATER EXPERIENCE EXPERT Work Phone: [facility] Comment on above: Injections (Question s ) Start: 09-27-2024 End: 09-27-2024 Telemedicine consultation with patient Ward Thomasmaria e FOSSHOME THEATER EXPERIENCE EXPERT Work Phone: [facility] Start: 09-27-2024 End: 09-27-2024 ambulatory Ward Herrera APRN.HOME THEATER EXPERIENCE EXPERT Work Phone: [facility] Comment on above: Sacral foraminal richelle nosis (Primary Dx); Spinal stenosis, lumbar region with neurogenic claudication; Radiculopathy, lumbosacral region Start: 08-18-2024 End: 09-13-2024 Telephone encounter Riya Kinney MD, PhD Work Phone: [facility] Comment on above: Procedure Follow Up (ILESI) Start: 08-16-2024 End: 08-16-2024 Patient encounter procedure Riya Kinney MD, PhD Work Phone: [facility] Start: 08-16-2024 End: 08-16-2024 ambulatory Riya Kinney MD, PhD Work Phone: [facility] Comment on above: Procedure (Ilesi - l umbar ) Start: 08-05-2024 End: 08-05-2024 Periodic preventive med est patient 18-39 yrs Nicole Duvall APRN.HOME THEATER EXPERIENCE EXPERT Work Phone: [facility] Comment on above: Encounter for annual general medical examination without abnormal findings in adult (Primary Dx); Positive MICHELE (antinuclear antibody); Mixed hyperlipidemia; Fatigue, unspecified type; Generalized anxiety disorder; Cervical spinal stenosis; Chronic bilateral low back pain with left-sided sciatica; Idiopathic peripheral neuropathy; Rash; Vitamin D deficiency; Encounter for screening examination for other mental health and behavioral disorders; Screening for depression Start: 08-05-2024 End: 08-05-2024 ambulatory NICOLE DUVALL Facility:[id number] Start: 08-05-2024 End: 08-05-2024 Patient encounter procedure Nicole Duvall DIRECT SUPPORT STAFF.HOME THEATER EXPERIENCE EXPERT Work Phone: [facility] Work Phone: Start: 08-03-2024 End: 08-08-2024 Refill Nicole Duvall APRN.HOME THEATER EXPERIENCE EXPERT Work Phone: [facility] Comment on above: Refill Request Start: 08-02-2024 End: 08-02-2024 ambulatory NICOLE AMANDA DUVALL Facility:[id number] Start: 08-02-2024 Encounter for genera l adult medical examination without abnormal findings NICOLE [facility] Start: 08-01-2024 End: 08-01-2024 Telephone encounter Nicole Duvall APRN.HOME THEATER EXPERIENCE EXPERT Work Phone: [facility] Internal Medicine Comment on above: Orders (Lab orders. Pt will have done at [facility].) Start: 07-07-2024 End: 07-07-2024 Telephone encounter Ragini Leung APRN.HOME THEATER EXPERIENCE EXPERT Work Phone: [facility] Comment on above: Injections Start: 07-07-2024 End: 07-07-2024 Patient encounter procedure Ragini Leung APRN.HOME THEATER EXPERIENCE EXPERT Work Phone: [facility] Comment on above: Spinal stenosis, lum bar region with neurogenic claudication (Primary Dx); Chronic bilateral low back pain with left-sided sciatica; Degeneration of intervertebral disc of lumbar region with discogenic back pain and lower extremity pain Start: 07-07-2024 End: 07-07-2024 ambulatory RAGINI [facility] Facility:[facility] Start: 07-05-2024 End: 07-05-2024 ambulatory NICOLE DUVALL Work Phone: [facility] Work Phone: Start: 07-05-2024 End: 07-05-[address] Nilam Persaud MD -Laboratory, [place] Work Phone: Start: 07-05-2024 End: 07-05-2024 ambulatory [facility] Facility:[facility] Start: 06-16-2024 End: 06-16-2024 Telephone encounter Ba Candelario MD Work Phone: [facility] Comment on above: New Patient Evaluati on Start: 06-15-2024 End: 06-15-2024 Orders Only Alexis Jones MD Work Phone: [facility] Comment on above: Chronic bilateral lo w back pain with left-sided sciatica (Primary Dx) Start: 05-16-2024 End: 05-16-[address] Nilam Persaud MD -Laboratory, [place] Work Phone: Start: 05-16-2024 End: 05-16-2024 ambulatory [facility] Facility:[facility] Start: 03-14-2024 End: 03-14-2024 ambulatory Nilam Persaud Facility:[facility] Start: 03-10-2024 End: 03-10-2024 Office outpatient visit 15 minutes Destiny Mann MD Work Phone: [facility] Comment on above: Acute otitis media, left (Primary Dx) Start: 03-10-2024 End: 03-11-2024 Refill Nicole Duvall DIRECT SUPPORT STAFF.HOME THEATER EXPERIENCE EXPERT Work Phone: [facility] Internal Medicine Comment on above: Refill Request Start: 02-22-2024 End: 02-22-2024 Office outpatient visit 15 minutes Nicole Amanda Jadiel DIRECT SUPPORT STAFF.HOME THEATER EXPERIENCE EXPERT Work Phone: [facility] Medicine Comment on above: Positive MICHELE (antinu clear antibody) (Primary Dx); Mixed hyperlipidemia; Fatigue, unspecified type; Rash; Cervical spinal stenosis; Generalized anxiety disorder; Routine general medical examination at a health care facility; Chronic bilateral low back pain with left-sided sciatica Start: 02-22-2024 End: 02-22-2024 Patient encounter status Nicole Amanda Duvall DIRECT SUPPORT STAFF.HOME THEATER EXPERIENCE EXPERT Work Phone: [facility] Start: 02-22-2024 End: 02-22-2024 ambulatory NICOLECINTHYA AMANDA IMLAY Facility:[id number] Start: 02-22-2024 Encounter for genera l adult medical examination without abnormal findings [facility] Start: 02-19-2024 End: 02-19-2024 ambulatory NICOLECINTHYA AMANDA IMLAY Facility:[id number] Start: 02-19-2024 Patient encounter procedure [facility] Start: 02-18-2024 End: 02-18-2024 Telephone encounter Nicolecinthya Amanda Jadiel DIRECT SUPPORT STAFF.HOME THEATER EXPERIENCE EXPERT Work Phone: [facility] Start: 02-08-2024 End: 02-08-2024 Patient encounter procedure Nicloe Duvall DIRECT SUPPORT STAFF.HOME THEATER EXPERIENCE EXPERT Work Phone: [facility] Start: 02-08-2024 End: 02-08-2024 Telephone encounter Nicolecinthya Amanda Jadiel DIRECT SUPPORT STAFF.HOME THEATER EXPERIENCE EXPERT Work Phone: [facility] Internal Medicine Comment on above: Patient Question Start: 02-01-2024 End: 02-10-2024 Refill Nicolecinthya Amanda Jadiel DIRECT SUPPORT STAFF.HOME THEATER EXPERIENCE EXPERT Work Phone: [facility] Comment on above: Refill Request Start: 01-15-2024 End: 01-15-2024 ambulatory Nilam Cori Facility:[facility] Start: 01-07-2024 End: 01-07-2024 ambulatory Fernando Robert PT, DPT [facility] Physical Therapy Comment on above: Chronic bilateral lo w back pain with left-sided sciatica (Primary Dx) Start: 01-05-2024 End: 01-05-2024 ambulatory Fernando Martha Yajairaellino PT, DPT [facility] Comment on above: Chronic bilateral lo w back pain with left-sided sciatica (Primary Dx) Start: 12-31-2023 End: 12-31-2023 ambulatory Fernando M Rebellino PT, DPT [facility] Comment on above: Chronic bilateral lo w back pain with left-sided sciatica (Primary Dx) Start: 12-25-2023 End: 12-25-2023 ambulatory Fernando Thomas Yajairaellino PT, DPT [facility] Comment on above: Chronic bilateral lo w back pain with left-sided sciatica (Primary Dx) Start: 12-23-2023 End: 12-23-2023 ambulatory Fernando Thomas Yajairaellino PT, DPT [facility] Comment on above: Chronic bilateral lo w back pain with left-sided sciatica (Primary Dx) Start: 12-16-2023 End: 12-16-2023 ambulatory Fernandoanoop Gatesellino PT, DPT [facility] Comment on above: Chronic bilateral lo w back pain with left-sided sciatica (Primary Dx) Start: 12-14-2023 End: 12-14-2023 ambulatory Fernandoanoop Gatesellino PT, DPT [facility] Comment on above: Chronic bilateral lo w back pain with left-sided sciatica (Primary Dx) Start: 12-09-2023 End: 12-09-2023 ambulatory Fernando Gatesellino PT, DPT [facility] Comment on above: Chronic bilateral lo w back pain with left-sided sciatica (Primary Dx) Start: 12-03-2023 End: 12-31-2023 ambulatory Swapna Butler DO Work Phone: [facility] Start: 12-03-2023 End: 12-31-2023 Patient encounter procedure Swapna Butler DO Work Phone: [facility] Comment on above: Colonoscopy Procedur e Question Start: 11-30-2023 ambulatory NICOLECINTHYA Cortez lity:[phone] Start: 11-30-2023 End: 11-30-2023 Subsequent hospital visit by physician [facility] [address] Scan Comment on above: Mixed hyperlipidemia [E78.2] Start: 11-27-2023 End: 11-27-2023 ambulatory [facility] Facility:[facility] Start: 11-06-2023 Telephone encounter Alexis jefferson MD Work Phone: [facility] Comment on above: Internal Referrals/r esources Start: 11-05-2023 End: 11-05-2023 Office outpatient visit 15 minutes Nicole Duvall DIRECT SUPPORT STAFF.HOME THEATER EXPERIENCE EXPERT Work Phone: [facility] Internal Medicine Comment on above: Positive MICHELE (antinu clear antibody) (Primary Dx); Vitamin D deficiency; Mixed hyperlipidemia; Cervical spinal stenosis; Idiopathic peripheral neuropathy; Rash; Fatigue, unspecified type; Generalized anxiety disorder; Family history of colon cancer in father; Family history of heart disease; Encounter for screening for cardiovascular disorders Start: 11-05-2023 End: 11-05-2023 ambulatory NICOLE DUVALL Facility:[id number] Start: 11-05-2023 End: 11-05-2023 Office outpatient visit 25 minutes Alexis Jones MD Work Phone: [facility] Comment on above: Paresthesia of skin (Primary Dx); Carpal tunnel syndrome of right wrist; Chronic bilateral low back pain with left-sided sciatica Start: 11-05-2023 End: 11-05-2023 ambulatory ALEXIS ALEXANDERTINNIE Facility:[facility] Start: 11-03-2023 [facility][id number] Start: 11-03-2023 End: 11-03-2023 Subsequent hospital visit by physician [facility] Comment on above: Spinal stenosis of l umbar region, unspecified whether neurogenic claudication present [M48.061] Start: 11-03-2023 ambulatory ALEXIS ALEXANDERPIEDAD Facility :[id number] Start: 11-03-2023 End: 11-03-2023 Subsequent hospital visit by physician [facility] (Lg Bore/1.5t) [facility] MRI Comment on above: Spinal stenosis of l umbar region, unspecified whether neurogenic claudication present [M48.061] Cervical disc disord er with radiculopathy of mid-cervical region [M50.120] Start: 10-28-2023 End: 10-28-2023 Patient encounter procedure Nurse Deysi Dunbar Work Phone: [facility] Medicine Comment on above: Vitamin D deficiency ; Mixed hyperlipidemia Start: 10-28-2023 End: 10-28-2023 ambulatory NICOLE DUVALL Facility:[id number] Start: 10-26-2023 End: 10-26-2023 Patient encounter procedure Swapna Butler DO Work Phone: [facility] Comment on above: Adenomatous polyp of sigmoid colon (Primary Dx); Diverticulosis Start: 10-26-2023 End: 10-26-2023 ambulatory SWAPNA BUTLER Facility:[id number] Start: 10-07-2023 End: 10-07-2023 ambulatory ANABELL FARRELL Facility:[facility] Start: 10-01-2023 ambulatory [facility] Facility:[id number] Start: 10-01-2023 End: 10-01-2023 Subsequent hospital visit by physician Swapna Butler DO Work Phone: [facility] Comment on above: Family history of co jose cancer in father [Z80.0] Start: 09-29-2023 End: 09-29-2023 Office outpatient new 45 minutes Alexis Jones MD Work Phone: [facility] Comment on above: Neck pain (Primary D x); Cervical disc disorder with radiculopathy of mid-cervical region; Spinal stenosis of lumbar region, unspecified whether neurogenic claudication present Start: 09-28-2023 ambulatory Nicole juan DIRECT SUPPORT STAFF.HOME THEATER EXPERIENCE EXPERT Work Phone: [facility] Start: 09-28-2023 Patient encounter procedure Nicole Duvall DIRECT SUPPORT STAFF.HOME THEATER EXPERIENCE EXPERT Work Phone: [facility] Internal Medicine Comment on above: Request for patient records to be sent Start: 09-25-2023 ambulatory ALEXIS JONES Facility :[id number] Start: 09-25-2023 End: 09-25-2023 Subsequent hospital visit by physician [facility] Comment on above: Neck pain [M54.2] Start: 09-24-2023 Telephone encounter Alexis jefferson MD Work Phone: [facility] Start: 09-23-2023 ambulatory Nicole juan DIRECT SUPPORT STAFF.HOME THEATER EXPERIENCE EXPERT Work Phone: [facility] Start: 09-23-2023 Patient encounter procedure Nicole Duvall DIRECT SUPPORT STAFF.HOME THEATER EXPERIENCE EXPERT Work Phone: [facility] Internal Medicine Comment on above: Neurological Referra l Start: 09-23-2023 Telephone encounter Nicole Mims DIRECT SUPPORT STAFF.HOME THEATER EXPERIENCE EXPERT Work Phone: [facility] Internal Medicine Comment on above: Results Start: 09-23-2023 End: 09-23-2023 Subsequent hospital visit by physician [facility] (Lg Bore/1.5t) [facility] MRI Comment on above: Idiopathic periphera l neuropathy [G60.9] Start: 08-21-2023 Telephone encounter Nicole Mims DIRECT SUPPORT STAFF.HOME THEATER EXPERIENCE EXPERT Work Phone: [facility] Internal Medicine Comment on above: Results Start: 08-20-2023 End: 08-20-2023 ambulatory EMEKA SOL Facility:[facility] Start: 08-20-2023 End: 08-20-2023 ambulatory Emg 300) Work Phone: Neurology Start: 08-20-2023 End: 08-20-2023 Patient encounter procedure Emg 2 Neur [facility] [place] (Max Weight: 300) Work Phone: Neurology Start: 08-17-2023 End: 08-17-2023 Patient encounter procedure Swapna Butler DO Work Phone: [facility] Comment on above: Family history of co jose cancer in father (Primary Dx) Start: 08-17-2023 End: 08-17-2023 ambulatory SWAPNA BUTLER Facility:[id number] Start: 07-31-2023 ambulatory DAYNA LEAIRD [facility] Start: 07-30-2023 ambulatory DAYNA DESHPANDE [facility] Start: 07-30-2023 End: 07-30-2023 Office outpatient visit 15 minutes Nicole Duvall APRN.CNP Work Phone: [facility] Internal Medicine Comment on above: Positive MICHELE (antinu clear antibody) (Primary Dx); Rash; Mixed hyperlipidemia; Vitamin D deficiency; Fatigue, unspecified type; Generalized anxiety disorder; Idiopathic peripheral neuropathy; Family history of colon cancer in father Start: 07-15-2023 End: 07-15-2023 Patient encounter procedure Nurse Deysi Dunbar Work Phone: [facility] Internal Medicine Comment on above: Encounter for annual general medical examination with abnormal findings in adult; Mixed hyperlipidemia; Vitamin D deficiency; Fatigue, unspecified type; Rash Start: 07-13-2023 End: 07-13-2023 Patient encounter procedure Nicole Duvall APRN.CNP Work Phone: [facility] Work Phone: Start: 07-13-2023 End: 07-13-2023 Periodic preventive med est patient 18-39 yrs Nicole Duvall APRN.HOME THEATER EXPERIENCE EXPERT Work Phone: [facility] Internal Medicine Comment on above: Encounter for annual general medical examination with abnormal findings in adult (Primary Dx); Vitamin D deficiency; Fatigue, unspecified type; Rash; Generalized anxiety disorder; Mixed hyperlipidemia; Idiopathic peripheral neuropathy Start: 07-10-2023 Telephone encounter Mohsen Almazan APRN.HOME THEATER EXPERIENCE EXPERT Work Phone: [facility] Comment on above: Appointment Start: 07-09-2023 Telephone encounter Mohsen Almazan APRN.CNP Work Phone: [facility] Comment on above: Appointment Start: 07-08-2023 Telephone encounter Mohsen Almazan APRN.CNP Work Phone: [facility] Start: 10-20-2022 Telephone encounter Mohsen Almazan APRN.CNP Work Phone: [facility] Comment on above: Results (Labs) Start: 10-17-2022 ambulatory MOHSEN ALMAZAN Facility :[facility] Start: 10-17-2022 End: 10-17-2022 Subsequent hospital visit by physician Provider [facility] Start: 10-13-2022 End: 10-13-2022 ambulatory MOHSEN ALMAZAN Facility:[facility] Start: 10-13-2022 End: 10-13-2022 Patient encounter procedure Mohsen Almazan DIRECT SUPPORT STAFF.HOME THEATER EXPERIENCE EXPERT Work Phone: [facility] Comment on above: Fatigue, unspecified type (Primary Dx); Weight increase; Vitamin D deficiency; Screening for cardiovascular condition; Obesity, Class I, BMI 30-34.9 Start: 12-11-2021 ambulatory Thom no DIRECT SUPPORT STAFF.HOME THEATER EXPERIENCE EXPERT Work Phone: [facility] Comment on above: Rash Start: 11-21-2021 End: 11-21-2021 Patient encounter procedure Thom Villalba DIRECT SUPPORT STAFF.HOME THEATER EXPERIENCE EXPERT Work Phone: [facility] Comment on above: Dermatitis (Primary Dx) Start: 10-30-2021 ambulatory Thom no DIRECT SUPPORT STAFF.HOME THEATER EXPERIENCE EXPERT Work Phone: [facility] Comment on above: More, worsening rash es Start: 10-18-2021 Telephone encounter Thom duran DIRECT SUPPORT STAFF.HOME THEATER EXPERIENCE EXPERT Work Phone: [facility] Comment on above: Results Start: 10-17-2021 End: 10-17-2021 Patient encounter procedure Thom Villalba DIRECT SUPPORT STAFF.HOME THEATER EXPERIENCE EXPERT Work Phone: [facility] Comment on above: Tinea corporis (Prim santosh Dx) Start: 10-01-2021 E-mail encounter fro m caregiver Thom Villalba APRN.HOME THEATER EXPERIENCE EXPERT Work Phone: [facility] Start: 10-01-2021 Patient encounter procedure Thom Villalba DIRECT SUPPORT STAFF.HOME THEATER EXPERIENCE EXPERT Work Phone: [facility] Comment on above: Appointment Request Start: 10-31-2016 End: 10-31-2016 Emergency department patient visit [facility] Facility:[facility] Start: 10-22-2016 Ambulatory MARGARETTE OLIVO Fac ility:[facility] Procedures Date Procedure Procedure Detail Performing Clinician Start: 08-05-2024 Adult depression scr eening assessment Nicole Duvall APRN.HOME THEATER EXPERIENCE EXPERT Work Phone: Start: 11-30-2023 Ct heart no contrast quant eval coronry calcium Nicole Duvall DIRECT SUPPORT STAFF.HOME THEATER EXPERIENCE EXPERT Work Phone: Start: 11-03-2023 Mri spinal canal lum bar w/o contrast material Alexis Jones MD Work Phone: Start: 10-28-2023 25 hydroxy includes fractions if performed Nicole Duvall DIRECT SUPPORT STAFF.HOME THEATER EXPERIENCE EXPERT Work Phone: Start: 10-28-2023 Lipid panel Nicole Mims DIRECT SUPPORT STAFF.HOME THEATER EXPERIENCE EXPERT Work Phone: Start: 10-01-2023 Colonoscopy flx dx w /collj spec when pfrmd Swapna Butler DO Work Phone: Start: 10-01-2023 Urine test visual color cmprsn meths Enoc Siddiqui PA-C Work Phone: Start: 09-23-2023 Mri spinal canal cer vical w/o contrast matrl Nicole Duvall DIRECT SUPPORT STAFF.HOME THEATER EXPERIENCE EXPERT Work Phone: Start: 08-20-2023 Nerve conduction howard dies 5-6 studies Nicole Duvall DIRECT SUPPORT STAFF.HOME THEATER EXPERIENCE EXPERT Work Phone: Start: 07-30-2023 Adult depression scr eening assessment Ct 1 Start: 10-17-2022 CBC + DIFF Mohsen Almazan DIRECT SUPPORT STAFF.HOME THEATER EXPERIENCE EXPERT Work Phone: Start: 10-17-2022 Comprehensive metabo lic 2000 panel - Serum or Plasma Mohsen Almazan DIRECT SUPPORT STAFF.HOME THEATER EXPERIENCE EXPERT Work Phone: Start: 10-17-2022 LIPID PANEL BASIC Mohsen Almazan DIRECT SUPPORT STAFF.HOME THEATER EXPERIENCE EXPERT Work Phone: Start: 10-17-2022 T4 FREE/FREE THYROX Madeline Almazan DIRECT SUPPORT STAFF.HOME THEATER EXPERIENCE EXPERT Work Phone: Start: 10-17-2022 TSH BLD Mohsen Almazan DIRECT SUPPORT STAFF.HOME THEATER EXPERIENCE EXPERT Work Phone: Start: 10-17-2022 VITAMIN D 25 HYDROXY Ly nnjake Almazan DIRECT SUPPORT STAFF.HOME THEATER EXPERIENCE EXPERT Work Phone: Start: 09-07-2020 Adult depression scr eening assessment Thom Villalba DIRECT SUPPORT STAFF.HOME THEATER EXPERIENCE EXPERT Work Phone: Plan of Treatment Date Care Activity Detail Author Start: 08-18-2025 End: 08-18-2025 Patient encounter procedure 08/18/2025 8:40 AM EDT Office Visit [facility] Internal Medicine [address] [place] [phone] Nicole Duvall DIRECT SUPPORT STAFF.[address] [id number] physical labs at [facility] Internal Medicine Comment on above: physical labs at [facility] Start: 08-05-2025 End: 11-04-2025 25-hydroxyvitamin D3 [Mass/volume] in Serum or Plasma VITAMIN D 25 HYDROXY Lab Routine Vitamin D deficiency Expected: 08/05/2025, Expires: 11/04/2025 [facility] Comment on above: Expected: 08/05/2025, Expires: Start: 08-05-2025 Anxiety Screening Anxiety Screening [facility] Start: 08-05-2025 End: 11-04-2025 CBC panel - Blood by Automated count COMPLETE BLOOD COUNT Lab Routine Encounter for annual general medical examination without abnormal findings in adult Expected: 08/05/2025, Expires: 11/04/2025 [facility] Comment on above: Expected: 08/05/2025, Expires: Start: 08-05-2025 End: 11-04-2025 Comprehensive metabolic 2000 panel - Serum or Plasma COMPREHENSIVE METABOLIC PANEL Lab Routine Encounter for annual general medical examination without abnormal findings in adult Expected: 08/05/2025, Expires: 11/04/2025 [facility] Work Phone: Comment on above: Expected: 08/05/2025, Expires: Start: 08-05-[address]25 Depression Scre[address] Depression Screening [facility] Start: 08-05-2025 End: 11-04-2025 Lipid 1996 panel - Serum or Plasma LIPID PANEL, FASTING Lab Routine Mixed hyperlipidemia Expected: 08/05/2025, Expires: 11/04/2025 [facility] Comment on above: Expected: 08/05/2025, Expires: Start: 08-05-2025 End: 11-04-2025 Thyrotropin [Units/volume] in Serum or Plasma THYROID STIMULATING HORMONE Lab Routine Encounter for annual general medical examination without abnormal findings in adult Expected: 08/05/2025, Expires: 11/04/2025 [facility] Comment on above: Expected: 08/05/2025, Expires: Start: 12-19-2024 Influenza vaccination Influenza Vaccine (Season Ended) [facility] Start: 11-25-2024 End: 11-25-2024 Follow-up encounter 11/25/2024 4:15 PM EDT [facility] [address] [place], [place] [id number] Ward Herrera APRN.HOME THEATER EXPERIENCE EXPERT [address] [place] [address] follow up [facility] Comment on above: follow up Start: 11-11-2024 End: 11-11-2024 ambulatory 11/11/2024 7:30 AM EDT Procedure [facility] [address] [facility] [address] [place], [place] [id number] Riya Kinney MD, PhD [address] [place], [place] [id number] Bilateral S1 TFESI under fluro, No restrictions [facility] Comment on above: Bilateral S1 TFESI under fluro, No restr ictions Start: 10-17-2024 Influenza vaccination Influenza Vaccine (#1) [facility] Comment on above: Postponed from 12/20/2023 (Declined at t his time) Start: 09-27-2024 End: 09-27-2024 Follow-up encounter 09/27/2024 4:00 PM EDT [facility] [address] [place] [address] Ward Herrera APRN.HOME THEATER EXPERIENCE EXPERT [address] [facility] [place], [place] [id number] [facility] follow up [facility] Comment on above: [facility] follow up Start: 09-01-2024 End: 09-01-2024 Follow-up encounter 09/01/2024 11:45 AM EDT [facility] [address] [place], [place] [address] Ragini Leung APRN.HOME THEATER EXPERIENCE EXPERT [address] [place], [place] [id number] [facility] follow up [facility] Comment on above: [facility] follow up Start: 08-21-2024 End: 11-20-2024 CBC panel - Blood by Automated count COMPLETE BLOOD COUNT Lab Routine Routine general medical examination at a health care facility Expected: 08/21/2024, Expires: 11/20/2024 [facility] Comment on above: Expected: 08/21/2024, Expires: Start: 08-21-2024 End: 11-20-2024 Comprehensive metabolic 2000 panel - Serum or Plasma COMPREHENSIVE METABOLIC PANEL Lab Routine Routine general medical examination at a health care facility Expected: 08/21/2024, Expires: 11/20/2024 [facility] Work Phone: Comment on above: Expected: 08/21/2024, Expires: Start: 08-21-2024 End: 11-20-2024 Lipid 1996 panel - Serum or Plasma LIPID PANEL BASIC Lab Routine Mixed hyperlipidemia Expected: 08/21/2024, Expires: 11/20/2024 [facility] Comment on above: Expected: 08/21/2024, Expires: Start: 08-21-2024 End: 11-20-2024 Thyrotropin [Units/volume] in Serum or Plasma THYROID STIMULATING HORMONE Lab Routine Generalized anxiety disorder Expected: 08/21/2024, Expires: 11/20/2024 [facility] Comment on above: Expected: 08/21/2024, Expires: Start: 08-16-2024 End: 08-16-2024 ambulatory [facility] Comment on above: ILESI w fluoro at L5-S1; no restrictions AUTH GOOD (TB) 08/16 - 02/12/2025 --ILESI w fluoro at L5-S1; no restrictions Start: 08-05-2024 End: 08-05-2024 Patient encounter procedure 08/05/2024 1:20 PM EDT Office Visit [facility] [address] [place] [phone] Nicole Duvall, DIRECT SUPPORT STAFF.[address] [address] physical [facility] Comment on above: physical Start: 08-02-2024 End: 08-02-2024 ambulatory 08/02/2024 9:45 AM EDT Results Only [facility] [address] [place] [address] [facility] Start: 08-01-2024 End: 10-31-2024 CBC panel - Blood by Automated count COMPLETE BLOOD COUNT Lab Routine Positive MICHELE (antinuclear antibody) Expected: 08/01/2024 (Approximate), Expires: 10/31/2024 [facility] Comment on above: Expected: 08/01/2024 (Approximate), Expi res: 10/31/2024 Start: 08-01-2024 End: 10-31-2024 Comprehensive metabolic 2000 panel - Serum or Plasma COMPREHENSIVE METABOLIC PANEL Lab Routine Mixed hyperlipidemia Expected: 08/01/2024 (Approximate), Expires: 10/31/2024 [facility] Comment on above: Expected: 08/01/2024 (Approximate), Expi res: 10/31/2024 Start: 08-01-2024 End: 10-31-2024 Lipid 1996 panel - Serum or Plasma LIPID PANEL, FASTING Lab Routine Mixed hyperlipidemia Expected: 08/01/2024 (Approximate), Expires: 10/31/2024 [facility] Comment on above: Expected: 08/01/2024 (Approximate), Expi res: 10/31/2024 Start: 08-01-2024 End: 10-31-2024 Thyrotropin [Units/volume] in Serum or Plasma THYROID STIMULATING HORMONE Lab Routine Generalized anxiety disorder Expected: 08/01/2024 (Approximate), Expires: 10/31/2024 [facility] Work Phone: Comment on above: Expected: 08/01/2024 (Approximate), Expi res: 10/31/2024 Start: 07-29-2024 Anxiety Screening Anxiety Screening [facility] Start: 07-29-2024 Depression Screening Depression Screening [facility] Start: 07-12-2024 Covid-19 Vaccine () Covid-19 Vaccine () [facility] Comment on above: Postponed from 12/19/2022 (Declined at t his time) Start: 02-22-2024 End: 02-22-2024 Patient encounter procedure 02/22/2024 3:00 PM EST Office Visit [facility] [address] [place] [phone] Nicole Duvall, DIRECT SUPPORT STAFF.[facility] [address] [address] 3 month follow up [facility] Comment on above: 3 month follow up Start: 02-08-2024 End: 05-09-2024 CBC panel - Blood by Automated count COMPLETE BLOOD COUNT Lab Routine Encounter for annual general medical examination with abnormal findings in adult Expected: 02/08/2024, Expires: 05/09/2024 [facility] Comment on above: Expected: 02/08/2024, Expires: Start: 02-08-2024 End: 05-09-2024 Comprehensive metabolic 2000 panel - Serum or Plasma COMPREHENSIVE METABOLIC PANEL Lab Routine Encounter for annual general medical examination with abnormal findings in adult Expected: 02/08/2024, Expires: 05/09/2024 [facility] Work Phone: Comment on above: Expected: 02/08/2024, Expires: Start: 02-08-2024 End: 05-09-2024 Lipid 1996 panel - Serum or Plasma LIPID PANEL BASIC Lab Routine Mixed hyperlipidemia Expected: 02/08/2024, Expires: 05/09/2024 [facility] Comment on above: Expected: 02/08/2024, Expires: Start: 02-08-2024 End: 05-09-2024 Thyrotropin [Units/volume] in Serum or Plasma THYROID STIMULATING HORMONE Lab Routine Encounter for annual general medical examination with abnormal findings in adult Expected: 02/08/2024, Expires: 05/09/2024 [facility] Comment on above: Expected: 02/08/2024, Expires: Start: 02-05-2024 End: 05-06-2024 Hepatic function 2000 panel - Serum or Plasma HEPATIC FUNCTION PNL Lab Routine Mixed hyperlipidemia Expected: 02/05/2024, Expires: 05/06/2024 [facility] Work Phone: Comment on above: Expected: 02/05/2024, Expires: Start: 02-05-2024 End: 05-06-2024 Lipid 1996 panel - Serum or Plasma LIPID PANEL BASIC Lab Routine Mixed hyperlipidemia Expected: 02/05/2024, Expires: 05/06/2024 [facility] Comment on above: Expected: 02/05/2024, Expires: Start: 02-02-2024 End: 02-02-2024 Patient encounter procedure 02/02/2024 8:30 AM EDT Office Visit [facility] [address] [place], [place] [address] [phone] Nicole Duvall, DIRECT SUPPORT STAFF.[place] [address] [place] [address] 3 month follow up [facility] Comment on above: 3 month follow up Start: 01-26-2024 End: 01-26-2024 Patient encounter procedure 01/26/2024 8:15 AM EDT Office Visit [facility] [address] [place] [phone] labs [facility] Comment on above: labs Start: 01-14-2024 End: 01-14-2024 ambulatory 01/14/2024 3:15 PM EDT OT/PT/Speech Visit [facility] [address] [place] [address] Fernando Robert, PT, DPT Build core strength to help manage pain [facility] Comment on above: Build core strength to help manage pain Start: 01-12-2024 End: 01-12-2024 ambulatory 01/12/2024 8:15 AM EDT OT/PT/Speech Visit [facility] [address] [place] [address] Fernando Robert, PT, DPT Build core strength to help manage pain [facility] Comment on above: Build core strength to help manage pain Start: 01-07-2024 End: 01-07-2024 ambulatory 01/07/2024 3:15 PM EDT OT/PT/Speech Visit [facility] [address] [place] [address] Fernando Robert, PT, DPT Build core strength to help manage pain [facility] Comment on above: Build core strength to help manage pain Start: 01-05-2024 End: 01-05-2024 ambulatory 01/05/2024 8:15 AM EDT OT/PT/Speech Visit [facility] [address] [place] [address] Fernando Robert, PT, DPT Build core strength to help manage pain [facility] Comment on above: Build core strength to help manage pain Start: 12-31-2023 End: 12-31-2023 ambulatory 12/31/2023 3:15 PM EDT OT/PT/Speech Visit [facility] [address] [place] [address] Fernando Robert, PT, DPT Build core strength to help manage pain [facility] Comment on above: Build core strength to help manage pain Start: 12-29-2023 End: 12-29-2023 ambulatory 12/29/2023 8:15 AM EDT OT/PT/Speech Visit [facility] [address] [place] [address] Fernando Robert, PT, DPT Build core strength to help manage pain [facility] Comment on above: Build core strength to help manage pain Start: 12-25-2023 End: 12-25-2023 ambulatory 12/25/2023 3:15 PM EDT OT/PT/Speech Visit [facility] [address] [place] [address] Fernando Robert, PT, DPT Build core strength to help manage pain [facility] Comment on above: Build core strength to help manage pain Start: 12-23-2023 End: 12-23-2023 ambulatory 12/23/2023 8:15 AM EDT OT/PT/Speech Visit [facility] [address] [place] [address] Fernando Robert, PT, DPT Build core strength to help manage pain [facility] Comment on above: Build core strength to help manage pain Start: 12-20-2023 Covid-19 Vaccine ( season) Covid-19 Vaccine () [facility] Start: 12-20-2023 Covid-19 Vaccine ( season) Covid-19 Vaccine ( season) [facility] Start: 12-20-[address] [facility] Start: 12-16-2023 End: 12-16-2023 ambulatory 12/16/2023 2:30 PM EDT OT/PT/Speech Visit [facility] [address] [place] [address] Fernando Robert, PT, DPT Build core strength to help manage pain [facility] Comment on above: Build core strength to help manage pain Start: 12-14-2023 End: 12-14-2023 ambulatory 12/14/2023 9:30 AM EDT OT/PT/Speech Visit [facility] [address] [place] [address] Fernando Robert, PT, DPT Build core strength to help manage pain [facility] Comment on above: Build core strength to help manage pain Start: 12-09-2023 End: 12-09-2023 ambulatory 12/09/2023 7:30 AM EDT OT/PT/Speech Visit [facility] [address] [place] [address] Fernando Robert, PT, DPT Build core strength to help manage pain [facility] Comment on above: Build core strength to help manage pain Start: 11-05-2023 End: 11-05-2023 Patient encounter procedure 11/05/2023 3:15 PM EDT Office Visit [facility] [address] [place] [phone] Nicole Duvall, DIRECT SUPPORT STAFF.[address] [address] 3 month follow up [facility] Comment on above: 3 month follow up Start: 11-05-2023 End: 11-05-2023 Patient encounter procedure 11/05/2023 8:15 AM EDT [address] [place] [phone] Alexis Jones MD [address] [place] [address] follow up after imaging [facility] Comment on above: follow up after imaging Start: 11-03-2023 End: 11-03-2023 Patient encounter procedure [facility] MRI Comment on above: Lumbar cervica; Start: 10-29-2023 End: 01-28-2024 25-hydroxyvitamin D3 [Mass/volume] in Serum or Plasma VITAMIN D 25 HYDROXY Lab Routine Vitamin D deficiency Expected: 10/29/2023, Expires: 01/28/2024 [facility] Work Phone: Comment on above: Expected: 10/29/2023, Expires: Start: 10-29-2023 End: 01-28-2024 Lipid 1996 panel - Serum or Plasma LIPID PANEL BASIC Lab Routine Mixed hyperlipidemia Expected: 10/29/2023, Expires: 01/28/2024 [facility] Work Phone: Comment on above: Expected: 10/29/2023, Expires: Start: 10-28-2023 End: 10-28-2023 Patient encounter procedure 10/28/2023 8:15 AM EDT Office Visit [facility] [address] [place] [address] [place] [phone] fasting labs [facility] Comment on above: fasting labs Start: 10-26-2023 End: 10-26-2023 Patient encounter procedure 10/26/2023 3:15 PM EDT Office Visit [facility] [address] [place] [phone] Swapna Butler DO [address] [place], [place] [phone] colonoscopy 09/30 [facility] Comment on above: colonoscopy 09/30 Start: 10-18-2023 Influenza vaccination Influenza Vaccine (#1) [facility] Comment on above: Postponed from 12/19/2022 (Declined at t his time) Start: 10-01-2023 End: 10-01-2023 Patient encounter procedure [facility] Start: 09-29-2023 End: 09-29-2023 Patient encounter procedure 09/29/2023 8:45 AM EDT Office Visit [address] [facility] [phone] Alexis Jones MD [address] [place] [address] [place] [address] Cervical. MRI in [facility] Comment on above: Cervical. MRI in [facility] Start: 09-23-2023 End: 09-23-2023 Patient encounter procedure 09/23/2023 7:40 AM EDT Appointment [facility] MRI [address] [facility] [place] [address] Idiopathic peripheral neuropathy [G60.9] [facility] MRI Comment on above: Idiopathic peripheral neuropathy [G60.9] Start: 08-20-2023 End: 08-20-2023 ambulatory 08/20/2023 3:20 PM EDT Procedure Neurology [address] [place], [place] [id number] [facility] Comment on above: r R [facility] Start: 07-14-2023 End: 10-13-2023 25-hydroxyvitamin D3 [Mass/volume] in Serum or Plasma VITAMIN D 25 HYDROXY Lab Routine Vitamin D deficiency Expected: 07/14/2023, Expires: 10/13/2023 [facility] Work Phone: Comment on above: Expected: 07/14/2023, Expires: Start: 07-14-2023 End: 10-13-2023 MICHELE BY IFA WITH REFLEX MICHELE BY IFA WITH REFLEX Lab Routine Fatigue, unspecified type Rash Expected: 07/14/2023, Expires: 10/13/2023 [facility] Work Phone: Comment on above: Expected: 07/14/2023, Expires: 4 Start: 07-14-2023 End: 10-13-2023 CBC panel - Blood by Automated count CBC Lab Routine Encounter for annual general medical examination with abnormal findings in adult Expected: 07/14/2023, Expires: 10/13/2023 [facility] Work Phone: Comment on above: Expected: 07/14/2023, Expires: Start: 07-14-2023 End: 10-13-2023 Comprehensive metabolic 2000 panel - Serum or Plasma COMP METABOLIC PANEL Lab Routine Encounter for annual general medical examination with abnormal findings in adult Expected: 07/14/2023, Expires: 10/13/2023 [facility] Work Phone: Comment on above: Expected: 07/14/2023, Expires: Start: 07-14-2023 End: 10-13-2023 Lipid 1996 panel - Serum or Plasma LIPID PANEL BASIC Lab Routine Mixed hyperlipidemia Expected: 07/14/2023, Expires: 10/13/2023 [facility] Work Phone: Comment on above: Expected: 07/14/2023, Expires: Start: 07-14-2023 End: 10-13-2023 THYROID PEROXIDASE ANTIBODY BLOOD THYROID PEROXIDASE ANTIBODY BLOOD Lab Routine Fatigue, unspecified type Expected: 07/14/2023, Expires: 10/13/2023 [facility] Work Phone: Comment on above: Expected: 07/14/2023, Expires: Start: 07-14-2023 End: 10-13-2023 Thyrotropin [Units/volume] in Serum or Plasma TSH BLD Lab Routine Fatigue, unspecified type Expected: 07/14/2023, Expires: 10/13/2023 [facility] Work Phone: Comment on above: Expected: 07/14/2023, Expires: Start: 07-14-2023 End: 10-13-2023 Thyroxine (T4) free [Mass/volume] in Serum or Plasma T4 FREE/FREE THYROX Lab Routine Fatigue, unspecified type Expected: 07/14/2023, Expires: 10/13/2023 [facility] Work Phone: Comment on above: Expected: 07/14/2023, Expires: Start: 07-14-2023 End: 10-13-2023 Triiodothyronine (T3) Free [Mass/volume] in Serum or Plasma T3 FREE BLD Lab Routine Fatigue, unspecified type Expected: 07/14/2023, Expires: 10/13/2023 [facility] Work Phone: Comment on above: Expected: 07/14/2023, Expires: 4 Start: 04-20-2023 Depression Assessment Depression Assessment [facility] Start: 12-19-2022 Covid-19 Vaccine () Covid-19 Vaccine () [facility] Start: 12-19-[address] [facility] Start: 10-13-2022 End: 12-13-2022 25-hydroxyvitamin D3 [Mass/volume] in Serum or Plasma VITAMIN D 25 HYDROXY Lab Routine Vitamin D deficiency Expected: 10/13/2022, Expires: 12/13/2022 [facility] Work Phone: Comment on above: Expected: 10/13/2022, Expires: 3 Start: 10-13-2022 End: 12-13-2022 CBC panel - Blood by Automated count CBC Lab Routine Fatigue, unspecified type Weight increase Expected: 10/13/2022, Expires: 12/13/2022 [facility] Work Phone: Comment on above: Expected: 10/13/2022, Expires: Start: 10-13-2022 End: 12-13-2022 Comprehensive metabolic 2000 panel - Serum or Plasma COMP METABOLIC PANEL Lab Routine Fatigue, unspecified type Weight increase Expected: 10/13/2022, Expires: 12/13/2022 [facility] Work Phone: Comment on above: Expected: 10/13/2022, Expires: 3 Start: 10-13-2022 End: 12-13-2022 Lipid 1996 panel - Serum or Plasma LIPID PANEL BASIC Lab Routine Screening for cardiovascular condition Expected: 10/13/2022, Expires: 12/13/2022 [facility] Work Phone: Comment on above: Expected: 10/13/2022, Expires: Start: 10-13-2022 End: 12-13-2022 Thyrotropin [Units/volume] in Serum or Plasma TSH BLD Lab Routine Fatigue, unspecified type Weight increase Expected: 10/13/2022, Expires: 12/13/2022 [facility] Work Phone: Comment on above: Expected: 10/13/2022, Expires: 3 Start: 10-13-2022 End: 12-13-2022 Thyroxine (T4) free [Mass/volume] in Serum or Plasma T4 FREE/FREE THYROX Lab Routine Fatigue, unspecified type Weight increase Expected: 10/13/2022, Expires: 12/13/2022 [facility] Work Phone: Comment on above: Expected: 10/13/2022, Expires: 3 Start: 04-20-2022 DEPRESSION ASSESSMENT DEPRESSION ASSESSMENT [facility] Start: 12-19-[address] [facility] Start: 10-17-2021 End: 12-17-2021 25-hydroxyvitamin D3 [Mass/volume] in Serum or Plasma VITAMIN D 25 HYDROXY Lab Routine Expected: 10/17/2021, Expires: 12/17/2021 [facility] Work Phone: Comment on above: Expected: 10/17/2021, Expires: 2 Start: 10-17-2021 End: 12-17-2021 CBC W Auto Differential panel - Blood CBC + DIFF Lab Routine Expected: 10/17/2021, Expires: 12/17/2021 [facility] Work Phone: Comment on above: Expected: 10/17/2021, Expires: 2 Start: 10-17-2021 End: 12-17-2021 Comprehensive metabolic 2000 panel - Serum or Plasma COMP METABOLIC PANEL Lab Routine Expected: 10/17/2021, Expires: 12/17/2021 [facility] Work Phone: Comment on above: Expected: 10/17/2021, Expires: 2 Start: 10-17-2021 End: 12-17-2021 Thyrotropin [Units/volume] in Serum or Plasma TSH BLD Lab Routine Expected: 10/17/2021, Expires: 12/17/2021 [facility] Work Phone: Comment on above: Expected: 10/17/2021, Expires: 2 Start: 09-07-2021 Adult depression screening assessment DEPRESSION SCREENING [facility] Start: 2016 HPV TESTING HPV TESTING [facility] Start: 2016 Screening for malignant neoplasm of cervix HPV Testing [facility] Start: 12-13-2015 Hepatitis B Vaccine (3 of 3 - 19+ 3-dose series) Hepatitis B Vaccine (3 of 3 - 19+ 3-dose series) [facility] Start: 07-24-2007 PAP TESTING PAP TESTING [facility] Start: 07-24-2007 Screening for malignant neoplasm of cervix [facility] Start: 2005 Pneumococcal vaccination Pneumococcal Vaccine (1 of 2 - PCV) [facility] Start: 2005 Shingrix Vaccine (1 of 2) Shingrix Vaccine (1 of 2) [facility] Start: [address] [facility] Start: 2004 HEPATITIS C SCREENING HEPATITIS C SCREENING [facility] Start: 2004 Hepatitis C screening Hepatitis C Screening [facility] Start: 2004 HIV SCREENING HIV SCREENING [facility] Start: 2004 HIV screening HIV Screening [facility] Start: 1997 Screening for malignant neoplasm of cervix Cervical Cancer Screening [facility] Start: 1992 Pneumococcal vaccination Pneumococcal Vaccine (1 of 2 - PCV) [facility] Start: 07-24-1991 COVID-19 VACCINE (#1) COVID-19 VACCINE (#1) [facility] Start: 01-22-1987 COVID-19 VACCINE (#1) COVID-19 VACCINE (#1) [facility] Start: 1986 HEPATITIS B (1 of 3 - 3-dose series) HEPATITIS B (1 of 3 - 3-dose series) [facility] Start: 1986 Hepatitis B Vaccine (1 of 3 - 3-dose series) Hepatitis B Vaccine (1 of 3 - 3-dose series) [facility] End: 12-04-2024 CT Heart and Coronary arteries for calcium scoring WO contrast CT CALCIUM SCORING (CARDIAC) WO IVCON Radiology Routine Mixed hyperlipidemia Family history of heart disease Encounter for screening for cardiovascular disorders 1 Occurrences starting 11/05/2023 until 12/04/2024 [facility] Comment on above: 1 Occurrences starting 11/05/2023 until 12/04/2024 End: 07-12-2024 EMG(NEURO/NI) EMG(NEURO/NI) EMG Routine Idiopathic peripheral neuropathy 1 Occurrences starting 07/13/2023 until 07/12/2024 [facility] Work Phone: Comment on above: 1 Occurrences starting 07/13/2023 until 07/12/2024 End: 10-28-2024 MR Cervical spine WO and W contrast IV MRI CERVICAL SPINE WO/W IVCON Radiology Routine Cervical disc disorder with radiculopathy of mid-cervical region 1 Occurrences starting 09/29/2023 until 10/28/2024 [facility] Comment on above: 1 Occurrences starting 09/29/2023 until 10/28/2024 End: 09-22-2024 MR Cervical spine WO contrast MRI CERVICAL SPINE WO IVCON Radiology Routine Idiopathic peripheral neuropathy Abnormal EMG 1 Occurrences starting 08/24/2023 until 09/22/2024 [facility] Work Phone: Comment on above: 1 Occurrences starting 08/24/2023 until 09/22/2024 End: 10-28-2024 MR Lumbar spine WO contrast MRI LUMBAR SPINE WO IVCON Radiology Routine Spinal stenosis of lumbar region, unspecified whether neurogenic claudication present 1 Occurrences starting 09/29/2023 until 10/28/2024 [facility] Comment on above: 1 Occurrences starting 09/29/2023 until 10/28/2024 Njx dx/ther sbst int rlmnr lmbr/sac w/img gdn EPI LUMBAR OR SACRAL W/IMAGING Procedures Routine Spinal stenosis, lumbar region with neurogenic claudication Ordered: 08/16/2024 [facility] Work Phone: Comment on above: Ordered: 08/16/2024 End: 08-16-2024 Screening colonoscopy COLONOSCOPY SCREENING Endoscopy Routine Family history of colon cancer in father 1 Occurrences starting 08/17/2023 until 08/16/2024 [facility] Work Phone: Comment on above: 1 Occurrences starting 08/17/2023 until 08/16/2024 SURGICAL PATHOLOGY SURGICAL PATH OLOGY Lab Routine Encounter for screening for malignant neoplasm of colon Family history of colon cancer in father Release Upon Ordering for 1 Occurrences starting 10/01/2023 [facility] Work Phone: Comment on above: Release Upon Ordering for 1 Occurrences starting 10/01/2023 XR CERV OTHER 4V AP/LAT/FLX/EXT XR CERV OTHER 4V AP/LAT/FLX/EXT Radiology Routine Neck pain 09/25/2023 4:58 PM EDT [facility] Work Phone: End: 10-23-2024 XR CERV OTHER 4V AP/LAT/FLX/EXT XR CERV OTHER 4V AP/LAT/FLX/EXT Radiology Routine Neck pain 1 Occurrences starting 09/24/2023 until 10/23/2024 [facility] Work Phone: Comment on above: 1 Occurrences starting 09/24/2023 until 10/23/2024 End: 10-28-2024 XR Lumbar spine Views W flexion and W extension XR LUMBAR MOTION 4V AP/LAT/ FLEX/EXT Radiology Routine Spinal stenosis of lumbar region, unspecified whether neurogenic claudication present 1 Occurrences starting 09/29/2023 until 10/28/2024 [facility] Comment on above: 1 Occurrences starting 09/29/2023 until 10/28/2024 XR Lumbar spine View s W flexion and W extension XR LUMBAR MOTION 4V AP/LAT/ FLEX/EXT Radiology Routine Spinal stenosis of lumbar region, unspecified whether neurogenic claudication present 11/03/2023 10:35 AM EDT [facility] Work Phone: [facility] Immunizations Immunization Date Immunization Notes Care Provider Rikki suárez 01-21-2019 influenza, injectabl e, quadrivalent, preservative free Thom Villalba APRN.ZACH Work Phone: [facility] 01-21-2019 influenza virus vacc ine, unspecified formulation Provider [facility] Payers Date Payer Category Payer Self-pay 2022 Unknown [id number] 2021 Private Health Insurance [id number] 2021 Unknown [employer]FIRST AMFIRST 2ND [id number] 2021-Present [phone] [address] [place] [address] Indemnity [id number] 2021 Unknown [id number] 2021 Unknown [id number] 2020 Unknown [id number] 2016 Unknown [id number] Unknown [id number] Unknown [id number] Unknown [id number] Unknown [id number] Unknown [id number] 462 Unknown [id number] 462 Unknown [id number] Social History Date Type Detail Facility Start: 2018 End: 10-13-2022 Tobacco smoking status NHIS Never smoked tobacco [facility] Start: 2018 End: 10-13-2022 Tobacco use and exposure Smokeless tobacco non-user [facility] Start: 09-07-2020 End: 11-05-2023 Alcohol intake Current drinker of alcohol (finding) [facility] Start: 2018 History SDOH Alcohol Comment Couple times monthly beer/wine [facility] Start: 1985 Sex Assigned At Not on file [facility] Start: 10-07-2021 End: 11-21-2021 Exposure to SARS-CoV-2 (event) Not sure [facility] Start: 1985 Sex Assigned At Female [facility] Start: 10-13-2022 End: 07-07-2024 History of Social function [facility] Start: 10-13-2022 End: 07-07-[address] [facility] Adult Depression Screening Assessment [address] [facility] Start: 10-06-2022 Gender identity Identifies as female gender (finding) [facility] Start: 10-06-2022 Sexual orientation Heterosexual (paulo buckley) [facility] How often to you hav e a drink containing alcohol? 2-[address] [facility] How many standard drinks containing alcohol do you have on a typical day? [address] [facility] How often do you hav e 6 or more drinks on 1 occasion? Less than monthly [facility] In the past 12 month s, was there a time when you were not able to pay the mortgage or rent on time? No [facility] Start: 03-10-2024 End: 09-27-2024 Alcoholic beverage intake Ex-drinker (finding) [facility] Tobacco smoking stat us NHIS Unknown if ever smoked [facility] Work Phone: Start: 07-14-2024 Sex Female (finding) [facility] Are you now , , , , never or living with a partner? [facility] How often to you hav e a drink containing alcohol? Never [facility] Do you feel stress - tense, restless, nervous, or anxious, or unable to sleep at night because your mind is troubled all the time - these days [OSQ] Only a little [facility] (I/We) worried wheth er (my/our) food would run out before (I/we) got money to buy more. Never true [facility] Functional Status Date Assessment Result Facility 08-05-2024 Total score [AUDIT-C] 0 08/06/19 25 7:56 AM EDT User, Kait [facility] 08-05-2024 Within the last year , have you been humiliated or emotionally abused in other ways by your partner or ex-partner? No 08/05/2024 7:56 AM EDT UserMarinot No [facility] 08-05-2024 Within the last year , have you been afraid of your partner or ex-partner? No 08/05/2024 7:56 AM EDT UserMarinot No [facility] 08-05-2024 Within the last year , have you been raped or forced to have any kind of sexual activity by your partner or ex-partner? No 08/05/2024 7:56 AM EDT User, Marinot No [facility] 08-05-2024 Within the last year , have you been kicked, hit, slapped, or otherwise physically hurt by your partner or ex-partner? No 08/05/2024 7:56 AM EDT User, Marinot No [facility] 08-05-2024 How often to you hav e a drink containing alcohol? Never 08/05/2024 7:56 AM EDT User, Marinot Never [facility] 08-05-2024 Functional status Patient does n ot drink 08/05/2024 7:56 AM EDT User, Kait Patient does not drink [facility] 08-05-2024 How often do you hav e 6 or more drinks on 1 occasion? Never 08/05/2024 7:56 AM EDT User, Kait Never [facility] Clinical Notes 10-01-2021 to 09-28-2024 Telephone Encounter - Pattie Friedman - 09/28/2024 8:46 AM EDTTelephone Encounter - Pattie Friedman - 09/28/2024 8:46 AM Ward Figueredo APRN.HOME THEATER EXPERIENCE EXPERT - 09/27/2024 4:00 PM EDT Note Date & Type Note Facility 09-28-2024 Telephone encounter Note Procedure(s) being scheduled: Bilateral S1 TESI 1.Are you diabetic No 2. Are you on any blood thinners? No If yes, does it require a hold? No If yes, was approval letter sent? No 3. Are you taking any aspirin? No 4. Are you currently taking any antibiotics? No If yes, is it prophylactic or for treatment of an infection? no 5. Do you have any allergies to latex? No 6. Do you have any allergies to seafood or shellfish? No 7. Do you have any allergies to x-ray dye? No 8. Does this procedure require a lyft driver? Yes If yes, has patient been notified that a lyft driver is needed and must be present at check in? Yes 9. Were the pre-procedure instructions explained and provided to the patient? Yes 10. Do you have a pacemaker? No 11. Do you have an internal stimulator of any kind? No If yes, please bring the remote with you to your procedure visit. Pattie Friedman [facility] 09-28-2024 Miscellaneous Notes Procedure(s) being scheduled: Bilateral S1 TESI 1.Are you diabetic No 2. Are you on any blood thinners? No If yes, does it require a hold? No If yes, was approval letter sent? No 3. Are you taking any aspirin? No 4. Are you currently taking any antibiotics? No If yes, is it prophylactic or for treatment of an infection? no 5. Do you have any allergies to latex? No 6. Do you have any allergies to seafood or shellfish? No 7. Do you have any allergies to x-ray dye? No 8. Does this procedure require a lyft driver? Yes If yes, has patient been notified that a lyft driver is needed and must be present at check in? Yes 9. Were the pre-procedure instructions explained and provided to the patient? Yes 10. Do you have a pacemaker? No 11. Do you have an internal stimulator of any kind? No If yes, please bring the remote with you to your procedure visit. Pattie Friedman documented in this encounter [facility] 09-27-2024 History of Presen t illness Narrative Images from the original note were not included. This is a virtual visit using [employer] Zoom Video Visit. It required patient-provider interaction for the medical decision making as documented below. I have communicated my name and active licensure. The patient's identity and physical location were verified at the time of this visit. Either the patient or their legal footwear sales representative has been informed of the risks and benefits of -- and alternatives to -- treatment through a remote evaluation and consents to proceed with the evaluation remotely. [facility] Today's Date: 09/27/2024 Name: Anabell Payne : 1985 Purpose: Follow-up Patient Evaluation - This is an established patient, returning today for continued evaluation and management of the chief complaint noted below (Telemedicine) Chief complaint: back pain Pertinent Past Medical History: RA, gestational diabetes, kidney stones and sciatica. Pertinent Past Surgeries: none This is a virtual visit via Zoom, Phone and/or MyChart. It required patient-provider interaction for the medical decision making as documented below. Patient understands that privacy cannot be guaranteed. Note: Examination was limited today due to this being a virtual/telemedicine encounter Plan at last visit: (Seen on 07/07/24 by Ragini Leung CNP) 38 year old female presents with complaint(s) of Low back pain with radicular symptoms as described above. Patient has been doing conservative methods including use of prednisone and also physical therapy. At this point patient wants to try to decrease the pain from this exacerbation. We will attempt an interlaminar epidural steroid injection at L5-S1. This is based upon her MRI results and her pain complaint. May consider medial branch nerve blocks in the future if needed. Interval History: Overall pain and functional disability since last visit: Unchanged New Complaints since last visit: No She stated 70 to 80% reduction in her right leg pain following completion of the lumbar interlaminar epidural steroid injection on 08/16/2024, but stated no pain reduction in lumbosacral pain and lumbosacral radiculopathy to her feet bilaterally. She is wondering about completing procedures to help for reducing her lumbosacral pain in addition to the radiating pain down the backs of her legs to her feet. Current Pain Medications: Neuropathics: NSAIDS: methotrexate Muscle Relaxants: Topicals: Other Prescription or OTC Pain Medications: methotrexate Opioids (when applicable): Anti-depressants or Mood-Stabilizers: None Anti-Coagulants: None Therapies Attended (Current or Most Recent): Physical Therapy for 6 weeks with temporary relief 07/07/2024 AG SPINE COMBINATION Questionnaire GREENLIGHT Completed Date 07/07/2024 Questionnaire Opiod Risk Tool Completed Date 07/07/2024 Comments Low Risk 3 No question data found. Notable Events During Course of Treatment: 07/04/2024 - Initial HPI (Obtained by Ragini Leung CNP). DURATION AND ONSET: The pain complaint has been present for approximately 19 yrs. The pain had a gradual onset. The mechanism of injury is unknown. RED FLAG SYMPTOMS: leg weakness and burning PAIN DESCRIPTION: Timing: Constant Character: Sharp, Stabbing, stiff, tight Primary Location: low back Radiation: mostly down the right leg at times, also radiation into her hips. Exacerbating factors: Sitting Relieving factors: stretching, moving and walking Interferes with: work Patient is here today with complaints of low back pain. Patient stating she was seen by the neurosurgeon at [facility] for neck pain however, her neck pain has improved and her low back is bothering her. Patient states that she has had this pain off and on for years. States it started when she was about 18 when she was 19 and that she was told that she is a surgical candidate but decided not to have surgery. Patient has attempted to manage this pain ever since. Patient stating that she felt the pain increase this time after rollerskating with her son and being in a bent over position for a while. 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 Patient stating that she attempted the prednisone with this exacerbation of her lumbar spine and it did not help as much as she was hoping. Patient has been to physical therapy and continues to do the stretching exercises especially when the pain is not controlled. 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 Patient states when her back did hurt in her teens they did do injections at that time they did help with the pain. Patient is here to see what can be done to help with her pain. Patient would like to avoid any oral medications and if there is any type of injection that could be done she is more interested in that. Treatment History: PAIN PROCEDURES: DATE PROCEDURE IMPROVEMENT 08/16/24 IESI L5/S1, right bias 70 to 80% for 2 to 3 weeks effective for right leg pain (Over 20 years ago had injections with relief at [facility] orthopedic) MEDICATIONS Taken TO DATE (for the chief complaint(s)): Neuropathics: None NSAIDS: Motrin (Ibuprofen) Muscle Relaxants: None Topicals: None Other Prescription or OTC Pain Medications: Tylenol (Acetaminophen) Opioids: None Data Reviewed Today: Allergies: ALLERGIES No Known Allergies Social History Tobacco Use Smoking status: Never Smokeless tobacco: Never Vaping Use Vaping status: Never Used Substance Use Topics Alcohol use: Not Currently Comment: Couple times monthly beer/wine Drug use: Not Currently 08/14/2024 09/27/2024 INTAKE PAIN ASSESSMENT Are you having pain associated with your visit today? Yes, Provider notified No Pain Level 4 Pain Location Back-Lower Description Aching;Burning;Radiating;Sharp;S hooting;Stabbing Frequency Continuous 07/07/2024 AG SPINE COMBINATION Questionnaire GREENLIGHT Completed Date 07/07/2024 Questionnaire Opiod Risk Tool Completed Date 07/07/2024 Comments Low Risk 3 No question data found. [facility] checked and validated on 09/27/2024 by Ward Herrera APRN.HOME THEATER EXPERIENCE EXPERT All prescriptions have been APPROPRIATELY filled. No suspicious activity was identified. Risk Assessment: KALYN-7: 07/07/2024 KALYN - 7 SCORES Score 5 (0-4) minimal anxiety, (5-9) mild anxiety, (10-14) moderate anxiety, (15-21) severe anxiety PHQ-9: 08/09/2020 09/07/2020 07/07/2024 PHQ-9 Score 2 0 7 (0-4) minimal depression, (5-9) mild depression, (10-14) moderate depression, (15-19) moderately severe depression, (20-27) severe depression Diagnostic Studies: Relevant Imaging: No images are attached to the encounter. MRI Spine Report MRI LUMBAR SPINE WO IVCON Exam End: 11/03/2023 10:19 AM (Final result) Narrative: * * *Final Report* * * DATE OF EXAM: Nov 03 2023 10:19AM [facility] [id number] - MRI LUMBAR SPINE WO IVCON / PROCEDURE REASON: Spinal stenosis of lumbar region, unspecified whether neurogenic claudication pr * * * * Physician Interpretation * * * * EXAMINATION: MRI CERVICAL SPINE WO/W IVCON, MRI LUMBAR SPINE WO IVCON CLINICAL HISTORY: Cervical disc disorder with radiculopathy of mid-cervical region TECHNIQUE: Routine cervical spine MR protocol without and with intravenous gadolinium. Routine lumbar spine MR protocol without IV gadolinium. MQ: [id number] Contrast: IV administration of 18 ml of Dotarem COMPARISON: MRI cervical spine 09/23/2023 RESULT: CERVICAL: Counting reference: Craniocervical junction. Anatomic Variants: None. Localizer images: No additional findings. Alignment: Alignment is anatomic. Craniocervical junction: Craniocervical junction is normal. Cord: The cervical spinal cord is within normal limits of signal intensity and morphology. Bone marrow signal/fracture: No evidence of pathologic marrow infiltration. No evidence of prior fracture. Degenerative disc disease with disc desiccation and mild height loss most prominently on C5-C6 with minimal endplate remodeling. Cervical soft tissues: The paraspinal soft tissues are within normal limits. C2-C3: Canal and foramina are patent. C3-C4: Canal and foramina are patent. C4-C5: Canal and foramina are patent. C5-C6: LEFT subarticular posterior disc osteophyte complex with LEFT greater than RIGHT uncovertebral hypertrophy contributing to mild spinal canal narrowing and moderate LEFT neural foraminal narrowing. RIGHT neural foramen remains patent. Findings appear unchanged C6-C7: Canal and foramina are patent. Mild bilateral uncovertebral hypertrophy and shallow annular disc bulge. Unchanged. C7-T1: Canal and foramina are patent. LUMBAR: Counting reference: Craniocervical and lumbosacral junctions For the purposes of this report, L4-5 is considered the level of the iliac crest and there are 5 lumbar-type vertebrae. Anatomic variant: Transitional L5 vertebral body. Localizer images: No additional findings. Alignment: Mild straightening of the normal lumbar lordosis. Minimal retrolisthesis of L2 on L3 and L3 on L4. Low-grade retrolisthesis of L4 on L5 and L5 on S1. Developmental spinal canal narrowing secondary to congenitally short pedicles. Bone marrow signal/fracture: Diffuse T1 hypointense marrow signal throughout the lumbosacral spine likely within normal limits and secondary to age-appropriate prominent red marrow. No evidence of pathologic marrow infiltration. No evidence of prior fracture. Conus: The conus terminates at L1 and is within normal limits of morphology and signal. Normal course and caliber of the descending cauda equina nerve roots. Paraspinal soft tissues: Paraspinal soft tissues are within normal limits. Lower thoracic spine: Visualized lower thoracic canal and foramina are patent. L1-L2: Canal and foramina are patent. L2-L3: Canal and foramina are patent. Shallow annular bulge. L3-L4: Canal and foramina are patent. Shallow disc bulge minimally flattens the ventral thecal sac without significant spinal canal compromise. L4-L5: Mild spinal canal and mild RIGHT neural foraminal narrowing secondary to retrolisthesis, diffuse disc bulge, bilateral ligamentum flavum infolding, and bilateral facet arthropathy. Effacement of the RIGHT worse than LEFT subarticular zones with broad abutment and minimal displacement of the RIGHT worse than LEFT traversing L5 nerve roots. L5-S1: Mild spinal canal, moderate LEFT and mild RIGHT neural foraminal narrowing secondary to retrolisthesis, diffuse disc bulge with annular fissure, and bilateral facet arthropathy. Disc bulge broadly contacts and at least partially impinges the bilateral traversing S1 nerve roots in the subarticular zones. Sacrum and iliac wings: The visualized sacrum and iliac wings are within normal limits. The presacral soft tissues are normal in appearance. Impression: IMPRESSION: Cervical spine: Multilevel degenerative spondylosis most pronounced at C5-C6 on the LEFT. No high-grade spinal canal or neuroforaminal stenosis. No abnormal cord signal abnormality or enhancement. Lumbar spine: Multilevel degenerative spondylosis superimposed on developmental canal narrowing most prominent at L4-S1. No high-grade spinal canal or neuroforaminal stenosis. Multilevel at least partial nerve root impingement, as detailed. Cervical Anatomic Variant: None. Assume 7 cervical vertebrae with counting from the craniocervical junction. Anatomic Thoracic/Lumbar Variant: None. L4-5 is considered the level of the iliac crest and assume there are 5 lumbar-type vertebrae. Business Technology Architect: LOUANN Transcribe Date/Time: Nov 03 2023 11:21A Dictated by : EARL JONES MD This examination was interpreted and the report reviewed and electronically signed by: EARL JONES MD on Nov 03 2023 11:31AM EST Electrodiagnostic Study (EMG): None Recent Labs: Creatinine Date Value Ref Range Status 08/02/2024 0.86 0.51 - 0.95 mg/dL Final Comment: Patients receiving either N-Acetylcysteine (NAC) or Metamizole prior to venipuncture, may have falsely depressed results. No results found for: GFR No results found for: PCGLUCOSE Current Medications, Past Medical History, Past Surgical History, Family History & Social History: Reviewed on today's date. Review of Systems: Reviewed on today's date. GENERAL: feeling well without fatigue, no recent change in weight HEENT: denies LOCKE, change in hearing or vision, no other ENT complaints NECK: denies swelling or pain in neck RESPIRATORY: no cough, no wheezing or shortness of breath CARDIOVASCULAR: no chest pain, no palpitations GI: normal appetite, tolerating PO well, BMs normal, and no abdominal pain : urination is normal MUSCULOSKELETAL: Lumbosacral pain and radiculopathy in both legs to feet as noted above SKIN: no rash PSYCH: denies depressed or anxious mood, sleep is normal NEURO: no numbness or paresthesias and no weakness of the extremities All other ROS: negative Physical Exam: There were no vitals filed for this visit. GENERAL: alert and appropriate, in no distress, well-hydrated, well nourished, and happy, smiling, interactive SKIN: no rash noted HEAD: normocephalic, no abnormality or lesion noted EYES: no injection EARS: hearing grossly normal NOSE: external nose normal without rhinorrhea NECK: no self-reported cervical adenopathy RESPIRATORY: breathing non-labored CHEST: equal chest rise with normal respiratory effort BACK: range of motion limited in flexion EXTREMITIES: no visible lower extremity edema NEUROLOGIC: no facial droop, speech is clear and fluent and no obvious deficit IMPRESSION: 39 year old female presents with complaint(s) of lower back and sacral pain. Patient has lumbosacral pain present bilaterally and has lumbosacral radiculopathy involving both lower extremities from lumbosacral region down backs and sides of both legs to her feet correlating with distribution of the S1 dermatome. I reviewed her most recent lumbar spine MRI results from October 2023 and discussed those results with the patient today. Based upon patient current virtual exam results, lumbar spine MRI results, current distribution of pain and symptoms, I discussed ordering 1 set of bilateral S1 transforaminal epidural steroid injections under fluoroscopic guidance and patient would like to proceed with having ordered today. Patient expressed understanding and is in agreement with current pain management treatment plan. All patient questions were answered during today's virtual visit encounter. Diagnoses: (M48.08) Sacral foraminal stenosis (primary encounter diagnosis) (M48.062) Spinal stenosis, lumbar region with neurogenic claudication (M54.17) Radiculopathy, lumbosacral region PLAN: Anabell Payne would benefit from the following to reach personal goals for decreasing pain, improving function and work participation, and/or improving quality of life: Medications: None Interventional Procedures: Epidural Steroid Injection - Transforaminal Approach (TFESI) under fluoroscopic guidance BILATERAL SIDES at S1. Studies: None Functional Restorationist: NONE Referrals: No additional considerations at present Follow-up: after injections Depending on response to the above plan, consider: Update lumbar MRI Compliance and Clinic Policies Reviewed and/or Discussed Today: None Attribution: In addition to reviewing the information noted above, some elements copied from my most recent clinical note(s), including the physical exam (completed in entirety today), and the impression and plan sections, have been updated where appropriate. All reflect current medical decision making from today's date. Ward Herrera APRN.HOME THEATER EXPERIENCE EXPERT Pain Management [facility] documented in this encounter [facility] 09-27-2024 Note HNO ID: [id number] Author: WARD HERRERA APRN.CNP Service: ? Author Type: Nurse Practitioner Type: Progress Notes Filed: 09/27/2024 19:35 Note Text: This is a virtual visit using [employer] Video Visit. It required patient-provider interaction for the medical decision making as documented below. I have communicated my name and active licensure. The patient's identity and physical location were verified at the time of this visit. Either the patient or their legal footwear sales representative has been informed of the risks and benefits of -- and alternatives to -- treatment through a remote evaluation and consents to proceed with the evaluation remotely. [facility] Today's Date: 09/27/2024 Name: Anabell Gisellechristie : 1985 Purpose: Follow-up Patient Evaluation - This is an established patient, returning today for continued evaluation and management of the chief complaint noted below (Telemedicine) Chief complaint: back pain Pertinent Past Medical History: RA, gestational diabetes, kidney stones and sciatica. Pertinent Past Surgeries: none This is a virtual visit via Zoom, Phone and/or MyChart. It required patient-provider interaction for the medical decision making as documented below. Patient understands that privacy cannot be guaranteed. Note: Examination was limited today due to this being a virtual/telemedicine encounter Plan at last visit: (Seen on 07/07/24 by Ragini Leung CNP) 38 year old female presents with complaint(s) of Low back pain with radicular symptoms as described above. Patient has been doing conservative methods including use of prednisone and also physical therapy. At this point patient wants to try to decrease the pain from this exacerbation. We will attempt an interlaminar epidural steroid injection at L5-S1. This is based upon her MRI results and her pain complaint. May consider medial branch nerve blocks in the future if needed. Interval History: Overall pain and functional disability since last visit: Unchanged New Complaints since last visit: No She stated 70 to 80% reduction in her right leg pain following completion of the lumbar interlaminar epidural steroid injection on 08/16/2024, but stated no pain reduction in lumbosacral pain and lumbosacral radiculopathy to her feet bilaterally. She is wondering about completing procedures to help for reducing her lumbosacral pain in addition to the radiating pain down the backs of her legs to her feet. Current Pain Medications: Neuropathics: NSAIDS: methotrexate Muscle Relaxants: Topicals: Other Prescription or OTC Pain Medications: methotrexate Opioids (when applicable): Anti-depressants or Mood-Stabilizers: None Anti-Coagulants: None Therapies Attended (Current or Most Recent): Physical Therapy for 6 weeks with temporary relief 07/07/2024 AG SPINE COMBINATION Questionnaire GREENLIGHT Completed Date 07/07/2024 Questionnaire Opiod Risk Tool Completed Date 07/07/2024 Comments Low Risk 3 No question data found. Notable Events During Course of Treatment: 07/04/2024 - Initial HPI (Obtained by Ragini Leung CNP). DURATION AND ONSET: The pain complaint has been present for approximately 19 yrs. The pain had a gradual onset. The mechanism of injury is unknown. RED FLAG SYMPTOMS: leg weakness and burning PAIN DESCRIPTION: Timing: Constant Character: Sharp, Stabbing, stiff, tight Primary Location: low back Radiation: mostly down the right leg at times, also radiation into her hips. Exacerbating factors: Sitting Relieving factors: stretching, moving and walking Interferes with: work Patient is here today with complaints of low back pain. Patient stating she was seen by the neurosurgeon at [facility] for neck pain however, her neck pain has improved and her low back is bothering her. Patient states that she has had this pain off and on for years. States it started when she was about 18 when she was 19 and that she was told that she is a surgical candidate but decided not to have surgery. Patient has attempted to manage this pain ever since. Patient stating that she felt the pain increase this time after rollerskating with her son and being in a bent over position for a while. 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 Patient stating that she attempted the prednisone with this exacerbation of her lumbar spine and it did not help as much as she was hoping. Patient has been to physical therapy and continues to do the stretching exercises especially when the pain is not controlled. 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 Patient states when her back did hurt in her teens they d (more content not included)... [facility] 08-18-2024 Telephone encounter Note Spoke to patient following procedure. Patient states they have no questions or concerns at this time. Nandini Gonzales MA [facility] 08-18-2024 Miscellaneous Notes Spoke to patient following procedure. Patient states they have no questions or concerns at this time. Nandini Gonzales MA documented in this encounter [facility] 08-16-2024 Note HNO ID: [id number] Author: DEANN WOOD LPN Service: ? Author Type: LICENSED NURSE Type: Progress Notes Filed: 08/17/2024 22:06 Note Text: Order has been placed in the patient's chart with the following parameters for discharge from the physician: Patient is alert and oriented Vitals: Diastolic/Systolic +/- 20mmHg Respirations: 12-18 Pulse: 60-100 SpO2 is greater than or equal to 90% Patient has no nausea or vomiting Patient has no dizziness Pain level is +/- 2 from initial evaluation Dressing, dry and intact with no evidence of bleeding Criteria has been met, patient is okay to be discharged per the physician. Physician has gone in and evaluated the patient. Dressing dry and intact. No drainage noted. The patient denies nausea, numbness, tingling, weakness, shortness of breath, dizziness, or headache. Pain level 5/10. Vital signs within normal limits. Patient denied needing walked out by clinical staff and denied needing a wheelchair. Patient given discharge instructions and sent to transportation via ambulatory method. Patient left in good condition. [facility] 08-16-2024 History of Presen t illness Narrative Order has been placed in the patient's chart with the following parameters for discharge from the physician: Patient is alert and oriented Vitals: Diastolic/Systolic +/- 20mmHg Respirations: 12-18 Pulse: 60-100 SpO2 is greater than or equal to 90% Patient has no nausea or vomiting Patient has no dizziness Pain level is +/- 2 from initial evaluation Dressing, dry and intact with no evidence of bleeding Criteria has been met, patient is okay to be discharged per the physician. Physician has gone in and evaluated the patient. Dressing dry and intact. No drainage noted. The patient denies nausea, numbness, tingling, weakness, shortness of breath, dizziness, or headache. Pain level 5/10. Vital signs within normal limits. Patient denied needing walked out by clinical staff and denied needing a wheelchair. Patient given discharge instructions and sent to transportation via ambulatory method. Patient left in good condition. Procedure to be performed: L5/S1 Interlaminar Epidural Steroid Injection Patient was wheeled on stretcher from pre op bay to procedure room and assisted onto the procedure tablePatient s procedure was performed in an [facility] Procedure room. Pause completed at each level by provider to verify correct level and laterality placement Pressure was applied to patient s injection site(s) and bleeding was minimal. Patient had no complaint of shortness of breath, dizziness, headache, numbness, tingling, weakness or complications from procedure. Patient was assisted from the procedure table onto the stretcher and wheeled into a post op bay. Patient was advised a clinician will be to obtain another set of vitals. Time Out: 1029 Confirmed patient name, date of , procedure site, laterality, and allergies Procedure Start: 1032 Procedure End: 1041 Review of Systems [facility] Date: 08/16/24 Patient name: Anabell Payne Physician performing procedure: Riya Kinney MD, PhD Procedure: Interlaminar Epidural Steroid Injection (ILESI) under fluoroscopic guidance Levels Treated: L5-S1 Interlaminar Space, Right bias Injectate: A total of 4cc, consisting of 2cc of Depo-medrol (40mg/cc), 1cc of 1% Lidocaine and the remainder consisting of Normal Saline Improvement after today's procedure: as per nursing report Diagnosis: (M48.062) Spinal stenosis, lumbar region with neurogenic claudication (primary encounter diagnosis) Comments: Transitional L5 anatomy HPI: Anabell Payne is an 39 year old FEMALE who presents today for an elective interlaminar epidural steroid injection. Patient otherwise denies fevers, chills, weakness, saddle anesthesia, bowel or bladder incontinence or recent antibiotic or anticoagulant use. PAST MEDICAL HISTORY Diagnosis Date Gestational diabetes (HCC) Kidney stones During Sciatica Vitamin D deficiency 07/28/2018 Problem List Noted Noted By Resolved Resolved By Obesity, Class I, BMI 30-34.9 10/13/2022 Mohsen Almazan, DIRECT SUPPORT STAFF.HOME THEATER EXPERIENCE EXPERT No Gestational diabetes (HCC) 10/17/2021 Thom Villalba, DIRECT SUPPORT STAFF.HOME THEATER EXPERIENCE EXPERT No Vitamin D deficiency 07/28/2018 Thom Villalba, DIRECT SUPPORT STAFF.HOME THEATER EXPERIENCE EXPERT No Chronic bilateral low back pain with left-sided sciatica 12/09/2023 Fernando Robert, PT, DPT 03/09/2024 Fernando Robert, PT, DPT Encounter for screening for malignant neoplasm of colon 09/24/2023 Enoc Siddiqui PA-C 10/01/2023 Swapna Butler DO PAST SURGICAL HISTORY Procedure Laterality Date COLONOSCOPY SCREENING 10/01/2023 Dr. Butler PAST SURGICAL HISTORY OF [place] teeth extraction Current Outpatient Medications on File Prior to Visit Medication Sig SEMAGLUTIDE SUBCUTANEOUS Inject 0.2 mg subcutaneously one time a week. Receives through [facility] rosuvastatin (CRESTOR) 10 mg tablet Take 1 tablet by mouth daily at bedtime. methotrexate 2.5 mg tablet Take 2.5 mg by mouth. Take 6 tabs Q week. folic acid 1 mg tablet Take 1 mg by mouth two times a day. predniSONE (DELTASONE) 10 mg tablet Take 1 tablet by mouth once daily as needed. Rx by rheumatology for days of increased activity Cholecalciferol, Vitamin D3, 50 mcg (2,000 unit) cap Take 2,000 Units by mouth once daily. No current facility-administered medications on file prior to visit. ALLERGIES No Known Allergies FAMILY HISTORY Problem Relation Age of Onset Diabetes Mother Hypertension Mother Hypertension Father Stroke Father Prostate Cancer Father Colon Cancer Father Hypertension Sister Hypertension Brother Social History Tobacco Use Smoking status: Never Smokeless tobacco: Never Vaping Use Vaping status: Never Used Substance Use Topics Alcohol use: Not Currently Comment: Couple times monthly beer/wine Drug use: Not Currently Review of Systems: Pertinent Positives: MSK: pain in the region being treated Neuro: No weakness or numbness in the region being treated Skin: Negative (No itching) Eyes: Negative (No blurred or double vision) Respiratory: Negative (No Cough, [id number], Dyspnea on exertion, wheezing) Cardiovascular: Negative (No Chest Pain, Tightness, Pressure, Palpitations) Gastrointestinal: Negative (No Abdominal pain, Nausea, Vomiting, Constipation, Diarrhea) Genitourinary: Negative (No dysuria) Hematologic: Negative (No bleeding, bruising) OB: is Denied or Not Applicable Endocrine: Negative (No hot/cold intolerance) Psychiatric: Negative (No depression, anxiety or suicidal ideation) Attestation Information obtained by others were confirmed and edited as necessary on 08/14/2024 by Riya Kinney MD, PhD. Objective Exam: Vitals: As per nursing documentation Constitutional: Normal Appearance, Oriented to Time, Place and Person Head: No lacerations, no external signs of trauma Eyes: Conjunctiva clear. No discharge from the eyes Cardiovascular: Appears well-perfused Pulmonary: Non-labored respirations Abdominal: Non-distended Skin: No visible rashes or ecchymosis Psychiatric: Mood appropriate for given condition Neurological: no focal deficits, gross movements are limited by pain, but otherwise unremarkable Data Reviewed: Nursing note and vitals reviewed. Additional imaging reviewed as appropriate Assessment and Plan: We discussed the current plan and the pathology responsible for the patient's pain. Specific counseling related to the procedure was provided regarding the risks, benefits and alternatives. The patient wishes to proceed with the plan as noted above. Encounter Diagnosis ICD-10-CM 1. Spinal stenosis, lumbar region with neurogenic claudication M48.062 EPI LUMBAR OR SACRAL W/IMAGING lidocaine (PF) 10 mg/mL (1 %) 100 mg injection (XYLOCAINE) 0.9% NaCl 10 mL flush methylPREDNISolone acetate 40 mg injection (DEPO-Medrol) iohexol 300 mg injection (OMNIPAQUE 300) DISCONTINUED: dexAMETHasone sodium phosphate 10 mg injection (DECADRON) Time out to confirm patient name, date of , procedure site, laterality, and allergies performed by physician. Please see nursing note for exact times (time out, procedure start, procedure end). Jal protocol documentation / Pre-Procedure checklist: Unless stated otherwise in the procedure note, the risks include but are not limited to infection, allergic reaction, increased pain, lack of therapeutic benefit, steroid reaction, nerve damage, paralysis, stroke, epidural hematoma, syncope, headache, respiratory or cardiac arrest, pneumothorax, and scar formation Time Out was led by the physician in the procedure room, with the patient and all staff present and participating The following information was verified: name, date of , procedure site (marked), laterality, anticoagulants and allergies Jal protocol documentation / Pre-Procedure Checklist: Consent: Verbal and written consent was obtained prior to the procedure. Risks, benefits and alternative treatment options were discussed with the patient. All questions were fully answered. Unless stated otherwise in the procedure note, the risks include but are not limited to infection, allergic reaction, increased pain, lack of therapeutic benefit, steroid reaction, nerve damage, paralysis, stroke, epidural hematoma, syncope, headache, respiratory or cardiac arrest, pneumothorax, and scar formation Once the plan was agreed upon, the patient gave written consent to proceed and was transported into the procedure room Surgical/Procedure pause or Time Out : Time Out was led by the physician in the procedure room, with the patient and all staff present and participating The following information was verified during the Time Out process: Patient name, patient date of , procedure site (marked), laterality, anticoagulants and allergies Anticoagulants: reviewed with patient, notable for: none DESCRIPTION OF PROCEDURE: The patient was brought to the procedure room and positioned prone on the procedure room table. A pillow was placed below the abdomen to decrease lumbar lordosis and a safety strap was placed across the legs. The lumbosacral region was then exposed, prepped, and draped in a sterile fashion using 2% Chloroprep scrub. Skin anesthesia was achieved using 2 mL of Lidocaine 1% using a 25G 1.5inch needle to infiltrate the skin over the respective injection site. The target interspace was visualized under fluoroscopic imaging. A 20 gauge 3 1/2 Tuohy needle was then slowly guided into the epidural space utilizing loss of resistance technique and multi-planar fluoroscopic imaging for needle guidance. After negative aspiration for blood or CSF, contrast in the form of 1mL of Omnipaque 300 was injected and was found to be consistent with epidural spread. There was no evidence of intravascular or intrathecal uptake. After negative aspiration, the above mentioned injectate was then administered. The needle was subsequently withdrawn and minimal bleeding was observed. No specimens were obtained. A dressing was applied and the patient was taken to the recovery area for further observation. Please see the nursing note for exact times (time out, procedure start, procedure end). The patient was noted to have tolerated the procedure well and was discharged after an appropriate period of post-procedure observation in stable condition. The patient was instructed to contact us in the event of worsening pain, fever, weakness, numbness or bladder or bowel incontinence. The patient was further advised to follow-up with the requesting physician within one to two weeks or as per their requested follow-up plan. A post-procedure visit summary with written instructions was offered to the patient at the time of discharge. Riya Kinney MD, PhD Pain Management [facility] Cat Wagon Operator's Name: den Are you on a blood thinner: n If yes, is a hold required: n Last dose of blood thinner: n INR Result today: n Do you require a Lovenox bridge:n Are you a diabetic:n Are you/or could you be : n Are you taking Xanax for the procedure: n Are you currently on a steroid? n Are you currently on an antibiotic: n Review of Systems Constitutional: Positive for activity change. Negative for chills, fever and unexpected weight change. Gastrointestinal: Negative for bowel retention or incontinence Genitourinary: Negative for difficulty urinating. Negative for bladder retention or incontinence Musculoskeletal: Positive for back pain. Negative for arthralgias, gait problem, joint swelling, myalgias, neck pain and neck stiffness. Neurological: Negative for weakness, numbness and headaches. Psychiatric/Behavioral: Positive for sleep disturbance. Negative for dysphoric mood and suicidal ideas. The patient is nervous/anxious. documented in this encounter [facility] 08-16-2024 Note HNO ID: [id number] Author: NADIYA ARCOS LPN Service: ? Author Type: LICENSED NURSE Type: Progress Notes Filed: 08/17/2024 22:06 Note Text: Procedure to be performed: L5/S1 Interlaminar Epidural Steroid Injection Patient was wheeled on stretcher from pre op bay to procedure room and assisted onto the procedure tablePatient?s procedure was performed in an [facility] Procedure room. Pause completed at each level by provider to verify correct level and laterality placement Pressure was applied to patient?s injection site(s) and bleeding was minimal. Patient had no complaint of shortness of breath, dizziness, headache, numbness, tingling, weakness or complications from procedure. Patient was assisted from the procedure table onto the stretcher and wheeled into a post op bay. Patient was advised a clinician will be to obtain another set of vitals. Time Out: 1029 Confirmed patient name, date of , procedure site, laterality, and allergies Procedure Start: 1032 Procedure End: 1041 Review of Systems [facility] 08-16-2024 Note HNO ID: [id number] Author: RIYA KINNEY MD, PhD Service: ? Author Type: Physician Type: Progress Notes Filed: 08/17/2024 22:06 Note Text: [facility] Date: 08/16/24 Patient name: Anabell Payne Physician performing procedure: Riya Kinney MD, PhD Procedure: Interlaminar Epidural Steroid Injection (ILESI) under fluoroscopic guidance Levels Treated: L5-S1 Interlaminar Space, Right bias Injectate: A total of 4cc, consisting of 2cc of Depo-medrol (40mg/cc), 1cc of 1% Lidocaine and the remainder consisting of Normal Saline Improvement after today's procedure: as per nursing report Diagnosis: (M48.062) Spinal stenosis, lumbar region with neurogenic claudication (primary encounter diagnosis) Comments: Transitional L5 anatomy HPI: Anabell Payne is an 39 year old FEMALE who presents today for an elective interlaminar epidural steroid injection. Patient otherwise denies fevers, chills, weakness, saddle anesthesia, bowel or bladder incontinence or recent antibiotic or anticoagulant use. PAST MEDICAL HISTORY Diagnosis Date Gestational diabetes (HCC) Kidney stones During Sciatica Vitamin D deficiency 07/28/2018 Problem List Noted Noted By Resolved Resolved By Obesity, Class I, BMI 30-34.9 10/13/2022 Mohsen Almazan, DIRECT SUPPORT STAFF.HOME THEATER EXPERIENCE EXPERT No Gestational diabetes (HCC) 10/17/2021 Thom Villalba, DIRECT SUPPORT STAFF.HOME THEATER EXPERIENCE EXPERT No Vitamin D deficiency 07/28/2018 Thom Villalba, DIRECT SUPPORT STAFF.HOME THEATER EXPERIENCE EXPERT No Chronic bilateral low back pain with left-sided sciatica 12/09/2023 Fernando Robert, PT, DPT 03/09/2024 Fernando Robert, PT, DPT Encounter for screening for malignant neoplasm of colon 09/24/2023 Enoc Siddiqui PA-C 10/01/2023 Swapna Butler DO PAST SURGICAL HISTORY Procedure Laterality Date COLONOSCOPY SCREENING 10/01/2023 Dr. Butler PAST SURGICAL HISTORY OF [place] teeth extraction Current Outpatient Medications on File Prior to Visit Medication Sig SEMAGLUTIDE SUBCUTANEOUS Inject 0.2 mg subcutaneously one time a week. Receives through [facility] rosuvastatin (CRESTOR) 10 mg tablet Take 1 tablet by mouth daily at bedtime. methotrexate 2.5 mg tablet Take 2.5 mg by mouth. Take 6 tabs Q week. folic acid 1 mg tablet Take 1 mg by mouth two times a day. predniSONE (DELTASONE) 10 mg tablet Take 1 tablet by mouth once daily as needed. Rx by rheumatology for days of increased activity Cholecalciferol, Vitamin D3, 50 mcg (2,000 unit) cap Take 2,000 Units by mouth once daily. No current facility-administered medications on file prior to visit. ALLERGIES No Known Allergies FAMILY HISTORY Problem Relation Age of Onset Diabetes Mother Hypertension Mother Hypertension Father Stroke Father Prostate Cancer Father Colon Cancer Father Hypertension Sister Hypertension Brother Social History Tobacco Use Smoking status: Never Smokeless tobacco: Never Vaping Use Vaping status: Never Used Substance Use Topics Alcohol use: Not Currently Comment: Couple times monthly beer/wine Drug use: Not Currently Review of Systems: Pertinent Positives: MSK: pain in the region being treated Neuro: No weakness or numbness in the region being treated Skin: Negative (No itching) Eyes: Negative (No blurred or double vision) Respiratory: Negative (No Cough, Gbjnvucpp-lq-dinvrq, Dyspnea on exertion, wheezing) Cardiovascular: Negative (No Chest Pain, Tightness, Pressure, Palpitations) Gastrointestinal: Negative (No Abdominal pain, Nausea, Vomiting, Constipation, Diarrhea) Genitourinary: Negative (No dysuria) Hematologic: Negative (No bleeding, bruising) OB: is Denied or Not Applicable Endocrine: Negative (No hot/cold intolerance) Psychiatric: Negative (No depression, anxiety or suicidal ideation) Attestation Information obtained by others were confirmed and edited as necessary on 08/14/2024 by Riya Kinney MD, PhD. Objective Exam: Vitals: As per nursing documentation Constitutional: Normal Appearance, Oriented to Time, Place and Person Head: No lacerations, no external signs of trauma Eyes: Conjunctiva clear. No discharge from the eyes Cardiovascular: Appears well-perfused Pulmonary: Non-labored respirations Abdominal: Non-distended Skin: No visible rashes or ecchymosis Psychiatric: Mood appropriate for given condition Neurological: no focal deficits, gross movements are limited by pain, but otherwise unremarkable Data Reviewed: Nursing note and vitals reviewed. Additional imaging reviewed as appropriate Assessment and Plan: We discussed the current plan and the pathology responsible for the patient's pain. Specific counseling related to the procedure was provided regarding the risks, benefits and alternatives. The patient wishes to proceed with the plan as noted above. Encounter Diagnosis ICD-10-CM 1. Spinal stenosis, lumbar region with neurogenic claudication M48.062 (more content not included)... [facility] 08-16-2024 Instructions Jory Ng LPN - 08/16/2024 10:12 AM EDT PROCEDURE DISCHARGE INSTRUCTIONS 08/16/2024 Anabell Payne 1985 Physician: Riya Kinney MD, PhD Procedure: L5/S1 LUMBAR INTERLAMINAR EPIDURAL STEROID INJECTION Post Procedure Instructions: If sedation not given, no driving for 3 hours after the procedure., Rest the day of the procedure., You may resume normal activities the day after the procedure, as tolerated., Pain should gradually subside over the next 2-3 weeks., Avoid movements that may aggravate pain., Apply cold compresses to injection site if needed., If medically acceptable, take over the counter anti-inflammatories such as ibuprofen or Aleve if needed for post procedure discomfort., and No hot baths, hot tubs or hot compresses for 24 hours.\ If you have any of the following signs or symptoms, please call our office at Fever and/or chills Swelling and/or drainage from injection site New pain that is different than your normal pain (other than soreness at the site of the procedure) Stiff neck Shortness of breath Severe increase in pain Motor dysfunctions, such as difficulty walking, bowel or bladder dysfunction and/or incontinence Headache that is severe, light sensitive or develops when changing positions (positional headache) Nausea and/or vomiting accompanied by headache that started 24-48 hours after the procedure If you have any emergent concerns, please call 911 or go to your local emergency room. Please also contact our office to let us know you will be seeking emergency care and why. documented in this encounter [facility] 08-16-2024 Note HNO ID: [id number] Author: SHAHEEN LARA LPN Service: ? Author Type: LICENSED NURSE Type: Progress Notes Filed: 08/17/2024 22:06 Note Text: Cat Wagon Operator's Name: den Are you on a blood thinner: n If yes, is a hold required: n Last dose of blood thinner: n INR Result today: n Do you require a Lovenox bridge:n Are you a diabetic:n Are you/or could you be : n Are you taking Xanax for the procedure: n Are you currently on a steroid? n Are you currently on an antibiotic: n Review of Systems Constitutional: Positive for activity change. Negative for chills, fever and unexpected weight change. Gastrointestinal: Negative for bowel retention or incontinence Genitourinary: Negative for difficulty urinating. Negative for bladder retention or incontinence Musculoskeletal: Positive for back pain. Negative for arthralgias, gait problem, joint swelling, myalgias, neck pain and neck stiffness. Neurological: Negative for weakness, numbness and headaches. Psychiatric/Behavioral: Positive for sleep disturbance. Negative for dysphoric mood and suicidal ideas. The patient is nervous/anxious. [facility] 08-05-2024 History of Presen t illness Narrative VISIT TYPE: ANNUAL WELL VISIT There are no exam notes on file for this visit. CHIEF COMPLAINT: Patient presents with: Physical: PATIENT HERE FOR YEARLY PHYSICAL NO NEW ISSUES OR CONCERNS NEW TO TAKING GLP 1 THROUGH [facility] Results: WOULD LIKE TO GO OVER LABS HPI: Anabell Payne is a 39 year old female here for an Annual Well Visit. Hyperlipidemia- Was started on statin. Total chol 175, Trig 149, HDL 43, LDL 102. Has been trying to watch diet. Does have significant family hx of high chol and heart disease. Fatigue- Cont to have fatigue but is felt to be r/t pos MICHELE. States she developed rashes and fatigue a couple yrs ago. Was seeing [facility] and started on progesterone which did help with the rash. Rash- Improved and only has a spot on her elbow. Has appt with derm tomorrow. Does have rashes on her arms, ankles, and along her neck. Does notice itching when it occurs. Has seen dermatology and was given steroid cream. Had MICHELE done which was pos and was referred to rheumatology. Anxiety- Following with therapist. States she had been on wellbutrin in the past but it hasn't helped. Does feel better since going to counseling. Does feel anxious normally. Prefers to not take meds. Denies any feelings of helplessness/hopelessness, thoughts of hurting self. Vit D deficiency- Taking vit D daily. Pos MICHELE- Referred to rheumatology. Was dx with inflammatory polyarthritis and being eval for RA or psoriatic arthritis. Was started on methotrexate in Nov but hasn't noticed much improvement yet. Neuropathy- Had EMG which showed evidence of mild intracanal spinal lesion and was referred to neurosurgery. 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 Was set up for mri with contrast d/t the right hand neuropathy which was done on Thursday. Was referred to hand surgeon to eval for carpal tunnel. Chronic back pain- Following with neurosurgery and was ordered MRI. Had flareup and was referred to pain clinic and is being set up for epidural at the end of the month. Was candidate for surgery but d/t age he preferred to wait. Was set up for PT which she finished. REVIEW OF SYSTEMS: Review of Systems Constitutional: Negative for appetite change, chills and fever. HENT: Negative for congestion, ear pain and sore throat. Eyes: Negative for redness and visual disturbance. Respiratory: Negative for cough, chest tightness, shortness of breath and wheezing. Cardiovascular: Negative for chest pain, palpitations and leg swelling. Gastrointestinal: Negative for abdominal pain, constipation, diarrhea, nausea and vomiting. Genitourinary: Negative for dysuria, frequency, hematuria and menstrual problem. Musculoskeletal: Positive for back pain. Negative for arthralgias and gait problem. Skin: Negative for color change, pallor and rash. Neurological: Positive for numbness. Negative for dizziness, syncope and headaches. Psychiatric/Behavioral: Negative for suicidal ideas. The patient is nervous/anxious. Current Outpatient Medications Medication Sig Dispense Refill rosuvastatin (CRESTOR) 10 mg tablet Take 1 tablet by mouth daily at bedtime. 30 tablet 3 methotrexate 2.5 mg tablet Take 2.5 mg by mouth. Take 6 tabs Q week. folic acid 1 mg tablet Take 1 mg by mouth two times a day. predniSONE (DELTASONE) 10 mg tablet Take 1 tablet by mouth once daily as needed. Rx by rheumatology for days of increased activity Cholecalciferol, Vitamin D3, 50 mcg (2,000 unit) cap Take 2,000 Units by mouth once daily. SEMAGLUTIDE SUBCUTANEOUS Inject 0.2 mg subcutaneously one time a week. ketoconazole (NIZORAL) 2 % shampoo USE FOR EVERY OTHER WASH ON THE SCALP LETTING IT LATHER 3 TO 5 MINUTES BEFORE RINSING DIRECTED. Clobetasol Propionate (TEMOVATE) 0.05 % external solution APPLY TO THE SCALP AT NIGHT AND MASSAGE IN, ALLOWING TO STAY IN OVERNIGHT FOR TWO WEEKS, STOPPING FOR ONE WEEK AND THEN RESUMING THE REGIMEN NEEDED FOR FLARING. No current facility-administered medications for this visit. ALLERGIES No Known Allergies PAST MEDICAL HISTORY Diagnosis Date Gestational diabetes (HCC) Kidney stones During Sciatica Vitamin D deficiency 07/28/2018 PAST SURGICAL HISTORY Procedure Laterality Date COLONOSCOPY SCREENING 10/01/2023 Dr. Butler PAST SURGICAL HISTORY OF [place] teeth extraction FAMILY HISTORY Problem Relation Age of Onset Diabetes Mother Hypertension Mother Hypertension Father Stroke Father Prostate Cancer Father Colon Cancer Father Hypertension Sister Hypertension Brother Social History Tobacco Use Smoking status: Never Smokeless tobacco: Never Vaping Use Vaping status: Never Used Substance Use Topics Alcohol use: Not Currently Comment: Couple times monthly beer/wine Drug use: Not Currently Employer And Job Title: None on file Years Of Education Completed: Not specified Marital Status: Social History Social History Narrative Not on file PHYSICAL EXAM BP 115/75 (BP Site: Right Arm, BP Position: Sitting, BP Cuff Size: Regular Adult) Pulse 80 Resp 15 Ht 165.1 cm (5' 5) Wt 89.3 kg (196 lb 12.8 oz) LMP 02/29/2024 (Approximate) SpO2 97% BMI 32.75 kg/m Physical Exam Vitals reviewed. Constitutional: General: She is not in acute distress. Appearance: Normal appearance. She is obese. HENT: Head: Normocephalic and atraumatic. Right Ear: Tympanic membrane and ear canal normal. Left Ear: Tympanic membrane and ear canal normal. Nose: Nose normal. No congestion. Mouth/Throat: Mouth: Mucous membranes are moist. Pharynx: Oropharynx is clear. No oropharyngeal exudate or posterior oropharyngeal erythema. Eyes: Extraocular Movements: Extraocular movements intact. Conjunctiva/sclera: Conjunctivae normal. Pupils: Pupils are equal, round, and reactive to light. Neck: Thyroid: No thyroid mass or thyromegaly. Vascular: No carotid bruit. Cardiovascular: Rate and Rhythm: Normal rate and regular rhythm. Pulses: Normal pulses. Heart sounds: Normal heart sounds. No murmur heard. Pulmonary: Effort: Pulmonary effort is normal. Breath sounds: Normal breath sounds. No rhonchi or rales. Abdominal: General: Bowel sounds are normal. There is no distension. Palpations: Abdomen is soft. Tenderness: There is no abdominal tenderness. Musculoskeletal: General: No swelling or tenderness. Normal range of motion. Cervical back: Normal range of motion and neck supple. Skin: General: Skin is warm and dry. Findings: No erythema or rash. Neurological: Mental Status: She is alert and oriented to person, place, and time. Cranial Nerves: Cranial nerves 2-12 are intact. No cranial nerve deficit. Sensory: Sensation is intact. Motor: Motor function is intact. Coordination: Coordination is intact. Psychiatric: Mood and Affect: Mood normal. Speech: Speech normal. Behavior: Behavior is cooperative. Thought Content: Thought content does not include suicidal ideation. Cognition and Memory: Cognition and memory normal. DIAGNOSTICS REVIEWED IMPRESSION / PLAN ASSESSMENT/PLAN: 1. Encounter for annual general medical examination without abnormal findings in adult - ICD9: V70.0, ICD10: Z00.00 (primary diagnosis) Enc healthy diet and exercise. Will send for pap records. 2. Positive MICHELE (antinuclear antibody) - ICD9: 795.79, ICD10: R76.8 Follows with rheumatology 3. Mixed hyperlipidemia - ICD9: 272.2, ICD10: E78.2 Improved. Cont crestor. Follow low fat/chol diet. Pt inquired about carotid doppler screening. Expl she doesn't have a dx that would cover it but can check for lifeline screenings around the area to have checked. 4. Fatigue, unspecified type - ICD9: 780.79, ICD10: R53.83 Ongoing 5. Generalized anxiety disorder - ICD9: 300.02, ICD10: F41.1 Stable without meds. Cont to follow with therapist 6. Cervical spinal stenosis - ICD9: 723.0, ICD10: M48.02 Stable. 7. Chronic bilateral low back pain with left-sided sciatica - ICD9: 338.29, 724.2, 724.3, ICD10: G89.29, M54.42 Following with pain clinic and is scheduled for epidural 8. Idiopathic peripheral neuropathy - ICD9: 356.9, ICD10: G60.9 Ongoing. 9. Rash - ICD9: 782.1, ICD10: R21 Improved. 10. Vitamin D deficiency - ICD9: 268.9, ICD10: E55.9 Will recheck prior to next labs 11. Encounter for screening examination for other mental health and behavioral disorders - ICD9: V79.8, ICD10: Z13.39 - ANXIETY SCREENING 12. Screening for depression - ICD9: V79.0, ICD10: Z13.31 - DEPRESSION SCREENING Nicole Duvall APRN.HOME THEATER EXPERIENCE EXPERT F/u yearly and as needed- labs prior There may be parts of this progress note, including the impression and plan, that have been copied from my previous progress note and remain pertinent. Updates have been made where necessary. documented in this encounter [facility] 08-05-2024 Note HNO ID: [id number] Author: NICOLE DUVALL APRN.HOME THEATER EXPERIENCE EXPERT Service: ? Author Type: Nurse Practitioner Type: Progress Notes Filed: 08/05/2024 09:11 Note Text: VISIT TYPE: ANNUAL WELL VISIT There are no exam notes on file for this visit. CHIEF COMPLAINT: Patient presents with: Physical: PATIENT HERE FOR YEARLY PHYSICAL NO NEW ISSUES OR CONCERNS NEW TO TAKING GLP 1 THROUGH HERS Results: WOULD LIKE TO GO OVER LABS HPI: Anabell Payne is a 39 year old female here for an Annual Well Visit. Hyperlipidemia- Was started on statin. Total chol 175, Trig 149, HDL 43, LDL 102. Has been trying to watch diet. Does have significant family hx of high chol and heart disease. Fatigue- Cont to have fatigue but is felt to be r/t pos MICHELE. States she developed rashes and fatigue a couple yrs ago. Was seeing [facility] and started on progesterone which did help with the rash. Rash- Improved and only has a spot on her elbow. Has appt with derm tomorrow. Does have rashes on her arms, ankles, and along her neck. Does notice itching when it occurs. Has seen dermatology and was given steroid cream. Had MICHELE done which was pos and was referred to rheumatology. Anxiety- Following with therapist. States she had been on wellbutrin in the past but it hasn't helped. Does feel better since going to counseling. Does feel anxious normally. Prefers to not take meds. Denies any feelings of helplessness/hopelessness, thoughts of hurting self. Vit D deficiency- Taking vit D daily. Pos MICHELE- Referred to rheumatology. Was dx with inflammatory polyarthritis and being eval for RA or psoriatic arthritis. Was started on methotrexate in Nov but hasn't noticed much improvement yet. Neuropathy- Had EMG which showed evidence of mild intracanal spinal lesion and was referred to neurosurgery. 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 Was set up for mri with contrast d/t the right hand neuropathy which was done on Thursday. Was referred to hand surgeon to eval for carpal tunnel. Chronic back pain- Following with neurosurgery and was ordered MRI. Had flareup and was referred to pain clinic and is being set up for epidural at the end of the month. Was candidate for surgery but d/t age he preferred to wait. Was set up for PT which she finished. REVIEW OF SYSTEMS: Review of Systems Constitutional: Negative for appetite change, chills and fever. HENT: Negative for congestion, ear pain and sore throat. Eyes: Negative for redness and visual disturbance. Respiratory: Negative for cough, chest tightness, shortness of breath and wheezing. Cardiovascular: Negative for chest pain, palpitations and leg swelling. Gastrointestinal: Negative for abdominal pain, constipation, diarrhea, nausea and vomiting. Genitourinary: Negative for dysuria, frequency, hematuria and menstrual problem. Musculoskeletal: Positive for back pain. Negative for arthralgias and gait problem. Skin: Negative for color change, pallor and rash. Neurological: Positive for numbness. Negative for dizziness, syncope and headaches. Psychiatric/Behavioral: Negative for suicidal ideas. The patient is nervous/anxious. Current Outpatient Medications Medication Sig Dispense Refill rosuvastatin (CRESTOR) 10 mg tablet Take 1 tablet by mouth daily at bedtime. 30 tablet 3 methotrexate 2.5 mg tablet Take 2.5 mg by mouth. Take 6 tabs Q week. folic acid 1 mg tablet Take 1 mg by mouth two times a day. predniSONE (DELTASONE) 10 mg tablet Take 1 tablet by mouth once daily as needed. Rx by rheumatology for days of increased activity Cholecalciferol, Vitamin D3, 50 mcg (2,000 unit) cap Take 2,000 Units by mouth once daily. SEMAGLUTIDE SUBCUTANEOUS Inject 0.2 mg subcutaneously one time a week. ketoconazole (NIZORAL) 2 % shampoo USE FOR EVERY OTHER WASH ON THE SCALP LETTING IT LATHER 3 TO 5 MINUTES BEFORE RINSING DIRECTED. Clobetasol Propionate (TEMOVATE) 0.05 % external solution APPLY TO THE SCALP AT NIGHT AND MASSAGE IN, ALLOWING TO STAY IN OVERNIGHT FOR TWO WEEKS, STOPPING FOR ONE WEEK AND THEN RESUMING THE REGIMEN NEEDED FOR FLARING. No current facility-administered medications for this visit. ALLERGIES No Known Allergies PAST MEDICAL HISTORY Diagnosis Date Gestational diabetes (HCC) Kidney stones During Sciatica Vitamin D deficiency 07/28/2018 PAST SURGICAL HISTORY Procedure Laterality Date COLONOSCOPY SCREENING 10/01/2023 Dr. Butler PAST SURGICAL HISTORY OF [place] teeth extraction FAMILY HISTORY Problem Relation Age of Onset Diabetes Mother Hypertension Mother Hypertension Father Stroke Father Prostate Cancer Father Colon Cancer Father Hypertension Sister Hypertension Brother Social History Tobacco Use Smoking status: Never Smokeless tobacco: Never Vaping Use Vaping status: Never Used Substance Use Topics Alcohol use: Not Currently Comment: Couple times monthly beer/wine Drug use: N (more content not included)... [facility] 08-01-2024 Telephone encounter Note ORDERS NOT SHOWING IN ACTIVE TAB FOR PATIENT, AND EXPECTED BY DATE IS AFTER APPT PLEASE SIGN? [facility] 08-01-2024 Miscellaneous Notes ORDERS NOT SHOWING IN ACTIVE TAB FOR PATIENT, AND EXPECTED BY DATE IS AFTER APPT PLEASE SIGN? Pt needs lab orders. Pt will get labs @ [facility]. Pt has upcoming appt on 07/19/24 with Stephanie Guevara documented in this encounter [facility] 08-01-2024 Telephone encounter Note Pt needs lab orders. Pt will get labs @ [facility]. Pt has upcoming appt on 07/19/24 with Nicole. Stephanie Guevara [facility] 07-07-2024 Telephone encounter Note Procedure(s) being scheduled: ILESI 1.Are you diabetic No 2. Are you on any blood thinners? No 3. Are you taking any aspirin? No 4. Are you currently taking any antibiotics? No 5. Do you have any allergies to latex? No 6. Do you have any allergies to seafood or shellfish? No 7. Do you have any allergies to x-ray dye? No 8. Does this procedure require a lyft driver? Yes If yes, has patient been notified that a lyft driver is needed and must be present at check in? yes 9. Were the pre-procedure instructions explained and provided to the patient? Yes 10. Do you have a pacemaker? No 11. Do you have an internal stimulator of any kind? Tracey Browne [facility] 07-07-2024 Miscellaneous Notes Procedure(s) being scheduled: ILESI 1.Are you diabetic No 2. Are you on any blood thinners? No 3. Are you taking any aspirin? No 4. Are you currently taking any antibiotics? No 5. Do you have any allergies to latex? No 6. Do you have any allergies to seafood or shellfish? No 7. Do you have any allergies to x-ray dye? No 8. Does this procedure require a lyft driver? Yes If yes, has patient been notified that a lyft driver is needed and must be present at check in? yes 9. Were the pre-procedure instructions explained and provided to the patient? Yes 10. Do you have a pacemaker? No 11. Do you have an internal stimulator of any kind? No Kaushal Browne documented in this encounter [facility] 07-07-2024 History of Presen t illness Narrative Images from the original note were not included. [facility] Today's Date: 07/07/2024 Name: Anabell Payne : 1985 Purpose: New Patient Consultation Chief complaint: low back pain Referring Clinician: Alexis Jones Pertinent Past Medical History: RA, gestational diabetes, kidney stones and sciatica. Pertinent Past Surgeries: none History of Present Illness (HPI): 07/04/2024 - Initial HPI (Obtained by Ragini Leung CNP). DURATION AND ONSET: The pain complaint has been present for approximately 19 yrs. The pain had a gradual onset. The mechanism of injury is unknown. RED FLAG SYMPTOMS: leg weakness and burning PAIN DESCRIPTION: Timing: Constant Character: Sharp, Stabbing, stiff, tight Primary Location: low back Radiation: mostly down the right leg at times, also radiation into her hips. Exacerbating factors: Sitting Relieving factors: stretching, moving and walking Interferes with: work Patient is here today with complaints of low back pain. Patient stating she was seen by the neurosurgeon at first for neck pain however, her neck pain has improved and her low back is bothering her. Patient states that she has had this pain off and on for years. States it started when she was about 18 when she was 19 and that she was told that she is a surgical candidate but decided not to have surgery. Patient has attempted to manage this pain ever since. Patient stating that she felt the pain increase this time after rollerskating with her son and being in a bent over position for a while. 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 Patient stating that she attempted the prednisone with this exacerbation of her lumbar spine and it did not help as much as she was hoping. Patient has been to physical therapy and continues to do the stretching exercises especially when the pain is not controlled. 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 Patient states when her back did hurt in her teens they did do injections at that time they did help with the pain. Patient is here to see what can be done to help with her pain. Patient would like to avoid any oral medications and if there is any type of injection that could be done she is more interested in that. Current Pain Medications: Neuropathics: NSAIDS: methotrexate Muscle Relaxants: Topicals: Other Prescription or OTC Pain Medications: methotrexate Opioids (when applicable): Anti-depressants or Mood-Stabilizers: None Anti-Coagulants: None Therapies Attended (Current or Most Recent): Physical Therapy for 6 weeks with temporary relief 07/07/2024 AG SPINE COMBINATION Questionnaire GREENLIGHT Completed Date 07/07/2024 Questionnaire Opiod Risk Tool Completed Date 07/07/2024 Comments Low Risk 3 Greenlight Questionnaire GREENLIGHT Completed Date 07/07/2024 Opioid Risk Tool Opiod Risk Tool Date Completed 07/07/2024 Comments Low Risk 3 KALYN-7 Anxiety Score 5 Completed Date 07/07/2024 PHQ9P Score 7 Completed Date 07/07/2024 (All drug screens are appropriate unless indicated otherwise) Treatment History: PAIN PROCEDURES: DATE PROCEDURE IMPROVEMENT To date, no interventional pain management procedures performed at this practice. Over 20 years ago had injections with relief at [facility] MEDICATIONS Taken TO DATE (for the chief complaint(s)): Neuropathics: None NSAIDS: Motrin (Ibuprofen) Muscle Relaxants: None Topicals: None Other Prescription or OTC Pain Medications: Tylenol (Acetaminophen) Opioids: None Data Reviewed Today: Allergies: ALLERGIES No Known Allergies Social History Tobacco Use Smoking status: Never Smokeless tobacco: Never Vaping Use Vaping status: Never Used Substance Use Topics Alcohol use: Not Currently Comment: Couple times monthly beer/wine Drug use: Not Currently 03/10/2024 07/07/2024 INTAKE PAIN ASSESSMENT Are you having pain associated with your visit today? Yes, Provider notified Yes, Provider notified Pain Scales Verbal (Numeric Rating or Visual Analog Scale) Pain Level 4 4 Pain Location Throat Back-Lower Description Raw Radiating;Sharp;Sore;Spasm;Stabb ing;Stiffness;Tightness Duration Amount of Time 3 Duration Units Days Years Frequency Intermittent Continuous Intervention/Comfort measure Medication Reposition;Relaxation;Exercise;H eat;Positioning Compliance: PDMP website checked and validated on 07/07/2024 by Ragini Leung APRN.HOME THEATER EXPERIENCE EXPERT All prescriptions have been APPROPRIATELY filled. No suspicious activity was identified. Risk Assessment: KALYN-7: 07/07/2024 KALYN - 7 SCORES Score 5 (0-4) minimal anxiety, (5-9) mild anxiety, (10-14) moderate anxiety, (15-21) severe anxiety PHQ-9: 08/09/2020 09/07/2020 07/07/2024 PHQ-9 Score 2 0 7 (0-4) minimal depression, (5-9) mild depression, (10-14) moderate depression, (15-19) moderately severe depression, (20-27) severe depression Greenlight Questionnaire GREENLIGHT Completed Date 07/07/2024 Opioid Risk Tool Opiod Risk Tool Date Completed 07/07/2024 Comments Low Risk 3 KALYN-7 Anxiety Score 5 Completed Date 07/07/2024 PHQ9P Score 7 Completed Date 07/07/2024 Diagnostic Studies: Relevant Imaging: MRI Spine Report MRI LUMBAR SPINE WO IVCON Exam End: 11/03/2023 10:19 AM (Final result) Narrative: * * *Final Report* * * DATE OF EXAM: Nov 03 2023 10:19AM [facility] [id number] - MRI LUMBAR SPINE WO IVCON / PROCEDURE REASON: Spinal stenosis of lumbar region, unspecified whether neurogenic claudication pr * * * * Physician Interpretation * * * * EXAMINATION: MRI CERVICAL SPINE WO/W IVCON, MRI LUMBAR SPINE WO IVCON CLINICAL HISTORY: Cervical disc disorder with radiculopathy of mid-cervical region TECHNIQUE: Routine cervical spine MR protocol without and with intravenous gadolinium. Routine lumbar spine MR protocol without IV gadolinium. MQ: [id number] Contrast: IV administration of 18 ml of Dotarem COMPARISON: MRI cervical spine 09/23/2023 RESULT: CERVICAL: Counting reference: Craniocervical junction. Anatomic Variants: None. Localizer images: No additional findings. Alignment: Alignment is anatomic. Craniocervical junction: Craniocervical junction is normal. Cord: The cervical spinal cord is within normal limits of signal intensity and morphology. Bone marrow signal/fracture: No evidence of pathologic marrow infiltration. No evidence of prior fracture. Degenerative disc disease with disc desiccation and mild height loss most prominently on C5-C6 with minimal endplate remodeling. Cervical soft tissues: The paraspinal soft tissues are within normal limits. C2-C3: Canal and foramina are patent. C3-C4: Canal and foramina are patent. C4-C5: Canal and foramina are patent. C5-C6: LEFT subarticular posterior disc osteophyte complex with LEFT greater than RIGHT uncovertebral hypertrophy contributing to mild spinal canal narrowing and moderate LEFT neural foraminal narrowing. RIGHT neural foramen remains patent. Findings appear unchanged C6-C7: Canal and foramina are patent. Mild bilateral uncovertebral hypertrophy and shallow annular disc bulge. Unchanged. C7-T1: Canal and foramina are patent. LUMBAR: Counting reference: Craniocervical and lumbosacral junctions For the purposes of this report, L4-5 is considered the level of the iliac crest and there are 5 lumbar-type vertebrae. Anatomic variant: Transitional L5 vertebral body. Localizer images: No additional findings. Alignment: Mild straightening of the normal lumbar lordosis. Minimal retrolisthesis of L2 on L3 and L3 on L4. Low-grade retrolisthesis of L4 on L5 and L5 on S1. Developmental spinal canal narrowing secondary to congenitally short pedicles. Bone marrow signal/fracture: Diffuse T1 hypointense marrow signal throughout the lumbosacral spine likely within normal limits and secondary to age-appropriate prominent red marrow. No evidence of pathologic marrow infiltration. No evidence of prior fracture. Conus: The conus terminates at L1 and is within normal limits of morphology and signal. Normal course and caliber of the descending cauda equina nerve roots. Paraspinal soft tissues: Paraspinal soft tissues are within normal limits. Lower thoracic spine: Visualized lower thoracic canal and foramina are patent. L1-L2: Canal and foramina are patent. L2-L3: Canal and foramina are patent. Shallow annular bulge. L3-L4: Canal and foramina are patent. Shallow disc bulge minimally flattens the ventral thecal sac without significant spinal canal compromise. L4-L5: Mild spinal canal and mild RIGHT neural foraminal narrowing secondary to retrolisthesis, diffuse disc bulge, bilateral ligamentum flavum infolding, and bilateral facet arthropathy. Effacement of the RIGHT worse than LEFT subarticular zones with broad abutment and minimal displacement of the RIGHT worse than LEFT traversing L5 nerve roots. L5-S1: Mild spinal canal, moderate LEFT and mild RIGHT neural foraminal narrowing secondary to retrolisthesis, diffuse disc bulge with annular fissure, and bilateral facet arthropathy. Disc bulge broadly contacts and at least partially impinges the bilateral traversing S1 nerve roots in the subarticular zones. Sacrum and iliac wings: The visualized sacrum and iliac wings are within normal limits. The presacral soft tissues are normal in appearance. Impression: IMPRESSION: Cervical spine: Multilevel degenerative spondylosis most pronounced at C5-C6 on the LEFT. No high-grade spinal canal or neuroforaminal stenosis. No abnormal cord signal abnormality or enhancement. Lumbar spine: Multilevel degenerative spondylosis superimposed on developmental canal narrowing most prominent at L4-S1. No high-grade spinal canal or neuroforaminal stenosis. Multilevel at least partial nerve root impingement, as detailed. Cervical Anatomic Variant: None. Assume 7 cervical vertebrae with counting from the craniocervical junction. Anatomic Thoracic/Lumbar Variant: None. L4-5 is considered the level of the iliac crest and assume there are 5 lumbar-type vertebrae. Business Technology Architect: [facility] Transcribe Date/Time: Nov 03 2023 11:21A Dictated by : EARL JONES MD This examination was interpreted and the report reviewed and electronically signed by: EARL JONES MD on Nov 03 2023 11:31AM EST Electrodiagnostic Study (EMG): None Recent Labs: Creatinine Date Value Ref Range Status 02/19/2024 0.84 0.51 - 0.95 mg/dL Final Comment: Patients receiving either N-Acetylcysteine (NAC) or Metamizole prior to venipuncture, may have falsely depressed results. No results found for: EGFR No results found for: PCGLUCOSE Current Medications, Past Medical History, Past Surgical History, Family History, Social History and Review of Systems: On today's date, noted above, I have confirmed and edited as necessary, the PFSH and ROS obtained by others. Physical Exam: 07/07/24 0949 Pulse: 66 Resp: 18 SpO2: 99% Physical Exam Vitals reviewed. Constitutional: General: She is not in acute distress. Appearance: She is not ill-appearing. HENT: Head: Normocephalic and atraumatic. Eyes: Conjunctiva/sclera: Conjunctivae normal. Cardiovascular: Pulses: Normal pulses. Pulmonary: Effort: Pulmonary effort is normal. No respiratory distress. Musculoskeletal: Thoracic back: No tenderness or bony tenderness. No scoliosis. Lumbar back: Tenderness present. Decreased range of motion. Positive right straight leg raise test and positive left straight leg raise test. No scoliosis. Comments: Hip Flexion: Right- 5/5; Left- 5/5 Knee Extension: Right- 5/5; Left- 5/5 Dorsiflexion: Right- 5/5; Left- 5/5 Plantarflexion: Right- 5/5; Left- 5/5 Special Tests- Facet Loading: Right-Positive ; Left Positive SI Compression:Negative MALCOM:Right-Negative; Left Negative Skin: General: Skin is warm and dry. Neurological: Mental Status: She is alert and oriented to person, place, and time. Gait: Gait is intact. Gait and tandem walk normal. Deep Tendon Reflexes: Reflexes are normal and symmetric. Reflex Scores: Patellar reflexes are 2+ on the right side and 2+ on the left side. Comments: Psychiatric: Mood and Affect: Mood and affect normal. Behavior: Behavior normal. Behavior is cooperative. IMPRESSION: 38 year old female presents with complaint(s) of Low back pain with radicular symptoms as described above. Patient has been doing conservative methods including use of prednisone and also physical therapy. At this point patient wants to try to decrease the pain from this exacerbation. We will attempt an interlaminar epidural steroid injection at L5-S1. This is based upon her MRI results and her pain complaint. May consider medial branch nerve blocks in the future if needed. Diagnoses: (M54.42, G89.29) Chronic bilateral low back pain with left-sided sciatica PLAN: Anabell Payne would benefit from the following to reach personal goals for decreasing pain, improving function and work participation, and/or improving quality of life: Medications: No Changes - Continue Current Medications Interventional Procedures: Epidural Steroid Injection - Interlaminar Approach (ILESI) under fluoroscopic guidance NONE at L5-S1 Cat Wagon Operator Needed: Epidural - YES Anticoagulant - Hold Needed: N/A (Not currently on Anticoagulants) Anticoagulant - Currently Taking: None Allergies (relevant): None Scheduling - Mobility (Can Patient independently transfer on/off an OR or Procedure table?): YES (May schedule at any location) Scheduling - Additional Info: None Studies: None Functional Restorationist: NONE Referrals: No additional considerations at present Follow-up: 1 month after injection Depending on response to the above plan, consider: [facility] Compliance and Clinic Policies Reviewed and/or Discussed Today: None Attribution: In addition to reviewing the information noted above, some elements copied from my most recent clinical note(s), including the physical exam (completed in entirety today), and the impression and plan sections, have been updated where appropriate. All reflect current medical decision making from today's date. Ragini Leung APRN.[facility] Review of Systems Constitutional: Positive for activity change. Negative for chills, fever and unexpected weight change. Genitourinary: Negative for difficulty urinating. Musculoskeletal: Positive for back pain, gait problem, joint swelling, myalgias, neck pain and neck stiffness. Negative for arthralgias. Neurological: Positive for weakness and numbness. Negative for headaches. Psychiatric/Behavioral: Positive for dysphoric mood and sleep disturbance. Negative for suicidal ideas. The patient is nervous/anxious. documented in this encounter [facility] 07-07-2024 Note HNO ID: [id number] Author: RAGINI LEUNG APRN.ZACH Service: ? Author Type: Nurse Practitioner Type: Progress Notes Filed: 07/07/2024 12:41 Note Text: [facility] Today's Date: 07/07/2024 Name: Anabell Payne : 1985 Purpose: New Patient Consultation Chief complaint: low back pain Referring Clinician: Alexis Jones Pertinent Past Medical History: RA, gestational diabetes, kidney stones and sciatica. Pertinent Past Surgeries: none History of Present Illness (HPI): 07/04/2024 - Initial HPI (Obtained by Ragini Leung CNP). DURATION AND ONSET: The pain complaint has been present for approximately 19 yrs. The pain had a gradual onset. The mechanism of injury is unknown. RED FLAG SYMPTOMS: leg weakness and burning PAIN DESCRIPTION: Timing: Constant Character: Sharp, Stabbing, stiff, tight Primary Location: low back Radiation: mostly down the right leg at times, also radiation into her hips. Exacerbating factors: Sitting Relieving factors: stretching, moving and walking Interferes with: work Patient is here today with complaints of low back pain. Patient stating she was seen by the neurosurgeon at first for neck pain however, her neck pain has improved and her low back is bothering her. Patient states that she has had this pain off and on for years. States it started when she was about 18 when she was 19 and that she was told that she is a surgical candidate but decided not to have surgery. Patient has attempted to manage this pain ever since. Patient stating that she felt the pain increase this time after rollerskating with her son and being in a bent over position for a while. 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 Patient stating that she attempted the prednisone with this exacerbation of her lumbar spine and it did not help as much as she was hoping. Patient has been to physical therapy and continues to do the stretching exercises especially when the pain is not controlled. 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 Patient states when her back did hurt in her teens they did do injections at that time they did help with the pain. Patient is here to see what can be done to help with her pain. Patient would like to avoid any oral medications and if there is any type of injection that could be done she is more interested in that. Current Pain Medications: Neuropathics: NSAIDS: methotrexate Muscle Relaxants: Topicals: Other Prescription or OTC Pain Medications: methotrexate Opioids (when applicable): Anti-depressants or Mood-Stabilizers: None Anti-Coagulants: None Therapies Attended (Current or Most Recent): Physical Therapy for 6 weeks with temporary relief 07/07/2024 AG SPINE COMBINATION Questionnaire GREENLIGHT Completed Date 07/07/2024 Questionnaire Opiod Risk Tool Completed Date 07/07/2024 Comments Low Risk 3 Greenlight Questionnaire GREENLIGHT Completed Date 07/07/2024 Opioid Risk Tool Opiod Risk Tool Date Completed 07/07/2024 Comments Low Risk 3 KALYN-7 Anxiety Score 5 Completed Date 07/07/2024 PHQ9P Score 7 Completed Date 07/07/2024 (All drug screens are appropriate unless indicated otherwise) Treatment History: PAIN PROCEDURES: DATE PROCEDURE IMPROVEMENT To date, no interventional pain management procedures performed at this practice. Over 20 years ago had injections with relief at [facility] MEDICATIONS Taken TO DATE (for the chief complaint(s)): Neuropathics: None NSAIDS: Motrin (Ibuprofen) Muscle Relaxants: None Topicals: None Other Prescription or OTC Pain Medications: Tylenol (Acetaminophen) Opioids: None Data Reviewed Today: Allergies: ALLERGIES No Known Allergies Social History Tobacco Use Smoking status: Never Smokeless tobacco: Never Vaping Use Vaping status: Never Used Substance Use Topics Alcohol use: Not Currently Comment: Couple times monthly beer/wine Drug use: Not Currently 03/10/2024 07/07/2024 INTAKE PAIN ASSESSMENT Are you having pain associated with your visit today? Yes, Provider notified Yes, Provider notified Pain Scales Verbal (Numeric Rating or Visual Analog Scale) Pain Level 4 4 Pain Location Throat Back-Lower Description Raw Radiating;Sharp;Sore;Spasm;Stabb ing;Stiffness;Tightness Duration Amount of Time 3 Duration Units Days Years Frequency Intermittent Continuous Intervention/Comfort measure Medication Reposition;Relaxation;Exercise;H eat;Positioning Compliance: PDMP website checked and validated on 07/07/2024 by Lisa (more content not included)... [facility] 07-07-2024 Note HNO ID: [id number] Author: NADIYA ARCOS LPN Service: ? Author Type: LICENSED NURSE Type: Progress Notes Filed: 07/07/2024 12:41 Note Text: Review of Systems Constitutional: Positive for activity change. Negative for chills, fever and unexpected weight change. Genitourinary: Negative for difficulty urinating. Musculoskeletal: Positive for back pain, gait problem, joint swelling, myalgias, neck pain and neck stiffness. Negative for arthralgias. Neurological: Positive for weakness and numbness. Negative for headaches. Psychiatric/Behavioral: Positive for dysphoric mood and sleep disturbance. Negative for suicidal ideas. The patient is nervous/anxious. [facility] 06-16-2024 Telephone encounter Note Called and LVM to schedule new patient appointment. Eulalia Calvert [facility] 06-16-2024 Miscellaneous Notes Called and LVM to schedule new patient appointment. Eulalia Calvert documented in this encounter [facility] 03-10-2024 Note HNO ID: [id number] Author: DESTINY MANN MD Service: ? Author Type: Physician Type: Progress Notes Filed: 03/10/2024 12:18 Note Text: Anabell Payne is a 38 year old female who presents with Cough, congestion (X4days all/ symptoms.Patient states her daughter has strep/), and Sore Throat Patient presents for cough congestion and a sore throat. This has been going on for 4 days. States daughter is sick and has strep throat. Has a cough that is productive of sputum. Also states bilateral ear pain. No fevers or chills no nausea vomiting no diarrhea no shortness of breath or chest pain. PAST MEDICAL HISTORY Diagnosis Date Gestational diabetes Kidney stones During Sciatica Vitamin D deficiency 07/28/2018 ACTIVE PROBLEM LIST Gestational Diabetes Vitamin D Deficiency Obesity, Class I, Bmi 30-34.9 Current Outpatient Medications Medication Sig Dispense Refill ketoconazole (NIZORAL) 2 % shampoo USE FOR EVERY OTHER WASH ON THE SCALP LETTING IT LATHER 3 TO 5 MINUTES BEFORE RINSING DIRECTED. Clobetasol Propionate (TEMOVATE) 0.05 % external solution APPLY TO THE SCALP AT NIGHT AND MASSAGE IN, ALLOWING TO STAY IN OVERNIGHT FOR TWO WEEKS, STOPPING FOR ONE WEEK AND THEN RESUMING THE REGIMEN NEEDED FOR FLARING. methotrexate 2.5 mg tablet Take 2.5 mg by mouth. Take 6 tabs Q week. folic acid 1 mg tablet Take 1 mg by mouth two times a day. predniSONE (DELTASONE) 10 mg tablet Take 1 tablet by mouth once daily as needed. Rx by rheumatology for days of increased activity Cholecalciferol, Vitamin D3, 50 mcg (2,000 unit) cap Take 2,000 Units by mouth once daily. rosuvastatin (CRESTOR) 10 mg tablet Take 1 tablet by mouth daily at bedtime. 30 tablet 0 No current facility-administered medications for this visit. Social History Tobacco Use Smoking status: Never Smokeless tobacco: Never Vaping Use Vaping status: Never Used Substance Use Topics Alcohol use: Not Currently Comment: Couple times monthly beer/wine Drug use: Not Currently Alcohol Use: Not Currently (Couple times monthly beer/wine) Tobacco Use: Never FAMILY HISTORY Problem Relation Age of Onset Diabetes Mother Hypertension Mother Hypertension Father Stroke Father Prostate Cancer Father Colon Cancer Father Hypertension Sister Hypertension Brother Review of Systems Constitutional: Negative for chills and fever. HENT: Positive for congestion, ear pain and sore throat. Negative for ear discharge, hearing loss and tinnitus. Respiratory: Positive for cough and shortness of breath. Neurological: Negative for dizziness. BP 94/60 Pulse 71 Temp 98.3 Resp 20 Wt 205 lb 12.8 oz (93.4kg) SpO2 97% LMP 02/29/2024 Physical Exam Vitals and nursing note reviewed. Constitutional: Appearance: Normal appearance. HENT: Right Ear: Tympanic membrane normal. Left Ear: Tympanic membrane is erythematous. Nose: Congestion present. Mouth/Throat: Mouth: Mucous membranes are moist. Pharynx: Oropharynx is clear. No oropharyngeal exudate or posterior oropharyngeal erythema. Cardiovascular: Rate and Rhythm: Normal rate and regular rhythm. Pulmonary: Effort: Pulmonary effort is normal. Breath sounds: Normal breath sounds. Lymphadenopathy: Cervical: No cervical adenopathy. Skin: General: Skin is warm and dry. Neurological: Mental Status: She is alert. ASSESSMENT/PLAN: 1. Acute otitis media, left - ICD9: 382.9, ICD10: H66.92 - Will begin treatment with as per antibiotic as written, see orders - The patient should also be given OTC decongestants prn for the first 5-7 days of treatment. - Supportive care with plenty of fluids, rest, and analgesia prn. - Follow up in one week w/PCP if symptoms persist or worsen. - AMOXICILLIN 875 MG-POTASSIUM CLAVULANATE 125 MG TABLET Destiny Mann MD [facility] 03-10-2024 History of Presen t illness Narrative Anabell Payne is a 38 year old female who presents with Cough, congestion (X4days all/ symptoms.Patient states her daughter has strep/), and Sore Throat Patient presents for cough congestion and a sore throat. This has been going on for 4 days. States daughter is sick and has strep throat. Has a cough that is productive of sputum. Also states bilateral ear pain. No fevers or chills no nausea vomiting no diarrhea no shortness of breath or chest pain. PAST MEDICAL HISTORY Diagnosis Date Gestational diabetes Kidney stones During Sciatica Vitamin D deficiency 07/28/2018 ACTIVE PROBLEM LIST Gestational Diabetes Vitamin D Deficiency Obesity, Class I, Bmi 30-34.9 Current Outpatient Medications Medication Sig Dispense Refill ketoconazole (NIZORAL) 2 % shampoo USE FOR EVERY OTHER WASH ON THE SCALP LETTING IT LATHER 3 TO 5 MINUTES BEFORE RINSING DIRECTED. Clobetasol Propionate (TEMOVATE) 0.05 % external solution APPLY TO THE SCALP AT NIGHT AND MASSAGE IN, ALLOWING TO STAY IN OVERNIGHT FOR TWO WEEKS, STOPPING FOR ONE WEEK AND THEN RESUMING THE REGIMEN NEEDED FOR FLARING. methotrexate 2.5 mg tablet Take 2.5 mg by mouth. Take 6 tabs Q week. folic acid 1 mg tablet Take 1 mg by mouth two times a day. predniSONE (DELTASONE) 10 mg tablet Take 1 tablet by mouth once daily as needed. Rx by rheumatology for days of increased activity Cholecalciferol, Vitamin D3, 50 mcg (2,000 unit) cap Take 2,000 Units by mouth once daily. rosuvastatin (CRESTOR) 10 mg tablet Take 1 tablet by mouth daily at bedtime. 30 tablet 0 No current facility-administered medications for this visit. Social History Tobacco Use Smoking status: Never Smokeless tobacco: Never Vaping Use Vaping status: Never Used Substance Use Topics Alcohol use: Not Currently Comment: Couple times monthly beer/wine Drug use: Not Currently Alcohol Use: Not Currently (Couple times monthly beer/wine) Tobacco Use: Never FAMILY HISTORY Problem Relation Age of Onset Diabetes Mother Hypertension Mother Hypertension Father Stroke Father Prostate Cancer Father Colon Cancer Father Hypertension Sister Hypertension Brother Review of Systems Constitutional: Negative for chills and fever. HENT: Positive for congestion, ear pain and sore throat. Negative for ear discharge, hearing loss and tinnitus. Respiratory: Positive for cough and shortness of breath. Neurological: Negative for dizziness. BP 94/60 Pulse 71 Temp 98.3 Resp 20 Wt 205 lb 12.8 oz (93.4kg) SpO2 97% [facility] 02/29/2024 Physical Exam Vitals and nursing note reviewed. Constitutional: Appearance: Normal appearance. HENT: Right Ear: Tympanic membrane normal. Left Ear: Tympanic membrane is erythematous. Nose: Congestion present. Mouth/Throat: Mouth: Mucous membranes are moist. Pharynx: Oropharynx is clear. No oropharyngeal exudate or posterior oropharyngeal erythema. Cardiovascular: Rate and Rhythm: Normal rate and regular rhythm. Pulmonary: Effort: Pulmonary effort is normal. Breath sounds: Normal breath sounds. Lymphadenopathy: Cervical: No cervical adenopathy. Skin: General: Skin is warm and dry. Neurological: Mental Status: She is alert. ASSESSMENT/PLAN: 1. Acute otitis media, left - ICD9: 382.9, ICD10: H66.92 - Will begin treatment with as per antibiotic as written, see orders - The patient should also be given OTC decongestants prn for the first 5-7 days of treatment. - Supportive care with plenty of fluids, rest, and analgesia prn. - Follow up in one week w/PCP if symptoms persist or worsen. - AMOXICILLIN 875 MG-POTASSIUM CLAVULANATE 125 MG TABLET Destiny Mann MD documented in this encounter [facility] 03-09-2024 Note HNO ID: [id number] Author: FERNANDO ROBERT, PT, DPT Service: ? Author Type: Physical Therapist Type: Progress Notes Filed: 03/09/2024 08:04 Note Text: 03/09/2024 [facility] PHYSICAL THERAPY DISCONTINUANCE OF CARE Plan of Care Period: Start of Care Date: 12/09/23 Last Visit Date: 01/07/2024 Therapy Program: The following is a summary of the interventions provided for this episode of care; Therapeutic exercise and Modalities: E-Stim Unattended Assessment: The following is the goal status: Goals for Episode of Care: created on 12/09/23 through 01/20/24 Patient reported outcome of pain Interference will decrease T -score by a minimum of 5 points. Independent in home exercises. Patient will decrease pain rating by 2 points to meet minimal clinical important difference for numeric pain rating scale. Restore pain-free lumbar ROM to within normal limits to allow for improved tolerance to ADL's Stand / Walk 15 minutes without increased pain/symptoms. Sleep through night without pain/symptoms. 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 Patient will increase strength of bilateral lower extremities to 5/5 to allow for improve ability to complete ADLs. Patient will increase flexibility of bilateral hamstrings to 85 degrees without radiculpathy to improve mechanics and decrease pain. Patient Goals: move around pain free Based on the most recent progress report, patient was progressing as expected toward functional goals based on home exercise program compliance, pain levels, documented subjective information on progress, and documented objective information regarding overall function, range of motion, and strength. Reason for Discontinuation of Care: Patient has not returned to therapy or scheduled additional follow-up appointments. Fernando Robert, PT, DPT [facility] 02-22-2024 History of Presen t illness Narrative Images from the original note were not included. VISIT TYPE: ROUTINE FOLLOW UP There are no exam notes on file for this visit. CHIEF COMPLAINT: Patient presents with: Hyperlipidemia: 3 month follow up. Wants to discuss recent appts with Rheumatology. HPI: Anabell Payne is a 38 year old female here for ROUTINE FOLLOW UP Hyperlipidemia- Was started on statin. Total chol 175, Trig 149, HDL 43, LDL 102. Has been trying to watch diet. Does have significant family hx of high chol and heart disease. Fatigue- Cont to have fatigue but is felt to be r/t pos MICHELE. States she developed rashes and fatigue a couple yrs ago. Was seeing [facility] and started on progesterone which did help with the rash. Rash- Has appt with derm tomorrow. Does have rashes on her arms, ankles, and along her neck. Does notice itching when it occurs. Has seen dermatology and was given steroid cream. Had MICHELE done which was pos and was referred to rheumatology. Anxiety- Following with therapist. States she had been on wellbutrin in the past but it hasn't helped. Does feel better since going to counseling. Does feel anxious normally. Prefers to not take meds. Denies any feelings of helplessness/hopelessness, thoughts of hurting self. Vit D deficiency- Taking vit D daily. Pos MICHELE- Referred to rheumatology. Was dx with inflammatory polyarthritis and being eval for RA or psoriatic arthritis. Was started on methotrexate in Nov but hasn't noticed much improvement yet. Neuropathy- Had EMG which showed evidence of mild intracanal spinal lesion and was referred to neurosurgery. 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 Was set up for mri with contrast d/t the right hand neuropathy which was done on Thursday. Was referred to hand surgeon to eval for carpal tunnel. Chronic back pain- Following with neurosurgery and was ordered MRI. Was candidate for surgery but d/t age he preferred to wait. Was set up for PT which she finished. If that doesn't help she would be referred to pain clinic. REVIEW OF SYSTEMS: Review of Systems Constitutional: Positive for fatigue. Negative for appetite change, chills and fever. HENT: Negative for congestion, ear pain and sore throat. Eyes: Negative for redness and visual disturbance. Respiratory: Negative for cough, chest tightness, shortness of breath and wheezing. Cardiovascular: Negative for chest pain, palpitations and leg swelling. Gastrointestinal: Negative for abdominal pain, constipation, diarrhea, nausea and vomiting. Genitourinary: Negative for dysuria, frequency and hematuria. Musculoskeletal: Positive for arthralgias and back pain. Negative for gait problem. Skin: Negative for color change, pallor and rash. Neurological: Positive for numbness. Negative for dizziness, syncope and headaches. Psychiatric/Behavioral: The patient is nervous/anxious. Current Outpatient Medications Medication Sig Dispense Refill methotrexate 2.5 mg tablet Take 2.5 mg by mouth. Take 6 tabs Q week. folic acid 1 mg tablet Take 1 mg by mouth two times a day. rosuvastatin (CRESTOR) 10 mg tablet Take 1 tablet by mouth daily at bedtime. 30 tablet 0 Cholecalciferol, Vitamin D3, 50 mcg (2,000 unit) cap Take 2,000 Units by mouth once daily. Progesterone 200 mg supp triamcinolone acetonide (KENALOG) 0.1 % ointment APPLY TWICE A DAY TO DERMATITIS- 2 WEEKS ON - 1 WEEK OFF No current facility-administered medications for this visit. ALLERGIES No Known Allergies PAST MEDICAL HISTORY Diagnosis Date Gestational diabetes Kidney stones During Sciatica Vitamin D deficiency 07/28/2018 PAST SURGICAL HISTORY Procedure Laterality Date COLONOSCOPY SCREENING 10/01/2023 Dr. Butler PAST SURGICAL HISTORY OF [place] teeth extraction FAMILY HISTORY Problem Relation Age of Onset Diabetes Mother Hypertension Mother Hypertension Father Stroke Father Prostate Cancer Father Colon Cancer Father Hypertension Sister Hypertension Brother Social History Tobacco Use Smoking status: Never Smokeless tobacco: Never Vaping Use Vaping status: Never Used Substance Use Topics Alcohol use: Yes Comment: Couple times monthly beer/wine Drug use: Not Currently Employer And Job Title: None on file Years Of Education Completed: Not specified Marital Status: Social History Social History Narrative Not on file PHYSICAL EXAM BP 111/74 (BP Site: Left Arm, BP Position: Sitting, BP Cuff Size: Large Adult) Pulse 64 Resp 14 Ht 165.1 cm (5' 5) Wt 91.6 kg (202 lb) LMP 09/30/2023 (Exact Date) SpO2 98% BMI 33.61 kg/m Physical Exam Vitals reviewed. Constitutional: General: She is not in acute distress. Appearance: Normal appearance. She is obese. HENT: Head: Normocephalic and atraumatic. Mouth/Throat: Mouth: Mucous membranes are moist. Pharynx: Oropharynx is clear. No oropharyngeal exudate or posterior oropharyngeal erythema. Neck: Vascular: No carotid bruit. Cardiovascular: Rate and Rhythm: Normal rate and regular rhythm. Pulses: Normal pulses. Heart sounds: Normal heart sounds. No murmur heard. Pulmonary: Effort: Pulmonary effort is normal. Breath sounds: Normal breath sounds. No rhonchi or rales. Abdominal: General: Bowel sounds are normal. There is no distension. Palpations: Abdomen is soft. Tenderness: There is no abdominal tenderness. Musculoskeletal: General: No swelling or tenderness. Normal range of motion. Cervical back: Normal range of motion and neck supple. Skin: General: Skin is warm and dry. Findings: No erythema or rash. Neurological: Mental Status: She is alert and oriented to person, place, and time. Cranial Nerves: No cranial nerve deficit. Psychiatric: Mood and Affect: Mood normal. Speech: Speech normal. Behavior: Behavior is cooperative. Thought Content: Thought content does not include suicidal ideation. Cognition and Memory: Cognition and memory normal. Judgment: Judgment normal. DIAGNOSTICS REVIEWED Latest Ref Rng & Units 10/17/2022 07/15/2023 02/19/2024 CBC WBC 3.70 - 11.00 k/uL 7.1 7.61 8.17 RBC 3.90 - 5.20 m/uL 4.51 4.47 4.49 Hemoglobin 11.5 - 15.5 g/dL 14.2 14.0 14.3 Hematocrit 36.0 - 46.0 % 42.8 42.1 42.2 MCV 80.0 - 100.0 fL 94.9 94.2 94.0 MCH 26.0 - 34.0 pg 31.5 31.3 31.8 MCHC 30.5 - 36.0 g/dL 33.2 33.3 33.9 RDW 12.5 - 15.7 % 12.2 RDW-CV 11.5 - 15.0 % 12.1 12.9 Platelet Count 150 - 400 k/uL 197 234 245 MPV 9.0 - 12.7 fL 11.3 11.6 10.7 Baso% 0.0 - 1.0 % 0.8 LYMPH ABS 1.00 - 3.50 x10(3) 1.44 MONO ABS 0.30 - 0.80 x10(3) 0.44 EOS ABS 0.00 - 0.54 x10(3) 0.15 BASO ABS 0.00 - 0.10 x10(3) 0.06 Glucose (mg/dL) Date Value 02/19/2024 106 10/17/2022 96 Potassium (mmol/L) Date Value 02/19/2024 3.9 10/17/2022 4.4 Sodium (mmol/L) Date Value 02/19/2024 140 10/17/2022 140 Chloride (mmol/L) Date Value 02/19/2024 106 10/17/2022 105 CO2 (mmol/L) Date Value 02/19/2024 26 10/17/2022 26 Creatinine (mg/dL) Date Value 02/19/2024 0.84 10/17/2022 0.90 BUN (mg/dL) Date Value 02/19/2024 12 10/17/2022 13 Anion Gap (mmol/L) Date Value 02/19/2024 8 10/17/2022 13.4 Calcium (mg/dL) Date Value 10/17/2022 9.6 Calcium, Total (mg/dL) Date Value 02/19/2024 9.9 Glucose (mg/dL) Date Value 02/19/2024 106 10/17/2022 96 Potassium (mmol/L) Date Value 02/19/2024 3.9 10/17/2022 4.4 Sodium (mmol/L) Date Value 02/19/2024 140 10/17/2022 140 Chloride (mmol/L) Date Value 02/19/2024 106 10/17/2022 105 CO2 (mmol/L) Date Value 02/19/2024 26 10/17/2022 26 Creatinine (mg/dL) Date Value 02/19/2024 0.84 10/17/2022 0.90 BUN (mg/dL) Date Value 02/19/2024 12 10/17/2022 13 Anion Gap (mmol/L) Date Value 02/19/2024 8 10/17/2022 13.4 Calcium (mg/dL) Date Value 10/17/2022 9.6 Calcium, Total (mg/dL) Date Value 02/19/2024 9.9 Protein, Total (g/dL) Date Value 02/19/2024 7.2 10/17/2022 7.3 Albumin (g/dL) Date Value 02/19/2024 3.9 10/17/2022 4.5 Bilirubin, Total (mg/dL) Date Value 02/19/2024 0.6 10/17/2022 <0.2 Alkaline Phosphatase (U/L) Date Value 02/19/2024 83 10/17/2022 88 AST (U/L) Date Value 02/19/2024 18 10/17/2022 20 ALT (U/L) Date Value 02/19/2024 24 10/17/2022 30 No results found for: T3 No results found for: T4 No results found for: [id number] TSH Date Value 02/19/2024 1.302 mIU/L 10/17/2022 1.40 uIU/mL Cholesterol, Total (mg/dL) Date Value 02/19/2024 175 10/17/2022 224 HDL Cholesterol (mg/dL) Date Value 02/19/2024 43 10/17/2022 47 LDL Cholesterol (mg/dL) Date Value 02/19/2024 102 LDL (mg/dL) Date Value 10/17/2022 155 Triglyceride (mg/dL) Date Value 02/19/2024 149 10/17/2022 112 IMPRESSION / PLAN ASSESSMENT/PLAN: 1. Positive MICHELE (antinuclear antibody) - ICD9: 795.79, ICD10: R76.8 (primary diagnosis) Following with rheumatology. Possibly psoriatic arthritis. Started on methotrexate 2. Mixed hyperlipidemia - ICD9: 272.2, ICD10: E78.2 Improved with crestor. Follow low fat/chol diet. 3. Fatigue, unspecified type - ICD9: 780.79, ICD10: R53.83 Ongoing. 4. Rash - ICD9: 782.1, ICD10: R21 Stable. Believed this is from MICHELE 5. Cervical spinal stenosis - ICD9: 723.0, ICD10: M48.02 Following with neurosurgery. Had finished PT. 6. Generalized anxiety disorder - ICD9: 300.02, ICD10: F41.1 Stable without meds. 7. Chronic bilateral low back pain with left-sided sciatica - ICD9: 724.2, 724.3, 338.29, ICD10: M54.42, G89.29 Follows with neurosurgery. Finished PT and would need referred to pain clinic if not improved Nicole Duvall APRN.[employer] F/u 6mo for annual with labs There may be parts of this progress note, including the impression and plan, that have been copied from my previous progress note and remain pertinent. Updates have been made where necessary. documented in this encounter [facility] 02-22-2024 Note HNO ID: [id number] Author: NICOLE DUVALL APRN.ZACH Service: ? Author Type: Nurse Practitioner Type: Progress Notes Filed: 02/22/2024 15:35 Note Text: VISIT TYPE: ROUTINE FOLLOW UP There are no exam notes on file for this visit. CHIEF COMPLAINT: Patient presents with: Hyperlipidemia: 3 month follow up. Wants to discuss recent appts with Rheumatology. HPI: Anabell Payne is a 38 year old female here for ROUTINE FOLLOW UP Hyperlipidemia- Was started on statin. Total chol 175, Trig 149, HDL 43, LDL 102. Has been trying to watch diet. Does have significant family hx of high chol and heart disease. Fatigue- Cont to have fatigue but is felt to be r/t pos MICHELE. States she developed rashes and fatigue a couple yrs ago. Was seeing [facility] and started on progesterone which did help with the rash. Rash- Has appt with derm tomorrow. Does have rashes on her arms, ankles, and along her neck. Does notice itching when it occurs. Has seen dermatology and was given steroid cream. Had MICHELE done which was pos and was referred to rheumatology. Anxiety- Following with therapist. States she had been on wellbutrin in the past but it hasn't helped. Does feel better since going to counseling. Does feel anxious normally. Prefers to not take meds. Denies any feelings of helplessness/hopelessness, thoughts of hurting self. Vit D deficiency- Taking vit D daily. Pos MICHELE- Referred to rheumatology. Was dx with inflammatory polyarthritis and being eval for RA or psoriatic arthritis. Was started on methotrexate in Nov but hasn't noticed much improvement yet. Neuropathy- Had EMG which showed evidence of mild intracanal spinal lesion and was referred to neurosurgery. 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 Was set up for mri with contrast d/t the right hand neuropathy which was done on Thursday. Was referred to hand surgeon to eval for carpal tunnel. Chronic back pain- Following with neurosurgery and was ordered MRI. Was candidate for surgery but d/t age he preferred to wait. Was set up for PT which she finished. If that doesn't help she would be referred to pain clinic. REVIEW OF SYSTEMS: Review of Systems Constitutional: Positive for fatigue. Negative for appetite change, chills and fever. HENT: Negative for congestion, ear pain and sore throat. Eyes: Negative for redness and visual disturbance. Respiratory: Negative for cough, chest tightness, shortness of breath and wheezing. Cardiovascular: Negative for chest pain, palpitations and leg swelling. Gastrointestinal: Negative for abdominal pain, constipation, diarrhea, nausea and vomiting. Genitourinary: Negative for dysuria, frequency and hematuria. Musculoskeletal: Positive for arthralgias and back pain. Negative for gait problem. Skin: Negative for color change, pallor and rash. Neurological: Positive for numbness. Negative for dizziness, syncope and headaches. Psychiatric/Behavioral: The patient is nervous/anxious. Current Outpatient Medications Medication Sig Dispense Refill methotrexate 2.5 mg tablet Take 2.5 mg by mouth. Take 6 tabs Q week. folic acid 1 mg tablet Take 1 mg by mouth two times a day. rosuvastatin (CRESTOR) 10 mg tablet Take 1 tablet by mouth daily at bedtime. 30 tablet 0 Cholecalciferol, Vitamin D3, 50 mcg (2,000 unit) cap Take 2,000 Units by mouth once daily. Progesterone 200 mg supp triamcinolone acetonide (KENALOG) 0.1 % ointment APPLY TWICE A DAY TO DERMATITIS- 2 WEEKS ON - 1 WEEK OFF No current facility-administered medications for this visit. ALLERGIES No Known Allergies PAST MEDICAL HISTORY Diagnosis Date Gestational diabetes Kidney stones During Sciatica Vitamin D deficiency 07/28/2018 PAST SURGICAL HISTORY Procedure Laterality Date COLONOSCOPY SCREENING 10/01/2023 Dr. Butler PAST SURGICAL HISTORY OF [place] teeth extraction FAMILY HISTORY Problem Relation Age of Onset Diabetes Mother Hypertension Mother Hypertension Father Stroke Father Prostate Cancer Father Colon Cancer Father Hypertension Sister Hypertension Brother Social History Tobacco Use Smoking status: Never Smokeless tobacco: Never Vaping Use Vaping status: Never Used Substance Use Topics Alcohol use: Yes Comment: Couple times monthly beer/wine Drug use: Not Currently Employer And Job Title: None on file Years Of Education Completed: Not specified Marital Status: Social History Social History Narrative Not on file PHYSICAL EXAM BP 111/74 (BP Site: Left Arm, BP Position: Sitting, BP Cuff Size: Large Adult) Pulse 64 Resp 14 Ht 165.1 cm (5' 5) Wt 91.6 kg (202 lb) LMP 09/30/2023 (Exact Date) SpO2 98% BMI 33.61 kg/m? Physical Exam Vitals reviewed. Constitutional: General: She is not in acute distress. Appearance: Normal appearance. She is obese. HENT: Head: Normocephalic and atraumatic. Mouth/Throat: Mouth: Mucous me (more content not included)... [facility] 02-10-2024 Telephone encounter Note I called and informed Anabell on her self identified voice mail. Phone number was left if she had any questions. ig [facility] 02-10-2024 Miscellaneous Notes I called and informed Anabell on her self identified voice mail. Phone number was left if she had any questions. ig This was rx'd yesterday- has appt 02/21 Next 5 Appointments Date and Time Provider Department Dept Phone 02/22/2024 3:00 PM Nicole Duvall [facility] [phone] Cancelled appt for tomorrow- will need scheduled Pharmacy electronically requests the following refill(s) Requested Prescriptions Pending Prescriptions Disp Refills rosuvastatin (CRESTOR) 10 mg tablet [Pharmacy Med Name: rosuvastatin 10 mg tablet] 90 tablet 0 Sig: take one tablet at bedtime Lea Norris MA Next 5 Appointments None documented in this encounter [facility] 02-09-2024 Telephone encounter Note This was rx'd yesterday- has appt 02/21 [facility] 02-09-2024 Telephone encounter Note Next 5 Appointments Date and Time Provider Department Dept Phone 02/22/2024 3:00 PM Nicole Duvall [facility] [phone] [facility] 02-08-2024 Telephone encounter Note PATIENT SCHEDULED FOR 02/22/2024 WITH NICOLE DUVALL NP [facility] 02-08-2024 Miscellaneous Notes PATIENT SCHEDULED FOR 02/22/2024 WITH NICOLE DUVALL NP Called patient and informed of message, patient voiced understanding and is agreeable. OSITO Cohen Will refill meds for a month. Patient calls today. Reason for Call: Patient wanted to reschedule her 3 month FU appointment from 02/01 and wanted to do blood work prior. She said she ran out of her cholesterol medication last Friday 02/02 so she wasn't sure if she did blood work this week it would reflect her true numbers. She wanted to know if another script should be sent in and she schedule out or does she need to go ahead and schedule this week. Please advise. Thanks! [phone] (home) [phone] (cell) Patient last appointment: 02/01/2024 Anthony Pagan documented in this encounter [facility] 02-08-2024 Telephone encounter Note Called patient and informed of message, patient voiced understanding and is agreeable. OSITO Cohen T [facility] 02-08-2024 Telephone encounter Note Will refill meds for a month. T [facility] 02-08-2024 Telephone encounter Note Patient calls today. Reason for Call: Patient wanted to reschedule her 3 month FU appointment from 02/01 and wanted to do blood work prior. She said she ran out of her cholesterol medication last Friday 02/02 so she wasn't sure if she did blood work this week it would reflect her true numbers. She wanted to know if another script should be sent in and she schedule out or does she need to go ahead and schedule this week. Please advise. Thanks! [phone] (home) [phone] (cell) Patient last appointment: 02/01/[address] [facility] 02-01-2024 Telephone encounter Note Cancelled appt for tomorrow- will need scheduled [facility] 02-01-2024 Telephone encounter Note Pharmacy electronically requests the following refill(s) Requested Prescriptions Pending Prescriptions Disp Refills rosuvastatin (CRESTOR) 10 mg tablet [Pharmacy Med Name: rosuvastatin 10 mg tablet] 90 tablet 0 Sig: take one tablet at bedtime Lea Norris MA Next [address] [facility] 01-07-2024 History of Presen t illness Narrative Program_ID:[id number] Access Code: [email or web address] URL: [email or web address]/ Date: 01-07-2024 Prepared By: FERNANDO ROBERT Program Notes Precaution: No hip extension in combination with external rotation of the surgical leg.<div>You do not have other precautions. Traditional total hip precautions do not apply to you.</div><div>While in bed, please make sure you flatten the bed to stretch your hip out. Please do this 2x/day for about 30-40 minutes for each session.</div> Exercises - Supine Posterior Pelvic Tilt - 2 x daily - 7 x weekly - 3 sets - 10 reps - Supine March with Posterior Pelvic Tilt - 2 x daily - 7 x weekly - 3 sets - 10 reps - Bug - 2 x daily - 7 x weekly - 3 sets - 10 reps - Seated Flexion Stretch with [place] Ball - 2 x daily - 7 x weekly - 5 sets - reps - Seated Thoracic Flexion and Rotation with [place] Ball - 2 x daily - 7 x weekly - 5 sets - reps - Prone Press Up - 2 x daily - 7 x weekly - 1 sets - 10 reps - Sit Up with Arm Reach - 1 x daily - 7 x weekly - 3 sets - 10 reps - Supine Bridge - 1 x daily - 7 x weekly - 3 sets - 10 reps - Sidelying Hip Abduction - 1 x daily - 7 x weekly - 3 sets - 10 reps - Bridge with Heels on [place] Ball - 1 x daily - 7 x weekly - 3 sets - 10 reps - Plank on Knees - 1 x daily - 7 x weekly - 3 sets - reps - Side Plank on Knees - 1 x daily - 7 x weekly - 3 sets - reps - Side Stepping with Resistance at Ankles - 1 x daily - 7 x weekly - 3 sets - 10 reps - Standing Anti-Rotation Press with Anchored Resistance - 1 x daily - 7 x weekly - 3 sets - 10 reps - Bridge with Hip Abduction and Resistance - 1 x daily - 7 x weekly - 3 sets - 10 reps - Bird Dog - 1 x daily - 7 x weekly - 3 sets - 10 reps - Beginner Front Arm Support - 1 x daily - 7 x weekly - 3 sets - 10 reps - Supine Bug with Leg Extension - 1 x daily - 7 x weekly - 3 sets - 10 reps - Wall Squat with [place] Ball - 1 x daily - 7 x weekly - 3 sets - 10 reps - Forward Monster Walks - 1 x daily - 7 x weekly - 3 sets - 10 reps - Backward Monster Walks - 1 x daily - 7 x weekly - 3 sets - 10 reps - [place] Twists Feet off Ground Fast Tempo - 1 x daily - 7 x weekly - 3 sets - 10 reps - Reverse Crunch - 1 x daily - 7 x weekly - 3 sets - 10 reps - Full Superman on Table - 1 x daily - 7 x weekly - 3 sets - 10 reps - Single Leg Bridge - 1 x daily - 7 x weekly - 3 sets - 10 reps - Mini [place] on [place] Ball - 1 x daily - 7 x weekly - 3 sets - 10 reps - Supine Hamstring Curl on [place] Ball - 1 x daily - 7 x weekly - 3 sets - 10 reps - Standing Repeated Hip Abduction with Resistance - 1 x daily - 7 x weekly - 3 sets - 10 reps - Standing Repeated Hip Extension with Resistance - 1 x daily - 7 x weekly - 3 sets - 10 reps - Standing Repeated Hip Extension with Resistance - 1 x daily - 7 x weekly - 3 sets - 10 reps - Single Leg Bridge - 1 x daily - 7 x weekly - 3 sets - 10 reps - Wall Squat with [place] Ball - 1 x daily - 7 x weekly - 3 sets - 10 reps Episode Visit Count: 8 Therapist That Will Accept/Oversee The Plan Of Care: Fernando Robert PT, DPT Start of Care Date: 12/09/23 Onset Date: 04/20/22 (chronic) Plan of Care Certification Date: 12/09/23 Next Certification Due Date: 01/20/24 Patient Identified by Name and Date of : Yes REHABILITATION AND SPORTS THERAPY PHYSICAL THERAPY TREATMENT NOTE ASSESSMENT: Anabell Payne tolerated the session with fatigue and expected muscle soreness. She demonstrated difficulty with rope climbers due to muscle cramping through the intercostals. The patient will continue to benefit from ongoing skilled physical therapy to progress toward set goals. PLAN FOR NEXT VISIT: Progress summary next session SUBJECTIVE: Patient reports she went to the gym and worked out yesterday and did 20 mins on the rowing machine, 20 mins on the elliptical and squats on the BOSU. Patient reporting she's been feeling really good in the back. Pain: Pain Pain Level: 0 Pain Location: Low Back/Lumbar Spine - Right, Low Back/Lumbar Spine - Left Post Treatment Pain Post Treatment Pain Level: No Change TREATMENT: Therapeutic Exercise: 5: walking lunges down and back length of gym with 7# Medicine ball 6: *Steamboats with patient standing on airex x 20 abd/flexion/extension, green band around ankles 7: Rope climbs 2 x 30 second hold 9: *Front plank on arms extended and ankles on red SB 2 x 15 seconds 13: *Wall squats with red SB 2 x 30 second hold 16: Abs casey cross legs up/down x 10 17: SL hip abduction with toe taps 2 x 10 each 18: *SL Bridge plank 3 x 15 second hold each Skilled Intervention: Patient was educated in proper exercise technique and purpose for exercises. Skilled judgment was used in selection of appropriate interventions. Provided written instruction for home exercise program to facilitate proper performance and compliance. Correct performance of therapeutic exercises was facilitated with verbal, visual, and tactile cuing. Modalities: E-Stim Unattended Body Region Treated - E-Stim Unattended: lumbar region with MHP Patient Position: prone Current: IF Channels: 2 Intensity: as tolerated Minutes: 15 Skilled Intervention: Proper administration and selection of modality based on clinical presentation, deficits, and needs. Patient response monitored throughout treatment. Home Exercise Program Assigned: 1: Steamboats with patietn standing on airex x 20 abd/flexion/extension, green band around ankles 2: Wall squats with red SB 2 x 30 second hold 3: SL Bridge plank 3 x 15 second hold each 4: Front plank on arms extended and ankles on red SB 2 x 15 seconds Billing Therapeutic Exercise Treatment Minutes: 35 Skilled Treatment Time Minutes (timed and untimed codes): 50 Total Session Time (minutes): 50 Session Start Time : 1515 Session Stop Time : 1605 Modalities E-Stim Unattended (71242): 1 unit(s) Fernando Robert PT, DPT documented in this encounter [facility] 01-07-2024 Note HNO ID: [id number] Author: FERNANDO ROBERT, PT, DPT Service: ? Author Type: Physical Therapist Type: Progress Notes Filed: 01/07/2024 16:19 Note Text: Episode Visit Count: 8 Therapist That Will Accept/Oversee The Plan Of Care: Fernando Robert PT, DPT Start of Care Date: 12/09/23 Onset Date: 04/20/22 (chronic) Plan of Care Certification Date: 12/09/23 Next Certification Due Date: 01/20/24 Patient Identified by Name and Date of : Yes REHABILITATION AND SPORTS THERAPY PHYSICAL THERAPY TREATMENT NOTE ASSESSMENT: Anabell Payne tolerated the session with fatigue and expected muscle soreness. She demonstrated difficulty with rope climbers due to muscle cramping through the intercostals. The patient will continue to benefit from ongoing skilled physical therapy to progress toward set goals. PLAN FOR NEXT VISIT: Progress summary next session SUBJECTIVE: Patient reports she went to the gym and worked out yesterday and did 20 mins on the rowing machine, 20 mins on the elliptical and squats on the BOSU. Patient reporting she's been feeling really good in the back. Pain: Pain Pain Level: 0 Pain Location: Low Back/Lumbar Spine - Right, Low Back/Lumbar Spine - Left Post Treatment Pain Post Treatment Pain Level: No Change TREATMENT: Therapeutic Exercise: 5: walking lunges down and back length of gym with 7# Medicine ball 6: *Steamboats with patient standing on airex x 20 abd/flexion/extension, green band around ankles 7: Rope climbs 2 x 30 second hold 9: *Front plank on arms extended and ankles on red SB 2 x 15 seconds 13: *Wall squats with red SB 2 x 30 second hold 16: Abs casey cross legs up/down x 10 17: SL hip abduction with toe taps 2 x 10 each 18: *SL Bridge plank 3 x 15 second hold each Skilled Intervention: Patient was educated in proper exercise technique and purpose for exercises. Skilled judgment was used in selection of appropriate interventions. Provided written instruction for home exercise program to facilitate proper performance and compliance. Correct performance of therapeutic exercises was facilitated with verbal, visual, and tactile cuing. Modalities: E-Stim Unattended Body Region Treated - E-Stim Unattended: lumbar region with MHP Patient Position: prone Current: IFC Channels: 2 Intensity: as tolerated Minutes: 15 Skilled Intervention: Proper administration and selection of modality based on clinical presentation, deficits, and needs. Patient response monitored throughout treatment. Home Exercise Program Assigned: 1: Steamboats with patietn standing on airex x 20 abd/flexion/extension, green band around ankles 2: Wall squats with red SB 2 x 30 second hold 3: SL Bridge plank 3 x 15 second hold each 4: Front plank on arms extended and ankles on red SB 2 x 15 seconds Billing Therapeutic Exercise Treatment Minutes: 35 Skilled Treatment Time Minutes (timed and untimed codes): 50 Total Session Time (minutes): 50 Session Start Time : 1515 Session Stop Time : 1605 Modalities E-Stim Unattended (53114): 1 unit(s) Fernando Robert, PT, DPT [facility] 01-05-2024 History of Presen t illness Narrative Program_ID:[id number] Access Code: [email or web address] URL: [email or web address] Date: 01-05-2024 Prepared By: FERNANDO ROBERT Program Notes Precaution: No hip extension in combination with external rotation of the surgical leg.<div>You do not have other precautions. Traditional total hip precautions do not apply to you.</div><div>While in bed, please make sure you flatten the bed to stretch your hip out. Please do this 2x/day for about 30-40 minutes for each session.</div> Exercises - Supine Posterior Pelvic Tilt - 2 x daily - 7 x weekly - 3 sets - 10 reps - Supine March with Posterior Pelvic Tilt - 2 x daily - 7 x weekly - 3 sets - 10 reps - Bug - 2 x daily - 7 x weekly - 3 sets - 10 reps - Seated Flexion Stretch with [place] Ball - 2 x daily - 7 x weekly - 5 sets - reps - Seated Thoracic Flexion and Rotation with [place] Ball - 2 x daily - 7 x weekly - 5 sets - reps - Prone Press Up - 2 x daily - 7 x weekly - 1 sets - 10 reps - Sit Up with Arm Reach - 1 x daily - 7 x weekly - 3 sets - 10 reps - Supine Bridge - 1 x daily - 7 x weekly - 3 sets - 10 reps - Sidelying Hip Abduction - 1 x daily - 7 x weekly - 3 sets - 10 reps - Bridge with Heels on [place] Ball - 1 x daily - 7 x weekly - 3 sets - 10 reps - Plank on Knees - 1 x daily - 7 x weekly - 3 sets - reps - Side Plank on Knees - 1 x daily - 7 x weekly - 3 sets - reps - Side Stepping with Resistance at Ankles - 1 x daily - 7 x weekly - 3 sets - 10 reps - Standing Anti-Rotation Press with Anchored Resistance - 1 x daily - 7 x weekly - 3 sets - 10 reps - Bridge with Hip Abduction and Resistance - 1 x daily - 7 x weekly - 3 sets - 10 reps - Bird Dog - 1 x daily - 7 x weekly - 3 sets - 10 reps - Beginner Front Arm Support - 1 x daily - 7 x weekly - 3 sets - 10 reps - Supine Bug with Leg Extension - 1 x daily - 7 x weekly - 3 sets - 10 reps - Wall Squat with [place] Ball - 1 x daily - 7 x weekly - 3 sets - 10 reps - Forward Monster Walks - 1 x daily - 7 x weekly - 3 sets - 10 reps - Backward Monster Walks - 1 x daily - 7 x weekly - 3 sets - 10 reps - [place] Twists Feet off Ground Fast Tempo - 1 x daily - 7 x weekly - 3 sets - 10 reps - Reverse Crunch - 1 x daily - 7 x weekly - 3 sets - 10 reps - Full Superman on Table - 1 x daily - 7 x weekly - 3 sets - 10 reps - Single Leg Bridge - 1 x daily - 7 x weekly - 3 sets - 10 reps - Mini [place] on [place] Ball - 1 x daily - 7 x weekly - 3 sets - 10 reps - Supine Hamstring Curl on [place] Ball - 1 x daily - 7 x weekly - 3 sets - 10 reps Episode Visit Count: 7 Therapist That Will Accept/Oversee The Plan Of Care: Fernando Robert PT, DPT Start of Care Date: 12/09/23 Onset Date: 04/20/22 (chronic) Plan of Care Certification Date: 12/09/23 Next Certification Due Date: 01/20/24 Patient Identified by Name and Date of : Yes REHABILITATION AND SPORTS THERAPY PHYSICAL THERAPY TREATMENT NOTE ASSESSMENT: Anabell Payne tolerated the session with fatigue and expected muscle soreness. She demonstrated improvements in overall core strength and activity tolerance with patient able to progress reps with exercises. The patient will continue to benefit from ongoing skilled physical therapy to progress toward set goals. PLAN FOR NEXT VISIT: Progress as tolerated SUBJECTIVE: Patient reports she attempted to do a Peloton pilates work out yesterday morning and one of the exercises had her holding a ball overhead and stretching one leg out and she felt a sharp, shooting pain through her right lower extremity. Patient reporting overall her pain has been a 2-3/10 on average. She reports stiffness through the lumbar region this date. Pain: Pain Pain Level: 3 Pain Location: Low Back/Lumbar Spine - Right, Low Back/Lumbar Spine - Left Description: Stiffness Post Treatment Pain Post Treatment Pain Level: No Change TREATMENT: Therapeutic Exercise: 1: Prosser leg press 2 x 15, 55# 2: Prosser knee flexion 2 x 15, 60# 3: Cybex 25# 4: Rowing machine x 5 minutes for core strengthening 8: *Bridging on red SB with hamstring curls 2 x 10 9: Front plank on forearms 2 x 20 second hold 10: Side plank 2 x 20 seconds (full first plank set and modified for the second) each side 11: Vipin Knives with red SB x 15, x 10 12: Squats on flat side of BOSU 2 x 15 (increased repetitions) 14: CC lat pull downs 2 x 10, 40# 15: CC:High rows 2 x 15, 50# Skilled Intervention: Patient was educated in proper exercise technique and purpose for exercises. Skilled judgment was used in selection of appropriate interventions. Provided written instruction for home exercise program to facilitate proper performance and compliance. Correct performance of therapeutic exercises was facilitated with verbal, visual, and tactile cuing. Modalities: E-Stim Unattended Body Region Treated - E-Stim Unattended: lumbar region with MHP Patient Position: prone Current: IFC Channels: 2 Intensity: as tolerated Minutes: 15 Skilled Intervention: Proper administration and selection of modality based on clinical presentation, deficits, and needs. Patient response monitored throughout treatment. Home Exercise Program Assigned: 1: Bridging on red SB with hamstring curls 2 x 10 Billing Therapeutic Exercise Treatment Minutes: 45 Skilled Treatment Time Minutes (timed and untimed codes): 60 Total Session Time (minutes): 61 Session Start Time : 811 Session Stop Time : 912 Modalities E-Stim Unattended (27106): 1 unit(s) Fernando Robert PT, DPT documented in this encounter [facility] 01-05-2024 Note HNO ID: [id number] Author: FERNANDO ROBERT PT DPChristina Service: ? Author Type: Physical Therapist Type: Progress Notes Filed: 01/05/2024 09:13 Note Text: Episode Visit Count: 7 Therapist That Will Accept/Oversee The Plan Of Care: Fernando Robert PT DPT Start of Care Date: 12/09/23 Onset Date: 04/20/22 (chronic) Plan of Care Certification Date: 12/09/23 Next Certification Due Date: 01/20/24 Patient Identified by Name and Date of : Yes REHABILITATION AND SPORTS THERAPY PHYSICAL THERAPY TREATMENT NOTE ASSESSMENT: Anabell Payne tolerated the session with fatigue and expected muscle soreness. She demonstrated improvements in overall core strength and activity tolerance with patient able to progress reps with exercises. The patient will continue to benefit from ongoing skilled physical therapy to progress toward set goals. PLAN FOR NEXT VISIT: Progress as tolerated SUBJECTIVE: Patient reports she attempted to do a Peloton pilates work out yesterday morning and one of the exercises had her holding a ball overhead and stretching one leg out and she felt a sharp, shooting pain through her right lower extremity. Patient reporting overall her pain has been a 2-3/10 on average. She reports stiffness through the lumbar region this date. Pain: Pain Pain Level: 3 Pain Location: Low Back/Lumbar Spine - Right, Low Back/Lumbar Spine - Left Description: Stiffness Post Treatment Pain Post Treatment Pain Level: No Change TREATMENT: Therapeutic Exercise: 1: Prosser leg press 2 x 15, 55# 2: Prosser knee flexion 2 x 15, 60# 3: Cybex 25# 4: Rowing machine x 5 minutes for core strengthening 8: *Bridging on red SB with hamstring curls 2 x 10 9: Front plank on forearms 2 x 20 second hold 10: Side plank 2 x 20 seconds (full first plank set and modified for the second) each side 11: Vipin Knives with red SB x 15, x 10 12: Squats on flat side of BOSU 2 x 15 (increased repetitions) 14: CC lat pull downs 2 x 10, 40# 15: CC:High rows 2 x 15, 50# Skilled Intervention: Patient was educated in proper exercise technique and purpose for exercises. Skilled judgment was used in selection of appropriate interventions. Provided written instruction for home exercise program to facilitate proper performance and compliance. Correct performance of therapeutic exercises was facilitated with verbal, visual, and tactile cuing. Modalities: E-Stim Unattended Body Region Treated - E-Stim Unattended: lumbar region with MHP Patient Position: prone Current: IFC Channels: 2 Intensity: as tolerated Minutes: 15 Skilled Intervention: Proper administration and selection of modality based on clinical presentation, deficits, and needs. Patient response monitored throughout treatment. Home Exercise Program Assigned: 1: Bridging on red SB with hamstring curls 2 x 10 Billing Therapeutic Exercise Treatment Minutes: 45 Skilled Treatment Time Minutes (timed and untimed codes): 60 Total Session Time (minutes): 61 Session Start Time : 811 Session Stop Time : 912 Modalities E-Stim Unattended (61954): 1 unit(s) Fernando Robert, PT, DPT [facility] 12-31-2023 History of Presen t illness Narrative Program_ID:[id number] Access Code: [email or web address] URL: [email or web address]/ Date: 12-31-2023 Prepared By: FERNANDO ROBERT Program Notes Precaution: No hip extension in combination with external rotation of the surgical leg.<div>You do not have other precautions. Traditional total hip precautions do not apply to you.</div><div>While in bed, please make sure you flatten the bed to stretch your hip out. Please do this 2x/day for about 30-40 minutes for each session.</div> Exercises - Supine Posterior Pelvic Tilt - 2 x daily - 7 x weekly - 3 sets - 10 reps - Supine March with Posterior Pelvic Tilt - 2 x daily - 7 x weekly - 3 sets - 10 reps - Bug - 2 x daily - 7 x weekly - 3 sets - 10 reps - Seated Flexion Stretch with [place] Ball - 2 x daily - 7 x weekly - 5 sets - reps - Seated Thoracic Flexion and Rotation with [place] Ball - 2 x daily - 7 x weekly - 5 sets - reps - Prone Press Up - 2 x daily - 7 x weekly - 1 sets - 10 reps - Sit Up with Arm Reach - 1 x daily - 7 x weekly - 3 sets - 10 reps - Supine Bridge - 1 x daily - 7 x weekly - 3 sets - 10 reps - Sidelying Hip Abduction - 1 x daily - 7 x weekly - 3 sets - 10 reps - Bridge with Heels on [place] Ball - 1 x daily - 7 x weekly - 3 sets - 10 reps - Plank on Knees - 1 x daily - 7 x weekly - 3 sets - reps - Side Plank on Knees - 1 x daily - 7 x weekly - 3 sets - reps - Side Stepping with Resistance at Ankles - 1 x daily - 7 x weekly - 3 sets - 10 reps - Standing Anti-Rotation Press with Anchored Resistance - 1 x daily - 7 x weekly - 3 sets - 10 reps - Bridge with Hip Abduction and Resistance - 1 x daily - 7 x weekly - 3 sets - 10 reps - Bird Dog - 1 x daily - 7 x weekly - 3 sets - 10 reps - Beginner Front Arm Support - 1 x daily - 7 x weekly - 3 sets - 10 reps - Supine Bug with Leg Extension - 1 x daily - 7 x weekly - 3 sets - 10 reps - Wall Squat with [place] Ball - 1 x daily - 7 x weekly - 3 sets - 10 reps - Forward Monster Walks - 1 x daily - 7 x weekly - 3 sets - 10 reps - Backward Monster Walks - 1 x daily - 7 x weekly - 3 sets - 10 reps - [place] Twists Feet off Ground Fast Tempo - 1 x daily - 7 x weekly - 3 sets - 10 reps - Reverse Crunch - 1 x daily - 7 x weekly - 3 sets - 10 reps - Full Superman on Table - 1 x daily - 7 x weekly - 3 sets - 10 reps - Single Leg Bridge - 1 x daily - 7 x weekly - 3 sets - 10 reps - Mini [place] on [place] Ball - 1 x daily - 7 x weekly - 3 sets - 10 reps Episode Visit Count: 6 Therapist That Will Accept/Oversee The Plan Of Care: Fernando Robert PT, DPT Start of Care Date: 12/09/23 Onset Date: 04/20/22 (chronic) Plan of Care Certification Date: 12/09/23 Next Certification Due Date: 01/20/24 Patient Identified by Name and Date of : Yes REHABILITATION AND SPORTS THERAPY PHYSICAL THERAPY TREATMENT NOTE ASSESSMENT: Anabell Payne tolerated the session with fatigue and expected muscle soreness. She demonstrated improvements in core strength with patient able to progress duration of hold with planks and she was able to perform a full side plank this date. The patient will continue to benefit from ongoing skilled physical therapy to progress toward set goals. PLAN FOR NEXT VISIT: Progress as tolerated SUBJECTIVE: Patient reporting she's feeling good today. Patient notes she's realized walking isn't an issue but the combination of walking and standing results in discomfort. Pain: Pain Pain Level: 2 Pain Location: Low Back/Lumbar Spine - Right, Low Back/Lumbar Spine - Left Description: Aching, Dull TREATMENT: Therapeutic Exercise: 1: Prosser leg press 2 x 15, 55# 2: Prosser knee flexion x15, x 10 60# 9: Front plank on forearms 2 x 20 second hold (increased duration) 10: Side plank 2 x 20 seconds (full first plank set and modified for the second) each side 11: Vipin Knives with red SB 2 x 10 12: Squats on flat side of BOSU 2 x 10 13: CC: Palloff press 2 x 10 each, 20# 14: CC lat pull downs 2 x 10, 40# 15: CC:High rows 2 x 10, 50# Skilled Intervention: Patient was educated in proper exercise technique and purpose for exercises. Skilled judgment was used in selection of appropriate interventions. Correct performance of therapeutic exercises was facilitated with verbal, visual, and tactile cuing. Modalities: E-Stim Unattended Body Region Treated - E-Stim Unattended: lumbar region with MHP Patient Position: prone Current: IFC Channels: 2 Intensity: as tolerated Minutes: 15 Skilled Intervention: Proper administration and selection of modality based on clinical presentation, deficits, and needs. Patient response monitored throughout treatment. Billing Therapeutic Exercise Treatment Minutes: 35 Skilled Treatment Time Minutes (timed and untimed codes): 50 Total Session Time (minutes): 50 Session Start Time : 1510 Session Stop Time : 1600 Modalities E-Stim Unattended (61094): 1 unit(s) Fernando Robert PT DPT documented in this encounter [facility] 12-31-2023 Note HNO ID: [id number] Author: FERNNADO ROBERT PT DPChristina Service: ? Author Type: Physical Therapist Type: Progress Notes Filed: 12/31/2023 16:09 Note Text: Episode Visit Count: 6 Therapist That Will Accept/Oversee The Plan Of Care: Fernando Robert PT DPT Start of Care Date: 12/09/23 Onset Date: 04/20/22 (chronic) Plan of Care Certification Date: 12/09/23 Next Certification Due Date: 01/20/24 Patient Identified by Name and Date of : Yes REHABILITATION AND SPORTS THERAPY PHYSICAL THERAPY TREATMENT NOTE ASSESSMENT: Anabell Payne tolerated the session with fatigue and expected muscle soreness. She demonstrated improvements in core strength with patient able to progress duration of hold with planks and she was able to perform a full side plank this date. The patient will continue to benefit from ongoing skilled physical therapy to progress toward set goals. PLAN FOR NEXT VISIT: Progress as tolerated SUBJECTIVE: Patient reporting she's feeling good today. Patient notes she's realized walking isn't an issue but the combination of walking and standing results in discomfort. Pain: Pain Pain Level: 2 Pain Location: Low Back/Lumbar Spine - Right, Low Back/Lumbar Spine - Left Description: Aching, Dull TREATMENT: Therapeutic Exercise: 1: Prosser leg press 2 x 15, 55# 2: Prosser knee flexion x15, x 10 60# 9: Front plank on forearms 2 x 20 second hold (increased duration) 10: Side plank 2 x 20 seconds (full first plank set and modified for the second) each side 11: Vipin Knives with red SB 2 x 10 12: Squats on flat side of BOSU 2 x 10 13: CC: Palloff press 2 x 10 each, 20# 14: CC lat pull downs 2 x 10, 40# 15: CC:High rows 2 x 10, 50# Skilled Intervention: Patient was educated in proper exercise technique and purpose for exercises. Skilled judgment was used in selection of appropriate interventions. Correct performance of therapeutic exercises was facilitated with verbal, visual, and tactile cuing. Modalities: E-Stim Unattended Body Region Treated - E-Stim Unattended: lumbar region with MHP Patient Position: prone Current: IF Channels: 2 Intensity: as tolerated Minutes: 15 Skilled Intervention: Proper administration and selection of modality based on clinical presentation, deficits, and needs. Patient response monitored throughout treatment. Billing Therapeutic Exercise Treatment Minutes: 35 Skilled Treatment Time Minutes (timed and untimed codes): 50 Total Session Time (minutes): 50 Session Start Time : 1510 Session Stop Time : 1600 Modalities E-Stim Unattended ([id number]): 1 unit(s) Fernando Robert, PT, DPT [facility] 12-25-2023 History of Presen t illness Narrative Program_ID:[id number] Access Code: [email or web address] URL: [email or web address]/ Date: 12-25-2023 Prepared By: FERNANDO ROBERT Program Notes Precaution: No hip extension in combination with external rotation of the surgical leg.<div>You do not have other precautions. Traditional total hip precautions do not apply to you.</div><div>While in bed, please make sure you flatten the bed to stretch your hip out. Please do this 2x/day for about 30-40 minutes for each session.</div> Exercises - Supine Posterior Pelvic Tilt - 2 x daily - 7 x weekly - 3 sets - 10 reps - Supine March with Posterior Pelvic Tilt - 2 x daily - 7 x weekly - 3 sets - 10 reps - Bug - 2 x daily - 7 x weekly - 3 sets - 10 reps - Seated Flexion Stretch with [place] Ball - 2 x daily - 7 x weekly - 5 sets - reps - Seated Thoracic Flexion and Rotation with [place] Ball - 2 x daily - 7 x weekly - 5 sets - reps - Prone Press Up - 2 x daily - 7 x weekly - 1 sets - 10 reps - Sit Up with Arm Reach - 1 x daily - 7 x weekly - 3 sets - 10 reps - Supine Bridge - 1 x daily - 7 x weekly - 3 sets - 10 reps - Sidelying Hip Abduction - 1 x daily - 7 x weekly - 3 sets - 10 reps - Bridge with Heels on [place] Ball - 1 x daily - 7 x weekly - 3 sets - 10 reps - Plank on Knees - 1 x daily - 7 x weekly - 3 sets - reps - Side Plank on Knees - 1 x daily - 7 x weekly - 3 sets - reps - Side Stepping with Resistance at Ankles - 1 x daily - 7 x weekly - 3 sets - 10 reps - Standing Anti-Rotation Press with Anchored Resistance - 1 x daily - 7 x weekly - 3 sets - 10 reps - Bridge with Hip Abduction and Resistance - 1 x daily - 7 x weekly - 3 sets - 10 reps - Bird Dog - 1 x daily - 7 x weekly - 3 sets - 10 reps - Beginner Front Arm Support - 1 x daily - 7 x weekly - 3 sets - 10 reps - Supine Bug with Leg Extension - 1 x daily - 7 x weekly - 3 sets - 10 reps - Wall Squat with [place] Ball - 1 x daily - 7 x weekly - 3 sets - 10 reps - Forward Monster Walks - 1 x daily - 7 x weekly - 3 sets - 10 reps - Backward Monster Walks - 1 x daily - 7 x weekly - 3 sets - 10 reps - [place] Twists Feet off Ground Fast Tempo - 1 x daily - 7 x weekly - 3 sets - 10 reps - Reverse Crunch - 1 x daily - 7 x weekly - 3 sets - 10 reps - Full Superman on Table - 1 x daily - 7 x weekly - 3 sets - 10 reps - Single Leg Bridge - 1 x daily - 7 x weekly - 3 sets - 10 reps Episode Visit Count: 5 Therapist That Will Accept/Oversee The Plan Of Care: Fernando Robert PT, DPT Start of Care Date: 12/09/23 Onset Date: 04/20/22 (chronic) Plan of Care Certification Date: 12/09/23 Next Certification Due Date: 01/20/24 Patient Identified by Name and Date of : Yes REHABILITATION AND SPORTS THERAPY PHYSICAL THERAPY TREATMENT NOTE ASSESSMENT: Anabell Payne tolerated the session with fatigue and expected muscle soreness. She demonstrated difficulty with reverse crunches due to lumbar discomfort. The patient will continue to benefit from ongoing skilled physical therapy to progress toward set goals. PLAN FOR NEXT VISIT: Progress as tolerated SUBJECTIVE: Patient reports some soreness through her lumbar region this date but no acute flare ups since last session. Pain: Pain Pain Level: 4 Pain Location: Low Back/Lumbar Spine - Right, Low Back/Lumbar Spine - Left Description: Aching, Dull Post Treatment Pain Post Treatment Pain Level: No Change TREATMENT: Therapeutic Exercise: 6: Partial sit ups 3 x 10 7: bugs with legs extended 2 x 10 8: SL hip abduction with resistance 2 x 10 each with green band 9: Front plank on forearms 3 x 15 second hold 10: Modified side plank 3 x 15 seconds each side 13: CC: Palloff press 2 x 10 each, 20# 14: CC lat pull downs 2 x 10, 40# 15: CC:High rows 2 x 10, 50# 16: *[place] twist 2 x 10 17: *Superman's 2 x 10, 5 second hold 18: *SL bridge 2 x 10, 5 second holds Skilled Intervention: Patient was educated in proper exercise technique and purpose for exercises. Skilled judgment was used in selection of appropriate interventions. Provided written instruction for home exercise program to facilitate proper performance and compliance. Correct performance of therapeutic exercises was facilitated with verbal, visual, and tactile cuing. Modalities: E-Stim Unattended Body Region Treated - E-Stim Unattended: lumbar region with MHP Patient Position: prone Current: IF Channels: 2 Intensity: as tolerated Minutes: 15 Skilled Intervention: Proper administration and selection of modality based on clinical presentation, deficits, and needs. Patient response monitored throughout treatment. Home Exercise Program Assigned: 1: [place] twist 2 x 10 2: SL bridge 2 x 10, 5 second holds 3: Superman's 2 x 10, 5 second hold Billing Therapeutic Exercise Treatment Minutes: 45 Skilled Treatment Time Minutes (timed and untimed codes): 63 Total Session Time (minutes): 63 Session Start Time : 1015 Session Stop Time : 1118 Modalities E-Stim Unattended (11848): 1 unit(s) Fernando Robert PT DPT documented in this encounter [facility] 12-25-2023 Note HNO ID: [id number] Author: FERNANDO ROBERT PT DPT Service: ? Author Type: Physical Therapist Type: Progress Notes Filed: 12/25/2023 11:43 Note Text: Episode Visit Count: 5 Therapist That Will Accept/Oversee The Plan Of Care: Fernando Robert PT, DPT Start of Care Date: 12/09/23 Onset Date: 04/20/22 (chronic) Plan of Care Certification Date: 12/09/23 Next Certification Due Date: 01/20/24 Patient Identified by Name and Date of : Yes REHABILITATION AND SPORTS THERAPY PHYSICAL THERAPY TREATMENT NOTE ASSESSMENT: Anabell Payne tolerated the session with fatigue and expected muscle soreness. She demonstrated difficulty with reverse crunches due to lumbar discomfort. The patient will continue to benefit from ongoing skilled physical therapy to progress toward set goals. PLAN FOR NEXT VISIT: Progress as tolerated SUBJECTIVE: Patient reports some soreness through her lumbar region this date but no acute flare ups since last session. Pain: Pain Pain Level: 4 Pain Location: Low Back/Lumbar Spine - Right, Low Back/Lumbar Spine - Left Description: Aching, Dull Post Treatment Pain Post Treatment Pain Level: No Change TREATMENT: Therapeutic Exercise: 6: Partial sit ups 3 x 10 7: bugs with legs extended 2 x 10 8: SL hip abduction with resistance 2 x 10 each with green band 9: Front plank on forearms 3 x 15 second hold 10: Modified side plank 3 x 15 seconds each side 13: CC: Palloff press 2 x 10 each, 20# 14: CC lat pull downs 2 x 10, 40# 15: CC:High rows 2 x 10, 50# 16: *[place] twist 2 x 10 17: *Superman's 2 x 10, 5 second hold 18: *SL bridge 2 x 10, 5 second holds Skilled Intervention: Patient was educated in proper exercise technique and purpose for exercises. Skilled judgment was used in selection of appropriate interventions. Provided written instruction for home exercise program to facilitate proper performance and compliance. Correct performance of therapeutic exercises was facilitated with verbal, visual, and tactile cuing. Modalities: E-Stim Unattended Body Region Treated - E-Stim Unattended: lumbar region with MHP Patient Position: prone Current: [facility] Channels: 2 Intensity: as tolerated Minutes: 15 Skilled Intervention: Proper administration and selection of modality based on clinical presentation, deficits, and needs. Patient response monitored throughout treatment. Home Exercise Program Assigned: 1: [place] twist 2 x 10 2: SL bridge 2 x 10, 5 second holds 3: Superman's 2 x 10, 5 second hold Billing Therapeutic Exercise Treatment Minutes: 45 Skilled Treatment Time Minutes (timed and untimed codes): 63 Total Session Time (minutes): 63 Session Start Time : 1015 Session Stop Time : 1118 Modalities E-Stim Unattended (68098): 1 unit(s) Fernando Robert, PT, DPT [facility] 12-23-2023 History of Presen t illness Narrative Program_ID:[id number] Access Code: [email or web address] URL: [email or web address] Date: 12-23-2023 Prepared By: FERNANDO ROBERT Program Notes Precaution: No hip extension in combination with external rotation of the surgical leg.<div>You do not have other precautions. Traditional total hip precautions do not apply to you.</div><div>While in bed, please make sure you flatten the bed to stretch your hip out. Please do this 2x/day for about 30-40 minutes for each session.</div> Exercises - Supine Posterior Pelvic Tilt - 2 x daily - 7 x weekly - 3 sets - 10 reps - Supine March with Posterior Pelvic Tilt - 2 x daily - 7 x weekly - 3 sets - 10 reps - Bug - 2 x daily - 7 x weekly - 3 sets - 10 reps - Seated Flexion Stretch with [place] Ball - 2 x daily - 7 x weekly - 5 sets - reps - Seated Thoracic Flexion and Rotation with [place] Ball - 2 x daily - 7 x weekly - 5 sets - reps - Prone Press Up - 2 x daily - 7 x weekly - 1 sets - 10 reps - Sit Up with Arm Reach - 1 x daily - 7 x weekly - 3 sets - 10 reps - Supine Bridge - 1 x daily - 7 x weekly - 3 sets - 10 reps - Sidelying Hip Abduction - 1 x daily - 7 x weekly - 3 sets - 10 reps - Bridge with Heels on [place] Ball - 1 x daily - 7 x weekly - 3 sets - 10 reps - Plank on Knees - 1 x daily - 7 x weekly - 3 sets - reps - Side Plank on Knees - 1 x daily - 7 x weekly - 3 sets - reps - Side Stepping with Resistance at Ankles - 1 x daily - 7 x weekly - 3 sets - 10 reps - Standing Anti-Rotation Press with Anchored Resistance - 1 x daily - 7 x weekly - 3 sets - 10 reps - Bridge with Hip Abduction and Resistance - 1 x daily - 7 x weekly - 3 sets - 10 reps - Bird Dog - 1 x daily - 7 x weekly - 3 sets - 10 reps - Beginner Front Arm Support - 1 x daily - 7 x weekly - 3 sets - 10 reps - Supine Bug with Leg Extension - 1 x daily - 7 x weekly - 3 sets - 10 reps - Wall Squat with [place] Ball - 1 x daily - 7 x weekly - 3 sets - 10 reps - Forward Monster Walks - 1 x daily - 7 x weekly - 3 sets - 10 reps - Backward Monster Walks - 1 x daily - 7 x weekly - 3 sets - 10 reps Episode Visit Count: 4 Therapist That Will Accept/Oversee The Plan Of Care: Fernando Robert PT, DPT Start of Care Date: 12/09/23 Onset Date: 04/20/22 (chronic) Plan of Care Certification Date: 12/09/23 Next Certification Due Date: 01/20/24 Patient Identified by Name and Date of : Yes REHABILITATION AND SPORTS THERAPY PHYSICAL THERAPY TREATMENT NOTE ASSESSMENT: Anabell Payne tolerated the session with fatigue and expected muscle soreness. She demonstrated improvements in core strength as evidenced by patient being able to progress from modified to a full forearm front plank this date. The patient will continue to benefit from ongoing skilled physical therapy to progress toward set goals. PLAN FOR NEXT VISIT: Progress as tolerated SUBJECTIVE: Patient states she awoke with significant pain on Thursday and it was difficult for her to get up from the couch. She reports that on Thursday, she laid on the floor and was doing her PPT when she felt a pop in her back which sent a shooting pain but then felt better and went swimming later that day. Pain: Pain Pain Level: 3 Pain Location: Low Back/Lumbar Spine - Right, Low Back/Lumbar Spine - Left Description: Aching, Dull Post Treatment Pain Post Treatment Pain Level: Better TREATMENT: Therapeutic Exercise: 1: *Bridges with clams 2 x 10, green theraband 2: *SL clams 2 x 10, green 3: *Bird/dog 2 x 10 4: *Quadruped hip extension x 10 each side 5: Squats with SB against wall 2 x 10 6: Partial sit ups 3 x 10 9: Modified front plank x 15 second hold and then full forearm plank 2 x 15 second hold 10: Modified side plank 3 x 15 seconds each side 11: Resisted lateral steps approx. 2 x 20 feet each direction, green band looped around ankles 12: *Monster walks 2 x 20 feet each fwd/backward Skilled Intervention: Patient was educated in proper exercise technique and purpose for exercises. Skilled judgment was used in selection of appropriate interventions. Provided written instruction for home exercise program to facilitate proper performance and compliance. Correct performance of therapeutic exercises was facilitated with verbal, visual, and tactile cuing. Home Exercise Program Assigned: 1: SL clams 2 x 10, green 2: Bird/dog 2 x 10 3: Quadruped hip extension x 10 each side 4: Bridges with clams 2 x 10, green theraband Billing Therapeutic Exercise Treatment Minutes: 45 Skilled Treatment Time Minutes (timed and untimed codes): 60 Total Session Time (minutes): 60 Session Start Time : 815 Session Stop Time : 915 Modalities E-Stim Unattended (38275): 1 unit(s) Fernando Robert PT DPChristina documented in this encounter [facility] 12-23-2023 Note HNO ID: [id number] Author: FERNANDO ROBERT PT DPChristina Service: ? Author Type: Physical Therapist Type: Progress Notes Filed: 12/23/2023 09:08 Note Text: Episode Visit Count: 4 Therapist That Will Accept/Oversee The Plan Of Care: Fernando Robert PT, DPT Start of Care Date: 12/09/23 Onset Date: 04/20/22 (chronic) Plan of Care Certification Date: 12/09/23 Next Certification Due Date: 01/20/24 Patient Identified by Name and Date of : Yes REHABILITATION AND SPORTS THERAPY PHYSICAL THERAPY TREATMENT NOTE ASSESSMENT: Anabell Payne tolerated the session with fatigue and expected muscle soreness. She demonstrated improvements in core strength as evidenced by patient being able to progress from modified to a full forearm front plank this date. The patient will continue to benefit from ongoing skilled physical therapy to progress toward set goals. PLAN FOR NEXT VISIT: Progress as tolerated SUBJECTIVE: Patient states she awoke with significant pain on Thursday and it was difficult for her to get up from the couch. She reports that on Thursday, she laid on the floor and was doing her PPT when she felt a pop in her back which sent a shooting pain but then felt better and went swimming later that day. Pain: Pain Pain Level: 3 Pain Location: Low Back/Lumbar Spine - Right, Low Back/Lumbar Spine - Left Description: Aching, Dull Post Treatment Pain Post Treatment Pain Level: Better TREATMENT: Therapeutic Exercise: 1: *Bridges with clams 2 x 10, green theraband 2: *SL clams 2 x 10, green 3: *Bird/dog 2 x 10 4: *Quadruped hip extension x 10 each side 5: Squats with SB against wall 2 x 10 6: Partial sit ups 3 x 10 9: Modified front plank x 15 second hold and then full forearm plank 2 x 15 second hold 10: Modified side plank 3 x 15 seconds each side 11: Resisted lateral steps approx. 2 x 20 feet each direction, green band looped around ankles 12: *Monster walks 2 x 20 feet each fwd/backward Skilled Intervention: Patient was educated in proper exercise technique and purpose for exercises. Skilled judgment was used in selection of appropriate interventions. Provided written instruction for home exercise program to facilitate proper performance and compliance. Correct performance of therapeutic exercises was facilitated with verbal, visual, and tactile cuing. Home Exercise Program Assigned: 1: SL clams 2 x 10, green 2: Bird/dog 2 x 10 3: Quadruped hip extension x 10 each side 4: Bridges with clams 2 x 10, green theraband Billing Therapeutic Exercise Treatment Minutes: 45 Skilled Treatment Time Minutes (timed and untimed codes): 60 Total Session Time (minutes): 60 Session Start Time : 815 Session Stop Time : 915 Modalities E-Stim Unattended (91485): 1 unit(s) Fernando Robert, PT, DPT [facility] 12-16-2023 History of Presen t illness Narrative Program_ID:[id number] Access Code: [email or web address] URL: [email or web address] Date: 12-16-2023 Prepared By: FERNANDO ROBERT Program Notes Precaution: No hip extension in combination with external rotation of the surgical leg.<div>You do not have other precautions. Traditional total hip precautions do not apply to you.</div><div>While in bed, please make sure you flatten the bed to stretch your hip out. Please do this 2x/day for about 30-40 minutes for each session.</div> Exercises - Supine Posterior Pelvic Tilt - 2 x daily - 7 x weekly - 3 sets - 10 reps - Supine March with Posterior Pelvic Tilt - 2 x daily - 7 x weekly - 3 sets - 10 reps - Bug - 2 x daily - 7 x weekly - 3 sets - 10 reps - Seated Flexion Stretch with [place] Ball - 2 x daily - 7 x weekly - 5 sets - reps - Seated Thoracic Flexion and Rotation with [place] Ball - 2 x daily - 7 x weekly - 5 sets - reps - Prone Press Up - 2 x daily - 7 x weekly - 1 sets - 10 reps - Sit Up with Arm Reach - 1 x daily - 7 x weekly - 3 sets - 10 reps - Supine Bridge - 1 x daily - 7 x weekly - 3 sets - 10 reps - Sidelying Hip Abduction - 1 x daily - 7 x weekly - 3 sets - 10 reps - Bridge with Heels on [place] Ball - 1 x daily - 7 x weekly - 3 sets - 10 reps - Plank on Knees - 1 x daily - 7 x weekly - 3 sets - reps - Side Plank on Knees - 1 x daily - 7 x weekly - 3 sets - reps - Side Stepping with Resistance at Ankles - 1 x daily - 7 x weekly - 3 sets - 10 reps - Standing Anti-Rotation Press with Anchored Resistance - 1 x daily - 7 x weekly - 3 sets - 10 reps Episode Visit Count: 3 Therapist That Will Accept/Oversee The Plan Of Care: Fernando Robert PT, DPT Start of Care Date: 12/09/23 Onset Date: 04/20/22 (chronic) Plan of Care Certification Date: 12/09/23 Next Certification Due Date: 01/20/24 Patient Identified by Name and Date of : Yes REHABILITATION AND SPORTS THERAPY PHYSICAL THERAPY TREATMENT NOTE ASSESSMENT: Anabell Payne tolerated the session with fatigue and expected muscle soreness. She demonstrated difficulty with bridges with kittitian ball due to increased discomfort through lumbar region. The patient will continue to benefit from ongoing skilled physical therapy to progress toward set goals. PLAN FOR NEXT VISIT: SUBJECTIVE: Patient reporting she awoke with sharp pain through lumbar region stating that she walked 9 [place] of [place] in flip flops the other day. Pain: Pain Pain Level: 4 Pain Location: Low Back/Lumbar Spine - Right, Low Back/Lumbar Spine - Left Description: Aching, Dull Frequency: Intermittent, Continuous TREATMENT: Therapeutic Exercise: 6: Partial sit ups 3 x 10 7: Bridging 3 x 10 with kittitian ball, 5 second hold 8: SL hip abduction 3 x 10 9: *Modified front planks 3 x 15 second hold 10: *Modified side plank 3 x 15 seconds each side 11: *Resisted lateral steps approx. 20 feet each direction, green band looped around ankles 12: CC Palloff press 2 x 10, 20# 13: CC lat pull downs 2 x 10, 40# Skilled Intervention: Patient was educated in proper exercise technique and purpose for exercises. Skilled judgment was used in selection of appropriate interventions. Provided written instruction for home exercise program to facilitate proper performance and compliance. Correct performance of therapeutic exercises was facilitated with verbal, visual, and tactile cuing. Home Exercise Program Assigned: 1: Modified front planks 3 x 15 second hold 2: Modified side plank 3 x 15 seconds each side 3: Resisted lateral steps approx. 20 feet each direction, green band looped around ankles 4: Palloff press 3 x 10 5: Bridges with kittitian ball 3 x 10 Billing Therapeutic Exercise Treatment Minutes: 40 Skilled Treatment Time Minutes (timed and untimed codes): 55 Total Session Time (minutes): 55 Session Start Time : 1431 Session Stop Time : 1526 Modalities E-Stim Unattended (16699): 1 unit(s) Fernando Robert PT DPT documented in this encounter [facility] 12-16-2023 Note HNO ID: [id number] Author: FERNANDO ROBERT PT DPChristina Service: ? Author Type: Physical Therapist Type: Progress Notes Filed: 12/16/2023 16:04 Note Text: Episode Visit Count: 3 Therapist That Will Accept/Oversee The Plan Of Care: Fernando Robert PT DPT Start of Care Date: 12/09/23 Onset Date: 04/20/22 (chronic) Plan of Care Certification Date: 12/09/23 Next Certification Due Date: 01/20/24 Patient Identified by Name and Date of : Yes REHABILITATION AND SPORTS THERAPY PHYSICAL THERAPY TREATMENT NOTE ASSESSMENT: Anabell Payne tolerated the session with fatigue and expected muscle soreness. She demonstrated difficulty with bridges with kittitian ball due to increased discomfort through lumbar region. The patient will continue to benefit from ongoing skilled physical therapy to progress toward set goals. PLAN FOR NEXT VISIT: SUBJECTIVE: Patient reporting she awoke with sharp pain through lumbar region stating that she walked 9 [place] of [place] in flip flops the other day. Pain: Pain Pain Level: 4 Pain Location: Low Back/Lumbar Spine - Right, Low Back/Lumbar Spine - Left Description: Aching, Dull Frequency: Intermittent, Continuous TREATMENT: Therapeutic Exercise: 6: Partial sit ups 3 x 10 7: Bridging 3 x 10 with kittitian ball, 5 second hold 8: SL hip abduction 3 x 10 9: *Modified front planks 3 x 15 second hold 10: *Modified side plank 3 x 15 seconds each side 11: *Resisted lateral steps approx. 20 feet each direction, green band looped around ankles 12: CC Palloff press 2 x 10, 20# 13: CC lat pull downs 2 x 10, 40# Skilled Intervention: Patient was educated in proper exercise technique and purpose for exercises. Skilled judgment was used in selection of appropriate interventions. Provided written instruction for home exercise program to facilitate proper performance and compliance. Correct performance of therapeutic exercises was facilitated with verbal, visual, and tactile cuing. Home Exercise Program Assigned: 1: Modified front planks 3 x 15 second hold 2: Modified side plank 3 x 15 seconds each side 3: Resisted lateral steps approx. 20 feet each direction, green band looped around ankles 4: Palloff press 3 x 10 5: Bridges with kittitian ball 3 x 10 Billing Therapeutic Exercise Treatment Minutes: 40 Skilled Treatment Time Minutes (timed and untimed codes): 55 Total Session Time (minutes): 55 Session Start Time : 1431 Session Stop Time : 1526 Modalities E-Stim Unattended (36267): 1 unit(s) Fernando Robert, PT, DPT [facility] 12-14-2023 History of Presen t illness Narrative Program_ID:[id number] Access Code: [email or web address] URL: [email or web address] Date: 12-14-2023 Prepared By: FERNANDO ROBERT Program Notes Precaution: No hip extension in combination with external rotation of the surgical leg.<div>You do not have other precautions. Traditional total hip precautions do not apply to you.</div><div>While in bed, please make sure you flatten the bed to stretch your hip out. Please do this 2x/day for about 30-40 minutes for each session.</div> Exercises - Supine Posterior Pelvic Tilt - 2 x daily - 7 x weekly - 3 sets - 10 reps - Supine March with Posterior Pelvic Tilt - 2 x daily - 7 x weekly - 3 sets - 10 reps - Bug - 2 x daily - 7 x weekly - 3 sets - 10 reps - Seated Flexion Stretch with [place] Ball - 2 x daily - 7 x weekly - 5 sets - reps - Seated Thoracic Flexion and Rotation with [place] Ball - 2 x daily - 7 x weekly - 5 sets - reps - Prone Press Up - 2 x daily - 7 x weekly - 1 sets - 10 reps - Sit Up with Arm Reach - 1 x daily - 7 x weekly - 3 sets - 10 reps - Supine Bridge - 1 x daily - 7 x weekly - 3 sets - 10 reps - Sidelying Hip Abduction - 1 x daily - 7 x weekly - 3 sets - 10 reps Episode Visit Count: 2 Therapist That Will Accept/Oversee The Plan Of Care: Fernando Robert PT, DPT Start of Care Date: 12/09/23 Onset Date: 04/20/22 (chronic) Plan of Care Certification Date: 12/09/23 Next Certification Due Date: 01/20/24 Patient Identified by Name and Date of : Yes REHABILITATION AND SPORTS THERAPY PHYSICAL THERAPY TREATMENT NOTE ASSESSMENT: Anabell Payne tolerated the session with fatigue and expected muscle soreness. She demonstrated difficulty with kittitian ball flexion stretches due to cramping through intercostal muscles that was relieved with application of moist heat to the region. The patient will continue to benefit from ongoing skilled physical therapy to progress toward set goals. PLAN FOR NEXT VISIT: Progress as tolerated SUBJECTIVE: Patient reports yesterday she awoke with throbbing pain through her lumbar region reporting she was able to put heat on her back and perform the stretches and then mowed her lawn slowly and her pain began to lessen. She reports she walked more than she usually does on Thursday. Pain: Pain Pain Level: 5 Pain Location: Low Back/Lumbar Spine - Right, Low Back/Lumbar Spine - Left Description: Aching, Dull Frequency: Intermittent, Continuous Post Treatment Pain Post Treatment Pain Level: Better TREATMENT: Therapeutic Exercise: 1: PPT 3 x 10, 5 second hold 2: PPT with marching 3 x 10 3: bugs 3 x 10 4: Prone press ups 3 x 10, 5 second hold 5: Seated 3-way lumbar stretch with SB 5 x 10 second hold each 6: *Partial sit ups 3 x 10 7: *Bridging 3 x 10, 5 second hold 8: *SL hip abduction 3 x 10 Skilled Intervention: Patient was educated in proper exercise technique and purpose for exercises. Correct performance of therapeutic exercises was facilitated with verbal, visual, and tactile cuing. Home Exercise Program Assigned: 1: Partial sit ups 3 x 10 2: Bridging 3 x 10, 5 second hold Billing Therapeutic Exercise Treatment Minutes: 48 Skilled Treatment Time Minutes (timed and untimed codes): 48 Total Session Time (minutes): 48 Session Start Time : 929 Session Stop Time : 1018 Fernando Robert PT, DPT documented in this encounter [facility] 12-14-2023 Note HNO ID: [id number] Author: FERNANDO ROBERT PT DPT Service: ? Author Type: Physical Therapist Type: Progress Notes Filed: 12/14/2023 10:25 Note Text: Episode Visit Count: 2 Therapist That Will Accept/Oversee The Plan Of Care: Fernando Robert PT, DPT Start of Care Date: 12/09/23 Onset Date: 04/20/22 (chronic) Plan of Care Certification Date: 12/09/23 Next Certification Due Date: 01/20/24 Patient Identified by Name and Date of : Yes REHABILITATION AND SPORTS THERAPY PHYSICAL THERAPY TREATMENT NOTE ASSESSMENT: Anabell Payne tolerated the session with fatigue and expected muscle soreness. She demonstrated difficulty with kittitian ball flexion stretches due to cramping through intercostal muscles that was relieved with application of moist heat to the region. The patient will continue to benefit from ongoing skilled physical therapy to progress toward set goals. PLAN FOR NEXT VISIT: Progress as tolerated SUBJECTIVE: Patient reports yesterday she awoke with throbbing pain through her lumbar region reporting she was able to put heat on her back and perform the stretches and then mowed her lawn slowly and her pain began to lessen. She reports she walked more than she usually does on Thursday. Pain: Pain Pain Level: 5 Pain Location: Low Back/Lumbar Spine - Right, Low Back/Lumbar Spine - Left Description: Aching, Dull Frequency: Intermittent, Continuous Post Treatment Pain Post Treatment Pain Level: Better TREATMENT: Therapeutic Exercise: 1: PPT 3 x 10, 5 second hold 2: PPT with marching 3 x 10 3: bugs 3 x 10 4: Prone press ups 3 x 10, 5 second hold 5: Seated 3-way lumbar stretch with SB 5 x 10 second hold each 6: *Partial sit ups 3 x 10 7: *Bridging 3 x 10, 5 second hold 8: *SL hip abduction 3 x 10 Skilled Intervention: Patient was educated in proper exercise technique and purpose for exercises. Correct performance of therapeutic exercises was facilitated with verbal, visual, and tactile cuing. Home Exercise Program Assigned: 1: Partial sit ups 3 x 10 2: Bridging 3 x 10, 5 second hold Billing Therapeutic Exercise Treatment Minutes: 48 Skilled Treatment Time Minutes (timed and untimed codes): 48 Total Session Time (minutes): 48 Session Start Time : 929 Session Stop Time : 1018 Fernando Robert PT, DPT [facility] 12-09-2023 Note Addended by: FERNANDO COLLAZO on: 12/09/2023 08:26 AM Modules accepted: Orders [facility] 12-09-2023 Miscellaneous Notes Addended by: FERNANDO ROBERT on: 12/09/2023 08:26 AM Modules accepted: Orders documented in this encounter [facility] 12-09-2023 History of Presen t illness Narrative Program_ID:[id number] Access Code: [email or web address] URL: [email or web address] Date: 12-09-2023 Prepared By: FERNANDO ROBERT Program Notes Exercises - Supine Posterior Pelvic Tilt - 2 x daily - 7 x weekly - 3 sets - 10 reps - Supine March with Posterior Pelvic Tilt - 2 x daily - 7 x weekly - 3 sets - 10 reps - Bug - 2 x daily - 7 x weekly - 3 sets - 10 reps - Seated Flexion Stretch with [place] Ball - 2 x daily - 7 x weekly - 5 sets - reps - Seated Thoracic Flexion and Rotation with [place] Ball - 2 x daily - 7 x weekly - 5 sets - reps - Prone Press Up - 2 x daily - 7 x weekly - 1 sets - 10 reps Images from the original note were not included. Episode Visit Count: 1 Therapist That Will Accept/Oversee The Plan Of Care: Fernando Robert PT, DPT Start of Care Date: 12/09/23 Onset Date: 04/20/22 (chronic) Plan of Care Certification Date: 12/09/23 Next Certification Due Date: 01/20/24 Patient Identified by Name and Date of : Yes REHABILITATION AND SPORTS THERAPY PHYSICAL THERAPY EVALUATION PLAN OF CARE: Assessment: Anabell Payne presents with diagnosis of chronic lumbar pain with radiculopathy that interferes with bending, lifting, physical activities, standing, sleeping, driving, bed mobility (mowing the lawn, carrying laundry, stationary standing, prolonged sitting worsens radicular symptoms, passenger in car) . She presents with impairments in ADL's, overall function, range of motion, strength, and symptom management. PROMIS (Patient-Reported Outcomes Measurement Information System) scores were reviewed and identified as a rehabilitation concern. Prognosis for therapy is Good due to: current objective clinical presentation, good overall health status, positive past response to therapy . She will benefit from skilled therapy services to meet the goals established for this plan of care as noted below. Goals for Episode of Care: created on 12/09/23 through 01/20/24 Patient reported outcome of pain Interference will decrease T -score by a minimum of 5 points. Independent in home exercises. Patient will decrease pain rating by 2 points to meet minimal clinical important difference for numeric pain rating scale. Restore pain-free lumbar ROM to within normal limits to allow for improved tolerance to ADL's Stand / Walk 15 minutes without increased pain/symptoms. Sleep through night without pain/symptoms. 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 Patient will increase strength of bilateral lower extremities to 5/5 to allow for improve ability to complete ADLs. Patient will increase flexibility of bilateral hamstrings to 85 degrees without radiculpathy to improve mechanics and decrease pain. Patient Goals: move around pain free Planned Interventions, Frequency, and Duration: Current Frequency: 2x/week Duration: 6 weeks Total Number of Visits Planned: 12 Planned Treatment Interventions: Therapeutic exercise (63448), Neuromuscular re-education (46586), Manual therapy (28642), Therapeutic activities (23427), Self-half-way management (61444), E-Stim Unattended (08018) (hot and cold modalities prn) PLAN FOR NEXT VISIT: HEP review and progress activity as tolerated Patient demonstrates good understanding of plan of care and treatment. The above goals and plan of care were discussed and agreed upon by patient/family. SUBJECTIVE: Patient reporting ongoing pain since she was 19 years old. 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 She reports she had a CT scan revealed that she had a herniated disc in L5-S1 and she underwent injections. She reports that in time her symptoms have worsened and she now is experiencing pain through bilateral lower extremities. She reports that she underwent PT previously, about 3 years ago, with relief of symptoms. Patient had an MRI in October which revealed disc herniations of the L3-S1. She also had an MRI of the cervical region which was remarkable for a disc herniation of C5-6 but patient asymptomatic at this time. 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 Recreation / Current Exercise: swimming Hobbies / Interests: hiking, being outside with kids, [place] roller coasters Intake Information: Prescription present Previous Treatment: Steroids , Injections , Heat (Methotextrate) Pain: Pain Pain Level: 4 (6-7/10 at it's worst) Pain Location: Buttocks - Right, Buttocks - Left, Back (lumbar region with radicular symptoms that occur intermittently along the lateral thigh and leg and into the foot) Description: Pressure, Stiffness, Burning (sharp and shooting when travelling down leg) Frequency: Intermittent, Continuous PROMIS Scales 12/08/2023 Higher is Better Phys Func - Score 39 (moderate dysfunction) Phys Func - Percentile 14 Self-Eff Symptom - Score 41 (Average) Self-Eff Symptom - Percentile 18 T-scores: mean of general population = 50. 5 points is clinically meaningfully difference Percentiles provide an indication of how the patient's score ranks in relation to the general population. Higher percentile rankings indicate better function/quality of life. 50th percentile is the average of the general population and indicates half of respondents had a worse score. OBJECTIVE MEASURES WITH LEVEL OF FUNCTION: Posture / Alignment Posture: Good Sensation - Lumbar Sensation: Grossly Intact Lumbar Spine AROM Lumbar Flexion: Minimal limitation (increased pain when ascending to neutral) Lumbar Extension: Normal Lumbar R Side-Bend: Normal Lumbar L Side-Bend: Normal Lumbar R Rotation: Normal Lumbar L Rotation: Normal LE Flexibility Flexibility: Hamstring Flexibility R Hamstring Flexibility: passive SLR 80 deg L Hamstring Flexibility: passive SLR 75 deg with radicular symptoms along the lateral left hip LE Strength Trunk Strength: patient able to maintain a 30 second partial sit up R Hip Flexion (L2): 4+/5 R Hip ABduction: 5/5 (tested in sidelying) R Hip ADduction: 4/5 (tested in sidelying) R Knee Extension (L3): 5/5 R Knee Flexion: 5/5 R Ankle Dorsiflexion (L4): 5/5 L Hip Flexion (L2): 4+/5 L Hip ABduction: 5/5 (tested in sidelying) L Hip ADduction: 4/5 (tested in sidelying) L Knee Extension (L3): 5/5 L Knee Flexion: 5/5 L Ankle Dorsiflexion (L4): 5/5 Special Tests - Hip and Spine Hip and Spine Special Tests: Slump Test, SLR Test SLR Test: Right Negative, Left Positive Slump Test: Right Negative, Left Positive (left positive for sharp, shooting pain along the left lateral hip) Education: Education Learning Preferences: Demonstration, Explanation, Performance, Printed Materials Barriers: None Learning/educational needs: Home exercise program, Plan of Care, Changes in Plan of Care, Body Mechanics Education Provided: Yes, see treatment interventions for education provided Education Provided To: Patient Education Mode/Type: Demonstration, Explanation/Discussion, Literature/Printed Materials, Performance Response to Education/Teach Back: States/Identifies, Return Demonstration TREATMENT: PT Treatment Interventions: Self-Jail Management Evaluation Self-Jail Management: 1: HEP instruction Skilled Intervention: Skilled judgment in the selection of proper modification for activity of daily living/home management based on clinical presentation, deficits, and needs. Provided written instruction for activities of daily living techniques to facilitate proper performance and compliance. Home Exercise Program Assigned: 1: PPT 3 x 10, 5 second hold 2: PPT with marching 3 x 10 3: bugs 3 x 10 4: Seated 3-way lumbar stretch with SB 5 x 10 second hold each 5: Prone press ups x 10, 5 second hold Billing * Evaluation Low Complexity: 1 Unit Self-Care/Home Management Treatment Minutes: 15 Skilled Treatment Time Minutes (timed and untimed codes): 45 Total Session Time (minutes): 45 Session Start Time : 729 Session Stop Time : 814 Fernando Robert PT, DPT documented in this encounter [facility] 12-09-2023 Note HNO ID: [id number] Author: FERNANDO ROBERT PT, DPT Service: ? Author Type: Physical Therapist Type: Progress Notes Filed: 12/09/2023 08:25 Note Text: Episode Visit Count: 1 Therapist That Will Accept/Oversee The Plan Of Care: Fernando Robert PT DPT Start of Care Date: 12/09/23 Onset Date: 04/20/22 (chronic) Plan of Care Certification Date: 12/09/23 Next Certification Due Date: 01/20/24 Patient Identified by Name and Date of : Yes REHABILITATION AND SPORTS THERAPY PHYSICAL THERAPY EVALUATION PLAN OF CARE: Assessment: Anabell Payne presents with diagnosis of chronic lumbar pain with radiculopathy that interferes with bending, lifting, physical activities, standing, sleeping, driving, bed mobility (mowing the lawn, carrying laundry, stationary standing, prolonged sitting worsens radicular symptoms, passenger in car) . She presents with impairments in ADL's, overall function, range of motion, strength, and symptom management. PROMIS? (Patient-Reported Outcomes Measurement Information System) scores were reviewed and identified as a rehabilitation concern. Prognosis for therapy is Good due to: current objective clinical presentation, good overall health status, positive past response to therapy . She will benefit from skilled therapy services to meet the goals established for this plan of care as noted below. Goals for Episode of Care: created on 12/09/23 through 01/20/24 Patient reported outcome of pain Interference will decrease T -score by a minimum of 5 points. Independent in home exercises. Patient will decrease pain rating by 2 points to meet minimal clinical important difference for numeric pain rating scale. Restore pain-free lumbar ROM to within normal limits to allow for improved tolerance to ADL's Stand / Walk 15 minutes without increased pain/symptoms. Sleep through night without pain/symptoms. 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 Patient will increase strength of bilateral lower extremities to 5/5 to allow for improve ability to complete ADLs. Patient will increase flexibility of bilateral hamstrings to 85 degrees without radiculpathy to improve mechanics and decrease pain. Patient Goals: move around pain free Planned Interventions, Frequency, and Duration: Current Frequency: 2x/week Duration: 6 weeks Total Number of Visits Planned: 12 Planned Treatment Interventions: Therapeutic exercise (43932), Neuromuscular re-education (99889), Manual therapy (15326), Therapeutic activities (07420), Self-half-way management (58638), E-Stim Unattended (18091) (hot and cold modalities prn) PLAN FOR NEXT VISIT: HEP review and progress activity as tolerated Patient demonstrates good understanding of plan of care and treatment. The above goals and plan of care were discussed and agreed upon by patient/family. SUBJECTIVE: Patient reporting ongoing pain since she was 19 years old. 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 She reports she had a CT scan revealed that she had a herniated disc in L5-S1 and she underwent injections. She reports that in time her symptoms have worsened and she now is experiencing pain through bilateral lower extremities. She reports that she underwent PT previously, about 3 years ago, with relief of symptoms. Patient had an MRI in October which revealed disc herniations of the L3-S1. She also had an MRI of the cervical region which was remarkable for a disc herniation of C5-6 but patient asymptomatic at this time. 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 Recreation / Current Exercise: swimming Hobbies / Interests: hiking, being outside with kids, [place] roller coasters Intake Information: Prescription present Previous Treatment: Steroids , Injections , Heat (Methotextrate) Pain: Pain Pain Level: 4 (6-7/10 at it's worst) Pain Location: Buttocks - Right, Buttocks - Left, Back (lumbar region with radicular symptoms that occur intermittently along the lateral thigh and leg and into the foot) Description: Pressure, Stiffness, Burning (sharp and shooting when travelling down leg) Frequency: Intermittent, Continuous PROMIS Scales 12/08/2023 Higher is Better Phys Func - Score 39 (moderate dysfunction) Phys Func - Percentile 14 Self-Eff Symptom - (more content not included)... [facility] 11-30-2023 History of Presen t illness Narrative Summary: ct Radiology Service Progress Note PATIENT NAME: Anabell Payne DATE OF SERVICE: November 30, 2023 TIME: 12:51 PM PATIENT IDENTITY VERIFICATION COMPLETED USING TWO (2) IDENTIFIERS: Name and Date of confirmed by patient verbally. FALL SCREENING: Has the patient had 2 falls in the last year or 1 fall with injury or currently using an Ambulatory Assistive Device (Walker, Cane, Wheelchair, Crutches, etc.)? No PATIENT GENDER DATA: Female. status: : No status: NO. PATIENT RELEVANT IMPLANT DATA REVIEWED: Not Applicable PATIENT PRESENTS WITH AN IMPLANTABLE OR ATTACHED RECLAMATION FURNACE OPERATOR: No RADIOLOGY DEPARTMENT: CT; Exam(s) Completed: CA SCORE PERIPHERAL IV DATA: Not applicable SIGNED BY: RT Carlene(Ortiz) November 30, 2023 12:51 PM documented in this encounter [facility] 11-30-2023 Note HNO ID: [id number] Author: SANDRA HEADLEY RT(R) Service: Radiology Author Type: Case Hardener Type: Progress Notes Filed: 11/30/2023 12:51 Note Text: Summary: ct Radiology Service Progress Note PATIENT NAME: Anabell Payne DATE OF SERVICE: November 30, 2023 TIME: 12:51 PM PATIENT IDENTITY VERIFICATION COMPLETED USING TWO (2) IDENTIFIERS: Name and Date of confirmed by patient verbally. FALL SCREENING: Has the patient had 2 falls in the last year or 1 fall with injury or currently using an Ambulatory Assistive Device (Walker, Cane, Wheelchair, Crutches, etc.)? No PATIENT GENDER DATA: Female. status: : No status: NO. PATIENT RELEVANT IMPLANT DATA REVIEWED: Not Applicable PATIENT PRESENTS WITH AN IMPLANTABLE OR ATTACHED RECLAMATION FURNACE OPERATOR: No RADIOLOGY DEPARTMENT: CT; Exam(s) Completed: CA SCORE PERIPHERAL IV DATA: Not applicable SIGNED BY: RT Carlene(R) November 30, 2023 12:51 PM [facility] 11-06-2023 Telephone encounter Note Referral placed for Orthopaedics ( Dr. David Perales) in the [facility] Internal Referral Portal. Confirmation # [id number] Sofi Medley Ma [facility] 11-06-2023 Miscellaneous Notes Referral placed for Orthopaedics ( Dr. David Perales) in the [facility] Internal Referral Portal. Confirmation # [id number] Sofi Medley Ma documented in this encounter [facility] 11-05-2023 History of Presen t illness Narrative Images from the original note were not included. VISIT TYPE: ROUTINE FOLLOW UP There are no exam notes on file for this visit. CHIEF COMPLAINT: Patient presents with: F/U 3 Month HPI: Anabell Payne is a 38 year old female here for ROUTINE FOLLOW UP Hyperlipidemia- Total chol 242, Trig 99, HDL 45, LDL 177. Has been trying to watch diet. Does have significant family hx of high chol and heart disease. Fatigue- States she developed rashes and fatigue a couple yrs ago. Was seeing [facility] and started on progesterone which did help with the rash. Rash- Has appt with derm tomorrow. Does have rashes on her arms, ankles, and along her neck. Does notice itching when it occurs. Has seen dermatology and was given steroid cream. Had MICHELE done which was pos and was referred to rheumatology. Anxiety- Following with therapist. States she had been on wellbutrin in the past but it hasn't helped. Does feel better since going to counseling. Does feel anxious normally. Prefers to not take meds. Denies any feelings of helplessness/hopelessness, thoughts of hurting self. Vit D deficiency- Taking vit D daily. Pos MICHELE- Referred to rheumatology. Was dx with inflammatory polyarthritis and being eval for RA or psoriatic arthritis. Neuropathy- Had EMG which showed evidence of mild intracanal spinal lesion and was referred to neurosurgery. 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 Was set up for mri with contrast d/t the right hand neuropathy which was done on Thursday. Was referred to hand surgeon to eval for carpal tunnel. Chronic back pain- Following with neurosurgery and was ordered MRI. REVIEW OF SYSTEMS: Review of Systems Constitutional: Positive for fatigue. Negative for appetite change, chills and fever. Respiratory: Negative for cough, chest tightness, shortness of breath and wheezing. Cardiovascular: Negative for chest pain, palpitations and leg swelling. Gastrointestinal: Negative for abdominal pain, constipation, diarrhea, nausea and vomiting. Musculoskeletal: Positive for arthralgias and back pain. Negative for gait problem. Skin: Negative for color change and pallor. Neurological: Negative for dizziness, syncope, numbness and headaches. Psychiatric/Behavioral: Negative for suicidal ideas. The patient is nervous/anxious. Current Outpatient Medications Medication Sig Dispense Refill Cholecalciferol, Vitamin D3, 50 mcg (2,000 unit) cap Take 2,000 Units by mouth once daily. Progesterone 200 mg supp triamcinolone acetonide (KENALOG) 0.1 % ointment APPLY TWICE A DAY TO DERMATITIS- 2 WEEKS ON - 1 WEEK OFF No current facility-administered medications for this visit. ALLERGIES No Known Allergies PAST MEDICAL HISTORY Diagnosis Date Gestational diabetes Kidney stones During Sciatica Vitamin D deficiency 07/28/2018 PAST SURGICAL HISTORY Procedure Laterality Date COLONOSCOPY SCREENING 10/01/2023 Dr. Butler PAST SURGICAL HISTORY OF [place] teeth extraction FAMILY HISTORY Problem Relation Age of Onset Diabetes Mother Hypertension Mother Hypertension Father Stroke Father Prostate Cancer Father Colon Cancer Father Hypertension Sister Hypertension Brother Social History Tobacco Use Smoking status: Never Smokeless tobacco: Never Vaping Use Vaping Use: Never used Substance Use Topics Alcohol use: Yes Comment: Couple times monthly beer/wine Drug use: Not Currently Employer And Job Title: None on file Years Of Education Completed: Not specified Marital Status: Social History Social History Narrative Not on file PHYSICAL EXAM BP 108/69 (BP Site: Right Arm, BP Position: Sitting, BP Cuff Size: Regular Adult) Pulse 77 Ht 165.1 cm (5' 5) Wt 89.4 kg (197 lb) LMP 09/30/2023 (Exact Date) SpO2 95% BMI 32.78 kg/m Physical Exam Vitals reviewed. Constitutional: General: She is not in acute distress. Appearance: Normal appearance. She is normal weight. HENT: Head: Normocephalic and atraumatic. Mouth/Throat: Mouth: Mucous membranes are moist. Pharynx: Oropharynx is clear. No oropharyngeal exudate or posterior oropharyngeal erythema. Neck: Vascular: No carotid bruit. Cardiovascular: Rate and Rhythm: Normal rate and regular rhythm. Pulses: Normal pulses. Heart sounds: Normal heart sounds. No murmur heard. Pulmonary: Effort: Pulmonary effort is normal. Breath sounds: Normal breath sounds. No rhonchi or rales. Abdominal: General: Bowel sounds are normal. There is no distension. Palpations: Abdomen is soft. Tenderness: There is no abdominal tenderness. Musculoskeletal: General: No swelling or tenderness. Normal range of motion. Cervical back: Normal range of motion and neck supple. Skin: General: Skin is warm and dry. Findings: No erythema or rash. Neurological: Mental Status: She is alert and oriented to person, place, and time. Cranial Nerves: No cranial nerve deficit. Psychiatric: Mood and Affect: Mood normal. Speech: Speech normal. Behavior: Behavior is cooperative. Thought Content: Thought content does not include suicidal ideation. Cognition and Memory: Cognition normal. Judgment: Judgment normal. DIAGNOSTICS REVIEWED Latest Ref Rng & Units 10/18/2021 10/17/2022 07/15/2023 CBC WBC 3.70 - 11.00 k/uL 6.4 7.1 7.61 RBC 3.90 - 5.20 m/uL 4.35 4.51 4.47 Hemoglobin 11.5 - 15.5 g/dL 13.8 14.2 14.0 Hematocrit 36.0 - 46.0 % 41.0 42.8 42.1 MCV 80.0 - 100.0 fL 94.4 94.9 94.2 MCH 26.0 - 34.0 pg 31.8 31.5 31.3 MCHC 30.5 - 36.0 g/dL 33.7 33.2 33.3 RDW 12.5 - 15.7 % 12.8 12.2 RDW-CV 11.5 - 15.0 % 12.1 Platelet Count 150 - 400 k/uL 182 197 234 MPV 9.0 - 12.7 fL 10.1 11.3 11.6 Baso% 0.0 - 1.0 % 0.8 0.8 LYMPH ABS 1.00 - 3.50 x10(3) 1.40 1.44 MONO ABS 0.30 - 0.80 x10(3) 0.50 0.44 EOS ABS 0.00 - 0.54 x10(3) 0.10 0.15 BASO ABS 0.00 - 0.10 x10(3) 0.10 0.06 Glucose (mg/dL) Date Value 07/15/2023 95 10/17/2022 96 Potassium (mmol/L) Date Value 07/15/2023 4.4 10/17/2022 4.4 Sodium (mmol/L) Date Value 07/15/2023 138 10/17/2022 140 Chloride (mmol/L) Date Value 07/15/2023 105 10/17/2022 105 CO2 (mmol/L) Date Value 07/15/2023 25 10/17/2022 26 Creatinine (mg/dL) Date Value 07/15/2023 0.96 10/17/2022 0.90 BUN (mg/dL) Date Value 07/15/2023 15 10/17/2022 13 Anion Gap (mmol/L) Date Value 07/15/2023 8 10/17/2022 13.4 Calcium (mg/dL) Date Value 10/17/2022 9.6 Calcium, Total (mg/dL) Date Value 07/15/2023 9.3 Glucose (mg/dL) Date Value 07/15/2023 95 10/17/2022 96 Potassium (mmol/L) Date Value 07/15/2023 4.4 10/17/2022 4.4 Sodium (mmol/L) Date Value 07/15/2023 138 10/17/2022 140 Chloride (mmol/L) Date Value 07/15/2023 105 10/17/2022 105 CO2 (mmol/L) Date Value 07/15/2023 25 10/17/2022 26 Creatinine (mg/dL) Date Value 07/15/2023 0.96 10/17/2022 0.90 BUN (mg/dL) Date Value 07/15/2023 15 10/17/2022 13 Anion Gap (mmol/L) Date Value 07/15/2023 8 10/17/2022 13.4 Calcium (mg/dL) Date Value 10/17/2022 9.6 Calcium, Total (mg/dL) Date Value 07/15/2023 9.3 Protein, Total (g/dL) Date Value 07/15/2023 6.9 10/17/2022 7.3 Albumin (g/dL) Date Value 07/15/2023 4.3 10/17/2022 4.5 Bilirubin, Total (mg/dL) Date Value 07/15/2023 0.2 10/17/2022 <0.2 Alkaline Phosphatase (U/L) Date Value 07/15/2023 86 10/17/2022 88 AST (U/L) Date Value 07/15/2023 23 10/17/2022 20 ALT (U/L) Date Value 07/15/2023 27 10/17/2022 30 No results found for: T3 No results found for: T4 No results found for: L3HWMHDV TSH Date Value 07/15/2023 1.220 mIU/L 10/17/2022 1.40 uIU/mL Cholesterol, Total (mg/dL) Date Value 10/28/2023 290 10/17/2022 224 HDL Cholesterol (mg/dL) Date Value 10/28/2023 51 10/17/2022 47 LDL Cholesterol (mg/dL) Date Value 10/28/2023 213 LDL (mg/dL) Date Value 10/17/2022 155 Triglyceride (mg/dL) Date Value 10/28/2023 131 10/17/2022 112 IMPRESSION / PLAN ASSESSMENT/PLAN: 1. Positive MICHELE (antinuclear antibody) - ICD9: 795.79, ICD10: R76.8 (primary diagnosis) Following with rheumatology. 2. Vitamin D deficiency - ICD9: 268.9, ICD10: E55.9 Cont vit D 3. Mixed hyperlipidemia - ICD9: 272.2, ICD10: E78.2 Significantly elevated. Discussed risk and expl based on LDL it is recommended to start statin. Does have sig family hx of heart disease as well. Pt agreeable to start med. Enc to follow low fat/chol diet. Will recheck in 3mo. Pt requesting calcium score testing. 4. Cervical spinal stenosis - ICD9: 723.0, ICD10: M48.02 Following with neurosurgery 5. Idiopathic peripheral neuropathy - ICD9: 356.9, ICD10: G60.9 Ongoing. Referred to hand surgeon. 6. Rash - ICD9: 782.1, ICD10: R21 Ongoing. Following with rheumatology. 7. Fatigue, unspecified type - ICD9: 780.79, ICD10: R53.83 Ongoing. 8. Generalized anxiety disorder - ICD9: 300.02, ICD10: F41.1 Stable on effexor. Nicole Duvall APRN.HOME THEATER EXPERIENCE EXPERT F/u 3mo There may be parts of this progress note, including the impression and plan, that have been copied from my previous progress note and remain pertinent. Updates have been made where necessary. documented in this encounter [facility] 11-05-2023 Note HNO ID: [id number] Author: NICOLE DUVALL APRN.HOME THEATER EXPERIENCE EXPERT Service: ? Author Type: Nurse Practitioner Type: Progress Notes Filed: 11/05/2023 21:05 Note Text: VISIT TYPE: ROUTINE FOLLOW UP There are no exam notes on file for this visit. CHIEF COMPLAINT: Patient presents with: F/U 3 Month HPI: Anabell Payne is a 38 year old female here for ROUTINE FOLLOW UP Hyperlipidemia- Total chol 242, Trig 99, HDL 45, LDL 177. Has been trying to watch diet. Does have significant family hx of high chol and heart disease. Fatigue- States she developed rashes and fatigue a couple yrs ago. Was seeing [facility] and started on progesterone which did help with the rash. Rash- Has appt with derm tomorrow. Does have rashes on her arms, ankles, and along her neck. Does notice itching when it occurs. Has seen dermatology and was given steroid cream. Had MICHELE done which was pos and was referred to rheumatology. Anxiety- Following with therapist. States she had been on wellbutrin in the past but it hasn't helped. Does feel better since going to counseling. Does feel anxious normally. Prefers to not take meds. Denies any feelings of helplessness/hopelessness, thoughts of hurting self. Vit D deficiency- Taking vit D daily. Pos MICHELE- Referred to rheumatology. Was dx with inflammatory polyarthritis and being eval for RA or psoriatic arthritis. Neuropathy- Had EMG which showed evidence of mild intracanal spinal lesion and was referred to neurosurgery. 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 Was set up for mri with contrast d/t the right hand neuropathy which was done on Thursday. Was referred to hand surgeon to eval for carpal tunnel. Chronic back pain- Following with neurosurgery and was ordered MRI. REVIEW OF SYSTEMS: Review of Systems Constitutional: Positive for fatigue. Negative for appetite change, chills and fever. Respiratory: Negative for cough, chest tightness, shortness of breath and wheezing. Cardiovascular: Negative for chest pain, palpitations and leg swelling. Gastrointestinal: Negative for abdominal pain, constipation, diarrhea, nausea and vomiting. Musculoskeletal: Positive for arthralgias and back pain. Negative for gait problem. Skin: Negative for color change and pallor. Neurological: Negative for dizziness, syncope, numbness and headaches. Psychiatric/Behavioral: Negative for suicidal ideas. The patient is nervous/anxious. Current Outpatient Medications Medication Sig Dispense Refill Cholecalciferol, Vitamin D3, 50 mcg (2,000 unit) cap Take 2,000 Units by mouth once daily. Progesterone 200 mg supp triamcinolone acetonide (KENALOG) 0.1 % ointment APPLY TWICE A DAY TO DERMATITIS- 2 WEEKS ON - 1 WEEK OFF No current facility-administered medications for this visit. ALLERGIES No Known Allergies PAST MEDICAL HISTORY Diagnosis Date Gestational diabetes Kidney stones During Sciatica Vitamin D deficiency 07/28/2018 PAST SURGICAL HISTORY Procedure Laterality Date COLONOSCOPY SCREENING 10/01/2023 Dr. Butler PAST SURGICAL HISTORY OF [place] teeth extraction FAMILY HISTORY Problem Relation Age of Onset Diabetes Mother Hypertension Mother Hypertension Father Stroke Father Prostate Cancer Father Colon Cancer Father Hypertension Sister Hypertension Brother Social History Tobacco Use Smoking status: Never Smokeless tobacco: Never Vaping Use Vaping Use: Never used Substance Use Topics Alcohol use: Yes Comment: Couple times monthly beer/wine Drug use: Not Currently Employer And Job Title: None on file Years Of Education Completed: Not specified Marital Status: Social History Social History Narrative Not on file PHYSICAL EXAM BP 108/69 (BP Site: Right Arm, BP Position: Sitting, BP Cuff Size: Regular Adult) Pulse 77 Ht 165.1 cm (5' 5) Wt 89.4 kg (197 lb) LMP 09/30/2023 (Exact Date) SpO2 95% BMI 32.78 kg/m? Physical Exam Vitals reviewed. Constitutional: General: She is not in acute distress. Appearance: Normal appearance. She is normal weight. HENT: Head: Normocephalic and atraumatic. Mouth/Throat: Mouth: Mucous membranes are moist. Pharynx: Oropharynx is clear. No oropharyngeal exudate or posterior oropharyngeal erythema. Neck: Vascular: No carotid bruit. Cardiovascular: Rate and Rhythm: Normal rate and regular rhythm. Pulses: Normal pulses. Heart sounds: Normal heart sounds. No murmur heard. Pulmonary: Effort: Pulmonary effort is normal. Breath sounds: Normal breath sounds. No rhonchi or rales. Abdominal: General: Bowel sounds are normal. There is no distension. Palpations: Abdomen is soft. Tenderness: There is no abdominal tenderness. Musculoskeletal: General: No swelling or tenderness. Normal range of motion. Cervical back: Normal range of motion and neck supple. Skin: General: Skin is warm and dry. Findings: No erythema or rash. Neurolog (more content not included)... [facility] 11-05-2023 History of Presen t illness Narrative Images from the original note were not included. NEUROSURGERY FOLLOW UP OFFICE NOTE Alexis Jones MD [facility] Date of visit: November 05, 2023 Patient Name: Ms.Jennifer Payne Date of : 1985 Current Age: [age] year old Sex: female MRN/E# [id number] Last Office Visit: 09/29/2023 Chief Complaint: Patient presents with: Established Patient Past Medical/Surgical History: Anabell Payne is a 38 year old female who is referred by Nicole Duvall APRN, CNP for neurosurgical evaluation. The patient has a history of gestational diabetes, kidney stones and sciatica. She has no significant surgical history. HPI: Ms. Payne was seen in the officed on 09/29/2023 with reports of 4-6 months right wrist and hand weakness, pain, and paresthesia. 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 Her MRI of her cervical spine showed left paracentral disc herniation at C5-C6. It was believed that it could have been carpel tunnel, but a new MRI of her cervical spine with contrast to better evaluate the hypointensity within C8-T1 neural foramen. She was to follow up once completed for review, prompting her visit today. The patient presents to the office today with continued symptoms in the right arm, as well as bilateral sciatica. She denies any new weakness, paresthesia, bowel/bladder dysfunction this visit. She is here for evaluation and plan of care. Symptoms: right hand and wrist weakness, numbness/tingling, dexterity issue. PREVIOUS CONSERVATIVE TREATMENTS: none PREVIOUS SURGERY: None Surgical Risk Factors: Smoking status: denies Anticoagulants/antiplatelets: denies Diabetic: denies BMI: 31.95 PAIN EVALUATION 11/04/2023 1223 Pain Level: 4 Pain Location: Back-Lower PAST MEDICAL HISTORY Diagnosis Date Gestational diabetes Kidney stones During Sciatica Vitamin D deficiency 07/28/2018 PAST SURGICAL HISTORY Procedure Laterality Date COLONOSCOPY SCREENING 10/01/2023 Dr. Butler PAST SURGICAL HISTORY OF [place] teeth extraction FAMILY HISTORY Problem Relation Age of Onset Diabetes Mother Hypertension Mother Hypertension Father Stroke Father Prostate Cancer Father Colon Cancer Father Hypertension Sister Hypertension Brother ALLERGIES No Known Allergies Current Outpatient Medications Medication Sig Dispense Refill Cholecalciferol, Vitamin D3, 50 mcg (2,000 unit) cap Take 2,000 Units by mouth once daily. Progesterone 200 mg supp triamcinolone acetonide (KENALOG) 0.1 % ointment APPLY TWICE A DAY TO DERMATITIS- 2 WEEKS ON - 1 WEEK OFF No current facility-administered medications for this visit. REVIEW OF SYSTEMS Review of Systems Constitutional: Negative for diaphoresis, fatigue and fever. HENT: Negative for ear pain, hearing loss and tinnitus. Eyes: Negative for photophobia, pain and visual disturbance. Respiratory: Negative for cough, chest tightness and shortness of breath. Cardiovascular: Negative for chest pain. Gastrointestinal: Negative for constipation, diarrhea, nausea and vomiting. Endocrine: Negative for polydipsia, polyphagia and polyuria. Genitourinary: Negative for difficulty urinating, frequency and urgency. Musculoskeletal: Positive for back pain. Negative for gait problem, neck pain and neck stiffness. Skin: Negative for color change and rash. Neurological: Positive for numbness. Negative for dizziness and weakness. Psychiatric/Behavioral: Negative for agitation and confusion. The patient is not nervous/anxious. OBJECTIVE: BP 116/77 Pulse 62 Resp 16 Wt 198 lb 3.1 oz (89.9kg) SpO2 98% LMP 09/30/2023 PHYSICAL EXAM: Mental State : Alert, memory function unremarkable. Attention span and concentration normal for patient's age. Speech normal, no receptive or expressive speech deficit. Recent and remote memory normal. Orientation : Oriented to person, place and time. Cranial Nerves : Grossly intact. Sensory: Normal Sensation in upper and lower extremities and trunk to touch and noxious stimuli. Motor: Normal muscle tone and bulk. No tremor or uncontrollable movements. No spasticity or tremor. Gait and Station: Casual gait is normal including stance, stride, and arm swing. STRENGTH: Upper Extremity Strength Exam Right Left Elbow Flexion 5/5 5/5 Elbow Extension 5/5 5/5 Finger Flexion 5/5 5/5 Finger Extension 5/5 5/5 Finger Abduction 5/5 5/5 Lower Extremity Strength Exam Right Left Hip Flexion 5/5 5/5 Knee Flexion 5/5 5/5 Knee Extension 5/5 5/5 Dorsiflexion 5/5 5/5 Plantarflexion 5/5 5/5 Data Review IMAGING STUDIES: MRI CERVICAL and LUMBAR 11/04/2023 IMPRESSION: Cervical spine: Multilevel degenerative spondylosis most pronounced at C5-C6 on the LEFT. No high-grade spinal canal or neuroforaminal stenosis. No abnormal cord signal abnormality or enhancement. Lumbar spine: Multilevel degenerative spondylosis superimposed on developmental canal narrowing most prominent at L4-S1. No high-grade spinal canal or neuroforaminal stenosis. Multilevel at least partial nerve root impingement, as detailed. XR LUMBAR 11/04/2023: mild degenerative changes without translational instability Assessment & Plan: Ms. Payne presents for follow-up. Her most bothersome complaint is right hand and wrist pain and numbness, along with trouble with dexterity. She also has low back pain and intermittent radicular pain in an L4-5 distribution. The MRI of her neck shows a left paracentral disc bulge, but I cannot explain why she is having right arm symptoms from this. Her EMG study shows chronic changes on the right at C8 and T1, but there is no compressive lesion in her cervical spine to explain this. I will refer her to a carpal tunnel specialist, Dr. Perales, for evaluation. She had an MRI of her cervical spine with contrast given that there was a hypointensity in the foramen on the right side at C7-T1, but I do not see any enhancing lesion here to suggest a small schwannoma. I believe it is vasculature and not of any clinical significance. The MRI of her lumbar spine shows degenerative changes with mild to moderate lateral recess stenosis at L4-5 and L5-S1. She has not tried dedicated physical therapy in about 4 years. I believe this would help her and I will make a referral for this. If she is not getting meaningful relief after physical therapy, I explained that she may consider pain management referral for an epidural injection to try to treat her symptoms. Surgical decompression would be the last resort for her, given her young age. She is not interested in surgery at this time and prefers to manage this conservatively, which is reasonable. She is currently being worked up for rheumatoid arthritis or psoriatic arthritis by her human services supervisor. It is possible that some of her back pain is from a diffuse arthropathy. I explained that, if this is the case, I would not recommend surgery for this, as there is no focal structural lesion responsible for her symptoms. I will place the referral to PT and I can see her back on an as-needed basis. I advised her to call me back if her symptoms change or worsen. All questions were answered. Attribution: The following portions of the patient's history were reviewed, confirmed, and updated as necessary: allergies, current medications, past family history, past medical history, past social history, past surgical history, problem list, HPI, and ROS obtained by others. Some elements may be copied from a previous office note and have been reviewed/updated where appropriate. All portions reflect current medical decision making from today. The clinical and radiographic findings as well as the risks, benefits and alternatives of treatment have been reviewed in detail with the patient. Advised to call the office if symptoms worsen or new symptoms develop. Patient expressed understanding and is in agreement with plan. Alexis Jones MD [facility] Medical Decision Making: Problems: Moderate: 2+ stable chronic illnesses Data: Unique source(s) for external note(s) reviewed: 1 Unique test result(s) reviewed: 2 Unique test(s) ordered: 1 Risk: Moderate: Moderate risk from testing/treatment Medical Decision Making Level: 4 - Moderate This note was partially generated using [employer] voice recognition system, and there may be some incorrect words, spellings, and punctuation that were not noted in checking the note before saving. documented in this encounter [facility] 11-05-2023 Note HNO ID: [id number] Author: ALEXIS JONES MD Service: ? Author Type: Physician Type: Progress Notes Filed: 11/05/2023 08:39 Note Text: NEUROSURGERY FOLLOW UP OFFICE NOTE Alexis Jones MD [facility] Date of visit: November 05, 2023 Patient Name: Ms.Jennifer Payne Date of : 1985 Current Age: [age] year old Sex: female MRN/E# [id number] Last Office Visit: 09/29/2023 Chief Complaint: Patient presents with: Established Patient Past Medical/Surgical History: Anabell Payne is a 38 year old female who is referred by Nicole Duvall APRN, CNP for neurosurgical evaluation. The patient has a history of gestational diabetes, kidney stones and sciatica. She has no significant surgical history. HPI: Ms. Payne was seen in the officed on 09/29/2023 with reports of 4-6 months right wrist and hand weakness, pain, and paresthesia. 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 Her MRI of her cervical spine showed left paracentral disc herniation at C5-C6. It was believed that it could have been carpel tunnel, but a new MRI of her cervical spine with contrast to better evaluate the hypointensity within C8-T1 neural foramen. She was to follow up once completed for review, prompting her visit today. The patient presents to the office today with continued symptoms in the right arm, as well as bilateral sciatica. She denies any new weakness, paresthesia, bowel/bladder dysfunction this visit. She is here for evaluation and plan of care. Symptoms: right hand and wrist weakness, numbness/tingling, dexterity issue. PREVIOUS CONSERVATIVE TREATMENTS: none PREVIOUS SURGERY: None Surgical Risk Factors: Smoking status: denies Anticoagulants/antiplatelets: denies Diabetic: denies BMI: 31.95 PAIN EVALUATION 11/04/2023 1223 Pain Level: 4 Pain Location: Back-Lower PAST MEDICAL HISTORY Diagnosis Date Gestational diabetes Kidney stones During Sciatica Vitamin D deficiency 07/28/2018 PAST SURGICAL HISTORY Procedure Laterality Date COLONOSCOPY SCREENING 10/01/2023 Dr. Butler PAST SURGICAL HISTORY OF [place] teeth extraction FAMILY HISTORY Problem Relation Age of Onset Diabetes Mother Hypertension Mother Hypertension Father Stroke Father Prostate Cancer Father Colon Cancer Father Hypertension Sister Hypertension Brother ALLERGIES No Known Allergies Current Outpatient Medications Medication Sig Dispense Refill Cholecalciferol, Vitamin D3, 50 mcg (2,000 unit) cap Take 2,000 Units by mouth once daily. Progesterone 200 mg supp triamcinolone acetonide (KENALOG) 0.1 % ointment APPLY TWICE A DAY TO DERMATITIS- 2 WEEKS ON - 1 WEEK OFF No current facility-administered medications for this visit. REVIEW OF SYSTEMS Review of Systems Constitutional: Negative for diaphoresis, fatigue and fever. HENT: Negative for ear pain, hearing loss and tinnitus. Eyes: Negative for photophobia, pain and visual disturbance. Respiratory: Negative for cough, chest tightness and shortness of breath. Cardiovascular: Negative for chest pain. Gastrointestinal: Negative for constipation, diarrhea, nausea and vomiting. Endocrine: Negative for polydipsia, polyphagia and polyuria. Genitourinary: Negative for difficulty urinating, frequency and urgency. Musculoskeletal: Positive for back pain. Negative for gait problem, neck pain and neck stiffness. Skin: Negative for color change and rash. Neurological: Positive for numbness. Negative for dizziness and weakness. Psychiatric/Behavioral: Negative for agitation and confusion. The patient is not nervous/anxious. OBJECTIVE: BP 116/77 Pulse 62 Resp 16 Wt 198 lb 3.1 oz (89.9kg) SpO2 98% LMP 09/30/2023 PHYSICAL EXAM: Mental State : Alert, memory function unremarkable. Attention span and concentration normal for patient's age. Speech normal, no receptive or expressive speech deficit. Recent and remote memory normal. Orientation : Oriented to person, place and time. Cranial Nerves : Grossly intact. Sensory: Normal Sensation in upper and lower extremities and trunk to touch and noxious stimuli. Motor: Normal muscle tone and bulk. No tremor or uncontrollable movements. No spasticity or tremor. Gait and Station: Casual gait is normal including stance, stride, and arm swing. STRENGTH: Upper Extremity Strength Exam Right Left Elbow Flexion 5/5 5/5 Elbow Extension 5/5 5/5 Finger Flexion 5/5 5/5 Finger Extension 5/5 5/5 Finger Abduction 5/5 5/5 Lower Extremity Strength Exam Right Left Hip Flexion 5/5 5/5 Knee Flexion 5/5 5/5 Knee Extension 5/5 5/5 Dorsiflexion 5/5 5/5 Plantarflexion 5/5 5/5 Data Review IMAGING STUDIES: MRI CERVIC (more content not included)... [facility] 11-03-2023 History of Presen t illness Narrative Radiology Service Progress Note PATIENT NAME: Anabell Payne DATE OF SERVICE: November 03, 2023 TIME: 10:35 AM PATIENT IDENTITY VERIFICATION COMPLETED USING TWO (2) IDENTIFIERS: Name and Date of confirmed by patient verbally and Name and Date of confirmed by identification band. FALL SCREENING: Has the patient had 2 falls in the last year or 1 fall with injury or currently using an Ambulatory Assistive Device (Walker, Cane, Wheelchair, Crutches, etc.)? No PATIENT GENDER DATA: Female. status: : No status: NO. PATIENT RELEVANT IMPLANT DATA REVIEWED: Not Applicable PATIENT PRESENTS WITH AN IMPLANTABLE OR ATTACHED RECLAMATION FURNACE OPERATOR: No RADIOLOGY DEPARTMENT: General X-ray: Exam(s) Completed: Spine X-Ray(s): Lumbar AP / LAT / L5-S1 / FLEX-EXT PERIPHERAL IV DATA: Not applicable SIGNED BY: RT Lenka(Ortiz) November 03, 2023 10:35 AM documented in this encounter [facility] 11-03-2023 Note HNO ID: [id number] Author: FELICITA DELA CRUZ RT(R) Service: Radiology Author Type: Technologist Type: Progress Notes Filed: 11/03/2023 10:36 Note Text: Radiology Service Progress Note PATIENT NAME: Anabell Payne DATE OF SERVICE: November 03, 2023 TIME: 10:35 AM PATIENT IDENTITY VERIFICATION COMPLETED USING TWO (2) IDENTIFIERS: Name and Date of confirmed by patient verbally and Name and Date of confirmed by identification band. FALL SCREENING: Has the patient had 2 falls in the last year or 1 fall with injury or currently using an Ambulatory Assistive Device (Walker, Cane, Wheelchair, Crutches, etc.)? No PATIENT GENDER DATA: Female. status: : No status: NO. PATIENT RELEVANT IMPLANT DATA REVIEWED: Not Applicable PATIENT PRESENTS WITH AN IMPLANTABLE OR ATTACHED RECLAMATION FURNACE OPERATOR: No RADIOLOGY DEPARTMENT: General X-ray: Exam(s) Completed: Spine X-Ray(s): Lumbar AP / LAT / L5-S1 / FLEX-EXT PERIPHERAL IV DATA: Not applicable SIGNED BY: RT Lenka(Ortiz) November 03, 2023 10:35 AM [facility] 11-03-2023 History of Presen t illness Narrative Radiology Service Progress Note DATE OF SERVICE: November 03, 2023 TIME: 9:55 AM PATIENT IDENTITY VERIFICATION COMPLETED USING TWO (2) STANDARD IDENTIFIERS: Name and Date of confirmed by patient verbally and Name and Date of confirmed by identification band. FALL SCREENING: Has the patient had 2 falls in the last year or 1 fall with injury or currently using an Ambulatory Assistive Device (Walker, Cane, Wheelchair, Crutches, etc.)? No PATIENT GENDER DATA: Female. status: : No status: NO. PATIENT RELEVANT IMPLANT DATA REVIEWED: Yes PATIENT PRESENTS WITH AN IMPLANTABLE OR ATTACHED RECLAMATION FURNACE OPERATOR: No ALLERGIES: Reviewed and unchanged CONTRAST ALLERGY: NO. EXAM: MRI - CONTRAST TYPE: GROUP II PERIPHERAL IV DATA: Ambulatory: A peripheral IV was started in the Right antecubital site with a Angio cath: 22 gauge. RADIOLOGY DEPARTMENT: MR; Exam(s) Completed: Spine: Cervical spine and Lumbar spine SIGNATURE: WANDY Alcazar) PATIENT NAME: Anabell Payne DATE: November 03, 2023 TIME: 9:55 AM documented in this encounter [facility] 11-03-2023 Note HNO ID: [id number] Author: LINDSAY AUGUSTE RT(R) Service: ? Author Type: Technologist Type: Progress Notes Filed: 11/03/2023 09:55 Note Text: Radiology Service Progress Note DATE OF SERVICE: November 03, 2023 TIME: 9:55 AM PATIENT IDENTITY VERIFICATION COMPLETED USING TWO (2) STANDARD IDENTIFIERS: Name and Date of confirmed by patient verbally and Name and Date of confirmed by identification band. FALL SCREENING: Has the patient had 2 falls in the last year or 1 fall with injury or currently using an Ambulatory Assistive Device (Walker, Cane, Wheelchair, Crutches, etc.)? No PATIENT GENDER DATA: Female. status: : No status: NO. PATIENT RELEVANT IMPLANT DATA REVIEWED: Yes PATIENT PRESENTS WITH AN IMPLANTABLE OR ATTACHED RECLAMATION FURNACE OPERATOR: No ALLERGIES: Reviewed and unchanged CONTRAST ALLERGY: NO. EXAM: MRI - CONTRAST TYPE: GROUP II PERIPHERAL IV DATA: Ambulatory: A peripheral IV was started in the Right antecubital site with a Angio cath: 22 gauge. RADIOLOGY DEPARTMENT: MR; Exam(s) Completed: Spine: Cervical spine and Lumbar spine SIGNATURE: WANDY Alcazar) PATIENT NAME: Anabell Payne DATE: November 03, 2023 TIME: 9:55 AM [facility] 11-03-2023 History of Presen t illness Narrative Radiology Service Progress Note DATE OF SERVICE: November 03, 2023 TIME: 9:53 AM PATIENT IDENTITY VERIFICATION COMPLETED USING TWO (2) STANDARD IDENTIFIERS: Name and Date of confirmed by patient verbally and Name and Date of confirmed by identification band. FALL SCREENING: Has the patient had 2 falls in the last year or 1 fall with injury or currently using an Ambulatory Assistive Device (Walker, Cane, Wheelchair, Crutches, etc.)? No PATIENT GENDER DATA: Female. status: : No status: NO. PATIENT RELEVANT IMPLANT DATA REVIEWED: Yes PATIENT PRESENTS WITH AN IMPLANTABLE OR ATTACHED RECLAMATION FURNACE OPERATOR: No ALLERGIES: Reviewed and unchanged CONTRAST ALLERGY: NO. EXAM: MRI - CONTRAST TYPE: GROUP II PERIPHERAL IV DATA: Ambulatory: A peripheral IV was started in the Right antecubital site with a Angio cath: 22 gauge. RADIOLOGY DEPARTMENT: MR; Exam(s) Completed: Spine: Cervical spine and Lumbar spine SIGNATURE: RT Ottoniel(Ortiz) PATIENT NAME: Anabell Payne DATE: November 03, 2023 TIME: 9:53 AM documented in this encounter [facility] 11-03-2023 Note HNO ID: [id number] Author: LINDSAY AUGUSTE RT(R) Service: ? Author Type: Technologist Type: Progress Notes Filed: 11/03/2023 09:54 Note Text: Radiology Service Progress Note DATE OF SERVICE: November 03, 2023 TIME: 9:53 AM PATIENT IDENTITY VERIFICATION COMPLETED USING TWO (2) STANDARD IDENTIFIERS: Name and Date of confirmed by patient verbally and Name and Date of confirmed by identification band. FALL SCREENING: Has the patient had 2 falls in the last year or 1 fall with injury or currently using an Ambulatory Assistive Device (Walker, Cane, Wheelchair, Crutches, etc.)? No PATIENT GENDER DATA: Female. status: : No status: NO. PATIENT RELEVANT IMPLANT DATA REVIEWED: Yes PATIENT PRESENTS WITH AN IMPLANTABLE OR ATTACHED RECLAMATION FURNACE OPERATOR: No ALLERGIES: Reviewed and unchanged CONTRAST ALLERGY: NO. EXAM: MRI - CONTRAST TYPE: GROUP II PERIPHERAL IV DATA: Ambulatory: A peripheral IV was started in the Right antecubital site with a Angio cath: 22 gauge. RADIOLOGY DEPARTMENT: MR; Exam(s) Completed: Spine: Cervical spine and Lumbar spine SIGNATURE: RT Ottoniel(R) PATIENT NAME: Anabell Payne DATE: November 03, 2023 TIME: 9:53 AM [facility] 10-28-2023 Note HNO ID: [id number] Author: CHER AUGUSTE LPN Service: ? Author Type: LICENSED NURSE Type: Progress Notes Filed: 10/28/2023 08:15 Note Text: PATIENT HERE FOR LAB DRAW. LEFT AC PATIENT TOLERATED WELL. Cher Auguste LPN [facility] 10-28-2023 History of Presen t illness Narrative PATIENT HERE FOR LAB DRAW. LEFT AC PATIENT TOLERATED WELL. Cher Auguste LPN documented in this encounter [facility] 10-26-2023 Note HNO ID: [id number] Author: SWAPNA BUTLER DO Service: ? Author Type: Physician Type: Progress Notes Filed: 10/27/2023 18:43 Note Text: HPI Anabell Payne is a 38 year old female here today for colonoscopy f/u. She had diverticulosis, 2 colon polyps which were tubular adenomas. . Current Outpatient Medications Medication Sig Cholecalciferol, Vitamin D3, 50 mcg (2,000 unit) cap Take 2,000 Units by mouth once daily. Progesterone 200 mg supp triamcinolone acetonide (KENALOG) 0.1 % ointment APPLY TWICE A DAY TO DERMATITIS- 2 WEEKS ON - 1 WEEK OFF No current facility-administered medications for this visit. ALLERGIES No Known Allergies Social History Tobacco Use Smoking status: Never Smokeless tobacco: Never Vaping Use Vaping Use: Never used Substance Use Topics Alcohol use: Yes Comment: Couple times monthly beer/wine Drug use: Not Currently PAST MEDICAL HISTORY Diagnosis Date Gestational diabetes Kidney stones During Sciatica Vitamin D deficiency 07/28/2018 PAST SURGICAL HISTORY Procedure Laterality Date COLONOSCOPY SCREENING 10/01/2023 Dr. Butler PAST SURGICAL HISTORY OF [place] teeth extraction FAMILY HISTORY Problem Relation Age of Onset Diabetes Mother Hypertension Mother Hypertension Father Stroke Father Prostate Cancer Father Colon Cancer Father Hypertension Sister Hypertension Brother REVIEW OF SYSTEMS General: No weight loss, malaise or fevers HEENT: Negative for frequent or significant headaches Neck: Negative for lumps, goiter, pain and significant neck swelling Respiratory: Negative for cough, hemoptysis, wheezing, COPD, dyspnea or shortness of breath Cardiovascular: Negative for chest pain, leg swelling, hypertension, CHF or palpitations GI: No nausea, vomiting, or diarrhea : No history of dysuria, frequency or incontinence Musculoskeletal: Negative for joint pain or swelling, back pain or muscle pain Skin: Negative for lesions, rash, and itching Psych: Negative for sleep disturbance, mood disorder and recent psychosocial stressors Hematology/Lymphology: Negative for prolonged bleeding, bruising easily or swollen nodes Endocrine: Negative for cold or heat intolerance, polyuria, polydipsia and goiter Neuro: No history of headaches, syncope, paralysis, seizures or tremors PHYSICAL EXAM Ht 5' 5 (1.65m) Wt 192 lb (87.1kg) LMP 09/30/2023 BMI 31.95 kg/(m2). General Appearance: Well appearing, alert, in no acute distress, well-hydrated, well nourished. Skin: Skin color, texture, turgor normal, Head: Normocephalic, Neck: Supple, Lungs: Unlabored on room air Heart: RR Extremities: No deformities, edema, Neuro: Gait normal. Abdomen: Abdomen soft, non-tender. No masses, organomegaly Assessment ASSESSMENT/PLAN: 1. Adenomatous polyp of sigmoid colon - ICD9: 211.3, ICD10: D12.5 (primary diagnosis) - pathology was reviewed. Plan on recall in 3 years with her fmaily history of colon cancer 2. Diverticulosis - ICD9: 562.10, ICD10: K57.90 Swapna Butler, DO DATE: 10/26/23 TIME: 3:44 PM [facility] 10-26-2023 History of Presen t illness Narrative HPI Anabell Payne is a 38 year old female here today for colonoscopy f/u. She had diverticulosis, 2 colon polyps which were tubular adenomas. . Current Outpatient Medications Medication Sig Cholecalciferol, Vitamin D3, 50 mcg (2,000 unit) cap Take 2,000 Units by mouth once daily. Progesterone 200 mg supp triamcinolone acetonide (KENALOG) 0.1 % ointment APPLY TWICE A DAY TO DERMATITIS- 2 WEEKS ON - 1 WEEK OFF No current facility-administered medications for this visit. ALLERGIES No Known Allergies Social History Tobacco Use Smoking status: Never Smokeless tobacco: Never Vaping Use Vaping Use: Never used Substance Use Topics Alcohol use: Yes Comment: Couple times monthly beer/wine Drug use: Not Currently PAST MEDICAL HISTORY Diagnosis Date Gestational diabetes Kidney stones During Sciatica Vitamin D deficiency 07/28/2018 PAST SURGICAL HISTORY Procedure Laterality Date COLONOSCOPY SCREENING 10/01/2023 Dr. Butler PAST SURGICAL HISTORY OF [place] teeth extraction FAMILY HISTORY Problem Relation Age of Onset Diabetes Mother Hypertension Mother Hypertension Father Stroke Father Prostate Cancer Father Colon Cancer Father Hypertension Sister Hypertension Brother REVIEW OF SYSTEMS General: No weight loss, malaise or fevers HEENT: Negative for frequent or significant headaches Neck: Negative for lumps, goiter, pain and significant neck swelling Respiratory: Negative for cough, hemoptysis, wheezing, COPD, dyspnea or shortness of breath Cardiovascular: Negative for chest pain, leg swelling, hypertension, CHF or palpitations GI: No nausea, vomiting, or diarrhea : No history of dysuria, frequency or incontinence Musculoskeletal: Negative for joint pain or swelling, back pain or muscle pain Skin: Negative for lesions, rash, and itching Psych: Negative for sleep disturbance, mood disorder and recent psychosocial stressors Hematology/Lymphology: Negative for prolonged bleeding, bruising easily or swollen nodes Endocrine: Negative for cold or heat intolerance, polyuria, polydipsia and goiter Neuro: No history of headaches, syncope, paralysis, seizures or tremors PHYSICAL EXAM Ht 5' 5 (1.65m) Wt 192 lb (87.1kg) LMP 09/30/2023 BMI 31.95 kg/(m^2). General Appearance: Well appearing, alert, in no acute distress, well-hydrated, well nourished. Skin: Skin color, texture, turgor normal, Head: Normocephalic, Neck: Supple, Lungs: Unlabored on room air Heart: RR Extremities: No deformities, edema, Neuro: Gait normal. Abdomen: Abdomen soft, non-tender. No masses, organomegaly Assessment ASSESSMENT/PLAN: 1. Adenomatous polyp of sigmoid colon - ICD9: 211.3, ICD10: D12.5 (primary diagnosis) - pathology was reviewed. Plan on recall in 3 years with her fmaily history of colon cancer 2. Diverticulosis - ICD9: 562.10, ICD10: K57.90 Swapna Butler DO DATE: 10/26/23 TIME: 3:44 PM documented in this encounter [facility] 10-01-2023 History and physical note GENERAL SURGERY HISTORY & PHYSICAL Subjective HPI: This is a 38-year-old female that presents for screening colonoscopy. Father with colon cancer in 50's Intermittently has issues with urgency for her bowel movements. She has no issues with constipation or diarrhea. REVIEW OF SYSTEMS: GENERAL: No weight loss, malaise or fevers. RESPIRATORY: Negative for cough, wheezing or shortness of breath. CARDIOVASCULAR: Negative for chest pain, leg swelling. GI: Negative for abdominal discomfort, change in bowel habits, bloody bowel movements, nausea, vomiting. MUSCULOSKELETAL: Negative for new joint pain. SKIN: Negative for new lesions. HEMATOLOGY/LYMPHOLOGY: Negative for prolonged bleeding. NEURO: No new headaches. PAST MEDICAL HISTORY Diagnosis Date Gestational diabetes Kidney stones During Sciatica Vitamin D deficiency 07/28/2018 PAST SURGICAL HISTORY Procedure Laterality Date PAST SURGICAL HISTORY OF [place] teeth extraction FAMILY HISTORY Problem Relation Age of Onset Diabetes Mother Hypertension Mother Hypertension Father Stroke Father Prostate Cancer Father Colon Cancer Father Hypertension Sister Hypertension Brother Social History Tobacco Use Smoking status: Never Smokeless tobacco: Never Vaping Use Vaping Use: Never used Substance Use Topics Alcohol use: Yes Comment: Couple times monthly beer/wine Drug use: Not Currently MEDICATIONS: (Not in a hospital admission) ALLERGIES No Known Allergies Objective PHYSICAL EXAM: BP 117/63 Pulse 80 Temp 97.2 Resp 12 Ht 5' 5 (1.65m) Wt 192 lb 0.3 oz (87.1kg) SpO2 98% LMP 09/30/2023 BMI 31.95 kg/(m^2). O2 Therapy: Room Air GENERAL: Alert and oriented times to person, place and time, in no acute distress. LUNGS: Non- Labored breathing on room air. CARDIAC: Regular rate. ABDOMEN: Abdomen soft, non-tender non-distended. EXTREMITIES: Warm, no lower extremity edema Lines, Drains, and Airways Line Duration Peripheral 10/01/23 1111 Right Antecubital 22 Gauge <1 day DATA: Diagnostic tests reviewed for today's visit: Most recent labs and imaging results. ASSESSMENT/PLAN: 1. Encounter for screening for malignant neoplasm of colon - ICD9: V76.51, ICD10: Z12.11 (primary diagnosis) - INSERT IV ([place]) - BLOOD GLUCOSE MONITOR (SPECIFY) ([place] - HCG, QUALITATIVE, URINE - HCG QUANTITATIVE - SODIUM CHLORIDE 0.9 % INTRAVENOUS SOLUTION 2. Family history of colon cancer in father - ICD9: V16.0, ICD10: Z80.0 - COLONOSCOPY SCREENING Swapna Butler DO [facility] 10-01-2023 History and physical note GENERAL SURGERY HISTORY & PHYSICAL Subjective HPI: This is a 38-year-old female that presents for screening colonoscopy. Father with colon cancer in 50's Intermittently has issues with urgency for her bowel movements. She has no issues with constipation or diarrhea. REVIEW OF SYSTEMS: GENERAL: No weight loss, malaise or fevers. RESPIRATORY: Negative for cough, wheezing or shortness of breath. CARDIOVASCULAR: Negative for chest pain, leg swelling. GI: Negative for abdominal discomfort, change in bowel habits, bloody bowel movements, nausea, vomiting. MUSCULOSKELETAL: Negative for new joint pain. SKIN: Negative for new lesions. HEMATOLOGY/LYMPHOLOGY: Negative for prolonged bleeding. NEURO: No new headaches. PAST MEDICAL HISTORY Diagnosis Date Gestational diabetes Kidney stones During Sciatica Vitamin D deficiency 07/28/2018 PAST SURGICAL HISTORY Procedure Laterality Date PAST SURGICAL HISTORY OF [place] teeth [place] FAMILY HISTORY Problem Relation Age of Onset Diabetes Mother Hypertension Mother Hypertension Father Stroke Father Prostate Cancer Father Colon Cancer Father Hypertension Sister Hypertension Brother Social History Tobacco Use Smoking status: Never Smokeless tobacco: Never Vaping Use Vaping Use: Never used Substance Use Topics Alcohol use: Yes Comment: Couple times monthly beer/wine Drug use: Not Currently MEDICATIONS: (Not in a hospital admission) ALLERGIES No Known Allergies Objective PHYSICAL EXAM: BP 117/63 Pulse 80 Temp 97.2 Resp 12 Ht 5' 5 (1.65m) Wt 192 lb 0.3 oz (87.1kg) SpO2 98% LMP 09/30/2023 BMI 31.95 kg/(m^2). O2 Therapy: Room Air GENERAL: Alert and oriented times to person, place and time, in no acute distress. LUNGS: Non- Labored breathing on room air. CARDIAC: Regular rate. ABDOMEN: Abdomen soft, non-tender non-distended. EXTREMITIES: Warm, no lower extremity edema Lines, Drains, and Airways Line Duration Peripheral 10/01/23 1111 Right Antecubital 22 Gauge <1 day DATA: Diagnostic tests reviewed for today's visit: Most recent labs and imaging results. ASSESSMENT/PLAN: 1. Encounter for screening for malignant neoplasm of colon - ICD9: V76.51, ICD10: Z12.11 (primary diagnosis) - INSERT IV ([place], [place]) - BLOOD GLUCOSE MONITOR (SPECIFY) ([place], [place]) - HCG, QUALITATIVE, URINE - HCG QUANTITATIVE - SODIUM CHLORIDE 0.9 % INTRAVENOUS SOLUTION 2. Family history of colon cancer in father - ICD9: V16.0, ICD10: Z80.0 - COLONOSCOPY SCREENING Swapna Butler DO documented in this encounter [facility] 09-29-2023 History of Presen t illness Narrative Images from the original note were not included. NEUROSURGERY CONSULT NOTE Alexis Jones MD [facility] Date of visit: September 29, 2023 Patient Name: Ms.Jennifer Payne Date of : 1985 Current Age: [age] year old Sex: female MRN/E# [id number] Last Office Visit: Visit date not found Chief Complaint: Patient presents with: New Patient Past Medical/Surgical History: Anabell Payne is a 38 year old female who is referred by Nicole Duvall APRN, CNP for neurosurgical evaluation. The patient has a history of gestational diabetes, kidney stones and sciatica. She has no significant surgical history. Smoking: denies. Alcohol Use: occasional HISTORY OF PRESENT ILLNESS : The patient presents to the office today as a new patient for evaluation of her cervical spine. She states she has had a 4-6 month history of right wrist and have weakness, pain and numbness/tingling. She denies any neck pain, gait imbalance or left arm symptoms. 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 She is here for image review, evaluation and plan of care. Symptoms: right hand and wrist weakness, numbness/tingling, dexterity issue. PREVIOUS CONSERVATIVE TREATMENTS: none PREVIOUS SURGERY: None Surgical Risk Factors: Smoking status: denies Anticoagulants/antiplatelets: denies Diabetic: denies BMI: 31.95 PAIN EVALUATION 09/28/2023 1204 Pain Level: 5 Pain Location: Back-Lower Description: Aching;Numbness;Radiating;Sharp; Shooting;Spasm;Tingling Frequency: Continuous Intervention/Comfort measure: Reposition;Cold;Heat;Positioning PAST MEDICAL HISTORY Diagnosis Date Gestational diabetes Kidney stones During Sciatica Vitamin D deficiency 07/28/2018 PAST SURGICAL HISTORY Procedure Laterality Date PAST SURGICAL HISTORY OF [place] teeth extraction FAMILY HISTORY Problem Relation Age of Onset Diabetes Mother Hypertension Mother Hypertension Father Stroke Father Prostate Cancer Father Colon Cancer Father Hypertension Sister Hypertension Brother ALLERGIES No Known Allergies Current Outpatient Medications Medication Sig Dispense Refill Cholecalciferol, Vitamin D3, 50 mcg (2,000 unit) cap Take 2,000 Units by mouth once daily. Progesterone 200 mg supp triamcinolone acetonide (KENALOG) 0.1 % ointment APPLY TWICE A DAY TO DERMATITIS- 2 WEEKS ON - 1 WEEK OFF No current facility-administered medications for this visit. REVIEW OF SYSTEMS Review of Systems Constitutional: Negative for diaphoresis, fatigue and fever. HENT: Negative for ear pain, hearing loss and tinnitus. Eyes: Negative for photophobia, pain and visual disturbance. Respiratory: Negative for cough, chest tightness and shortness of breath. Cardiovascular: Negative for chest pain. Gastrointestinal: Negative for constipation, diarrhea, nausea and vomiting. Endocrine: Negative for polydipsia, polyphagia and polyuria. Genitourinary: Negative for difficulty urinating, frequency and urgency. Musculoskeletal: Negative for back pain, gait problem, neck pain and neck stiffness. Skin: Negative for color change and rash. Neurological: Positive for weakness (subjective) and numbness. Negative for dizziness. Psychiatric/Behavioral: Negative for agitation and confusion. The patient is not nervous/anxious. OBJECTIVE: BP 113/75 Pulse 58 Resp 16 Ht 5' 5 (1.65m) Wt 195 lb 15.8 oz (88.9kg) SpO2 98% LMP 08/23/2020 BMI 32.61 kg/(m^2). PHYSICAL EXAM: Mental State : Alert, memory function unremarkable. Attention span and concentration normal for patient's age. Speech normal, no receptive or expressive speech deficit. Recent and remote memory normal. Orientation : Oriented to person, place and time. Cranial Nerves : Grossly intact. Sensory: Normal Sensation in upper and lower extremities and trunk to touch and noxious stimuli. Motor: Normal muscle tone and bulk. No tremor or uncontrollable movements. No spasticity or tremor. Gait and Station: Casual gait is normal including stance, stride, and arm swing. STRENGTH: Upper Extremity Strength Exam Right Left Elbow Flexion 5/5 5/5 Elbow Extension 5/5 5/5 Finger Flexion 5/5 5/5 Finger Extension 5/5 5/5 Finger Abduction 5/5 5/5 Lower Extremity Strength Exam Right Left Hip Flexion 5/5 5/5 Knee Flexion 5/5 5/5 Knee Extension 5/5 5/5 Dorsiflexion 5/5 5/5 Plantarflexion 5/5 5/5 Reflexes Right Left Biceps C5-C6 +2 +2 Triceps C7-C8 +2 +2 Wrist C5-6 +2 +2 Patellar L3-4 +2 +2 Achilles L5-S1 +2 +2 Pathologic Reflexes Right Left Vieyra's Negative Negative Clonus Negative Negative Data Review IMAGING STUDIES: MRI Cervical: Left paracentral disc herniation/bulge at C5-6 causing compression of the exiting C6 nerve on the left side. Hypointensity within the right C7-T1 neural foramen, which could represent vasculature. XR CERV: No translational instability All images independently reviewed by me. Assessment & Plan: Ms. Payne presents with a 6-month history of right wrist and hand pain between her thumb and pointer finger. It does not extend more proximally to her wrist. She has not really tried conservative management for this yet. It is worse when she flexes her wrist and worse when she is at work, which involves frequent typing on a keyboard. She had an MRI of her cervical spine which shows a left paracentral disc herniation at C5-6. I cannot explain her right hand symptoms based on this imaging. She also had an EMG which showed some right-sided motor axon loss at C8 and T1, which was chronic. This could be due to carpal tunnel syndrome, but I will order an MRI of her cervical spine with contrast to better evaluate the hypointensity within the right C8-T1 neural foramen. I explained that this is most likely vasculature, but could represent a small benign tumor such as schwannoma. She also has a longstanding history of bilateral sciatica. She has tried physical therapy in the past with only moderate relief of her symptoms. She has not had an MRI of her low back recently. I will order an MRI of her lumbar spine given the chronicity of her symptoms as well as lack of response to conservative management. I will also order lumbar flexion-extension x-rays. I will see her back in the office once her new imaging is complete. All questions were answered. Attribution: The following portions of the patient's history were reviewed, confirmed, and updated as necessary: allergies, current medications, past family history, past medical history, past social history, past surgical history, problem list, HPI, and ROS obtained by others. Some elements may be copied from a previous office note and have been reviewed/updated where appropriate. All portions reflect current medical decision making from today. The clinical and radiographic findings as well as the risks, benefits and alternatives of treatment have been reviewed in detail with the patient. Advised to call the office if symptoms worsen or new symptoms develop. Patient expressed understanding and is in agreement with plan. Alexis Jones MD [facility] Medical Decision Making: Problems: Moderate: New problem with uncertain prognosis Data: Unique source(s) for external note(s) reviewed: 1 Unique test result(s) reviewed: 2 Risk: Moderate: Moderate risk from testing/treatment Medical Decision Making Level: 4 - Moderate This note was partially generated using [employer] voice recognition system, and there may be some incorrect words, spellings, and punctuation that were not noted in checking the note before saving. documented in this encounter [facility] 09-24-2023 Telephone encounter Note I called and spoke to Anabell about her upcoming appointment. I asked that if she is able to go ahead and obtain XR imaging of her cervical spine prior to her appointment and provided locations to do so. She voiced understanding. Kia Damko, RN [facility] 09-24-2023 Miscellaneous Notes I called and spoke to Anabell about her upcoming appointment. I asked that if she is able to go ahead and obtain XR imaging of her cervical spine prior to her appointment and provided locations to do so. She voiced understanding. Kia Espinoza RN documented in this encounter [facility] 09-23-2023 Telephone encounter Note I need a specific provider or office to refer to [facility] 09-23-2023 Miscellaneous Notes I need a specific provider or office to refer to documented in this encounter [facility] 09-23-2023 Telephone encounter Note Pt advised. She will check around and call us back when she decides who she wants to see. Anabell Franks LPN [facility] 09-23-2023 Miscellaneous Notes Pt advised. She will check around and call us back when she decides who she wants to see. Anabell Franks LPN MRI showed moderate forminal stenosis and will need f/u with ortho spine or neurosurgery. Please check to see where she would like to be referred to. May need to check with her insurance to see who is covered. documented in this encounter [facility] 09-23-2023 Telephone encounter Note MRI showed moderate forminal stenosis and will need f/u with ortho spine or neurosurgery. Please check to see where she would like to be referred to. May need to check with her insurance to see who is covered. [facility] 09-23-2023 History of Presen t illness Narrative Radiology Service Progress Note PATIENT NAME: Anabell Payne DATE OF SERVICE: September 23, 2023 TIME: 7:55 AM PATIENT IDENTITY VERIFICATION COMPLETED USING TWO (2) IDENTIFIERS: Name and Date of confirmed by patient verbally and Name and Date of confirmed by identification band. FALL SCREENING: Has the patient had 2 falls in the last year or 1 fall with injury or currently using an Ambulatory Assistive Device (Walker, Cane, Wheelchair, Crutches, etc.)? No PATIENT GENDER DATA: Female. status: : No status: NO. PATIENT RELEVANT IMPLANT DATA REVIEWED: Yes PATIENT PRESENTS WITH AN IMPLANTABLE OR ATTACHED RECLAMATION FURNACE OPERATOR: No RADIOLOGY DEPARTMENT: MR; Exam(s) Completed: Spine: Cervical spine PERIPHERAL IV DATA: Not applicable SIGNED BY: RT Ottoniel(R) September 23, 2023 7:55 AM documented in this encounter [facility] 09-23-2023 Note HNO ID: [id number] Author: LINDSAY AUGUSTE RT(R) Service: ? Author Type: Technologist Type: Progress Notes Filed: 09/23/2023 07:55 Note Text: Radiology Service Progress Note PATIENT NAME: Anabell Payne DATE OF SERVICE: September 23, 2023 TIME: 7:55 AM PATIENT IDENTITY VERIFICATION COMPLETED USING TWO (2) IDENTIFIERS: Name and Date of confirmed by patient verbally and Name and Date of confirmed by identification band. FALL SCREENING: Has the patient had 2 falls in the last year or 1 fall with injury or currently using an Ambulatory Assistive Device (Walker, Cane, Wheelchair, Crutches, etc.)? No PATIENT GENDER DATA: Female. status: : No status: NO. PATIENT RELEVANT IMPLANT DATA REVIEWED: Yes PATIENT PRESENTS WITH AN IMPLANTABLE OR ATTACHED RECLAMATION FURNACE OPERATOR: No RADIOLOGY DEPARTMENT: MR; Exam(s) Completed: Spine: Cervical spine PERIPHERAL IV DATA: Not applicable SIGNED BY: RT Ottoniel(R) September 23, 2023 7:55 AM [facility] 08-24-2023 Telephone encounter Note SCHEDULED 09-23-23 [facility] 08-24-2023 Miscellaneous Notes SCHEDULED 09-23-23 Addended by: NICOLE DUVALL on: 08/24/2023 10:09 AM Modules accepted: Orders Order in chart- if insurance doesn't approve will need referred to business taxes specialist Pt advised. Would like to pursue MRI Anabell Franks LPN Left second message advising patient to call office. Also sent Scannxt message. Anabell Franks LPN Left message to call office. 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 May need MRI if the insurance will approve. documented in this encounter [facility] 08-24-2023 Note Addended by: NICOLE DUVALL on: 08/24/2023 10:09 AM Modules accepted: Orders [facility] 08-24-2023 Telephone encounter Note Order in chart- if insurance doesn't approve will need referred to business taxes specialist [facility] 08-24-2023 Telephone encounter Note Pt advised. Would like to pursue MRI Anabell Franks LPN [facility] 08-24-2023 Telephone encounter Note Left second message advising patient to call office. Also sent Scannxt message. Anabell Franks LPN [facility] 08-21-2023 Telephone encounter Note Left message to call office. Anabell Franks LPN 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 May need MRI if the insurance will approve. [facility] 08-20-2023 Note HNO ID: [id number] Author: TIBURCIO JONES MD Service: ? Author Type: Physician Type: Progress Notes Filed: 08/20/2023 15:33 Note Text: UNIVERSAL PROTOCOL / SAFETY CHECKLIST Procedure to be Performed: EMG Sign In: A Moment of CARE was completed. Personnel directly involved with the procedure wore the appropriate PPE (Personal Protective Equipment). Patient/Surrogate Stated/Verified: PATIENT VERIFIED(optional for EMERGENT procedures): Patient name, Date of , Relevant allergies, and The intended procedure Time Out Communication: Intended patient and procedure match the source documents. Sign Out: SIGN OUT (optional for EMERGENT procedures): Post-procedure follow-up management communicated and Plan of Care Visit completed when applicable. Becka Jones MD [facility] 08-20-2023 History of Presen t illness Narrative UNIVERSAL PROTOCOL / SAFETY CHECKLIST Procedure to be Performed: EMG Sign In: A Moment of CARE was completed. Personnel directly involved with the procedure wore the appropriate PPE (Personal Protective Equipment). Patient/Surrogate Stated/Verified: PATIENT VERIFIED(optional for EMERGENT procedures): Patient name, Date of , Relevant allergies, and The intended procedure Time Out Communication: Intended patient and procedure match the source documents. Sign Out: SIGN OUT (optional for EMERGENT procedures): Post-procedure follow-up management communicated and Plan of Care Visit completed when applicable. Becka Jones MD documented in this encounter [facility] 08-17-2023 Instructions Swapna Butler DO - 08/17/2023 9:17 AM EDT Images from the original note were not included. Bowel Preparation Instructions for: Suprep IF YOU DO NOT FOLLOW THESE DIRECTIONS, YOUR COLONOSCOPY WILL BE CANCELLED. [place] Instructions: Your bowel must be empty so that your doctor can clearly view your colon. Follow all of the instructions in this handout EXACTLY as they are written. Do NOT eat any solid food the ENTIRE day before your colonoscopy. DRINK ONLY CLEAR LIQUIDS Buy your bowel preparation at least 5 days before your colonoscopy. TRANSPORTATION on the Day of Your Exam A responsible adult MUST be present with you at Check In prior to your colonoscopy and REMAIN in the endoscopy area until you are discharged. You are NOT ALLOWED to drive, take a taxi or bus, or leave the Endoscopy Center ALONE. If you do not have a responsible lyft driver (family member or friend) with you to take you home, your exam cannot be done with sedation and will be cancelled. Please bring a list of all of your current medications, including any [id number] medications with you. Medications If you take insulin, diabetic medications or blood thinners such as Coumadin (warfarin), Plavix (clopidogrel), Ticlid (ticlopidine hydrochloride), Agrylin (anagrelide), Xarelto (Rivaroxaban), Pradaxa (Dabigatran), Eliquis (Apixaban), and Effient (Prasugrel). You MUST call the doctors who orders those medicines for instructions on altering the dosage before your colonoscopy. All other medications should be taken the day of the exam with a sip of water including ASPIRIN. Five (5) Days Before Your Colonoscopy Do NOT take medicines that stop diarrhea - such as Imodium, Kaopectate, or Pepto Bismol. Do NOT take fiber supplements - such as Metamucil, Citrucel, or Perdiem. Do NOT take products that contain iron - such as multi-vitamins (the label lists what is in the products). Three (3) Days Before Your Colonoscopy Do NOT eat high-fiber foods - such as popcorn, beans, seeds (flax, sunflower, quinoa), multigrain bread, nuts, salad/vegetables, or fresh and dried fruit. 03/2019 Bowel Preparation Instructions for: Suprep One (1) Day Before Your Colonoscopy Only drink clear liquids the ENTIRE DAY before your colonoscopy. Do NOT eat any solid foods. Drink at least 8 ounces of clear liquids every hour after waking up. The clear liquids you can drink include: Clear Liquid (NO RED LIQUIDS) DO NOT DRINK Gatorade, Pedialyte or Powerade Clear broth or bouillon Coffee or tea (no milk or non-dairy creamer) Carbonated and non-carbonated soft drinks Aldo-Aid or other fruit flavored drinks Strained fruit juices (no pulp) Jell-O, popsicles, hard candy Water Alcohol Milk or non-dairy creamers Noodles or vegetables in soup Juice with pulp Liquid you cannot see through Do not use tobacco/vaping products The bowel preparation solution will be consumed in two parts. Do NOT add ice, sugar or any flavorings to the solution. Part 1 6 PM - Evening before your colonoscopy Pour ONE (1) 6 oz. bottle of SUPREP liquid into the mixing container. Add cool water to the 16 oz. line on the container and mix. Drink ALL the liquid in the container. Drink two (2) more 16 oz. water over the next 1 (one) hour. You may continue to drink clear liquids until midnight. Part 2 4 hours before your colonoscopy Pour ONE (1) 6 oz. bottle of SUPREP liquid into the mixing container. Add cool water to the 16 oz. line on the container and mix. Drink ALL the liquid in the container. You must drink two (2) more 16 oz. glasses of water over the next one (1) hour. You may continue drinking clear liquids up to three (3) hours before your procedure. 2 03/2019 documented in this encounter [facility] 08-17-2023 History and physical note New Patient Consult REASON FOR VISIT Anabell Payne is a 38 year old female who is scheduled for a consult at the request of Nicole Duvall for Consult (Discuss colon, never had one). My final recommendations will be communicated back to the requesting physician by the way of the shared medical record, fax, or via [place] Mail History of Present Illness: This is a 38-year-old female that presents for screening colonoscopy. Father with colon cancer in 50's Intermittently has issues with urgency for her bowel movements. She has no issues with constipation or diarrhea. PAST MEDICAL HISTORY Diagnosis Date Gestational diabetes Kidney stones During Sciatica Vitamin D deficiency 07/28/2018 PAST SURGICAL HISTORY Procedure Laterality Date PAST SURGICAL HISTORY OF [place] teeth extraction FAMILY HISTORY Problem Relation Age of Onset Diabetes Mother Hypertension Mother Hypertension Father Stroke Father Prostate Cancer Father Colon Cancer Father Hypertension Sister Hypertension Brother Social History Tobacco Use Smoking status: Never Smokeless tobacco: Never Vaping Use Vaping Use: Never used Substance Use Topics Alcohol use: Yes Comment: Couple times monthly beer/wine Drug use: Not Currently MEDICATIONS Current Outpatient Medications Medication Sig Dispense Refill Cholecalciferol, Vitamin D3, 50 mcg (2,000 unit) cap Take 2,000 Units by mouth once daily. Progesterone 200 mg supp triamcinolone acetonide (KENALOG) 0.1 % ointment APPLY TWICE A DAY TO DERMATITIS- 2 WEEKS ON - 1 WEEK OFF No current facility-administered medications for this visit. CURRENT ALLERGIES ALLERGIES No Known Allergies REVIEW OF SYSTEMS General: No weight loss, malaise or fevers. Neuro: No Hx of stroke or seizures Respiratory: No history of current cough or dyspnea, or pneumonia in the past 6 weeks. No history of respiratory/pulmonary symptoms or problems Cardiovascular: No history of HTN requiring medication, no history of angina, CHF, LA, cardiac surgery or stents. Denies rest pain, gangrene or revascularization/amputation for PVD. No history of cardiovascular symptoms or problems. GI: See HPI : No history of UTI in past 6 weeks. No history of renal failure. Not currently on or requiring dialysis. No history of symptoms or problems. Endocrine: No history of diabetes. Has not taken steroids within the past 30 days. No history of endocrinological symptoms or problems. Hematology: No history of bleeding or clotting disorder. Pt is not taking anti-coagulation or platelet medications. No history of hematological symptoms or problems. Oncology: No history of CA metastasis, chemo within 30 days, or radiotherapy within 90 days. Has not lost 10% of body wt in 6 months. No history of oncological symptoms or problems. Psych: No history of psychiatric symptoms or problems. Musculoskeletal: Negative for joint pain or swelling, back pain or muscle pain. Skin: Negative for lesions, rash and itching. PHYSICAL EXAMINATION Ht 5' 5 (1.65m) Wt 192 lb (87.1kg) LMP 08/23/2020 BMI 31.95 kg/(m^2). General Appearance: Well appearing, alert, in no acute distress, well-hydrated, well nourished. Skin: Skin color, texture, turgor normal, Head: Normocephalic, Oropharynx: Lips, mucosa, and tongue normal, Neck: Supple, Lungs: Unlabored on room air Heart: RR Extremities: No deformities, edema, Neuro: Gait normal. Abdomen: Abdomen soft, non-tender. Bowel sounds normal. No masses, organomegaly Diagnostic tests reviewed for today's visit: Not applicable Assessment ASSESSMENT/PLAN: 1. Family history of colon cancer in father - ICD9: V16.0, ICD10: Z80.0 -Risk benefits and alternatives were discussed included bleeding and perforation. She should have her screening colonoscopy now with her father's young age of colon cancer - SODIUM,POTASSIUM,MAG SULFATES 17.5 GRAM-3.13 GRAM-1.6 GRAM ORAL SOLN - COLONOSCOPY SCREENING Swapna Butler DO DATE: 08/17/23 TIME: 9:[address] [facility] 08-17-2023 History and physical note New Patient Consult REASON FOR VISIT Anabell Payne is a 38 year old female who is scheduled for a consult at the request of Nicole Duvall for Consult (Discuss colon, never had one). My final recommendations will be communicated back to the requesting physician by the way of the shared medical record, fax, or via [place] Mail History of Present Illness: This is a 38-year-old female that presents for screening colonoscopy. Father with colon cancer in 50's Intermittently has issues with urgency for her bowel movements. She has no issues with constipation or diarrhea. PAST MEDICAL HISTORY Diagnosis Date Gestational diabetes Kidney stones During Sciatica Vitamin D deficiency 07/28/2018 PAST SURGICAL HISTORY Procedure Laterality Date PAST SURGICAL HISTORY OF [place] teeth extraction FAMILY HISTORY Problem Relation Age of Onset Diabetes Mother Hypertension Mother Hypertension Father Stroke Father Prostate Cancer Father Colon Cancer Father Hypertension Sister Hypertension Brother Social History Tobacco Use Smoking status: Never Smokeless tobacco: Never Vaping Use Vaping Use: Never used Substance Use Topics Alcohol use: Yes Comment: Couple times monthly beer/wine Drug use: Not Currently MEDICATIONS Current Outpatient Medications Medication Sig Dispense Refill Cholecalciferol, Vitamin D3, 50 mcg (2,000 unit) cap Take 2,000 Units by mouth once daily. Progesterone 200 mg supp triamcinolone acetonide (KENALOG) 0.1 % ointment APPLY TWICE A DAY TO DERMATITIS- 2 WEEKS ON - 1 WEEK OFF No current facility-administered medications for this visit. CURRENT ALLERGIES ALLERGIES No Known Allergies REVIEW OF SYSTEMS General: No weight loss, malaise or fevers. Neuro: No Hx of stroke or seizures Respiratory: No history of current cough or dyspnea, or pneumonia in the past 6 weeks. No history of respiratory/pulmonary symptoms or problems Cardiovascular: No history of HTN requiring medication, no history of angina, CHF, LA, cardiac surgery or stents. Denies rest pain, gangrene or revascularization/amputation for PVD. No history of cardiovascular symptoms or problems. GI: See HPI : No history of UTI in past 6 weeks. No history of renal failure. Not currently on or requiring dialysis. No history of symptoms or problems. Endocrine: No history of diabetes. Has not taken steroids within the past 30 days. No history of endocrinological symptoms or problems. Hematology: No history of bleeding or clotting disorder. Pt is not taking anti-coagulation or platelet medications. No history of hematological symptoms or problems. Oncology: No history of CA metastasis, chemo within 30 days, or radiotherapy within 90 days. Has not lost 10% of body wt in 6 months. No history of oncological symptoms or problems. Psych: No history of psychiatric symptoms or problems. Musculoskeletal: Negative for joint pain or swelling, back pain or muscle pain. Skin: Negative for lesions, rash and itching. PHYSICAL EXAMINATION Ht 5' 5 (1.65m) Wt 192 lb (87.1kg) LMP 08/23/2020 BMI 31.95 kg/(m^2). General Appearance: Well appearing, alert, in no acute distress, well-hydrated, well nourished. Skin: Skin color, texture, turgor normal, Head: Normocephalic, Oropharynx: Lips, mucosa, and tongue normal, Neck: Supple, Lungs: Unlabored on room air Heart: RR Extremities: No deformities, edema, Neuro: Gait normal. Abdomen: Abdomen soft, non-tender. Bowel sounds normal. No masses, organomegaly Diagnostic tests reviewed for today's visit: Not applicable Assessment ASSESSMENT/PLAN: 1. Family history of colon cancer in father - ICD9: V16.0, ICD10: Z80.0 -Risk benefits and alternatives were discussed included bleeding and perforation. She should have her screening colonoscopy now with her father's young age of colon cancer - SODIUM,POTASSIUM,MAG SULFATES 17.5 GRAM-3.13 GRAM-1.6 GRAM ORAL SOLN - COLONOSCOPY SCREENING Swapna Butler DO DATE: 08/17/23 TIME: 9:15 AM documented in this encounter [facility] 07-30-2023 Note Name of Caller: Kriss rodriguez Contact Reason for Appointment: Pt has a referral in chart. Advised of the waitlist. Please advise. Office Name: Rheumatology [facility] 07-30-2023 History of Presen t illness Narrative Images from the original note were not included. VISIT TYPE: ROUTINE FOLLOW UP There are no exam notes on file for this visit. CHIEF COMPLAINT: Patient presents with: Recheck: Patient is here for a 2 week follow up No concerns Goes august 19 for emg HPI: Anabell Payne is a 38 year old female here for ROUTINE FOLLOW UP Hyperlipidemia- Total chol 242, Trig 99, HDL 45, LDL 177. Has been trying to watch diet. Does have significant family hx of high chol and heart disease. Fatigue- States she developed rashes and fatigue a couple yrs ago. Was seeing [facility] and started on progesterone which did help with the rash. Rash- Does have rashes on her arms, ankles, and along her neck. Does notice itching when it occurs. Has seen dermatology and was given steroid cream. Had MICHELE done which was pos and was referred to rheumatology. Anxiety- Following with therapist. States she had been on wellbutrin in the past but it hasn't helped. Does feel better since going to counseling. Does feel anxious normally. Prefers to not take meds. Denies any feelings of helplessness/hopelessness, thoughts of hurting self. Vit D deficiency- Taking vit D daily. REVIEW OF SYSTEMS: Review of Systems Constitutional: Positive for fatigue. Negative for appetite change, chills and fever. Respiratory: Negative for cough, chest tightness, shortness of breath and wheezing. Cardiovascular: Negative for chest pain, palpitations and leg swelling. Gastrointestinal: Negative for abdominal pain, constipation, diarrhea, nausea and vomiting. Musculoskeletal: Negative for arthralgias and gait problem. Skin: Positive for rash. Negative for color change and pallor. Neurological: Negative for dizziness, syncope and headaches. Psychiatric/Behavioral: The patient is not nervous/anxious. Current Outpatient Medications Medication Sig Dispense Refill Cholecalciferol, Vitamin D3, 50 mcg (2,000 unit) cap Take 2,000 Units by mouth once daily. Progesterone 200 mg supp triamcinolone acetonide (KENALOG) 0.1 % ointment APPLY TWICE A DAY TO DERMATITIS- 2 WEEKS ON - 1 WEEK OFF No current facility-administered medications for this visit. ALLERGIES No Known Allergies PAST MEDICAL HISTORY Diagnosis Date Gestational diabetes Kidney stones During Sciatica Vitamin D deficiency 07/28/2018 PAST SURGICAL HISTORY Procedure Laterality Date PAST SURGICAL HISTORY OF [place] teeth extraction FAMILY HISTORY Problem Relation Age of Onset Diabetes Mother Hypertension Mother Hypertension Father Stroke Father Prostate Cancer Father Colon Cancer Father Hypertension Sister Hypertension Brother Social History Tobacco Use Smoking status: Never Smokeless tobacco: Never Vaping Use Vaping Use: Never used Substance Use Topics Alcohol use: Yes Comment: Couple times monthly beer/wine Drug use: Not Currently Employer And Job Title: None on file Years Of Education Completed: Not specified Marital Status: Social History Social History Narrative Not on file PHYSICAL EXAM BP 101/70 (BP Site: Left Arm, BP Position: Sitting, BP Cuff Size: Regular Adult) Pulse 75 Resp 16 Ht 167.6 cm (5' 5.98) Wt 87.1 kg (192 lb) LMP 08/23/2020 (Exact Date) SpO2 99% BMI 31.01 kg/m Physical Exam Vitals reviewed. Constitutional: General: She is not in acute distress. Appearance: Normal appearance. She is obese. Neck: Vascular: No carotid bruit. Cardiovascular: Rate and Rhythm: Normal rate and regular rhythm. Pulses: Normal pulses. Heart sounds: Normal heart sounds. No murmur heard. Pulmonary: Effort: Pulmonary effort is normal. Breath sounds: Normal breath sounds. No rhonchi or rales. Abdominal: General: Bowel sounds are normal. There is no distension. Palpations: Abdomen is soft. Tenderness: There is no abdominal tenderness. Musculoskeletal: General: No swelling or tenderness. Normal range of motion. Cervical back: Normal range of motion and neck supple. Skin: General: Skin is warm and dry. Findings: No erythema or rash. Neurological: Mental Status: She is alert and oriented to person, place, and time. Cranial Nerves: No cranial nerve deficit. DIAGNOSTICS REVIEWED Latest Ref Rng & Units 10/18/2021 10/17/2022 07/15/2023 CBC WBC 3.70 - 11.00 k/uL 6.4 7.1 7.61 RBC 3.90 - 5.20 m/uL 4.35 4.51 4.47 Hemoglobin 11.5 - 15.5 g/dL 13.8 14.2 14.0 Hematocrit 36.0 - 46.0 % 41.0 42.8 42.1 MCV 80.0 - 100.0 fL 94.4 94.9 94.2 MCH 26.0 - 34.0 pg 31.8 31.5 31.3 MCHC 30.5 - 36.0 g/dL 33.7 33.2 33.3 RDW 12.5 - 15.7 % 12.8 12.2 RDW-CV 11.5 - 15.0 % 12.1 Platelet Count 150 - 400 k/uL 182 197 234 MPV 9.0 - 12.7 fL 10.1 11.3 11.6 Baso% 0.0 - 1.0 % 0.8 0.8 LYMPH ABS 1.00 - 3.50 x10(3) 1.40 1.44 MONO ABS 0.30 - 0.80 x10(3) 0.50 0.44 EOS ABS 0.00 - 0.54 x10(3) 0.10 0.15 BASO ABS 0.00 - 0.10 x10(3) 0.10 0.06 Glucose (mg/dL) Date Value 07/15/2023 95 10/17/2022 96 Potassium (mmol/L) Date Value 07/15/2023 4.4 10/17/2022 4.4 Sodium (mmol/L) Date Value 07/15/2023 138 10/17/2022 140 Chloride (mmol/L) Date Value 07/15/2023 105 10/17/2022 105 CO2 (mmol/L) Date Value 07/15/2023 25 10/17/2022 26 Creatinine (mg/dL) Date Value 07/15/2023 0.96 10/17/2022 0.90 BUN (mg/dL) Date Value 07/15/2023 15 10/17/2022 13 Anion Gap (mmol/L) Date Value 07/15/2023 8 10/17/2022 13.4 Calcium (mg/dL) Date Value 10/17/2022 9.6 Calcium, Total (mg/dL) Date Value 07/15/2023 9.3 Glucose (mg/dL) Date Value 07/15/2023 95 10/17/2022 96 Potassium (mmol/L) Date Value 07/15/2023 4.4 10/17/2022 4.4 Sodium (mmol/L) Date Value 07/15/2023 138 10/17/2022 140 Chloride (mmol/L) Date Value 07/15/2023 105 10/17/2022 105 CO2 (mmol/L) Date Value 07/15/2023 25 10/17/2022 26 Creatinine (mg/dL) Date Value 07/15/2023 0.96 10/17/2022 0.90 BUN (mg/dL) Date Value 07/15/2023 15 10/17/2022 13 Anion Gap (mmol/L) Date Value 07/15/2023 8 10/17/2022 13.4 Calcium (mg/dL) Date Value 10/17/2022 9.6 Calcium, Total (mg/dL) Date Value 07/15/2023 9.3 Protein, Total (g/dL) Date Value 07/15/2023 6.9 10/17/2022 7.3 Albumin (g/dL) Date Value 07/15/2023 4.3 10/17/2022 4.5 Bilirubin, Total (mg/dL) Date Value 07/15/2023 0.2 10/17/2022 <0.2 Alkaline Phosphatase (U/L) Date Value 07/15/2023 86 10/17/2022 88 AST (U/L) Date Value 07/15/2023 23 10/17/2022 20 ALT (U/L) Date Value 07/15/2023 27 10/17/2022 30 No results found for: T3 No results found for: T4 No results found for: D1HQEWCD TSH Date Value 07/15/2023 1.220 mIU/L 10/17/2022 1.40 uIU/mL Cholesterol, Total (mg/dL) Date Value 07/15/2023 242 10/17/2022 224 HDL Cholesterol (mg/dL) Date Value 07/15/2023 45 10/17/2022 47 LDL Cholesterol (mg/dL) Date Value 07/15/2023 177 LDL (mg/dL) Date Value 10/17/2022 155 Triglyceride (mg/dL) Date Value 07/15/2023 99 10/17/2022 112 IMPRESSION / PLAN ASSESSMENT/PLAN: 1. Positive MICHELE (antinuclear antibody) - ICD9: 795.79, ICD10: R76.8 (primary diagnosis) Awaiting appt with rheumatology. 2. Rash - ICD9: 782.1, ICD10: R21 Ongoing. 3. Mixed hyperlipidemia - ICD9: 272.2, ICD10: E78.2 Reviewed labs. Possible familial hypercholesterolemia. Pt watching diet and exercising to see how much her diet will affect her chol levels. Enc to avoid high fat/chol diet and eat more soluble fiber. Discussed taking meds d/t family hx of heart disease and stroke. Pt wanted to see if she can control it with diet. Will recheck in 3mo and if still elevated will start statin. - LIPID PANEL BASIC 4. Vitamin D deficiency - ICD9: 268.9, ICD10: E55.9 Cont vit D - VITAMIN D 25 HYDROXY 5. Fatigue, unspecified type - ICD9: 780.79, ICD10: R53.83 Ongoing, waiting for f/u with rheumatology. 6. Generalized anxiety disorder - ICD9: 300.02, ICD10: F41.1 Stable 7. Idiopathic peripheral neuropathy - ICD9: 356.9, ICD10: G60.9 Scheduled for EMG 8. Family history of colon cancer in father - ICD9: V16.0, ICD10: Z80.0 Will refer for possible colonoscopy. - CONSULT TO GENERAL SURGERY Nicole Duvall APRN.HOME THEATER EXPERIENCE EXPERT F/u 3mo - labs prior documented in this encounter [facility] 07-15-2023 History of Presen t illness Narrative PATIENT HERE FOR LAB DRAW. LEFT AC PATIENT TOLERATED WELL. Cher Auguste LPN documented in this encounter [facility] 07-13-2023 History and physical note VISIT TYPE: NEW PATIENT APPOINTMENT There are no exam notes on file for this visit. 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 Patients previous PCP was Jose D Villalba and then was seeing a provider an hour away. Hyperlipidemia- Total chol 224, Trig 112, HDL 47, LDL 155. Has been trying to watch diet. Fatigue- States she developed rashes and fatigue a couple yrs ago. Was seeing [facility] and started on progesterone which did help with the rash. Rash- Does have rashes on her arms, ankles, and along her neck. Does notice itching when it occurs. Has seen dermatology and was given steroid cream. Anxiety- Following with therapist. States she had been on wellbutrin in the past but it hasn't helped. Does feel better since going to counseling. Does feel anxious normally. Prefers to not take meds. Denies any feelings of helplessness/hopelessness, thoughts of hurting self. REVIEW OF SYSTEMS: Review of Systems Constitutional: Positive for fatigue. Negative for appetite change, chills and fever. HENT: Negative for congestion, ear pain and sore throat. Eyes: Negative for redness and visual disturbance. Respiratory: Negative for cough, chest tightness, shortness of breath and wheezing. Cardiovascular: Negative for chest pain, palpitations and leg swelling. Gastrointestinal: Negative for abdominal pain, constipation, diarrhea, nausea and vomiting. Genitourinary: Negative for dysuria, frequency and hematuria. Musculoskeletal: Positive for arthralgias. Negative for gait problem. Skin: Positive for rash. Negative for color change and pallor. Neurological: Negative for dizziness, syncope and headaches. Psychiatric/Behavioral: Negative for suicidal ideas. The patient is nervous/anxious. Current Outpatient Medications Medication Sig Dispense Refill Progesterone 200 mg supp triamcinolone acetonide (KENALOG) 0.1 % ointment APPLY TWICE A DAY TO DERMATITIS- 2 WEEKS ON - 1 WEEK OFF No current facility-administered medications for this visit. ALLERGIES No Known Allergies PAST MEDICAL HISTORY Diagnosis Date Gestational diabetes Kidney stones During Sciatica Vitamin D deficiency 07/28/2018 PAST SURGICAL HISTORY Procedure Laterality Date PAST SURGICAL HISTORY OF [place] teeth extraction FAMILY HISTORY Problem Relation Age of Onset Diabetes Mother Hypertension Mother Hypertension Father Stroke Father Cancer Father Hypertension Sister Hypertension Brother Social History Tobacco Use Smoking status: Never Smokeless tobacco: Never Vaping Use Vaping Use: Never used Substance Use Topics Alcohol use: Yes Comment: Couple times monthly beer/wine Drug use: Not Currently Employer And Job Title: None on file Years Of Education Completed: Not specified Marital Status: Social History Social History Narrative Not on file PHYSICAL EXAM Resp 16 Ht 167.6 cm (5' 5.98) Wt 88.5 kg (195 lb 3.2 oz) LMP 08/23/2020 (Exact Date) BMI 31.53 kg/m Physical Exam Vitals reviewed. Constitutional: General: She is not in acute distress. Appearance: Normal appearance. She is obese. HENT: Head: Normocephalic and atraumatic. Right Ear: Tympanic membrane and ear canal normal. Left Ear: Tympanic membrane and ear canal normal. Nose: Nose normal. No congestion. Mouth/Throat: Mouth: Mucous membranes are moist. Pharynx: Oropharynx is clear. No oropharyngeal exudate or posterior oropharyngeal erythema. Eyes: Extraocular Movements: Extraocular movements intact. Conjunctiva/sclera: Conjunctivae normal. Pupils: Pupils are equal, round, and reactive to light. Neck: Vascular: No carotid bruit. Cardiovascular: Rate and Rhythm: Normal rate and regular rhythm. Pulses: Normal pulses. Heart sounds: Normal heart sounds. No murmur heard. Pulmonary: Effort: Pulmonary effort is normal. Breath sounds: Normal breath sounds. No rhonchi or rales. Abdominal: General: Bowel sounds are normal. There is no distension. Palpations: Abdomen is soft. Tenderness: There is no abdominal tenderness. Musculoskeletal: General: No swelling. Normal range of motion. Right wrist: Tenderness present. No swelling. Normal range of motion. Cervical back: Normal range of motion and neck supple. Comments: Neg tinel's and phalens. Skin: General: Skin is warm and dry. Findings: Rash (erythemic macular scaly areas on bilateral arms and ankles) present. No erythema. Neurological: Mental Status: She is alert and oriented to person, place, and time. Cranial Nerves: No cranial nerve deficit. Psychiatric: Mood and Affect: Mood normal. Speech: Speech normal. Behavior: Behavior is cooperative. Cognition and Memory: Cognition normal. Judgment: Judgment normal. DIAGNOSTICS REVIEWED IMPRESSION / PLAN ASSESSMENT/PLAN: 1. Encounter for annual general medical examination with abnormal findings in adult - ICD9: V70.0, ICD10: Z00.01 (primary diagnosis) Enc healthy diet and exercise. - COMP METABOLIC PANEL - CBC 2. Vitamin D deficiency - ICD9: 268.9, ICD10: E55.9 Will recheck vit D. - VITAMIN D 25 HYDROXY 3. Fatigue, unspecified type - ICD9: 780.79, ICD10: R53.83 Ongoing. Will check labs including michele. - THYROID PEROXIDASE ANTIBODY BLOOD - TSH BLD - T4 FREE/FREE THYROX - T3 FREE BLD - MICHELE BY IFA WITH REFLEX 4. Rash - ICD9: 782.1, ICD10: R21 Ongoing. Has f/u with derm and given steroid cream for eczema. - MICHELE BY IFA WITH REFLEX 5. Generalized anxiety disorder - ICD9: 300.02, ICD10: F41.1 Stable, following with counselor. 6. Mixed hyperlipidemia - ICD9: 272.2, ICD10: E78.2 Elevated in past. Will recheck. Enc to follow low fat/chol diet. - LIPID PANEL BASIC 7. Idiopathic peripheral neuropathy - ICD9: 356.9, ICD10: G60.9 Will set up for EMG to r/o carpal tunnel. Nicole Duvall APRN.HOME THEATER EXPERIENCE EXPERT F/u 2 wks documented in this encounter [facility] 07-10-2023 Miscellaneous Notes A letter has been sent to the patient's address on file, letter stated an appointment change with the date, time, and provider. Phone number has been provided if any changes need made. Appointment 10/20/2023 has been changed to 10/30/[address] encounter [facility] 07-09-2023 Miscellaneous Notes Second voicemail. I tried calling patient to reschedule their appointment 10/20/2023 due to provider availability. No answer, left message to call back into the office. Phone number provided. Also ask patient if she is switching pcp's ? documented in this encounter [facility] 07-08-2023 Miscellaneous Notes I tried calling patient to reschedule their appointment 10/20/2023 due to provider availability. No answer, left message to call back into the office. Phone number provided. documented in this encounter [facility] 10-22-2022 Miscellaneous Notes Patient informed. Patient was called and a message was left to return the call to be advised. Phone number provided. DELROY Perez Update pt that recent labs were OK except cholesterol was elevated, please recommend low fat, low cholesterol diet. Mohsen Almazan APRN.ZACH documented in this encounter [facility] [facility] 10-13-2022 Note HNO ID: [id number] Author: Mohsen Almazan APRN.ZACH Service: ? Author Type: Nurse Practitioner Type: Progress Notes Filed: 10/13/2022 12:49 PM Note Text: Epic was down at time of visit and visit information was entered later in the day SUBJECTIVE: Anabell Payne is a 37 year old female here today acutely because of fatigue and inability to reduce her weight. She is also reporting past issue with random rashes for which she was followed by Dermatology. She also reports hot flashes and [employer] has placed her on progesterone. She is also establishing at our office as she is a previous pt of Jose D Villalba NP PAST SURGICAL HISTORY Procedure Laterality Date PAST SURGICAL HISTORY OF [place] teeth extraction ACTIVE PROBLEM LIST Gestational Diabetes Vitamin D Deficiency Social History Tobacco Use Smoking status: Never Smokeless tobacco: Never Substance Use Topics Alcohol use: Yes Comment: Couple times monthly beer/wine Drug use: Not Currently No current outpatient medications on file. No current facility-administered medications for this visit. REVIEW OF SYSTEMS: Review of Systems Constitutional: Positive for fatigue and unexpected weight change (increase). Negative for activity change, chills, diaphoresis and fever. HENT: Negative for ear pain, postnasal drip, rhinorrhea, sore throat and trouble swallowing. Eyes: Negative for visual disturbance. Respiratory: Negative for cough, choking, shortness of breath, wheezing and stridor. Cardiovascular: Negative for chest pain, palpitations and leg swelling. Gastrointestinal: Negative for abdominal pain, nausea and vomiting. Endocrine: Negative for cold intolerance, polydipsia and polyuria. Musculoskeletal: Negative for arthralgias, back pain, joint swelling and myalgias. Skin: Negative for color change and rash. Neurological: Negative for dizziness, weakness, numbness and headaches. Psychiatric/Behavioral: The patient is not nervous/anxious. PHYSICAL EXAMINATION: BP 112/72 Pulse 71 Temp 37.2 ?C (98.9 ?F) Ht 165.1 cm (5' 5) Wt 84.8 kg (187 lb) LMP 08/23/2020 (Exact Date) SpO2 95% BMI 31.12 kg/m? BMI 31.12 kg/(m2) Physical Exam Constitutional: General: She is not in acute distress. Appearance: Normal appearance. She is well-developed. She is not ill-appearing. HENT: Head: Normocephalic and atraumatic. Nose: Nose normal. Eyes: Conjunctiva/sclera: Conjunctivae normal. Cardiovascular: Rate and Rhythm: Normal rate and regular rhythm. Heart sounds: Normal heart sounds. Pulmonary: Effort: Pulmonary effort is normal. Breath sounds: Normal breath sounds. Abdominal: Palpations: Abdomen is soft. Tenderness: There is no abdominal tenderness. Skin: General: Skin is warm and dry. Findings: Rash (mild dry patch to lateral left lower leg) present. Neurological: Mental Status: She is alert and oriented to person, place, and time. Psychiatric: Mood and Affect: Mood normal. Behavior: Behavior normal. ASSESSMENT/PLAN: 1. Fatigue, unspecified type - ICD9: 780.79, ICD10: R53.83 (primary diagnosis) - will obtain baseline labs, labs have been sent via [email or web address] to [facility] - CBC - COMP METABOLIC PANEL - TSH BLD - T4 FREE/FREE THYROX - follow up in one year 2. Weight increase - ICD9: 783.1, ICD10: R63.5 - CBC - COMP METABOLIC PANEL - TSH BLD - T4 FREE/FREE THYROX 3. Vitamin D deficiency - ICD9: 268.9, ICD10: E55.9 - VITAMIN D 25 HYDROXY 4. Screening for cardiovascular condition - ICD9: V81.2, ICD10: Z13.6 - LIPID PANEL BASIC 5. Obesity, Class I, BMI 30-34.9 - ICD9: 278.00, ICD10: E66.9 - Weight loss and increased activity recommended Mohsen Almazan APRN.HOME [employer] EXPERIENCE EXPERT A portion of this note was entered by ancillary personnel. The information has been reviewed and is an accurate reflection of the decisions I have made during the course of my encounter with this patient. [facility] 10-13-2022 History of Presen t illness Narrative Epic was down at time of visit and visit information was entered later in the day SUBJECTIVE: Anabell Payne is a 37 year old female here today acutely because of fatigue and inability to reduce her weight. She is also reporting past issue with random rashes for which she was followed by Dermatology. She also reports hot flashes and [employer] has placed her on progesterone. She is also establishing at our office as she is a previous pt of Jose D Villalba NP PAST SURGICAL HISTORY Procedure Laterality Date PAST SURGICAL HISTORY OF [place] teeth extraction ACTIVE PROBLEM LIST Gestational Diabetes Vitamin D Deficiency Social History Tobacco Use Smoking status: Never Smokeless tobacco: Never Substance Use Topics Alcohol use: Yes Comment: Couple times monthly beer/wine Drug use: Not Currently No current outpatient medications on file. No current facility-administered medications for this visit. REVIEW OF SYSTEMS: Review of Systems Constitutional: Positive for fatigue and unexpected weight change (increase). Negative for activity change, chills, diaphoresis and fever. HENT: Negative for ear pain, postnasal drip, rhinorrhea, sore throat and trouble swallowing. Eyes: Negative for visual disturbance. Respiratory: Negative for cough, choking, shortness of breath, wheezing and stridor. Cardiovascular: Negative for chest pain, palpitations and leg swelling. Gastrointestinal: Negative for abdominal pain, nausea and vomiting. Endocrine: Negative for cold intolerance, polydipsia and polyuria. Musculoskeletal: Negative for arthralgias, back pain, joint swelling and myalgias. Skin: Negative for color change and rash. Neurological: Negative for dizziness, weakness, numbness and headaches. Psychiatric/Behavioral: The patient is not nervous/anxious. PHYSICAL EXAMINATION: BP 112/72 Pulse 71 Temp 37.2 C (98.9 F) Ht 165.1 cm (5' 5) Wt 84.8 kg (187 lb) LMP 08/23/2020 (Exact Date) SpO2 95% BMI 31.12 kg/m BMI 31.12 kg/(m^2) Physical Exam Constitutional: General: She is not in acute distress. Appearance: Normal appearance. She is well-developed. She is not ill-appearing. HENT: Head: Normocephalic and atraumatic. Nose: Nose normal. Eyes: Conjunctiva/sclera: Conjunctivae normal. Cardiovascular: Rate and Rhythm: Normal rate and regular rhythm. Heart sounds: Normal heart sounds. Pulmonary: Effort: Pulmonary effort is normal. Breath sounds: Normal breath sounds. Abdominal: Palpations: Abdomen is soft. Tenderness: There is no abdominal tenderness. Skin: General: Skin is warm and dry. Findings: Rash (mild dry patch to lateral left lower leg) present. Neurological: Mental Status: She is alert and oriented to person, place, and time. Psychiatric: Mood and Affect: Mood normal. Behavior: Behavior normal. ASSESSMENT/PLAN: 1. Fatigue, unspecified type - ICD9: 780.79, ICD10: R53.83 (primary diagnosis) - will obtain baseline labs, labs have been sent via [email or web address] to [facility] - CBC - COMP METABOLIC PANEL - TSH BLD - T4 FREE/FREE THYROX - follow up in one year 2. Weight increase - ICD9: 783.1, ICD10: R63.5 - CBC - COMP METABOLIC PANEL - TSH BLD - T4 FREE/FREE THYROX 3. Vitamin D deficiency - ICD9: 268.9, ICD10: E55.9 - VITAMIN D 25 HYDROXY 4. Screening for cardiovascular condition - ICD9: V81.2, ICD10: Z13.6 - LIPID PANEL BASIC 5. Obesity, Class I, BMI 30-34.9 - ICD9: 278.00, ICD10: E66.9 - Weight loss and increased activity recommended Mohsen Almazan APRN.HOME THEATER EXPERIENCE EXPERT A portion of this note was entered by ancillary personnel. The information has been reviewed and is an accurate reflection of the decisions I have made during the course of my encounter with this patient. documented in this encounter [facility] 12-13-2021 Miscellaneous Notes Referral, face sheet and office notes faxed to [facility] Referral placed Lauren Butler PA-C Please schedule patient for referral and/or testing ordered. Lauren Butler PA-C documented in this encounter [facility] 11-21-2021 History of Presen t illness Narrative Anabell Payne is a 36 year old female here today acutely because of having: Rash Currently patient is in the office today for a rash that is on her bilateral side of her neck, under the arms and in the gluteal fold. She was given steroids for 7 days at her [employer] and the rash was almost gone. After 3 months the rash started to come back and is very itchy. Patient currently is not on any medication for symptoms. Review of Systems Constitutional: Negative for chills, fatigue and fever. Respiratory: Negative for cough, chest tightness and shortness of breath. Cardiovascular: Negative for chest pain and palpitations. Skin: Positive for rash (See HPI). BP 108/76 (BP Site: Right Arm, BP Position: Sitting, BP Cuff Size: Regular Adult) Pulse 62 Ht 167.6 cm (5' 5.98) Wt 78.9 kg (174 lb) LMP 08/23/2020 (Exact Date) SpO2 97% BMI 28.10 kg/m BMI 28.10 kg/(m^2) ALLERGIES No Known Allergies Physical Exam Constitutional: Appearance: Normal appearance. Cardiovascular: Rate and Rhythm: Normal rate and regular rhythm. Heart sounds: Normal heart sounds. No murmur heard. Pulmonary: Effort: Pulmonary effort is normal. No respiratory distress. Breath sounds: Normal breath sounds. No wheezing. Skin: General: Skin is warm and dry. Findings: Rash (red rash with white flakes on bilateral sides of neck, axillas and buttocks.) present. Neurological: Mental Status: She is alert and oriented to person, place, and time. ASSESSMENT/PLAN: 1. Dermatitis - ICD9: 692.9, ICD10: L30.9 - Oral Steriod tx -Prednisone taper - discussed skin care of rash - follow up if symptoms persist or worsen. - PREDNISONE 10 MG TABLET Thom Villalba CNP Follow Up: Return if symptoms worsen or fail to improve. Voice recognition software utilized. Minor grammatical and/or spelling errors may exist. Portions of this note have been entered by ancillary staff. I have reviewed and when necessary edited, so that they are an adequate record of my encounter with this patient. documented in this encounter [facility] 10-18-2021 Miscellaneous Notes Called patient and phone just kept ringing, there was no voicemail box set up to leave a message. Sunita Jimenez MA ----- Message from Thom Villalba APRN.CNP sent at 10/18/2021 1:20 PM EDT ----- Please inform patient of normal lab results. Thank You. Thom Villalba APRN.CNP documented in this encounter [facility] 10-17-2021 History of Presen t illness Narrative Anabell Payne is a 36 year old female here today acutely because of having: Rash Patient states she started 6 weeks ago with a rash under bilateral axilla between the buttocks, hands and on her chest. There is a red rash with raised edges. She has tried hydrocortisone cream, Lamisil, bacitracin, Neosporin and something called a blue salve. States it is very itchy and at times it lambert. Review of Systems Constitutional: Negative for chills, fatigue and fever. Respiratory: Negative for cough, chest tightness and shortness of breath. Cardiovascular: Negative for chest pain and palpitations. Skin: Positive for rash (Red rash on arms, chest, bilateral axilla, between buttocks.). BP 106/70 (BP Site: Left Arm, BP Position: Sitting, BP Cuff Size: Regular Adult) Pulse 75 Temp 36.7 C (98 F) Resp 20 Ht 167.6 cm (5' 6) Wt 77.1 kg (170 lb) LMP 08/23/2020 (Exact Date) SpO2 97% BMI 27.44 kg/m BMI 27.44 kg/(m^2) ALLERGIES No Known Allergies Physical Exam Vitals and nursing note reviewed. Constitutional: General: She is not in acute distress. Appearance: Normal appearance. She is not diaphoretic. Cardiovascular: Rate and Rhythm: Normal rate and regular rhythm. Pulses: Normal pulses. Heart sounds: Normal heart sounds. No murmur heard. No friction rub. No gallop. Pulmonary: Effort: Pulmonary effort is normal. No respiratory distress. Breath sounds: Normal breath sounds. No stridor. No wheezing, rhonchi or rales. Skin: General: Skin is warm and dry. Findings: Rash (Patient has a red rash that is raised on the edges and later in the center. Rash is as stated in the HPI.) present. Neurological: Mental Status: She is alert and oriented to person, place, and time. Psychiatric: Mood and Affect: Mood normal. Behavior: Behavior normal. Thought Content: Thought content normal. Judgment: Judgment normal. ASSESSMENT/PLAN: 1. Tinea corporis - ICD9: 110.5, ICD10: B35.4 - Keep area of concern very dry. Ok to use OTC antifungal powder if area is moist - Follow up with PCP if symptoms persist or do not improved after 4-6 weeks of treatment. - TERBINAFINE HCL 250 MG TABLET Thom Villalba CNP Follow Up: Return in about 1 year (around 10/17/2022). Voice recognition software utilized. Minor grammatical and/or spelling errors may exist. Portions of this note have been entered by ancillary staff. I have reviewed and when necessary edited, so that they are an adequate record of my encounter with this patient. Medical Decision Making: Problems: Low: Acute, uncomplicated illness or injury Risk: Moderate: Drug management Medical Decision Making Level: 3 - Low documented in this encounter [facility] 10-01-2021 Miscellaneous Notes I left a message for the patient to call the office back. Please see if she would be okay with seeing another provider today since Jose D is not here. Thank you documented in this encounter [facility] Evaluation note Diagnosis Tinea corporis- Primary Dermatophytosis of the body [facility] Diagnosis Dermatitis- Primary Contact dermatitis and other eczema, due to unspecified cause [facility] Diagnosis Allergy, sequela- Primary [facility] Diagnosis Fatigue, unspecified type- Primary Weight increase Abnormal weight gain Vitamin D deficiency Unspecified vitamin D deficiency Screening for cardiovascular condition Screening for other and unspecified cardiovascular conditions Obesity, Class I, BMI 30-34.9 Obesity, unspecified [facility] Diagnosis Encounter for annual general medical examination with abnormal findings in adult- Primary Vitamin D deficiency Unspecified vitamin D deficiency Fatigue, unspecified type Rash Rash and other nonspecific skin eruption Generalized anxiety disorder Mixed hyperlipidemia Idiopathic peripheral neuropathy Unspecified hereditary and idiopathic peripheral neuropathy [facility] Encounter for annual general medical examination with abnormal findings in adult Mixed hyperlipidemia Vitamin D deficiency Unspecified vitamin D deficiency Fatigue, unspecified type Rash Rash and other nonspecific skin eruption [facility] Diagnosis Positive MICHELE (antinuclear antibody)- Primary Other and unspecified nonspecific immunological findings Rash Rash and other nonspecific skin eruption Mixed hyperlipidemia Vitamin D deficiency Unspecified vitamin D deficiency Fatigue, unspecified type Generalized anxiety disorder Idiopathic peripheral neuropathy Unspecified hereditary and idiopathic peripheral neuropathy Family history of colon cancer in father [facility] Diagnosis Family history of colon cancer in father- Primary [facility] Diagnosis Other disturbances of skin sensation [R20.8]- Primary Idiopathic peripheral neuropathy Unspecified hereditary and idiopathic peripheral neuropathy [facility] Diagnosis Idiopathic peripheral neuropathy- Primary Unspecified hereditary and idiopathic peripheral neuropathy Abnormal EMG Nonspecific abnormal electromyogram (EMG) [facility] Diagnosis Idiopathic peripheral neuropathy Unspecified hereditary and idiopathic peripheral neuropathy Abnormal EMG Nonspecific abnormal electromyogram (EMG) [facility] Diagnosis Neck pain Cervicalgia Neck pain- Primary Cervicalgia Encounter for screening for malignant neoplasm of colon- Primary Special screening for malignant neoplasms, colon Encounter for screening for malignant neoplasm of colon Special screening for malignant neoplasms, colon [facility] Diagnosis Neck pain- Primary Cervicalgia Cervical disc disorder with radiculopathy of mid-cervical region Brachial neuritis or radiculitis nos Spinal stenosis of lumbar region, unspecified whether neurogenic claudication present Encounter for screening for malignant neoplasm of colon- Primary Special screening for malignant neoplasms, colon Encounter for screening for malignant neoplasm of colon Special screening for malignant neoplasms, colon [facility] Diagnosis Encounter for screening for malignant neoplasm of colon- Primary Special screening for malignant neoplasms, colon Encounter for screening for malignant neoplasm of colon Special screening for malignant neoplasms, colon Family history of colon cancer in father Obesity, Class I, BMI 30-34.9 Obesity, unspecified [facility] Diagnosis Adenomatous polyp of sigmoid colon- Primary Diverticulosis Diverticulosis of colon (without mention of hemorrhage) [facility] Diagnosis Vitamin D deficiency Unspecified vitamin D deficiency Mixed hyperlipidemia [facility]* Diagnosis Spinal stenosis of lumbar region, unspecified whether neurogenic claudication present [facility] Diagnosis Spinal stenosis of lumbar region, unspecified whether neurogenic claudication present [facility] Diagnosis Cervical disc disorder with radiculopathy of mid-cervical region Brachial neuritis or radiculitis nos [facility]* Diagnosis Paresthesia of skin- Primary Disturbance of skin sensation Carpal tunnel syndrome of right wrist Carpal tunnel syndrome Chronic bilateral low back pain with left-sided sciatica [facility] Diagnosis Positive MICHELE (antinuclear antibody)- Primary Other and unspecified nonspecific immunological findings Vitamin D deficiency Unspecified vitamin D deficiency Mixed hyperlipidemia Cervical spinal stenosis Spinal stenosis in cervical region Idiopathic peripheral neuropathy Unspecified hereditary and idiopathic peripheral neuropathy Rash Rash and other nonspecific skin eruption Fatigue, unspecified type Generalized anxiety disorder Family history of colon cancer in father Family history of heart disease Family history of other cardiovascular diseases Encounter for screening for cardiovascular disorders Screening for other and unspecified cardiovascular conditions [facility] Diagnosis Chronic bilateral low back pain with left-sided sciatica- Primary [facility] Diagnosis Chronic bilateral low back pain with left-sided sciatica- Primary [facility]* Diagnosis Chronic bilateral low back pain with left-sided sciatica- Primary [facility]* Diagnosis Chronic bilateral low back pain with left-sided sciatica- Primary [facility]* Diagnosis Chronic bilateral low back pain with left-sided sciatica- Primary [facility]* Diagnosis Chronic bilateral low back pain with left-sided sciatica- Primary [facility]* Diagnosis Chronic bilateral low back pain with left-sided sciatica- Primary [facility]* Diagnosis Chronic bilateral low back pain with left-sided sciatica- Primary [facility]* Diagnosis Mixed hyperlipidemia- Primary Encounter for annual general medical examination with abnormal findings in adult [facility]* Diagnosis Positive MICHELE (antinuclear antibody)- Primary Other and unspecified nonspecific immunological findings Mixed hyperlipidemia Fatigue, unspecified type Rash Rash and other nonspecific skin eruption Cervical spinal stenosis Spinal stenosis in cervical region Generalized anxiety disorder Routine general medical examination at a [facility] care facility Chronic bilateral low back pain with left-sided sciatica [facility] Diagnosis Acute otitis media, left- Primary Unspecified otitis media [facility]* Diagnosis Mixed hyperlipidemia Family history of heart disease Family history of other cardiovascular diseases Encounter for screening for cardiovascular disorders Screening for other and unspecified cardiovascular conditions documented in this encounter [facility] note* Diagnosis Chronic bilateral low back pain with left-sided sciatica- Primary documented in this encounter [facility] note* Diagnosis Spinal stenosis, lumbar region with neurogenic claudication- Primary 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 documented in this encounter [facility] noteNo assessment information availableWMercer [facility] Work Phone: Evaluation note* Diagnosis Mixed hyperlipidemia- Primary Positive MICHELE (antinuclear antibody) Other and unspecified nonspecific immunological findings Generalized anxiety disorder documented in this encounter [facility] note* Diagnosis Encounter for annual general medical examination without abnormal findings in adult- Primary Positive MICHELE (antinuclear antibody) Other and unspecified nonspecific immunological findings Mixed hyperlipidemia Fatigue, unspecified type Generalized anxiety disorder Cervical spinal stenosis Spinal stenosis in cervical region Chronic bilateral low back pain with left-sided sciatica Idiopathic peripheral neuropathy Unspecified hereditary and idiopathic peripheral neuropathy Rash Rash and other nonspecific skin eruption Vitamin D deficiency Unspecified vitamin D deficiency Encounter for screening examination for other mental health and behavioral disorders Screening for depression documented in this encounter [facility] note* Diagnosis Spinal stenosis, lumbar region with neurogenic claudication- Primary documented in this encounter [facility] note* Diagnosis Sacral foraminal stenosis- Primary Spinal stenosis, other region Spinal stenosis, lumbar region with neurogenic claudication Radiculopathy, lumbosacral region Thoracic or lumbosacral neuritis or radiculitis, unspecified documented in this encounter [facility] for referral (narrative)* Outpatient Procedure (Routine) - Pending Review Specialty Diagnoses / Procedures Referred By Jewels [email or web address] [facility] Diagnoses Idiopathic peripheral neuropathy Procedures EMG(NEURO/NI) NERVE CONDUCTION STUDIES 9-10 STUDIES Emeka Rodriguez MD [address] [place] [address] Neu[facility] [place] [address] [place] [address] Referral ID Status Reason Start Date Expiration Date Visits Requested Visits Authorized [id number] Pending Review Auto-Generat ed Referral 07/13/2023 07/12/2024 1 1 [facility] for referral (narrative)* Outpatient Procedure (Routine) - Pending Review Specialty Diagnoses / Procedures Referred By Contac t Referred To Contact [facility] Diagnoses Family history of colon cancer in father Procedures COLONOSCOPY SCREENING COLONOSCOPY FLX DX W/COLLJ SPEC WHEN PFRMD Swapna Butler, DO [address] [address] [facility] [address] [place] [address] Referral ID Status Reason Start Date Expiration Date Visits Requested Visits Authorized [id number] Pending Review Auto-Generat ed Referral 08/17/2023 08/16/2024 1 1 [facility] for referral (narrative)* Diagnostic Procedure Only (Routine) - Pending Review Specialty Diagnoses / Procedures Referred By Contac t Referred To Contact XR IMAGING Diagnoses Spinal stenosis of lumbar region, unspecified whether neurogenic claudication present Procedures XR LUMBAR MOTION 4V AP/LAT/ FLEX/EXT RADEX SPINE LUMBOSACRAL MINIMUM 4 VIEWS Alexis Jones MD [address] [place] [address] [place] [address] Referral ID Status Reason Start Date Expiration Date Visits Requested Visits Authorized [id number] Pending Review Auto-Generat ed Referral 09/29/2023 10/28/2024 1 1 * MRI/CT (Routine) - Authorized Specialty Diagnoses / Procedures Referred By Contac t Referred To Contact MR IMAGING Diagnoses Spinal stenosis of lumbar region, unspecified whether neurogenic claudication present Procedures MRI LUMBAR SPINE WO IVCON MRI SPINAL CANAL LUMBAR W/O CONTRAST MATERIAL Alexis Jones MD 2 [facility] [place] [address] [place] [address] Referral ID Status Reason Start Date Expiration Date Visits Requested Visits Authorized [id number] Authorized Auto-Generat ed Referral 09/29/2023 10/28/2024 1 1 * MRI/CT (Routine) - Authorized Specialty Diagnoses / Procedures [facility] Diagnoses Cervical disc disorder with radiculopathy of mid-cervical region Procedures MRI CERVICAL SPINE WO/W IVCON MRI SPINAL CANAL CERVICAL W/O & W/CONTR MATRL Alexis Jones MD [address] [facility] [place] [address] [place] [address] Referral ID Status Reason Start Date Expiration Date Visits Requested Visits Authorized [id number] Authorized Auto-Generat ed Referral 09/29/2023 10/28/2024 1 1 * Diagnostic Procedure Only (Routine) - Closed Specialty Diagnoses / Procedures [facility] To Contact XR IMAG[facility] Diagnoses Neck pain Procedures XR CERV OTHER 4V AP/LAT/FLX/EXT RADEX SPINE CERVICAL 4 OR 5 VIEWS Alexis Jones MD [address] [place] [address] [place] [address] Referral ID Status Reason Start Date Expiration Date V isits Requested Visits Authorized [id number] Closed Auto-Generate d Referral 09/24/2023 10/23/2024 1 1 [facility] for referral (narrative)* Outpatient Procedure (Routine) - Closed Specialty Diagnoses / Procedures [facility] Diagnoses Family history of colon cancer in father Procedures COLONOSCOPY SCREENING COLONOSCOPY FLX DX W/COLLJ SPEC WHEN Swapna Romano, DO [address] [place] [address] [facility] [address] [place] [address] Referral ID Status Reason Start Date Expiration Date V isits Requested Visits Authorized [id number] Closed Auto-Generate d Referral 09/18/2023 04/19/2024 1 1 [facility] for referral (narrative)No reason for referral information availableWMercer [facility] Work Phone: Reason for visit Narrative* Outpatient Procedure (Routine) - Closed Specialty Diagnoses / Procedures Referred By Contac t Referred To Contact [facility] Diagnoses Idiopathic peripheral neuropathy Procedures EMG(NEURO/NI) NERVE CONDUCTION STUDIES 9-10 STUDIES Emeka Rodriguez MD [address] [place] [address] [facility] [address] [place] [address] [place] [address] Referral ID Status Reason Start Date Expiration Date V isits Requested Visits Authorized [id number] Closed Auto-Generate d Referral 07/30/2023 04/19/2024 1 1 [facility] for visit Narrative* Diagnostic Procedure Only (Routine) - Closed Specialty Diagnoses / Procedures Referred By Contac t Referred To Contact XR IMAGING Diagnoses Neck pain Procedures XR CERV OTHER 4V AP/LAT/FLX/EXT RADEX SPINE CERVICAL 4 OR 5 VIEWS Alexis Jones MD [address] [place] [address] X[facility] [place] [address] Referral ID Status Reason Start Date Expiration Date V isits Requested Visits Authorized [id number] Closed Auto-Generate d Referral 09/24/2023 10/23/2024 1 1 [facility] for visit Narrative* Outpatient Procedure (Routine) - Closed Specialty Diagnoses / Procedures Referred By Contac t Referred To Contact [facility] Diagnoses Family history of colon cancer in father Procedures COLONOSCOPY SCREENING COLONOSCOPY FLX DX W/COLLJ SPEC WHEN PFRMD Swapna Butler DO [address] [address] [facility] [place] [address] [place] [id number] Referral ID Status Reason Start Date Expiration Date V isits Requested Visits Authorized [id number] Closed Auto-Generate d Referral 09/18/2023 04/19/[address] [facility] Diagnostic Procedure Only (Routine) - Closed Specialty Diagnoses / Procedures Referred By Jewels t Referred To Contact XR IMAGING Diagnoses Spinal stenosis of lumbar region, unspecified whether neurogenic claudication present Procedures XR LUMBAR MOTION 4V AP/LAT/ FLEX/EXT RADEX SPINE LUMBOSACRAL MINIMUM 4 VIEWS Alexis Jones MD [address] [place] [address] [place] [address] Referral ID Status Reason Start Date Expiration Date V isits Requested Visits Authorized [id number] Closed Auto-Generate d Referral 09/29/2023 10/28/[address] [facility] Summary Purpose Family History No Family History Records FoundNo Family History Records FoundNo Family History Records FoundNo Family History Records FoundNo Family History Records FoundNo Family History Records FoundNo Family History Records FoundNo Family History Records FoundNo Family History Records FoundNo Family History Records Found Advance Directives No Advanced Directives Records FoundNo Advanced Directives Records FoundNo Advanced Directives Records FoundNo Advanced Directives Records FoundNo Advanced Directives Records FoundNo Advanced Directives Records FoundNo Advanced Directives Records FoundNo Advanced Directives Records FoundNo Advanced Directives Records FoundNo Advanced Directives Records Found Reason for Referral Specialty Diagnoses / Procedures Referred By Jewels t Referred To Contact Ent - Otolaryngology Diagnoses Allergy, sequela Procedures CONSULT TO ENT Lauren Butler, BARBARA [address] [facility] [place] [address] Tremaine Meyer MD [address] [facility] [address] [place] [address] Referral ID Status Reason Start Date Expiration Date Visits Requested Visits Authorized [id number] Ref Not Required PCP Requested Referral 12/13/2021 03/13/2022 3 3 Specialty Diagnoses / Procedures Referred By Jewels t Referred To Contact General Surgery Diagnoses Family history of colon cancer in father Procedures CONSULT TO GENERAL SURGERY OFFICE/OUTPATIENT NEW HIGH MDM 60 MINUTES Nicole Duvall, DIRECT SUPPORT STAFF.HOME THEATER EXPERIENCE EXPERT [address] [facility] [address] [place] [address] Swapna Butler, DO [address] [place] [address] Referral ID Status Reason Start Date Expiration Date Visits Requested Visits Authorized [id number] Authorized PCP Requested Referral 07/30/2023 07/29/2024 1 1 Specialty Diagnoses / Procedures Referred By Contac t Referred To Contact MR IMAGING Diagnoses Idiopathic peripheral neuropathy Abnormal EMG Procedures MRI CERVICAL SPINE WO IVCON MRI SPINAL CANAL CERVICAL W/O CONTRAST MATRL Nicole Duvall, DIRECT SUPPORT STAFF.HOME THEATER EXPERIENCE EXPERT [address] [place] [address] [place] [address] Referral ID Status Reason Start Date Expiration Date Visits Requested Visits Authorized [id number] Authorized Auto-Generat ed Referral 08/24/2023 09/22/2024 1 1 Referral ID Status Reason Start Date Expiration Date V isits Requested Visits Authorized [id number] Closed Auto-Generate d Referral 08/24/2023 09/22/2024 1 1 Specialty Diagnoses / Procedures Referred By Contac t Referred To Contact MR IMAGING Diagnoses Spinal stenosis of lumbar region, unspecified whether neurogenic claudication present Procedures MRI LUMBAR SPINE WO IVCON MRI SPINAL CANAL LUMBAR W/O CONTRAST MATERIAL Alexis Jones MD [address] [place] [address] [place] [address] Referral ID Status Reason Start Date Expiration Date V isits Requested Visits Authorized [id number] Closed Auto-Generate d Referral 09/29/2023 10/28/2024 1 1 Specialty Diagnoses / Procedures Referred By Contac t Referred To Contact MR IMAGING Diagnoses Cervical disc disorder with radiculopathy of mid-cervical region Procedures MRI CERVICAL SPINE WO/W IVCON MRI SPINAL CANAL CERVICAL W/O & W/CONTR MATRL Alexis Jones MD [address] [place] [address] [place] [address] Referral ID Status Reason Start Date Expiration Date V isits Requested Visits Authorized [id number] Closed Auto-Generate d Referral 09/29/2023 10/28/2024 1 1 Specialty Diagnoses / Procedures Referred By Contac t Referred To Contact [facility] Diagnoses Chronic bilateral low back pain with left-sided sciatica Procedures CONSULT TO PHYSICAL THERAPY PHYSICAL THERAPY EVALUATION [facility] 45 MINS Alexis Jones MD [address] [place] [address] [facility] [address] [place] [address] Referral ID Status Reason Start Date Expiration Date Visits Requested Visits Authorized [id number] Pending Review Auto-Generat ed Referral 11/05/2023 11/04/2024 1 1 Specialty Diagnoses / Procedures Referred By Contac t Referred To Contact Orthopedics Diagnoses Carpal tunnel syndrome of right wrist Procedures CONSULT TO ORTHOPAEDIC SURGERY OFFICE/OUTPATIENT [facility] 60 MINUTES David Perales MD [address] [place] [address] Referral ID Status Reason Start Date Expiration Date Visits Requested Visits Authorized [id number] Authorized PCP Requested Referral 11/05/2023 11/04/2024 1 1 Specialty Diagnoses / Procedures Referred By Contac t Referred To Contact CT IMAGING Diagnoses Mixed hyperlipidemia Family history of heart disease Encounter for screening for cardiovascular disorders Procedures CT CALCIUM SCORING (CARDIAC) WO IVCON CT HEART NO CONTRAST QUANT EVAL CORONRY CALCIUM Nicole Duvall, DIRECT SUPPORT STAFF.HOME THEATER EXPERIENCE EXPERT [address] [address] [place] [address] Referral ID Status Reason Start Date Expiration Date Visits Requested Visits Authorized [id number] New Request Auto-Generat ed Referral 11/05/2023 12/04/2024 1 1 Referral ID Status Reason Start Date Expiration Date Visits Requested Visits Authorized [id number] Waiting for Response Auto-Generat ed Referral 11/05/2023 12/04/2024 1 1 Chief Complaint and Reason for Visit Chief Complaint Admit Date PAIN- COPY PCP May 16, 2024 7 :55am PAIN- COPY PCP July 05, 2024 8:0 0am Additional Source Comments INFORMATION SOURCE (unrecogn ized section and content) DATE CREATED AUTHOR 10/14/2017 [facility] DATE CREATED AUTHOR AUTHOR'S ORGANIZ ATION 10/07/2020 [facility] ([place]) DATE CREATED AUTHOR AUTHOR'S ORGANIZ ATION 10/29/2021 [facility] DATE CREATED AUTHOR AUTHOR'S ORGANIZ ATION 10/27/2022 [facility] DATE CREATED AUTHOR AUTHOR'S ORGANIZ ATION 08/01/2023 [facility] DATE CREATED AUTHOR AUTHOR'S ORGANIZ ATION 08/22/2023 [facility] DATE CREATED AUTHOR AUTHOR'S ORGANIZ ATION 07/15/2024 [facility] DATE CREATED AUTHOR AUTHOR'S ORGANIZ ATION 08/03/2024 [facility] DATE CREATED AUTHOR AUTHOR'S ORGANIZ ATION 08/07/2024 [facility] DATE CREATED AUTHOR AUTHOR'S ORGANIZ ATION 09/29/2024 [facility] Source Comments (unrecognize d section and content) In the event this informatio n is protected by the Federal Confidentiality of Alcohol and Drug Abuse Patient Records regulations: The Federal rules restrict any use of the information to criminally investigate or prosecute any alcohol or drug abuse patient.[facility] the event this information is protected by the Federal Confidentiality of Alcohol and Drug Abuse Patient Records regulations: The Federal rules restrict any use of the information to criminally investigate or prosecute any alcohol or drug abuse patient.[facility] the event this information is protected by the Federal Confidentiality of Alcohol and Drug Abuse Patient Records regulations: The Federal rules restrict any use of the information to criminally investigate or prosecute any alcohol or drug abuse patient.[facility] the event this information is protected by the Federal Confidentiality of Alcohol and Drug Abuse Patient Records regulations: The Federal rules restrict any use of the information to criminally investigate or prosecute any alcohol or drug abuse patient.[facility] the event this information is protected by the Federal Confidentiality of Alcohol and Drug Abuse Patient Records regulations: The Federal rules restrict any use of the information to criminally investigate or prosecute any alcohol or drug abuse patient.[facility] the event this information is protected by the Federal Confidentiality of Alcohol and Drug Abuse Patient Records regulations: The Federal rules restrict any use of the information to criminally investigate or prosecute any alcohol or drug abuse patient.[facility] the event this information is protected by the Federal Confidentiality of Alcohol and Drug Abuse Patient Records regulations: The Federal rules restrict any use of the information to criminally investigate or prosecute any alcohol or drug abuse patient.[facility] the event this information is protected by the Federal Confidentiality of Alcohol and Drug Abuse Patient Records regulations: The Federal rules restrict any use of the information to criminally investigate or prosecute any alcohol or drug abuse patient.[facility] the event this information is protected by the Federal Confidentiality of Alcohol and Drug Abuse Patient Records regulations: The Federal rules restrict any use of the information to criminally investigate or prosecute any alcohol or drug abuse patient.[facility] the event this information is protected by the Federal Confidentiality of Alcohol and Drug Abuse Patient Records regulations: The Federal rules restrict any use of the information to criminally investigate or prosecute any alcohol or drug abuse patient.[facility] the event this information is protected by the Federal Confidentiality of Alcohol and Drug Abuse Patient Records regulations: The Federal rules restrict any use of the information to criminally investigate or prosecute any alcohol or drug abuse patient.[facility] the event this information is protected by the Federal Confidentiality of Alcohol and Drug Abuse Patient Records regulations: The Federal rules restrict any use of the information to criminally investigate or prosecute any alcohol or drug abuse patient.[facility] the event this information is protected by the Federal Confidentiality of Alcohol and Drug Abuse Patient Records regulations: The Federal rules restrict any use of the information to criminally investigate or prosecute any alcohol or drug abuse patient.[facility] the event this information is protected by the Federal Confidentiality of Alcohol and Drug Abuse Patient Records regulations: The Federal rules restrict any use of the information to criminally investigate or prosecute any alcohol or drug abuse patient.[facility] the event this information is protected by the Federal Confidentiality of Alcohol and Drug Abuse Patient Records regulations: The Federal rules restrict any use of the information to criminally investigate or prosecute any alcohol or drug abuse patient.[facility]In the event this information is protected by the Federal Confidentiality of Alcohol and Drug Abuse Patient Records regulations: The Federal rules restrict any use of the information to criminally investigate or prosecute any alcohol or drug abuse patient.[facility] the event this information is protected by the Federal Confidentiality of Alcohol and Drug Abuse Patient Records regulations: The Federal rules restrict any use of the information to criminally investigate or prosecute any alcohol or drug abuse patient.[facility] the event this information is protected by the Federal Confidentiality of Alcohol and Drug Abuse Patient Records regulations: The Federal rules restrict any use of the information to criminally investigate or prosecute any alcohol or drug abuse patient.[facility]In the event this information is protected by the Federal Confidentiality of Alcohol and Drug Abuse Patient Records regulations: The Federal rules restrict any use of the information to criminally investigate or prosecute any alcohol or drug abuse patient.[facility]In the event this information is protected by the Federal Confidentiality of Alcohol and Drug Abuse Patient Records regulations: The Federal rules restrict any use of the information to criminally investigate or prosecute any alcohol or drug abuse patient.[facility]In the event this information is protected by the Federal Confidentiality of Alcohol and Drug Abuse Patient Records regulations: The Federal rules restrict any use of the information to criminally investigate or prosecute any alcohol or drug abuse patient.[facility] the event this information is protected by the Federal Confidentiality of Alcohol and Drug Abuse Patient Records regulations: The Federal rules restrict any use of the information to criminally investigate or prosecute any alcohol or drug abuse patient.[facility]In the event this information is protected by the Federal Confidentiality of Alcohol and Drug Abuse Patient Records regulations: The Federal rules restrict any use of the information to criminally investigate or prosecute any alcohol or drug abuse patient.[facility] HospitalIn the event this information is protected by the Federal Confidentiality of Alcohol and Drug Abuse Patient Records regulations: The Federal rules restrict any use of the information to criminally investigate or prosecute any alcohol or drug abuse patient.[facility]In the event this information is protected by the Federal Confidentiality of Alcohol and Drug Abuse Patient Records regulations: The Federal rules restrict any use of the information to criminally investigate or prosecute any alcohol or drug abuse patient.[facility] HospitalIn the event this information is protected by the Federal Confidentiality of Alcohol and Drug Abuse Patient Records regulations: The Federal rules restrict any use of the information to criminally investigate or prosecute any alcohol or drug abuse patient.[facility] the event this information is protected by the Federal Confidentiality of Alcohol and Drug Abuse Patient Records regulations: The Federal rules restrict any use of the information to criminally investigate or prosecute any alcohol or drug abuse patient.[facility] HospitalIn the event this information is protected by the Federal Confidentiality of Alcohol and Drug Abuse Patient Records regulations: The Federal rules restrict any use of the information to criminally investigate or prosecute any alcohol or drug abuse patient.[facility] HospitalIn the event this information is protected by the Federal Confidentiality of Alcohol and Drug Abuse Patient Records regulations: The Federal rules restrict any use of the information to criminally investigate or prosecute any alcohol or drug abuse patient.[facility] HospitalIn the event this information is protected by the Federal Confidentiality of Alcohol and Drug Abuse Patient Records regulations: The Federal rules restrict any use of the information to criminally investigate or prosecute any alcohol or drug abuse patient.[facility]In the event this information is protected by the Federal Confidentiality of Alcohol and Drug Abuse Patient Records regulations: The Federal rules restrict any use of the information to criminally investigate or prosecute any alcohol or drug abuse patient.[facility] HospitalIn the event this information is protected by the Federal Confidentiality of Alcohol and Drug Abuse Patient Records regulations: The Federal rules restrict any use of the information to criminally investigate or prosecute any alcohol or drug abuse patient.[facility]In the event this information is protected by the Federal Confidentiality of Alcohol and Drug Abuse Patient Records regulations: The Federal rules restrict any use of the information to criminally investigate or prosecute any alcohol or drug abuse patient.[facility]In the event this information is protected by the Federal Confidentiality of Alcohol and Drug Abuse Patient Records regulations: The Federal rules restrict any use of the information to criminally investigate or prosecute any alcohol or drug abuse patient.[facility]In the event this information is protected by the Federal Confidentiality of Alcohol and Drug Abuse Patient Records regulations: The Federal rules restrict any use of the information to criminally investigate or prosecute any alcohol or drug abuse patient.[facility]In the event this information is protected by the Federal Confidentiality of Alcohol and Drug Abuse Patient Records regulations: The Federal rules restrict any use of the information to criminally investigate or prosecute any alcohol or drug abuse patient.[facility]In the event this information is protected by the Federal Confidentiality of Alcohol and Drug Abuse Patient Records regulations: The Federal rules restrict any use of the information to criminally investigate or prosecute any alcohol or drug abuse patient.[facility]In the event this information is protected by the Federal Confidentiality of Alcohol and Drug Abuse Patient Records regulations: The Federal rules restrict any use of the information to criminally investigate or prosecute any alcohol or drug abuse patient.[facility] HospitalIn the event this information is protected by the Federal Confidentiality of Alcohol and Drug Abuse Patient Records regulations: The Federal rules restrict any use of the information to criminally investigate or prosecute any alcohol or drug abuse patient.[facility]In the event this information is protected by the Federal Confidentiality of Alcohol and Drug Abuse Patient Records regulations: The Federal rules restrict any use of the information to criminally investigate or prosecute any alcohol or drug abuse patient.[facility]In the event this information is protected by the Federal Confidentiality of Alcohol and Drug Abuse Patient Records regulations: The Federal rules restrict any use of the information to criminally investigate or prosecute any alcohol or drug abuse patient.[facility] HospitalIn the event this information is protected by the Federal Confidentiality of Alcohol and Drug Abuse Patient Records regulations: The Federal rules restrict any use of the information to criminally investigate or prosecute any alcohol or drug abuse patient.[facility] HospitalIn the event this information is protected by the Federal Confidentiality of Alcohol and Drug Abuse Patient Records regulations: The Federal rules restrict any use of the information to criminally investigate or prosecute any alcohol or drug abuse patient.[facility] HospitalIn the event this information is protected by the Federal Confidentiality of Alcohol and Drug Abuse Patient Records regulations: The Federal rules restrict any use of the information to criminally investigate or prosecute any alcohol or drug abuse patient.[facility] HospitalIn the event this information is protected by the Federal Confidentiality of Alcohol and Drug Abuse Patient Records regulations: The Federal rules restrict any use of the information to criminally investigate or prosecute any alcohol or drug abuse patient.[facility] HospitalIn the event this information is protected by the Federal Confidentiality of Alcohol and Drug Abuse Patient Records regulations: The Federal rules restrict any use of the information to criminally investigate or prosecute any alcohol or drug abuse patient.[facility] HospitalIn the event this information is protected by the Federal Confidentiality of Alcohol and Drug Abuse Patient Records regulations: The Federal rules restrict any use of the information to criminally investigate or prosecute any alcohol or drug abuse patient.[facility] HospitalIn the event this information is protected by the Federal Confidentiality of Alcohol and Drug Abuse Patient Records regulations: The Federal rules restrict any use of the information to criminally investigate or prosecute any alcohol or drug abuse patient.[facility] HospitalIn the event this information is protected by the Federal Confidentiality of Alcohol and Drug Abuse Patient Records regulations: The Federal rules restrict any use of the information to criminally investigate or prosecute any alcohol or drug abuse patient.[facility] HospitalIn the event this information is protected by the Federal Confidentiality of Alcohol and Drug Abuse Patient Records regulations: The Federal rules restrict any use of the information to criminally investigate or prosecute any alcohol or drug abuse patient.[facility] HospitalIn the event this information is protected by the Federal Confidentiality of Alcohol and Drug Abuse Patient Records regulations: The Federal rules restrict any use of the information to criminally investigate or prosecute any alcohol or drug abuse patient.[facility] HospitalIn the event this information is protected by the Federal Confidentiality of Alcohol and Drug Abuse Patient Records regulations: The Federal rules restrict any use of the information to criminally investigate or prosecute any alcohol or drug abuse patient.[facility] HospitalIn the event this information is protected by the Federal Confidentiality of Alcohol and Drug Abuse Patient Records regulations: The Federal rules restrict any use of the information to criminally investigate or prosecute any alcohol or drug abuse patient.[facility] HospitalIn the event this information is protected by the Federal Confidentiality of Alcohol and Drug Abuse Patient Records regulations: The Federal rules restrict any use of the information to criminally investigate or prosecute any alcohol or drug abuse patient.[facility] HospitalIn the event this information is protected by the Federal Confidentiality of Alcohol and Drug Abuse Patient Records regulations: The Federal rules restrict any use of the information to criminally investigate or prosecute any alcohol or drug abuse patient.[facility] HospitalIn the event this information is protected by the Federal Confidentiality of Alcohol and Drug Abuse Patient Records regulations: The Federal rules restrict any use of the information to criminally investigate or prosecute any alcohol or drug abuse patient.[facility] HospitalIn the event this information is protected by the Federal Confidentiality of Alcohol and Drug Abuse Patient Records regulations: The Federal rules restrict any use of the information to criminally investigate or prosecute any alcohol or drug abuse patient.[facility] HospitalIn the event this information is protected by the Federal Confidentiality of Alcohol and Drug Abuse Patient Records regulations: The Federal rules restrict any use of the information to criminally investigate or prosecute any alcohol or drug abuse patient.[facility] HospitalIn the event this information is protected by the Federal Confidentiality of Alcohol and Drug Abuse Patient Records regulations: The Federal rules restrict any use of the information to criminally investigate or prosecute any alcohol or drug abuse patient.[facility] HospitalIn the event this information is protected by the Federal Confidentiality of Alcohol and Drug Abuse Patient Records regulations: The Federal rules restrict any use of the information to criminally investigate or prosecute any alcohol or drug abuse patient.[facility] HospitalIn the event this information is protected by the Federal Confidentiality of Alcohol and Drug Abuse Patient Records regulations: The Federal rules restrict any use of the information to criminally investigate or prosecute any alcohol or drug abuse patient.[facility] HospitalIn the event this information is protected by the Federal Confidentiality of Alcohol and Drug Abuse Patient Records regulations: The Federal rules restrict any use of the information to criminally investigate or prosecute any alcohol or drug abuse patient.[facility] HospitalIn the event this information is protected by the Federal Confidentiality of Alcohol and Drug Abuse Patient Records regulations: The Federal rules restrict any use of the information to criminally investigate or prosecute any alcohol or drug abuse patient.[facility] Care Teams (unrecognized sec tion and content) Bridge Teacher Relationship Specialty Start Date End Date Thom Villalba, DIRECT SUPPORT STAFF.HOME THEATER EXPERIENCE EXPERT [address] [place] [address] PCP - General 07/23/18 Bridge Teacher Relationship Specialty Start Date End Date Thom Villalba, DIRECT SUPPORT STAFF.HOME THEATER EXPERIENCE EXPERT [address] [place] [address] PCP - General 07/23/18 Bridge Teacher Relationship Specialty Start Date End Date Thom Villalba, DIRECT SUPPORT STAFF.HOME THEATER EXPERIENCE EXPERT [address] [place], [place] [address] PCP - General 07/23/18 Bridge Teacher Relationship Specialty Start Date End Date Thom Villalba, DIRECT SUPPORT STAFF.HOME THEATER EXPERIENCE EXPERT [address] [place] [address] PCP - General 07/23/18 Bridge Teacher Relationship Specialty Start Date End Date Thom Villalba, DIRECT SUPPORT STAFF.HOME THEATER EXPERIENCE EXPERT [address] [place] [address] PCP - General 07/23/18 Bridge Teacher Relationship Specialty Start Date End Date Thom Villalba, DIRECT SUPPORT STAFF.HOME THEATER EXPERIENCE EXPERT [address] [place] [address] PCP - General 07/23/18 Bridge Teacher Relationship Specialty Start Date End Date Thom Villalba, DIRECT SUPPORT STAFF.HOME THEATER EXPERIENCE EXPERT [address] [place] [address] PCP - General 07/23/18 Bridge Teacher Relationship Specialty Start Date End Date Thom Villalba, DIRECT SUPPORT STAFF.HOME THEATER EXPERIENCE EXPERT [address] [place], [place] [address] PCP - General 07/23/18 Bridge Teacher Relationship Specialty Start Date End Date Thom Villalba, DIRECT SUPPORT STAFF.HOME THEATER EXPERIENCE EXPERT [address] [place] [address] PCP - General 07/23/18 Bridge Teacher Relationship Specialty Start Date End Date Thom Villalba, DIRECT SUPPORT STAFF.HOME THEATER EXPERIENCE EXPERT [address] [place] [address] PCP - General 4/5/19 Bridge Teacher Relationship Specialty Start Date End Date Duvall, Nicole Treasure, DIRECT SUPPORT STAFF.HOME THEATER EXPERIENCE EXPERT [address] [address] PCP - General Family Medicine 07/13/23 Bridge Teacher Relationship Specialty Start Date End Date Nicole Duvall, DIRECT SUPPORT STAFF.HOME THEATER EXPERIENCE EXPERT [address] [address] PCP - General Family Medicine 07/13/23 Bridge Teacher Relationship Specialty Start Date End Date Nicole Duvall, DIRECT SUPPORT STAFF.HOME THEATER EXPERIENCE EXPERT [address] [address] PCP - General Family Medicine 07/13/23 Bridge Teacher Relationship Specialty Start Date End Date Nicole Duvall, DIRECT SUPPORT STAFF.HOME THEATER EXPERIENCE EXPERT [address] [address] PCP - General Family Medicine 07/13/23 Bridge Teacher Relationship Specialty Start Date End Date Nicole Duvall, DIRECT SUPPORT STAFF.HOME THEATER EXPERIENCE EXPERT [address] [address] PCP - General Family Medicine 07/13/23 Bridge Teacher Relationship Specialty Start Date End Date Nicole Duvall, DIRECT SUPPORT STAFF.HOME THEATER EXPERIENCE EXPERT [address] [address] PCP - General Family Medicine 07/13/23 Bridge Teacher Relationship Specialty Start Date End Date Nicole Duvall, DIRECT SUPPORT STAFF.HOME THEATER EXPERIENCE EXPERT [address] [address] PCP - General Family Medicine 07/13/23 Bridge Teacher Relationship Specialty Start Date End Date Nicole Duvall, DIRECT SUPPORT STAFF.HOME THEATER EXPERIENCE EXPERT [facility] [address] [place] [address] PCP - General Family Medicine 07/13/23 Bridge Teacher Relationship Specialty Start Date End Date Nicole Duvall, DIRECT SUPPORT STAFF.HOME THEATER EXPERIENCE EXPERT [facility] [address] [address] PCP - General Family Medicine 07/13/23 Bridge Teacher Relationship Specialty Start Date End Date DuvallNicole, DIRECT SUPPORT STAFF.HOME THEATER EXPERIENCE EXPERT [facility] [address] [place] [address] PCP - General Family Medicine 07/13/23 Bridge Teacher Relationship Specialty Start Date End Date Nicole Duvall, DIRECT SUPPORT STAFF.HOME THEATER EXPERIENCE EXPERT [address] [address] PCP - General Family Medicine 07/13/23 Bridge Teacher Relationship Specialty Start Date End Date Nicole Duvall, DIRECT SUPPORT STAFF.HOME THEATER EXPERIENCE EXPERT [address] [address] PCP - General Family Medicine 07/13/23 Bridge Teacher Relationship Specialty Start Date End Date Nicole Duvall, DIRECT SUPPORT STAFF.HOME THEATER EXPERIENCE EXPERT [address] [address] PCP - General Family Medicine 07/13/23 Bridge Teacher Relationship Specialty Start Date End Date Nicole Duvall, DIRECT SUPPORT STAFF.HOME THEATER EXPERIENCE EXPERT [facility] [address] [place] [address] PCP - General Family Medicine 07/13/23 Bridge Teacher Relationship Specialty Start Date End Date Nicole Duvall, DIRECT SUPPORT STAFF.HOME THEATER EXPERIENCE EXPERT [address] [place] [address] PCP - General Family Medicine 07/13/23 Bridge Teacher Relationship Specialty Start Date End Date Nicole Duvall, DIRECT SUPPORT STAFF.HOME THEATER EXPERIENCE EXPERT [address] [address] PCP - General Family Medicine 07/13/23 Bridge Teacher Relationship Specialty Start Date End Date Nicole Duvall, DIRECT SUPPORT STAFF.HOME THEATER EXPERIENCE EXPERT [address] [address] PCP - General Family Medicine 07/13/23 Bridge Teacher Relationship Specialty Start Date End Date Nicole Duvall, DIRECT SUPPORT STAFF.HOME THEATER EXPERIENCE EXPERT [address] [address] PCP - General Family Medicine 07/13/23 Bridge Teacher Relationship Specialty Start Date End Date Nicole Duvall, DIRECT SUPPORT STAFF.HOME THEATER EXPERIENCE EXPERT [address] [address] PCP - General Family Medicine 07/13/23 Bridge Teacher Relationship Specialty Start Date End Date Nicole Duvall, DIRECT SUPPORT STAFF.HOME THEATER EXPERIENCE EXPERT [address] [address] PCP - General Family Medicine 07/13/23 Bridge Teacher Relationship Specialty Start Date End Date Nicole Duvall, DIRECT SUPPORT STAFF.HOME THEATER EXPERIENCE EXPERT [address] [address] PCP - General Family Medicine 07/13/23 Bridge Teacher Relationship Specialty Start Date End Date Nicole Duvall, DIRECT SUPPORT STAFF.HOME THEATER EXPERIENCE EXPERT [address] [address] PCP - General Family Medicine 07/13/23 Bridge Teacher Relationship Specialty Start Date End Date Nicole Duvall, DIRECT SUPPORT STAFF.HOME THEATER EXPERIENCE EXPERT [address] [address] PCP - General Family Medicine 07/13/23 Bridge Teacher Relationship Specialty Start Date End Date Nicole Duvall, DIRECT SUPPORT STAFF.HOME THEATER EXPERIENCE EXPERT [address] [address] PCP - General Family Medicine 07/13/23 Bridge Teacher Relationship Specialty Start Date End Date Nicole Duvall, DIRECT SUPPORT STAFF.HOME THEATER EXPERIENCE EXPERT [address] [address] PCP - General Family Medicine 07/13/23 Bridge Teacher Relationship Specialty Start Date End Date Nicole Duvall, DIRECT SUPPORT STAFF.HOME THEATER EXPERIENCE EXPERT [address] [address] PCP - General Family Medicine 07/13/23 Bridge Teacher Relationship Specialty Start Date End Date Nicole Duvall, DIRECT SUPPORT STAFF.HOME THEATER EXPERIENCE EXPERT [address] [address] PCP - General Family Medicine 07/13/23 Bridge Teacher Relationship Specialty Start Date End Date Nicole Duvall, DIRECT SUPPORT STAFF.HOME THEATER EXPERIENCE EXPERT [address] [address] PCP - General Family Medicine 07/13/23 Team Status: Active Member Role Status Dates NICOLE DUVALL Primary Care Provider Active Team Status: Inactive Member Role Status Dates JADIEL DILL Primary Care Provider Active Star t: May 16, 2024 End: May 16, 2024 Dr. Nilam Persaud MD Attending Provider Active Start: May 16, 2024 End: May 16, 2024 Dr. Nilam Persaud MD Referring Provider Active Start: May 16, 2024 End: May 16, 2024 Team Status: Inactive Member Role Status Flaco NICOLE DUVALL Primary Care Provider Active Star t: July 05, 2024 End: July 05, 2024 Dr. Nilam Persaud MD Attending Provider Active Start: July 05, 2024 End: July 05, 2024 Dr. Nilam Persaud MD Referring Provider Active Start: July 05, 2024 End: July 05, 2024 Bridge Teacher Relationship Specialty Start Date End Date Nicole Duvall, DIRECT SUPPORT STAFF.HOME THEATER EXPERIENCE EXPERT [address] [address] PCP - General Family Medicine 07/13/23 Riya Kinney MD, PhD [address] [place] [address] 528013 Pain Management 08/05/24 Swapna Butler DO [address] [place] [address] [address] [place], [place] [address] General Surgery 08/05/24 Bridge Teacher Relationship Specialty Start Date End Date Nicole Duvall, DIRECT SUPPORT STAFF.HOME THEATER EXPERIENCE EXPERT [address] [place] [address] PCP - General Family Medicine 07/13/23 Riya Kinney MD, PhD [address] [place] [address] Pain Management 08/05/24 Swapna Butler DO [address] [place] [address] [address] [place] [address] General Surgery 08/05/24 Bridge Teacher Relationship Specialty Start Date End Date Nicole Duvall, DIRECT SUPPORT STAFF.HOME THEATER EXPERIENCE EXPERT [address] [address] PCP - General Family Medicine 07/13/23 [place] PhD [address] [place] [address] Pain Management 08/05/24 Swapna Butler DO [address] [place] [address] [place] [address] General Surgery 08/05/24 Bridge Teacher Relationship Specialty Start Date End Date Nicole Duvall, DIRECT SUPPORT STAFF.HOME THEATER EXPERIENCE EXPERT [address] [place] [address] PCP - General Family Medicine 07/13/23 Riya Kinney MD, PhD [address] [place] [address] Pain Management 08/05/24 Swapna Butler DO [address] [place] [address] General Surgery 08/05/24 Bridge Teacher Relationship Specialty Start Date End Date Nicole Duvall, DIRECT SUPPORT STAFF.HOME THEATER EXPERIENCE EXPERT [address] [place] [address] PCP - General Family Medicine 07/13/23 Riya Kinney MD, PhD [address] [place] [address] Pain Management 08/05/24 Swapna Butler DO [address] [place] [address] General Surgery 08/05/24 Bridge Teacher Relationship Specialty Start Date End Date Nicole Duvall, DIRECT SUPPORT STAFF.HOME THEATER EXPERIENCE EXPERT [address] [address] PCP - General Family Medicine 07/13/23 Riya Kinney MD, PhD [address] [place] [address] Pain Management 08/05/24 Swapna Butler DO [address] [place] [address] DR KIM [address] [place] [address] General Surgery 08/05/24 Bridge Teacher Relationship Specialty Start Date End Date Nicole Duvall, DIRECT SUPPORT STAFF.HOME THEATER EXPERIENCE EXPERT [address] [place] [address] PCP - General Family Medicine 07/13/23 Riya Kinney MD, PhD [address] [place] [address] Pain Management 08/05/24 Swapna Butler DO [address] [place] [address] [place] [address] General Surgery 08/05/24 Reason for Visit (unrecogniz ed section and content) Reason Comments Physical Therapy Specialty Diagnoses / Procedures Referred By Contac t Referred To Contact [facility] Diagnoses Chronic bilateral low back pain with left-sided sciatica Procedures CONSULT TO PHYSICAL THERAPY PHYSICAL THERAPY EVALUATION HIGH COMPLEX 45 MINS Alexis Jones MD [address] [place] [address] [facility] [address] [place] [address] Referral ID Status Reason Start Date Expiration Date Visits Requested Visits Authorized [id number] Authorized Auto-Generat ed Referral 04/20/2023 04/19/2024 40 40 Reason Comments Rash armpits, back, hands , chest, legs x6 weeks, stress has caused in past Reason Comments Results Reason Comments Rash Reason Comments Fatigue Weight Problem Reason Comments Results Labs Reason Comments Appointment Reason Comments Establish Care Patient states she w ent through a very stressful event a few years ago and since has gained weight, developed rashes, low energyPatient thinks she may have carpal tunnel in her right hand, 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 Reason Comments Nurse Visit-Blood Draw/Flush Mediport Reason Comments Recheck Patient is here for a 2 week follow upNo concernsGoes august 19 for emg Reason Comments Consult Discuss colon, never had one Specialty Diagnoses / Procedures Referred By Contyo t Referred To Contact General Surgery Diagnoses Family history of colon cancer in father Procedures CONSULT TO GENERAL SURGERY OFFICE/OUTPATIENT NEW HIGH MDM 60 MINUTES Nicole Duvall, DIRECT SUPPORT STAFF.HOME THEATER EXPERIENCE EXPERT [address] [employer] [address] [place] [address] Swapna Butler, [facility] [address] [place] [address] Referral ID Status Reason Start Date Expiration Date V isits Requested Visits Authorized [id number] Closed PCP Requested Referral 07/30/2023 07/29/2024 1 1 Reason Comments Results Specialty Diagnoses / Procedures Referred By Contac t Referred To Contact MR IMAGING Diagnoses Idiopathic peripheral neuropathy Abnormal EMG Procedures MRI CERVICAL SPINE WO IVCON MRI SPINAL CANAL CERVICAL W/O CONTRAST MATRL Nicole Duvall, DIRECT SUPPORT STAFF.HOME THEATER EXPERIENCE EXPERT [address] [employer] [address] [place] [address] [place] [address] Referral ID Status Reason Start Date Expiration Date V isits Requested Visits Authorized [id number] Closed Auto-Generate d Referral 08/24/2023 09/22/2024 1 1 Reason Comments New Patient Specialty Diagnoses / Procedures Referred By Contac t Referred To Contact Neurosurgery Diagnoses Cervical spinal stenosis Procedures CONSULT TO NEUROSURGERY OFFICE/OUTPATIENT NEW HIGH MDM 60 MINUTES Nicole Duvall, DIRECT SUPPORT STAFF.HOME THEATER EXPERIENCE EXPERT [facility] [address] [address] Belgica Braga MD [address] [place] [address] Referral ID Status Reason Start Date Expiration Date V isits Requested Visits Authorized [id number] Closed PCP Requested Referral 09/24/2023 09/23/2024 1 1 Reason Comments Established Patient Colonoscopy done 09/18 3 Specialty Diagnoses / Procedures Referred By Contac t Referred To Contact MR IMAGING Diagnoses Spinal stenosis of lumbar region, unspecified whether neurogenic claudication present Procedures MRI LUMBAR SPINE WO IVCON MRI SPINAL CANAL LUMBAR W/O CONTRAST MATERIAL Alexis Jones MD [address] [place] [address] [facility] Referral ID Status Reason Start Date Expiration Date V isits Requested Visits Authorized [id number] Closed Auto-Generate d Referral 09/29/2023 10/28/2024 1 1 Specialty Diagnoses / Procedures Referred By Contac t Referred To Contact MR IMAGING Diagnoses Cervical disc disorder with radiculopathy of mid-cervical region Procedures MRI CERVICAL SPINE WO/W IVCON MRI SPINAL CANAL CERVICAL W/O & W/CONTR MATRL Alexis Jones MD [address] [place] [address] [facility] Referral ID Status Reason Start Date Expiration Date V isits Requested Visits Authorized [id number] Closed Auto-Generate d Referral 09/29/2023 10/28/2024 1 1 Reason Comments Established Patient Reason Comments F/U 3 Month Reason Comments Internal Referrals/resources Reason Comments PT Eval Reason Comments Patient Question Reason Comments Refill Request Reason Comments Hyperlipidemia 3 month follow up. W ants to discuss recent appts with Rheumatology. Reason Comments Cough congestion X4days all symptoms. Patient states her daughter has strep Sore Throat Reason Onset Date Comments Refill Request 03/10/2024 Specialty Diagnoses / Procedures Referred By Contac t Referred To Contact CT IMAGING Diagnoses Mixed hyperlipidemia Family history of heart disease Encounter for screening for cardiovascular disorders Procedures CT CALCIUM SCORING (CARDIAC) WO IVCON CT HEART NO CONTRAST QUANT EVAL CORONRY CALCIUM Nicole Duvall, DIRECT SUPPORT STAFF.HOME THEATER EXPERIENCE EXPERT [address] [place] [address] [place] [address] Referral ID Status Reason Start Date Expiration Date Visits Requested Visits Authorized [id number] Waiting for Response Auto-Generat ed Referral 11/05/2023 12/04/2024 1 1 Reason Comments New Patient Evaluation Reason Comments Injections Reason Comments New Patient Back Pain L5/S1 Herniated disc --has had steroid shots in early 20sSciatica--bilateral, right worsePain radiates down BLE and causes difficulty ambulating Neck Pain C5/C6 causing numbne ss and tingling in hands and down arms Specialty Diagnoses / Procedures Referred By Jewels t Referred To Contact Pain Management Diagnoses Chronic bilateral low back pain with left-sided sciatica Procedures CONSULT TO PAIN MGT Alexis Jones MD [address] [place] [address] Phone: tel: fax: Referral ID Status Reason Start Date Expiration Date V isits Requested Visits Authorized [id number] Closed PCP Requested Referral 06/15/2024 06/15/2025 1 1 Reason Comments Orders Lab orders. Pt will have done at [facility]. Reason Comments Physical PATIENT HERE FOR YEA RLY PHYSICAL NO NEW ISSUES OR CONCERNS NEW TO TAKING GLP 1 THROUGH HERS Results WOULD LIKE TO GO OVE R LABS Reason Comments Procedure Ilesi - lumbar Specialty Diagnoses / Procedures Referred By Contyo t Referred To Contact Pain Management / PAIN MANAGEMENT Diagnoses Spinal stenosis, lumbar region with neurogenic claudication ILESI w fluoro at L5-S1; no restrictions Procedures NJX DX/THER SBST INTRLMNR LMBR/SAC W/IMG GDN PROCEDURE PreRagini mcwilliams APRN.HOME THEATER EXPERIENCE EXPERT [address] [place] [address] Phone: tel: fax: Riya Kinney MD, PhD [address] [place] [address] Phone: tel: fax: Referral ID Status Reason Start Date Expiration Date Visits Re quested Visits Authorized [id number] Closed 08/16/2024 02/12/2025 1 1 Reason Comments Procedure Follow Up ILESI Reason Comments Low Back Pain Reason Comments Injections Questions Goals (unrecognized section and content) Goals may be documented in a n alternate section FOR RECORDS PERTAINING TO PATIENTS WHO ARE OR HAVE BEEN ENROLLED IN A CHEMICAL DEPENDENCY/SUBSTANCEABUSE PROGRAM, SOME INFORMATION MAY BE OMITTED. This clinical summary was aggregated from multiple sources. Caution should be exercised in using it in the provision of clinical care. This summary normalizes information from multiple sources, and as a consequence, information in this document may materially change the coding, format and clinical context of patient data. In addition, data may be omitted in some cases. CLINICAL DECISIONS SHOULD BE BASED ON THE PRIMARY CLINICAL RECORDS. [facility] [employer] [facility]. provides [phone] warranty [phone] [id number] the accuracy [phone] completeness of [phone] in [phone] [id number]
[2024-10-01 11:42] LABS: Absolute Lymphocyte Count 1.24 X10^3/uL (0.83-4.51); Absolute Neutrophil Count 5.1 X10^3/uL (2.0-7.7); Basophil# 0.05 X10^3/uL; Basophil% 0.7 % (0-1); Eosinophil# 0.06 X10^3/uL; Eosinophils% 0.9 % (0-5); Hematocrit 41.1 % (37-47); Hemoglobin 14.1 g/dL (12.0-15.0); Lymphocyte # 1.24 X10^3/ul (0.83-4.51); Lymphocyte % 17.9 % (19-41); Mean Corp Hgb Conc 34.3 g/dL (32-36); Mean Corpuscular Hgb 32.9 pg (27.0-32.0); Mean Platelet Vol. 11.3 fl (6.2-12.0); Monocyte# 0.52 X10^3/uL; Monocyte% 7.5 % (0-10); NRBC Flagged by Analyzer 0 % (0-5); Neutrophil # 5.06 X10^3/uL (2.7-7.7); Neutrophil % 72.9 % (47-70); Platelet Count 217 K/mm3 (150-450); RBC Distribution Width SD 45.7 fl (35.1-43.9); Red Blood Count 4.28 M/mm3 (4.2-5.4); White Blood Count 6.9 K/mm3 (4.4-11.0)
[2024-10-01 13:02] LABS: ALB/GLOB Ratio 1.6 RATIO (0.9-2.4); AST(SGOT) 20 U/L (<=31); Alanine Aminotransfer ALT/SGPT 19 U/L (<=34); Albumin, Serum 4.4 g/dL (3.5-5.0); Alkaline Phosphatase 79 U/L (35-104); Anion Gap 12 (5-15); BUN 14 mg/dL (4-19); BUN/Creat Ratio 14.9 RATIO (10-20); Calcium,Total 9.3 mg/dL (7.6-11.0); Carbon Dioxide 22.6 mmol/L (21.0-32.0); Chloride 105 mmol/L (98-108); Creatinine, Serum 0.96 mg/dL (0.70-1.20); EST Glomerular Filtration Rate 78 (>60); Globulin 2.7 g/dL (2.2-4.2); Glucose 83 mg/dL (70-99); Protein, Total 7.1 g/dL (5.9-8.4); Sodium Level 139 mmol/L (133-145); Total Bilirubin 0.39 mg/dL (0.00-1.30)
== END | disposition home or self-care (01) ==
LOC: LAB 10:26
PROVIDERS: Referring Provider Internal Medicine Rheumatology; Visit Provider Internal Medicine Rheumatology
DX: M06.4 Inflammatory polyarthropathy (principal); R76.8 Other specified abnormal immunological findings in serum; G56.01 Carpal tunnel syndrome, right upper limb; Z79.899 Other long term (current) drug therapy
CPT/HCPCS: 36415; 80053; 85025

== ENCOUNTER → 2024-12-26 | Outpatient (CLI) | payer OTHER, SELFPAY ==
[2024-12-26 15:06] LABS: Hematocrit 41.6 % (37-47); Hemoglobin 14.0 g/dL (12.0-15.0); Immature Granulocytes Count 0.010 X10^3/uL (0.0-0.0); Mean Corp Hgb Conc 33.7 g/dL (32-36); Mean Corpuscular Volume 95.9 fL (81-99); Mean Platelet Vol. 12.0 fl (6.2-12.0); NRBC Flagged by Analyzer 0 % (0-5); Platelet Count 189 K/mm3 (150-450); RBC Distribution Width CV 11.9 % (11.6-14.6); RBC Distribution Width SD 41.9 fl (35.1-43.9); Red Blood Count 4.34 M/mm3 (4.2-5.4); White Blood Count 6.3 K/mm3 (4.4-11.0)
[2024-12-26 15:31] LABS: AST(SGOT) 19 U/L (<=31); Alanine Aminotransfer ALT/SGPT 18 U/L (<=34); Albumin, Serum 4.3 g/dL (3.5-5.0); Alkaline Phosphatase 71 U/L (35-104); Anion Gap 12 (5-15); BUN 10 mg/dL (4-19); BUN/Creat Ratio 11.6 RATIO (10-20); Calcium,Total 9.6 mg/dL (7.6-11.0); Carbon Dioxide 23.7 mmol/L (21.0-32.0); Chloride 104 mmol/L (98-108); Globulin 2.8 g/dL (2.2-4.2); Glucose 90 mg/dL (70-99); Potassium 3.9 mmol/L (3.3-5.1)
== END | disposition home or self-care (01) ==
LOC: MTLAB 09:33
PROVIDERS: Referring Provider Internal Medicine Rheumatology; Visit Provider Internal Medicine Rheumatology
DX: M06.4 Inflammatory polyarthropathy (principal); Z79.899 Other long term (current) drug therapy; R76.8 Other specified abnormal immunological findings in serum; G56.01 Carpal tunnel syndrome, right upper limb
CPT/HCPCS: 36415; 80053; 85025